=== PATIENT | male | born 1955 | race Caucasian/White ===

== ENCOUNTER 2020-11-15 20:05 | Inpatient (IN) | payer MEDICARE, BC ==
--- NOTE | 2020-11-15 21:06 | ED ---
General Adult HPI - General Chief complaint: Extremity Problem,Nontraumatic Stated complaint: Leg swelling, poss uti Time Seen by Provider: 11/15/20 20:14 Source: patient Mode of arrival: wheelchair Limitations: no limitations - History of Present Illness Initial comments: 65 year-old male patient presents to the emergency department today for evaluation of frequency of urination, weakness, and leg swelling. He states he has been having increasing difficulty with these symptoms for the last three weeks. States over the last 3 days the urination has gotten worse. States he feels the urge to urinate almost constantly. States he does have a bitter taste in his mouth and no appetite. Denies any fever or chills. Denies any cough or congestion. Patient denies any recent rash, cough, shortness of breath, chest pain, abdominal pain, diarrhea, constipation, back pain, numbness, tingling, dizziness, weakness, headache, visual changes, or any other complaints. - Related Data Home Medications Medication Instructions Recorded Confirmed Tamsulosin HCl [Flomax] 0.4 mg PO HS 02/04/16 11/15/20 gemfibroziL [Lopid] 600 mg PO DAILY 02/04/16 11/15/20 ALPRAZolam [Xanax] 0.25 mg PO Q8H PRN 11/15/20 11/15/20 Losartan Potassium 100 mg PO DAILY 11/15/20 11/15/20 atenoloL [Tenormin] 25 mg PO BID 11/15/20 11/15/20 traMADol HCL 50 mg PO Q8H PRN 11/15/20 11/15/20 Allergies Allergy/AdvReac Type Severity Reaction Status Date / Time No Known Allergies Allergy Verified 11/15/20 21:12 Review of Systems ROS Statement: Those systems with pertinent positive or pertinent negative responses have been documented in the HPI. ROS Other: All systems not noted in ROS Statement are negative. Past Medical History Past Medical History: Hypertension, Prostate Disorder Additional Past Medical History / Comment(s): dehydration, low B/P, kidney problem that was fixed with fluids and sodium was low. Additional hx: BPH, DDD-cervical pain, R/L hand fingers tingling if over used, AGE 18 FX RT FEMUR IN 4 PLACES HAD PLATE/SCEWS-SINCE REMOVED, HAS OPIOD INDUCED CONSTIPATION, TINNITUS bilaterally but pt has noticed it has decreased since he quit smoking, hay fever. History of Any Multi-Drug Resistant Organisms: None Reported Past Surgical History: No Surgical Hx Reported, Joint Replacement, Orthopedic Surgery Additional Past Surgical History / Comment(s): bilateral CATARACTS, ANT CERVICAL DISCECTOMY/FUSION C4,5,6,7 USING CADAVOR BONE. LT HYDROCELE, LT CARPAL TUNNEL, RT FEMUR SX METAL SINCE REMOVED, COLONOSCOPY, CYSTS REMOVED FROM FOREHEAD,BUTTOCKS,;T ORIENTAL ORTHODOX. PROSTATE BX X2-BENIGN, partial R knee replacement. Past Anesthesia/Blood Transfusion Reactions: No Reported Reaction Past Psychological History: No Psychological Hx Reported Smoking Status: Current every day smoker Past Alcohol Use History: Daily Past Drug Use History: None Reported - Past Family History Father Family Medical History: COPD, Dementia Additional Family Medical History / Comment(s): Father at age 84yrs. Mother Family Medical History: Cancer, COPD Additional Family Medical History / Comment(s): NASAL/THROAT CANCER. Mother di ed at age 82 General Exam Limitations: no limitations General appearance: alert, in no apparent distress, other (Physical well-developed, well-nourished adult male patient in no acute distress. Vital signs upon presentation are temperature 98.0F, pulse 92, respirations 18 blood pressure 116/72, pulse ox 100% on room air.) Eye exam: Present: normal appearance, PERRL, EOMI. Absent: scleral icterus, conjunctival injection, periorbital swelling Respiratory exam: Present: normal lung sounds bilaterally. Absent: respiratory distress, wheezes, rales, rhonchi, stridor Cardiovascular Exam: Present: regular rate, normal rhythm, normal heart sounds. Absent: systolic murmur, diastolic murmur, rubs, gallop, clicks GI/Abdominal exam: Present: soft, normal bowel sounds. Absent: distended, tenderness, guarding, rebound, rigid Extremities exam: Present: full ROM, normal capillary refill, other (Edema of the ankles and feet, 2+ pitting). Absent: tenderness, pedal edema, joint swelling, calf tenderness Neurological exam: Present: alert, oriented X3, CN II-XII intact Psychiatric exam: Present: normal affect, normal mood Skin exam: Present: warm, dry, intact, normal color. Absent: rash Course Vital Signs 11/15/20 11/15/20 11/15/20 20:07 21:11 22:00 Temperature 98.0 F Pulse Rate 92 87 80 Respiratory 18 19 19 Rate Blood Pressure 116/72 109/58 115/56 O2 Sat by Pulse 100 97 99 Oximetry 11/15/20 22:58 Temperature Pulse Rate 85 Respiratory 20 Rate Blood Pressure 115/62 O2 Sat by Pulse 99 Oximetry Medical Decision Making - Medical Decision Making 65-year-old male patient presents to the emergency department today for evaluation of urinary frequency and suprapubic discomfort. He is also reporting lower extremity swelling, general malaise, no appetite. Denied fever or chills. Bladder scan was obtained postvoid residual showed greater than 999 mL in the bladder. We did insert a Epps catheter he had 2500 mL of output in the emergency department. Labs reviewed and did reveal elevated white blood cell count at 25,000. He also had increased BUN and creatinine consistent with acute kidney injury most likely post renal due to obstruction. He did have evidence for urinary tract infection. We did start Rocephin IV. Covid swab was sent. He'll be admitted to the hospital for further evaluation and monitoring. He is agreeable this plan. - Lab Data Result diagrams: 11/15/20 21:13 11/15/20 21:13 Lab Results 11/15/20 11/15/20 11/15/20 Range/Units 21:13 21:13 21:13 WBC 25.6 H (3.8-10.6) k/uL RBC 3.85 L (4.30-5.90) m/uL Hgb 12.2 L (13.0-17.5) gm/dL Hct 37.9 L (39.0-53.0) % MCV 98.4 (80.0-100.0) fL MCH 31.8 (25.0-35.0) pg MCHC 32.3 (31.0-37.0) g/dL RDW 14.1 (11.5-15.5) % Plt Count 97 L (150-450) k/uL MPV 10.6 Neutrophils % 96 % Lymphocytes % 2 % Monocytes % 2 % Eosinophils % 0 % Basophils % 0 % Neutrophils # 24.4 H (1.3-7.7) k/uL Lymphocytes # 0.5 L (1.0-4.8) k/uL Monocytes # 0.5 (0-1.0) k/uL Eosinophils # 0.1 (0-0.7) k/uL Basophils # 0.1 (0-0.2) k/uL Sodium 132 L (137-145) mmol/L Potassium 3.6 (3.5-5.1) mmol/L Chloride 107 (98-107) mmol/L Carbon Dioxide 16 L (22-30) mmol/L Anion Gap 9 mmol/L BUN 83 H (9-20) mg/dL Creatinine 3.47 H (0.66-1.25) mg/dL Est GFR (CKD-EPI)AfAm 20 (>60 ml/min/1.73 sqM) Est GFR (CKD-EPI)NonAf 17 (>60 ml/min/1.73 sqM) Glucose 103 H (74-99) mg/dL Plasma Lactic Acid Drake (0.7-2.0) mmol/L Calcium 8.4 (8.4-10.2) mg/dL Magnesium 1.5 L (1.6-2.3) mg/dL Total Bilirubin 1.9 H (0.2-1.3) mg/dL AST 36 (17-59) U/L ALT 26 (4-49) U/L Alkaline Phosphatase 87 (38-126) U/L Total Protein 5.7 L (6.3-8.2) g/dL Albumin 2.4 L (3.5-5.0) g/dL Urine Color Yellow Urine Appearance Turbid (Clear) Urine pH 6.0 (5.0-8.0) Ur Specific [place] 1.012 (1.001-1.035) Urine Protein 1+ H (Negative) Urine Glucose (UA) Negative (Negative) Urine Ketones Negative (Negative) Urine Blood Moderate H (Negative) Urine Nitrite Negative (Negative) Urine Bilirubin Negative (Negative) Urine Urobilinogen <2.0 (<2.0) mg/dL Ur Leukocyte Esterase Large H (Negative) Urine RBC 23 H (0-5) /hpf Urine WBC >182 H (0-5) /hpf Urine WBC Clumps Many H (None) /hpf Ur Squamous Epith Cells 5 H (0-4) /hpf Urine Bacteria Many H (None) /hpf 12/24/20 Range/Units 22:02 WBC (3.8-10.6) k/uL RBC (4.30-5.90) m/uL Hgb (13.0-17.5) gm/dL Hct (39.0-53.0) % MCV (80.0-100.0) fL MCH (25.0-35.0) pg MCHC (31.0-37.0) g/dL RDW (11.5-15.5) % Plt Count (150-450) k/uL MPV Neutrophils % % Lymphocytes % % Monocytes % % Eosinophils % % Basophils % % Neutrophils # (1.3-7.7) k/uL Lymphocytes # (1.0-4.8) k/uL Monocytes # (0-1.0) k/uL Eosinophils # (0-0.7) k/uL Basophils # (0-0.2) k/uL Sodium (137-145) mmol/L Potassium (3.5-5.1) mmol/L Chloride (98-107) mmol/L Carbon Dioxide (22-30) mmol/L Anion Gap mmol/L BUN (9-20) mg/dL Creatinine (0.66-1.25) mg/dL Est GFR (CKD-EPI)AfAm (>60 ml/min/1.73 sqM) Est GFR (CKD-EPI)NonAf (>60 ml/min/1.73 sqM) Glucose (74-99) mg/dL Plasma Lactic Acid Drake 1.4 (0.7-2.0) mmol/L Calcium (8.4-10.2) mg/dL Magnesium (1.6-2.3) mg/dL Total Bilirubin (0.2-1.3) mg/dL AST (17-59) U/L ALT (4-49) U/L Alkaline Phosphatase (38-126) U/L Total Protein (6.3-8.2) g/dL Albumin (3.5-5.0) g/dL Urine Color Urine Appearance (Clear) Urine pH (5.0-8.0) Ur Specific [place] (1.001-1.035) Urine Protein (Negative) Urine Glucose (UA) (Negative) Urine Ketones (Negative) Urine Blood (Negative) Urine Nitrite (Negative) Urine Bilirubin (Negative) Urine Urobilinogen (<2.0) mg/dL Ur Leukocyte Esterase (Negative) Urine RBC (0-5) /hpf Urine WBC (0-5) /hpf Urine WBC Clumps (None) /hpf Ur Squamous Epith Cells (0-4) /hpf Urine Bacteria (None) /hpf - Radiology Data Radiology results: report reviewed, image reviewed Two-view x-ray of the chest is obtained. Report was reviewed in its entirety. Impression by Dr. Johnston shows no acute cardio pulmonary process. Disposition Clinical Impression: Urinary retention, UTI (urinary tract infection), Acute kidney injury, Leukocytosis Disposition: ADMITTED IP TO THIS [facility] Condition: Serious Decision to Admit Reason: Admit from EC Decision Date: 11/15/20 Decision Time: 22:58
[2020-11-15 21:36] LABS: Appearance,Urine Turbid (Clear); Bacteria,Urine Many /hpf; Bilirubin,Urine Negative (Negative); Blood,Urine Moderate (Negative); Color,Urine Yellow; Glucose,Urine (UA) Negative (Negative); Ketones,Urine Negative (Negative); Leukocyte Esterase,Urine Large (Negative); Nitrite,Urine Negative (Negative); Protein,Urine 1+ (Negative); RBC,Urine 23 /hpf (0-5); Squamous Epithelial Cell,Urine 5 /hpf (0-4); Urobilinogen,Urine <2.0 mg/dL (<2.0); WBC,Urine >182 /hpf (0-5)
[2020-11-15 21:38] LABS: Specific Gravity,Urine 1.012 (1.001-1.035)
[2020-11-15 21:40] LABS: Basophils # (A) 0.1 k/uL (0-0.2); Basophils % (A) 0 %; Eosinophils # (A) 0.1 k/uL (0-0.7); Eosinophils % (A) 0 %; HCT 37.9 % (39.0-53.0); HGB 12.2 gm/dL (13.0-17.5); Lymphocytes # (A) 0.5 k/uL (1.0-4.8); Lymphocytes % (A) 2 %; MCH 31.8 pg (25.0-35.0); MCHC 32.3 g/dL (31.0-37.0); MCV 98.4 fL (80.0-100.0); Mean Platelet Volume 10.6; Monocytes # (A) 0.5 k/uL (0-1.0); Monocytes % (A) 2 %; Neutrophils # (A) 24.4 k/uL (1.3-7.7); Neutrophils % (A) 96 %; Platelet Count 97 k/uL (150-450); RBC 3.85 m/uL (4.30-5.90); RDW 14.1 % (11.5-15.5); WBC 25.6 k/uL (3.8-10.6)
[2020-11-15 21:55] LABS: Albumin 2.4 g/dL (3.5-5.0); Calcium 8.4 mg/dL (8.4-10.2); Magnesium 1.5 mg/dL (1.6-2.3); Potassium 3.6 mmol/L (3.5-5.1); Total Bilirubin 1.9 mg/dL (0.2-1.3); Total Protein 5.7 g/dL (6.3-8.2)
[2020-11-15] MEDS ORDERED: cefTRIAXone IN SWFI 1,000 MG/10 ML SYRINGE IVP STA (22:51)
[2020-11-15] MEDS ORDERED: ACETAMINOPHEN TAB 325 MG TAB PO PRN (22:53)
[2020-11-15] MEDS ORDERED: NALOXONE 0.4 MG/ML 1 ML VIAL IV PRN (22:53)
--- NOTE | 2020-11-15 23:16 | XR ---
EXAM: XR Chest, 2 Views CLINICAL HISTORY: ITS.REASON XR Reason: weak TECHNIQUE: Frontal and lateral views of the chest. COMPARISON: 02/18/2016 FINDINGS: Lungs: No consolidation or mass. Pleural space: No effusion. Heart: Upper limits of normal for size. Bones/joints: No acute findings. IMPRESSION: No acute cardiopulmonary process.
[2020-11-15] MEDS ORDERED: traMADol 50 MG TAB PO PRN (23:17)
[2020-11-15] MEDS: SODIUM CHLORIDE 0.9% 1,000 ML IV SCH (23:25)
[2020-11-15] MEDS ORDERED: ALPRAZolam 0.25 MG TAB PO PRN (23:45)
[2020-11-16 07:10] LABS: Potassium 2.8 mmol/L (3.5-5.1)
[2020-11-16 07:14] LABS: Basophils % (A) 0 %; Eosinophils % (A) 0 %; HCT 31.3 % (39.0-53.0); HGB 10.2 gm/dL (13.0-17.5); Lymphocytes % (A) 4 %; MCH 32.3 pg (25.0-35.0); MCHC 32.8 g/dL (31.0-37.0); MCV 98.6 fL (80.0-100.0); Mean Platelet Volume 11.4; Monocytes # (A) 0.8 k/uL (0-1.0); Monocytes % (A) 3 %; Neutrophils # (A) 24.7 k/uL (1.3-7.7); Neutrophils % (A) 92 %; RBC 3.17 m/uL (4.30-5.90); RDW 14.2 % (11.5-15.5); WBC 26.9 k/uL (3.8-10.6)
[2020-11-16] MEDS ORDERED: Potassium Replacement Protocol 1 EACH MISC MISCELLANE PRN (07:23)
[2020-11-16] MEDS: POTASSIUM CHLORIDE ER 20 MEQ TAB.ER PO SCH ×5 (07:33→15:43)
[2020-11-16] MEDS: FENOFIBRATE 160 MG TAB PO SCH (07:33)
[2020-11-16] MEDS: atenoloL 25 MG TAB PO SCH ×2 (07:33→20:12)
[2020-11-16 08:00] LABS: Anisocytosis (M) Present; Hypochromasia (M) Present; Platelet Count 88 k/uL (150-450); Poikilocytosis (M) Present
[2020-11-16] MEDS ORDERED: LOSARTAN 50 MG TAB PO SCH (09:00)
--- NOTE | 2020-11-16 10:25 | P.HPIM ---
History of Present Illness 65-year-old male came in with complaints of frequent urination. Patient has issues with the urination he only dribbles. Patient denied any dysuria denied any fever chills although patient is found to have significantly abnormal urine with large leukocyte esterase elevated white blood cell count and RBCs. Epps catheter was placed and patient was given Rocephin and subsequently admitted for UTI. Patient also has acute renal failure with creatinine going up to 3.4 came down to 2.9 after Epps catheter placement. Ultrasound of the kidney and the urinary bladder were ordered. Patient is already on Flomax at home and neurolo gy will be consulted. Nephrology will be consulted patient baseline creatinine is around 1. Patient does have leukocytosis. Review of Systems REVIEW OF SYSTEMS: CONSTITUTIONAL: No fever, no malaise, no fatigue. HEENT: No recent visual problems or hearing problems. Denied any sore throat. CARDIOVASCULAR: No chest pain, orthopnea, PND, no palpitations, no syncope. PULMONARY: No shortness of breath, no cough, no hemoptysis. GASTROINTESTINAL: No diarrhea, no nausea, no vomiting, no abdominal pain. NEUROLOGICAL: No headaches, no weakness, no numbness. HEMATOLOGICAL: Denies any bleeding or petechiae. GENITOURINARY: As mentioned in HPI MUSCULOSKELETAL/RHEUMATOLOGICAL: Denies any joint pain, swelling, or any muscle pain. ENDOCRINE: Denies any polyuria or polydipsia. The rest of the 14-point review of systems is negative. Past Medical History Past Medical History: Hypertension, Prostate Disorder Additional Past Medical History / Comment(s): dehydration, low B/P, kidney problem that was fixed with fluids and sodium was low. Additional hx: BPH, DDD-cervical pain, R/L hand fingers tingling if over used, AGE 18 FX RT FEMUR IN 4 PLACES HAD PLATE/SCEWS-SINCE REMOVED, HAS OPIOD INDUCED CONSTIPATION, TINNITUS bilaterally but pt has noticed it has decreased since he quit smoking, hay fever. History of Any Multi-Drug Resistant Organisms: None Reported Past Surgical History: No Surgical Hx Reported, Joint Replacement, Orthopedic Surgery Additional Past Surgical History / Comment(s): bilateral CATARACTS, ANT CERVICAL DISCECTOMY/FUSION C4,5,6,7 USING CADAVOR BONE. LT HYDROCELE, LT CARPAL TUNNEL, RT FEMUR SX METAL SINCE REMOVED, COLONOSCOPY, CYSTS REMOVED FROM FOREHEAD,BUTTOCKS,;T CONGREGATION. PROSTATE BX X2-BENIGN, partial R knee replacement. Past Anesthesia/Blood Transfusion Reactions: No Reported Reaction Past Psychological History: No Psychological Hx Reported Smoking Status: Current every day smoker Past Alcohol Use History: Daily Past Drug Use History: None Reported - Past Family History Father Family Medical History: COPD, Dementia Additional Family Medical History / Comment(s): Father at age 84yrs. Mother Family Medical History: Cancer, COPD Additional Family Medical History / Comment(s): NASAL/THROAT CANCER. Mother at age 82 Medications and Allergies Home Medications Medication Instructions Recorded Confirmed Type Tamsulosin HCl [Flomax] 0.4 mg PO HS 02/04/16 11/15/20 History gemfibroziL [Lopid] 600 mg PO DAILY 02/04/16 11/15/20 History ALPRAZolam [Xanax] 0.25 mg PO Q8H PRN 11/15/20 11/15/20 History Losartan Potassium 100 mg PO DAILY 11/15/20 11/15/20 History atenoloL [Tenormin] 25 mg PO BID 11/15/20 11/15/20 History traMADol HCL 50 mg PO Q8H PRN 11/15/20 11/15/20 History Allergies Allergy/AdvReac Type Severity Reaction Status Date / Time No Known Allergies Allergy Verified 11/15/20 21:12 Physical Exam Vitals: Vital Signs Temp Pulse Pulse Resp BP BP Pulse Ox 11/16/20 07:53 97.7 F 77 16 119/63 99 11/16/20 02:00 97.8 F 80 117/53 97 11/16/20 00:45 97.6 F 85 18 120/66 98 11/16/20 00:25 98.4 F 84 19 110/78 98 11/15/20 22:58 85 20 115/62 99 11/15/20 22:00 80 19 115/56 99 11/15/20 21:11 87 19 109/58 97 11/15/20 20:07 98.0 F 92 18 116/72 100 Intake and Output 11/15/20 11/16/20 11/16/20 22:59 06:59 14:59 Intake Total 200 Output Total 999 2800 Balance -999 -2800 200 Intake: Oral 200 Output: Urine 2800 Post Void Residual 999 Other: Voiding Method Indwelling Catheter Weight 83.915 kg 82 kg PHYSICAL EXAMINATION: GENERAL: The patient is alert and oriented x3, not in any acute distress. Well developed, well nourished. HEENT: Pupils are round and equally reacting to light. EOMI. No scleral icterus. No conjunctival pallor. Normocephalic, atraumatic. No pharyngeal erythema. No thyromegaly. CARDIOVASCULAR: S1 and S2 present. No murmurs, rubs, or gallops. PULMONARY: Chest is clear to auscultation, no wheezing or crackles. ABDOMEN: Soft, nontender, nondistended, normoactive bowel sounds. No palpable organomegaly. MUSCULOSKELETAL: No joint swelling or deformity. EXTREMITIES: No cyanosis, clubbing, or pedal edema. NEUROLOGICAL: Gross neurological examination did not reveal any focal deficits. SKIN: No rashes. Results CBC & Chem 7: 11/16/20 06:41 11/16/20 06:41 Labs: Abnormal Lab Results - Last 24 Hours (Table) 11/15/20 11/15/20 11/15/20 Range/Units 21:13 21:13 21:13 WBC 25.6 H (3.8-10.6) k/uL RBC 3.85 L (4.30-5.90) m/uL Hgb 12.2 L (13.0-17.5) gm/dL Hct 37.9 L (39.0-53.0) % Plt Count 97 L (150-450) k/uL Neutrophils # 24.4 H (1.3-7.7) k/uL Lymphocytes # 0.5 L (1.0-4.8) k/uL Sodium 132 L (137-145) mmol/L Potassium (3.5-5.1) mmol/L Chloride (98-107) mmol/L Carbon Dioxide 16 L (22-30) mmol/L BUN 83 H (9-20) mg/dL Creatinine 3.47 H (0.66-1.25) mg/dL Glucose 103 H (74-99) mg/dL Calcium (8.4-10.2) mg/dL Magnesium 1.5 L (1.6-2.3) mg/dL Total Bilirubin 1.9 H (0.2-1.3) mg/dL Total Protein 5.7 L (6.3-8.2) g/dL Albumin 2.4 L (3.5-5.0) g/dL Urine Protein 1+ H (Negative) Urine Blood Moderate H (Negative) Ur Leukocyte Esterase Large H (Negative) Urine RBC 23 H (0-5) /hpf Urine WBC >182 H (0-5) /hpf Urine WBC Clumps Many H (None) /hpf Ur Squamous Epith Cells 5 H (0-4) /hpf Urine Bacteria Many H (None) /hpf 11/16/20 11/16/20 Range/Units 06:41 06:41 WBC 26.9 H (3.8-10.6) k/uL RBC 3.17 L (4.30-5.90) m/uL Hgb 10.2 L (13.0-17.5) gm/dL Hct 31.3 L (39.0-53.0) % Plt Count 88 L (150-450) k/uL Neutrophils # 24.7 H (1.3-7.7) k/uL Lymphocytes # (1.0-4.8) k/uL Sodium 134 L (137-145) mmol/L Potassium 2.8 L (3.5-5.1) mmol/L Chloride 110 H (98-107) mmol/L Carbon Dioxide 15 L (22-30) mmol/L BUN 73 H (9-20) mg/dL Creatinine 2.92 H (0.66-1.25) mg/dL Glucose 123 H (74-99) mg/dL Calcium 8.0 L (8.4-10.2) mg/dL Magnesium (1.6-2.3) mg/dL Total Bilirubin (0.2-1.3) mg/dL Total Protein (6.3-8.2) g/dL Albumin (3.5-5.0) g/dL Urine Protein (Negative) Urine Blood (Negative) Ur Leukocyte Esterase (Negative) Urine RBC (0-5) /hpf Urine WBC (0-5) /hpf Urine WBC Clumps (None) /hpf Ur Squamous Epith Cells (0-4) /hpf Urine Bacteria (None) /hpf Thrombosis Risk Factor Assmnt - Choose All That Apply Each Factor Represents 1 point: Obesity (BMI >25), Swollen legs (current) Each Risk Factor Represents 2 Points: Age 61-74 years Thrombosis Risk Factor Assessment Total Risk Factor Score: 4 Thrombosis Risk Factor Assessment Level: Moderate Risk Assessment and Plan Plan: -Urinary tract infection: Probably secondary to prostatic hypertrophy or prostatic issues and urinary retention. Patient will be continued on Rocephin awaiting urine cultures -Acute renal failure secondary to obstructive uropathy awaiting ultrasound kidney and urinary bladder continue with Epps catheter urology was consulted, nephrology was consulted. -Non-anion gap metabolic acidosis secondary to acute renal failure and hyperkalemia -Hypomagnesemia magnesium will be replaced -Hypertension patient blood pressure is low normal at this time and the atenolol will be continued losartan will be held because of acute renal failure -DVT prophylaxis with subcutaneous heparin
--- NOTE | 2020-11-16 10:35 | US ---
EXAM: US Retroperitoneal Limited, Renal CLINICAL HISTORY: ITS.REASON US Reason: arf TECHNIQUE: Real-time limited ultrasound of the retroperitoneum with image documentation. COMPARISON: No relevant prior studies available. FINDINGS: Right kidney: Right kidney measures 12.5 x 6.8 cm. No stones. No hydronephrosis. Left kidney: Left kidney measures 12.6 x 6.3 cm. No stones. No hydronephrosis. Bladder: Thickened bladder wall likely due to under distention. Epps catheter in decompressed bladder. Other findings: No shadowing calculus. IMPRESSION: No hydronephrosis or shadowing stone. Epps catheter in decompressed bladder
--- NOTE | 2020-11-16 11:40 | P.NPCON ---
History of Present Illness - Reason for Consult Consult date: 11/16/20 acute renal failure - Chief Complaint Acute kidney injury - History of Present Illness This is a 65-year-old male seen in consultation regarding acute kidney injury from outlet obstruction. He is improving with the Epps catheter He came in because of worsening edema and dribbling of urine. He is known with prostatism in the past has not had any surgery. He denies any fever chills but did notice some swelling of his legs He has lost his appetite as well as few days Other than this he is known with hypertension, hyperlipidemia, pain on his Cervical spine, surgery on his cervical spine carpal tunnel syndrome. His home medications included Flomax Lopid Xanax losartan atenolol and tramadol Past Medical History Past Medical History: Hypertension, Prostate Disorder Additional Past Medical History / Comment(s): dehydration, low B/P, kidney problem that was fixed with fluids and sodium was low. Additional hx: BPH, DD D-cervical pain, R/L hand fingers tingling if over used, AGE 18 FX RT FEMUR IN 4 PLACES HAD PLATE/SCEWS-SINCE REMOVED, HAS OPIOD INDUCED CONSTIPATION, TINNITUS bilaterally but pt has noticed it has decreased since he quit smoking, hay fever. History of Any Multi-Drug Resistant Organisms: None Reported Past Surgical History: No Surgical Hx Reported, Joint Replacement, Orthopedic Surgery Additional Past Surgical History / Comment(s): bilateral CATARACTS, ANT CERVICAL DISCECTOMY/FUSION C4,5,6,7 USING CADAVOR BONE. LT HYDROCELE, LT CARPAL TUNNEL, RT FEMUR SX METAL SINCE REMOVED, COLONOSCOPY, CYSTS REMOVED FROM FOREHEAD,BU TTOCKS,;T RASTAFARIAN. PROSTATE BX X2-BENIGN, partial R knee replacement. Past Anesthesia/Blood Transfusion Reactions: No Reported Reaction Past Psychological History: No Psychological Hx Reported Smoking Status: Current every day smoker Past Alcohol Use History: Daily Past Drug Use History: None Reported - Past Family History Father Family Medical History: COPD, Dementia Additional Family Medical History / Comment(s): Father at age 84yrs. Mother Family Medical History: Cancer, COPD Additional Family Medical History / Comment(s): NASAL/THROAT CANCER. Mother at age 82 Medications and Allergies Home Medications Medication Instructions Recorded Confirmed Type Tamsulosin HCl [Flomax] 0.4 mg PO HS 02/04/16 11/15/20 History gemfibroziL [Lopid] 600 mg PO DAILY 02/04/16 11/15/20 History ALPRAZolam [Xanax] 0.25 mg PO Q8H PRN 11/15/20 11/15/20 History Losartan Potassium 100 mg PO DAILY 11/15/20 11/15/20 History atenoloL [Tenormin] 25 mg PO BID 11/15/20 11/15/20 History traMADol HCL 50 mg PO Q8H PRN 11/15/20 11/15/20 History Allergies Allergy/AdvReac Type Severity Reaction Status Date / Time No Known Allergies Allergy Verified 11/15/20 21:12 Physical Exam Vitals: Vital Signs Temp Pulse Pulse Resp BP BP Pulse Ox 11/16/20 07:53 97.7 F 77 16 119/63 99 11/16/20 02:00 97.8 F 80 117/53 97 11/16/20 00:45 97.6 F 85 18 120/66 98 11/16/20 00:25 98.4 F 84 19 110/78 98 11/15/20 22:58 85 20 115/62 99 11/15/20 22:00 80 19 115/56 99 11/15/20 21:11 87 19 109/58 97 11/15/20 20:07 98.0 F 92 18 116/72 100 Intake and Output 11/15/20 11/16/20 11/16/20 22:59 06:59 14:59 Intake Total 200 Output Total 999 2800 Balance -999 -2800 200 Intake: Oral 200 Output: Urine 2800 Post Void Residual 999 Other: Voiding Method Indwelling Catheter Weight 83.915 kg 82 kg On exam he is awake alert oriented comfortable HEENT exam no JVP neck is supple no facial asymmetry Lungs clear to auscultation good air entry bilaterally Heart sounds unremarkable for any murmur rub gallop Abdomen soft nontender Extremity exam reveals recent edema Neurologically awake alert oriented comfortable Results - Lab Results Most recent lab results Calcium 8.0 mg/dL (8.4-10.2) L 11/16/20 06:41 Magnesium 1.5 mg/dL (1.6-2.3) L 11/15/20 21:13 11/16/20 06:41 11/16/20 06:41 Assessment and Plan Assessment: Impression 1. Acute kidney injury secondary to outlet obstruction, improved with Epps catheter with large amount of urine output, his urine output has been 4 L almost. Creatinine was 3.47 on admission yesterday and is already down to 2.90. Previous creatinine was 1 on 08/06/2020 2. Mild degree of hyponatremia secondary acute kidney injury sodium was 132 improved to 134 3. Hypokalemia scan to saline diuresis. Potassium was 3.6 on admission is down to 2.8 mEq 4. Non-gap acidosis from RTA 5. History of hypertension Recommendation 1. Replace potassium evening about 100 mEq, 20 mg every 12 hours for 5 doses 2. Start sodium bicarb by mouth 650 4 times a day 3. Maintain IV fluids normal saline at 75 an hour. 4. Repeat labs tomorrow Thank you for this consultation and will continue to follow
--- NOTE | 2020-11-16 11:42 | P.GSCN ---
History of Present Illness Consult date: 11/16/20 Reason for Consult: UTIurinary retention History of present illness: Mr. Frank is a 65-year-old male admitted to the hospital with a UTI. He has a long standing history of BPH and currently is on Flomax. He indicated for the past 4 months he's been having dysuria, frequency and trouble emptying his bladder. He indicated at baseline he does have difficulty voiding, but his symptoms have progressively worsen over the past 4 months. Denies any gross hematuria or flank pain. In the emergency room a Epps catheter was placed and 1.3 L of urine was obtained. Renal ultrasound showed no hydronephrosis. Review of Systems - Constitutional Denies fever, Denies weight loss - Respiratory Denies cough, Denies 7 - Genitourinary Reports dysuria, Reports nocturia, Reports urinary frequency, Reports urinary hesitancy, Reports urinary retention, Denies flank pain, Denies hematuria - Neurological Denies headaches, Denies syncope Past Medical History Past Medical History: Hypertension, Prostate Disorder Additional Past Medical History / Comment(s): dehydration, low B/P, kidney problem that was fixed with fluids and sodium was low. Additional hx: BPH, DDD-cervical pain, R/L hand fingers tingling if over used, AGE 18 FX RT FEMUR IN 4 PLACES HAD PLATE/SCEWS-SINCE REMOVED, HAS OPIOD INDUCED CONSTIPATION, TINNITUS bilaterally but pt has noticed it has decreased since he quit smoking, hay fever. History of Any Multi-Drug Resistant Organisms: None Reported Past Surgical History: No Surgical Hx Reported, Joint Replacement, Orthopedic Surgery Additional Past Surgical History / Comment(s): bilateral CATARACTS, ANT CERVICAL DISCECTOMY/FUSION C4,5,6,7 USING CADAVOR BONE. LT HYDROCELE, LT CARPAL TUNNEL, RT FEMUR SX METAL SINCE REMOVED, COLONOSCOPY, CYSTS REMOVED FROM FOREHEAD,BUTTOCKS,;T EPISCOPAL. PROSTATE BX X2-BENIGN, partial R knee replacement. Past Anesthesia/Blood Transfusion Reactions: No Reported Reaction Past Psychological History: No Psychological Hx Reported Smoking Status: Current every day smoker Past Alcohol Use History: Daily Past Drug Use History: None Reported - Past Family History Father Family Medical History: COPD, Dementia Additional Family Medical History / Comment(s): Father at age 84yrs. Mother Family Medical History: Cancer, COPD Additional Family Medical History / Comment(s): NASAL/THROAT CANCER. Mother at age 82 Medications and Allergies Home Medications Medication Instructions Recorded Confirmed Type Tamsulosin HCl [Flomax] 0.4 mg PO HS 02/04/16 11/15/20 History gemfibroziL [Lopid] 600 mg PO DAILY 02/04/16 11/15/20 History ALPRAZolam [Xanax] 0.25 mg PO Q8H PRN 11/15/20 11/15/20 History Losartan Potassium 100 mg PO DAILY 11/15/20 11/15/20 History atenoloL [Tenormin] 25 mg PO BID 11/15/20 11/15/20 History traMADol HCL 50 mg PO Q8H PRN 11/15/20 11/15/20 History Allergies Allergy/AdvReac Type Severity Reaction Status Date / Time No Known Allergies Allergy Verified 11/15/20 21:12 Surgical - Exam Vital Signs Temp Pulse Resp BP Pulse Ox 98.0 F 92 18 116/72 100 11/15/20 20:07 11/15/20 20:07 11/15/20 20:07 11/15/20 20:07 11/15/20 20:07 - General well developed, well nourished, no distress, no pain - Eyes PERRL, normal ocular movement - ENT normal nares, normal mucosa - Respiratory normal expansion, normal respiratory effort - Abdomen Abdomen: soft, non tender - Psychiatric oriented to time, oriented to person, oriented to place, speech is normal Results - Labs 11/16/20 06:41 11/16/20 06:41 Abnormal Lab Results - Last 24 Hours (Table) 11/15/20 11/15/20 11/15/20 Range/Units 21:13 21:13 21:13 WBC 25.6 H (3.8-10.6) k/uL RBC 3.85 L (4.30-5.90) m/uL Hgb 12.2 L (13.0-17.5) gm/dL Hct 37.9 L (39.0-53.0) % Plt Count 97 L (150-450) k/uL Neutrophils # 24.4 H (1.3-7.7) k/uL Lymphocytes # 0.5 L (1.0-4.8) k/uL Sodium 132 L (137-145) mmol/L Potassium (3.5-5.1) mmol/L Chloride (98-107) mmol/L Carbon Dioxide 16 L (22-30) mmol/L BUN 83 H (9-20) mg/dL Creatinine 3.47 H (0.66-1.25) mg/dL Glucose 103 H (74-99) mg/dL Calcium (8.4-10.2) mg/dL Magnesium 1.5 L (1.6-2.3) mg/dL Total Bilirubin 1.9 H (0.2-1.3) mg/dL Total Protein 5.7 L (6.3-8.2) g/dL Albumin 2.4 L (3.5-5.0) g/dL Urine Protein 1+ H (Negative) Urine Blood Moderate H (Negative) Ur Leukocyte Esterase Large H (Negative) Urine RBC 23 H (0-5) /hpf Urine WBC >182 H (0-5) /hpf Urine WBC Clumps Many H (None) /hpf Ur Squamous Epith Cells 5 H (0-4) /hpf Urine Bacteria Many H (None) /hpf 11/16/20 11/16/20 Range/Units 06:41 06:41 WBC 26.9 H (3.8-10.6) k/uL RBC 3.17 L (4.30-5.90) m/uL Hgb 10.2 L (13.0-17.5) gm/dL Hct 31.3 L (39.0-53.0) % Plt Count 88 L (150-450) k/uL Neutrophils # 24.7 H (1.3-7.7) k/uL Lymphocytes # (1.0-4.8) k/uL Sodium 134 L (137-145) mmol/L Potassium 2.8 L (3.5-5.1) mmol/L Chloride 110 H (98-107) mmol/L Carbon Dioxide 15 L (22-30) mmol/L BUN 73 H (9-20) mg/dL Creatinine 2.92 H (0.66-1.25) mg/dL Glucose 123 H (74-99) mg/dL Calcium 8.0 L (8.4-10.2) mg/dL Magnesium (1.6-2.3) mg/dL Total Bilirubin (0.2-1.3) mg/dL Total Protein (6.3-8.2) g/dL Albumin (3.5-5.0) g/dL Urine Protein (Negative) Urine Blood (Negative) Ur Leukocyte Esterase (Negative) Urine RBC (0-5) /hpf Urine WBC (0-5) /hpf Urine WBC Clumps (None) /hpf Ur Squamous Epith Cells (0-4) /hpf Urine Bacteria (None) /hpf Microbiology - Last 24 Hours (Table) 11/15/20 21:13 Urine Culture - Preliminary Urine,Voided Diabetes panel 11/15/20 11/16/20 Range/Units 21:13 06:41 Sodium 132 L 134 L (137-145) mmol/L Potassium 3.6 2.8 L (3.5-5.1) mmol/L Chloride 107 110 H (98-107) mmol/L Carbon Dioxide 16 L 15 L (22-30) mmol/L BUN 83 H 73 H (9-20) mg/dL Creatinine 3.47 H 2.92 H (0.66-1.25) mg/dL Glucose 103 H 123 H (74-99) mg/dL Calcium 8.4 8.0 L (8.4-10.2) mg/dL AST 36 (17-59) U/L ALT 26 (4-49) U/L Alkaline Phosphatase 87 (38-126) U/L Total Protein 5.7 L (6.3-8.2) g/dL Albumin 2.4 L (3.5-5.0) g/dL Calcium panel 11/15/20 11/16/20 Range/Units 21:13 06:41 Calcium 8.4 8.0 L (8.4-10.2) mg/dL Albumin 2.4 L (3.5-5.0) g/dL Pituitary panel 11/15/20 11/16/20 Range/Units 21:13 06:41 Sodium 132 L 134 L (137-145) mmol/L Potassium 3.6 2.8 L (3.5-5.1) mmol/L Chloride 107 110 H (98-107) mmol/L Carbon Dioxide 16 L 15 L (22-30) mmol/L BUN 83 H 73 H (9-20) mg/dL Creatinine 3.47 H 2.92 H (0.66-1.25) mg/dL Glucose 103 H 123 H (74-99) mg/dL Calcium 8.4 8.0 L (8.4-10.2) mg/dL Adrenal panel 11/15/20 11/16/20 Range/Units 21:13 06:41 Sodium 132 L 134 L (137-145) mmol/L Potassium 3.6 2.8 L (3.5-5.1) mmol/L Chloride 107 110 H (98-107) mmol/L Carbon Dioxide 16 L 15 L (22-30) mmol/L BUN 83 H 73 H (9-20) mg/dL Creatinine 3.47 H 2.92 H (0.66-1.25) mg/dL Glucose 103 H 123 H (74-99) mg/dL Calcium 8.4 8.0 L (8.4-10.2) mg/dL Total Bilirubin 1.9 H (0.2-1.3) mg/dL AST 36 (17-59) U/L ALT 26 (4-49) U/L Alkaline Phosphatase 87 (38-126) U/L Total Protein 5.7 L (6.3-8.2) g/dL Albumin 2.4 L (3.5-5.0) g/dL Assessment and Plan Assessment: 65-year-old male admitted to the hospital with a UTI and urinary retention, had 1.3 L in his bladder. Has long-standing history of BPH, but symptoms have signi ficantly worsened over the last 4 months Plan: -Follow up on urine cultures, antibiotics based on culture sensitivities -If patient WBC count continues to trend upward then we'll consider getting a CT abdomen and pelvis. -Continue Flomax, recommend he keep the catheter in for 10 days, he can follow- up as an outpatient for a trial of void. Discussed with him given his long- standing symptoms and the volume of his retention, he will most likely require surgical intervention to address his urinary issues. This will be set up for him as an outpatient.
[2020-11-16] MEDS: SODIUM CHLORIDE 0.9% 1,000 ML IV SCH ×2 (13:48→23:01)
[2020-11-16] MEDS: SODIUM BICARBONATE TAB 650 MG TAB PO SCH ×3 (15:43→20:12)
[2020-11-16] MEDS: HEPARIN SODIUM,PORCINE 5,000 UNIT/ML 1 ML VIAL SQ SCH ×2 (15:44→23:01)
[2020-11-16] MEDS: TAMSULOSIN 0.4 MG CAP.ER.24H PO SCH (20:12)
[2020-11-17 06:32] LABS: HGB 10.1 gm/dL (13.0-17.5); MCH 33.3 pg (25.0-35.0); MCHC 33.6 g/dL (31.0-37.0); Mean Platelet Volume 11.9; RBC 3.03 m/uL (4.30-5.90); RDW 13.9 % (11.5-15.5); WBC 16.1 k/uL (3.8-10.6)
[2020-11-17 06:37] LABS: Platelet Count 81 k/uL (150-450)
[2020-11-17] MEDS: HEPARIN SODIUM,PORCINE 5,000 UNIT/ML 1 ML VIAL SQ SCH ×3 (08:35→23:17)
[2020-11-17] MEDS: FENOFIBRATE 160 MG TAB PO SCH (08:35)
[2020-11-17] MEDS: atenoloL 25 MG TAB PO SCH ×2 (08:35→20:01)
[2020-11-17] MEDS: SODIUM BICARBONATE TAB 650 MG TAB PO SCH ×4 (08:35→20:01)
[2020-11-17 09:42] LABS: African American GFR (CKD) 47.6 (60.0-200.0); Anion Gap 4.9 mmol/L (4.00-12.00); BUN/Creat Ratio 28.82 Ratio (12.00-20.00); Calcium 7.8 mg/dL (8.7-10.3); Carbon Dioxide 18.1 mmol/L (21.6-31.8); Non-African American GFR(CKD) 41.1 (60.0-200.0)
[2020-11-17] MEDS ORDERED: Potassium Replacement Protocol 1 EACH MISC MISCELLANE PRN (10:10)
[2020-11-17] MEDS: MAGNESIUM SULFATE-D5W PMX 1 GM in DEXTROSE/WATER 1 100ML.BAG IVPB SCH ×3 (10:31→12:40)
[2020-11-17] MEDS: POTASSIUM CHLORIDE ER 20 MEQ TAB.ER PO SCH ×2 (10:31→11:38)
--- NOTE | 2020-11-17 10:34 | P.PN ---
Subjective Patient is a 65-year-old male admitted for urinary tract infection secondary to benign prostatic hypertrophy, urinary retention. Patient later found to be bacteremic with gram-negative bacilli patient is being continued on Rocephin. Patient creatinine improved 1.7 a Epsp catheter placement ultrasound of the kidney did not show any hydronephrosis bladder distention resolved after Epps catheter placement. Neurology evaluated the patient is recommending creation of 40 10 days and patient may end up needing surgical intervention down the line. Patient potassium is 3.0 which will be replaced patient is receiving IV fluids at this time. We'll repeat the blood cultures today and tomorrow. Patient is feeling quite a bit better and wanted to go home leukocytosis improved. Constitutional: Denied any fatigue denied any fever. Cardio vascular: denied any chest pain, palpitations Gastrointestinal denied any nausea vomiting Pulmonary: Denied any shortness of breath cough Neurologic denied any new focal deficits All inpatient medications were reviewed and appropriate changes in these medications as dictated in the interval history and assessment and plan. Objective - Vital Signs Vital signs: Vital Signs Temp 97.4 F L 11/17/20 08:00 Pulse 67 11/17/20 08:00 Resp 16 11/17/20 08:00 BP 130/66 11/17/20 08:00 Pulse Ox 98 11/17/20 08:00 Intake & Output 11/16/20 11/17/20 11/17/20 18:59 06:59 18:59 Intake Total 440 800 Output Total 2000 2300 Balance -1560 -1500 Weight 80 kg Intake: Oral 440 800 Output: Urine 1999 2300 Other: Voiding Method Indwelling Catheter Indwelling Catheter Indwelling Catheter - Exam PHYSICAL EXAMINATION: GENERAL: The patient is alert and oriented x3, not in any acute distress. Well developed, well nourished. HEENT: Pupils are round and equally reacting to light. EOMI. No scleral icterus. No conjunctival pallor. Normocephalic, atraumatic. No pharyngeal erythema. No thyromegaly. CARDIOVASCULAR: S1 and S2 present. No murmurs, rubs, or gallops. PULMONARY: Chest is clear to auscultation, no wheezing or crackles. ABDOMEN: Soft, nontender, nondistended, normoactive bowel sounds. No palpable organomegaly. MUSCULOSKELETAL: No joint swelling or deformity. EXTREMITIES: No cyanosis, clubbing, or pedal edema. NEUROLOGICAL: Gross neurological examination did not reveal any focal deficits. SKIN: No rashes. - Labs CBC & Chem 7: 11/17/20 05:58 11/17/20 05:58 Labs: Abnormal Lab Results - Last 24 Hours (Table) 11/16/20 11/17/20 11/17/20 Range/Units 11:28 05:58 05:58 WBC 16.1 H (3.8-10.6) k/uL RBC 3.03 L (4.30-5.90) m/uL Hgb 10.1 L (13.0-17.5) gm/dL Hct 30.0 L (39.0-53.0) % Plt Count 81 L (150-450) k/uL Potassium 3.0 L 3.0 L (3.5-5.1) mmol/L Chloride 117 H (96-109) mmol/L Carbon Dioxide 18.1 L (21.6-31.8) mmol/L BUN 49.0 H (9.0-27.0) mg/dL Creatinine 1.7 H (0.6-1.5) mg/dL Est GFR (CKD-EPI)AfAm 47.6 L (60.0-200.0) Est GFR (CKD-EPI)NonAf 41.1 L (60.0-200.0) BUN/Creatinine Ratio 28.82 H (12.00-20.00) Ratio Glucose 135 H (70-110) mg/dL Calcium 7.8 L (8.7-10.3) mg/dL Microbiology - Last 24 Hours (Table) 11/15/20 22:37 Blood Culture Gram Stain - Preliminary Blood Blood Culture - Preliminary Gram Neg Bacilli 11/15/20 22:25 Blood Culture Gram Stain - Preliminary Blood Blood Culture - Preliminary Gram Neg Bacilli 11/15/20 22:37 Blood Culture - Final Blood 11/15/20 22:25 Blood Culture - Final Blood 11/15/20 21:13 Urine Culture - Preliminary Urine,Voided Assessment and Plan Plan: -Sepsis secondary to Urinary tract infection and bacteremia with the gram- negative bacilli: Probably secondary to prostatic hypertrophy or prostatic issues and urinary retention patient has a Epps catheter urology evaluated the patient continue with Rocephin repeat blood cultures as mentioned above. No need for CT of the abdomen. -Acute renal failure secondary to obstructive uropathy from BPH improved serum creatinine nephrology evaluated the patient -Non-anion gap metabolic acidosis secondary to acute renal failure a -Hypokalemia potassium will be replaced -Hypomagnesemia magnesium will be replaced -Hypertension blood pressure is within normal limits at this time losartan will be held -DVT prophylaxis with subcutaneous heparin
--- NOTE | 2020-11-17 11:05 | P.PN ---
Subjective patient is seen in follow for acute kidney injury. Renal function continues to improve. Creatinine 1.7 today. has a Epps catheter. Urine output 4.3 L in the last 24 hours. No edema. Oral intake here. No chest pain or shortness of breath. blood pressure stable. Vital signs are stable. General: The patient appeared well nourished and normally developed. HEENT: Head exam is unremarkable. Neck is without jugular venous distension. LUNGS: Breath sounds decreased. HEART: Rate and Rhythm are regular. ABDOMEN: soft, nontender. EXTREMITITES: No edema. Objective - Vital Signs Vital signs: Vital Signs Temp 97.4 F L 11/17/20 08:00 Pulse 67 11/17/20 08:00 Resp 16 11/17/20 08:00 BP 130/66 11/17/20 08:00 Pulse Ox 98 11/17/20 08:00 Intake & Output 11/16/20 11/17/20 11/17/20 18:59 06:59 18:59 Intake Total 440 800 Output Total 2000 2300 Balance -1560 -1500 Weight 80 kg Intake: Oral 440 800 Output: Urine 1999 2300 Other: Voiding Method Indwelling Catheter Indwelling Catheter Indwelling Catheter - Labs CBC & Chem 7: 11/17/20 05:58 11/17/20 05:58 Labs: Abnormal Lab Results - Last 24 Hours (Table) 11/16/20 11/17/20 11/17/20 Range/Units 11:28 05:58 05:58 WBC 16.1 H (3.8-10.6) k/uL RBC 3.03 L (4.30-5.90) m/uL Hgb 10.1 L (13.0-17.5) gm/dL Hct 30.0 L (39.0-53.0) % Plt Count 81 L (150-450) k/uL Potassium 3.0 L 3.0 L (3.5-5.1) mmol/L Chloride 117 H (96-109) mmol/L Carbon Dioxide 18.1 L (21.6-31.8) mmol/L BUN 49.0 H (9.0-27.0) mg/dL Creatinine 1.7 H (0.6-1.5) mg/dL Est GFR (CKD-EPI)AfAm 47.6 L (60.0-200.0) Est GFR (CKD-EPI)NonAf 41.1 L (60.0-200.0) BUN/Creatinine Ratio 28.82 H (12.00-20.00) Ratio Glucose 135 H (70-110) mg/dL Calcium 7.8 L (8.7-10.3) mg/dL Microbiology - Last 24 Hours (Table) 11/15/20 22:37 Blood Culture Gram Stain - Preliminary Blood Blood Culture - Preliminary Gram Neg Bacilli 11/15/20 22:25 Blood Culture Gram Stain - Preliminary Blood Blood Culture - Preliminary Gram Neg Bacilli 11/15/20 22:37 Blood Culture - Final Blood 11/15/20 22:25 Blood Culture - Final Blood 11/15/20 21:13 Urine Culture - Preliminary Urine,Voided Assessment and Plan Plan: assessment: 1. Acute kidney injury secondary to obstructive uropathy. Renal function improving. Creatinine 1.7 today. baseline creatinine near 1. 2. Urinary retention status post Epps catheter placement. Urology following. Maintained on Flomax as well. 3. Hypokalemia from diuresis and poor intake. Being replaced. 4. Hypomagnesemia from poor intake. Being replaced. 5. Metabolic acidosis secondary to acute kidney injury and IV fluids. maintained on oral bicarbonate. 6. Gram-negative bacteremia maintained on antibiotics. Plan: maintain IV fluids. Maintain Epps catheter. Repeat electrolytes in the morning.
[2020-11-17] MEDS ORDERED: POTASSIUM CHLORIDE ER 20 MEQ TAB.ER PO STA (11:41)
[2020-11-17] MEDS: SODIUM CHLORIDE 0.9% 1,000 ML IV SCH (15:28)
[2020-11-17] MEDS: TAMSULOSIN 0.4 MG CAP.ER.24H PO SCH (20:01)
[2020-11-18] MEDS: SODIUM CHLORIDE 0.9% 1,000 ML IV SCH (02:46)
--- NOTE | 2020-11-18 06:18 | CONS ---
CONSULTATION DATE OF SERVICE: 11/17/2020 REASON FOR CONSULTATION: Urinary tract infection, bacteremia. HISTORY OF PRESENT ILLNESS: The patient is a 65-year-old male presenting to the ER at [facility] on 11/15/2020 for evaluation of frequency of urination, burning and weakness. The patient mentions that has been going on for a few weeks now, symptom have been mostly going to the bathroom almost 20 times and each time the patient will hardly makes an ounce of urine with associated burning, but denies any suprapubic or flank pain. Has been complaining of weakness and nausea and some fever. With these symptoms, the patient was evaluated by the ER physician. On arrival to the ER, the patient has been afebrile. The patient did have white count 25.6. Did have elevated BUN and creatinine. Urine was positive. Rivera PCR has been negative. The patient did have a urine as well as blood cultures coming back positive with E coli. Patient did have ultrasound of the kidney and that has been negative for any hydronephrosis or stone. The patient is currently on Rocephin 1 g. Infectious Disease was consulted for further management of antibiotic therapy. REVIEW OF SYSTEMS: Positive points have been mentioned in HPI. Rest of systems are negative. PAST MEDICAL HISTORY: Hypertension, benign prostate hypertrophy, degenerative joint disease. PAST SURGICAL HISTORY: Joint replacement, bilateral cataract surgery and . SOCIAL HISTORY: Current smoker. Rarely drinks. No drug use. FAMILY HISTORY: Father history of CAD, dementia. Mother history of throat cancer and COPD. ALLERGIES: No known drug allergies. MEDICATIONS: The patient is currently on Tylenol, Xanax, Tenormin, Rocephin 1 g daily, fenofibrate, heparin, Narcan, Flomax, Ultram. PHYSICAL EXAMINATION: VITAL SIGNS: Blood pressure 131/64 with a pulse of 67, temperature 97.3, 97% on room air. GENERAL DESCRIPTION: An elderly male up in the bed in no distress. No tachypnea or accessory muscles of respiration use. HEENT: Examination shows slight pallor. No scleral icterus. Oral mucous membrane is dry. No pharyngeal erythema or thrush. NECK: Trachea central. No thyromegaly. LUNGS: Unlabored breathing. Clear to auscultation anteriorly. No wheeze or crackle. HEART: S1, S2. Regular rate and rhythm. ABDOMEN: Soft, no tenderness. EXTREMITIES: No edema of the feet. SKIN: No rash or mass palpable. NEUROLOGICAL: Patient is awake, alert, oriented x3. Mood and affect normal. LABS: Hemoglobin is 10.1, white count 16.1 admission was 25,000. Creatinine is down to 1.7. Urine is positive blood and urine culture positive for E coli. DIAGNOSTIC IMPRESSION: Patient with an E coli bacteremia source likely urinary in this patient with significant obstructive uropathy symptoms, but no evidence of any hydronephrosis on the ultrasound. PLAN: 1. Blood cultures repeat to document clearance of bacteremia. 2. We will adjust dose of Rocephin to 2 g IV daily. 3. If the patient clears his bacteremia and overall improvement, plan to finish therapy with oral antibiotics. Thank you for this consultation. Will follow this patient along with you. ZAHRAA / KARLAN: [id number] /
[2020-11-18 08:56] LABS: Basophils % (A) 0 %; Eosinophils % (A) 0 %; HGB 11.3 gm/dL (13.0-17.5); Lymphocytes # (A) 1.3 k/uL (1.0-4.8); Lymphocytes % (A) 12 %; MCH 32.9 pg (25.0-35.0); MCHC 33.2 g/dL (31.0-37.0); Mean Platelet Volume 11.9; Monocytes # (A) 0.5 k/uL (0-1.0); Monocytes % (A) 5 %; Neutrophils # (A) 8.7 k/uL (1.3-7.7); Neutrophils % (A) 81 %; RBC 3.43 m/uL (4.30-5.90); RDW 13.9 % (11.5-15.5); WBC 10.7 k/uL (3.8-10.6)
[2020-11-18] MEDS: atenoloL 25 MG TAB PO SCH (09:01)
[2020-11-18] MEDS: SODIUM BICARBONATE TAB 650 MG TAB PO SCH ×2 (09:01→13:38)
[2020-11-18] MEDS: HEPARIN SODIUM,PORCINE 5,000 UNIT/ML 1 ML VIAL SQ SCH (09:01)
[2020-11-18] MEDS: FENOFIBRATE 160 MG TAB PO SCH (09:01)
[2020-11-18 09:03] LABS: Platelet Count 95 k/uL (150-450)
--- NOTE | 2020-11-18 11:28 | P.PN ---
Subjective patient is seen in follow for acute kidney injury. Renal function continues to improve. Creatinine 1.7 as of yesterday. Labs from today pending. has a Epps catheter. Urine output 4.2 L in the last 24 hours. No edema. Oral intake is fair. No chest pain or shortness of breath. blood pressure stable. No changes overnight. Vital signs are stable. General: The patient appeared well nourished and normally developed. HEENT: Head exam is unremarkable. Neck is without jugular venous distension. LUNGS: Breath sounds decreased. HEART: Rate and Rhythm are regular. ABDOMEN: soft, nontender. EXTREMITITES: No edema. Objective - Vital Signs Vital signs: Vital Signs Temp 97.9 F 11/18/20 07:51 Pulse 87 11/18/20 07:51 Resp 17 11/18/20 07:51 BP 153/81 11/18/20 07:51 Pulse Ox 95 11/18/20 07:51 Intake & Output 11/17/20 11/18/20 11/18/20 18:59 06:59 18:59 Intake Total 240 200 Output Total 2150 2100 Balance -1910 -1900 Weight 83.5 kg Intake: Oral 240 200 Output: Urine 2150 2100 Uretheral (Epps) 1500 1500 Other: Voiding Method Indwelling Catheter Indwelling Catheter Indwelling Catheter - Labs CBC & Chem 7: 11/18/20 08:07 11/17/20 13:53 Labs: Abnormal Lab Results - Last 24 Hours (Table) 11/18/20 Range/Units 08:07 WBC 10.7 H (3.8-10.6) k/uL RBC 3.43 L (4.30-5.90) m/uL Hgb 11.3 L (13.0-17.5) gm/dL Hct 34.0 L (39.0-53.0) % Plt Count 95 L (150-450) k/uL Neutrophils # 8.7 H (1.3-7.7) k/uL Microbiology - Last 24 Hours (Table) 11/15/20 22:37 Blood Culture Gram Stain - Final Blood Blood Culture - Final Escherichia coli 11/15/20 22:25 Blood Culture Gram Stain - Final Blood Blood Culture - Final Escherichia coli 11/15/20 21:13 Urine Culture - Preliminary Urine,Voided Gram Neg Bacilli Assessment and Plan Plan: assessment: 1. Acute kidney injury secondary to obstructive uropathy. Renal function improving. Creatinine 1.7 as of yesterday. baseline creatinine near 1. 2. Urinary retention status post Epps catheter placement. Urology following. Maintained on Flomax as well. 3. Hypokalemia from diuresis and poor intake. Status post placement. 4. Hypomagnesemia from poor intake. Also replaced. 5. Metabolic acidosis secondary to acute kidney injury and IV fluids. maintained on oral bicarbonate. 6. E. coli bacteremia and UTI maintained on antibiotics. Plan: maintain IV fluids. Maintain Epps catheter. Follow-up morning labs. Replace magnesium and potassium as needed.
[2020-11-18 12:41] LABS: African American GFR (CKD) 65.9 (60.0-200.0); Anion Gap 5.7 mmol/L (4.00-12.00); BUN/Creat Ratio 20.77 Ratio (12.00-20.00); Calcium 7.8 mg/dL (8.7-10.3); Carbon Dioxide 21.3 mmol/L (21.6-31.8); Magnesium 1.6 mg/dL (1.5-2.4); Non-African American GFR(CKD) 56.9 (60.0-200.0); Potassium 3.3 mmol/L (3.5-5.5)
[2020-11-18] MEDS ORDERED: POTASSIUM CHLORIDE ER 20 MEQ TAB.ER PO STA (12:41)
[2020-11-18] MEDS ORDERED: MAGNESIUM SULFATE-D5W PMX 1 GM in DEXTROSE/WATER 1 100ML.BAG IVPB ONE (12:41)
--- NOTE | 2020-11-18 12:44 | P.DS ---
Providers Date of admission: 11/15/20 22:50 Attending physician: Jose Correa Consults: 11/16/20 10:09 Consult Physician Routine Consulting Provider: Luis Alberto Britt Consult Reason/Comments: uti, retention Do you want consulting provider notified?: Yes 11/16/20 10:19 Consult Physician Routine Consulting Provider: Stalin Hess Consult Reason/Comments: DAYAMI Do you want consulting provider notified?: Yes 11/17/20 12:31 Consult Physician Routine Consulting Provider: Bernardo Montague Consult Reason/Comments: UTI, bacteremia Do you want consulting provider notified?: Yes Primary care physician: Jose Madeline [facility] Course: 65-year-old male admitted for urinary tract infection secondary to benign prostatic hypertrophy, urinary retention. Patient later found to be bacteremic with gram-negative bacilli patient is being continued on Rocephin. Patient creatinine improved 1.7 a Epps catheter placement ultrasound of the kidney did not show any hydronephrosis bladder distention resolved after Epps catheter placement. Neurology evaluated the patient is recommending creation of 40 10 days and patient may end up needing surgical intervention down the line. Patient potassium is 3.0 which will be replaced patient is receiving IV fluids at this time. We'll repeat the blood cultures today and tomorrow. Patient is feeling quite a bit better and wanted to go home leukocytosis improved. 11/18/2020 Patient repeat blood cultures from yesterday are so far negative patient is insisting on discharge. Patient will be discharged today patient had E. coli in the urine and blood which is pansensitive patient will be discharged on Cipro Floxin for 14 days to follow up with the infectious disease and neurology as an outpatient. Patient will follow with acute care nurse outpatient as well. Patient will be resumed on a low-dose of losartan and I still do not have any labs available from today I'm expecting his creatinine to improve but if his creatinine remains high then we will continue to hold off on losartan progress will be replaced magnesium will be replaced PHYSICAL EXAMINATION: GENERAL: The patient is alert and oriented x3, not in any acute distress. Well developed, well nourished. HEENT: Pupils are round and equally reacting to light. EOMI. No scleral icterus. No conjunctival pallor. Normocephalic, atraumatic. No pharyngeal erythema. No thyromegaly. CARDIOVASCULAR: S1 and S2 present. No murmurs, rubs, or gallops. PULMONARY: Chest is clear to auscultation, no wheezing or crackles. ABDOMEN: Soft, nontender, nondistended, normoactive bowel sounds. No palpable organomegaly. MUSCULOSKELETAL: No joint swelling or deformity. EXTREMITIES: No cyanosis, clubbing, or pedal edema. NEUROLOGICAL: Gross neurological examination did not reveal any focal deficits. SKIN: No rashes. Assessment and Plan Plan: -Sepsis secondary to Urinary tract infection and bacteremia with E. coli causing patient will be discharged on 14 days of antibiotic -Acute renal failure secondary to obstructive uropathy from BPH improved serum creatinine nephrology evaluated the patient will be discharged with Epps catheter. -Non-anion gap metabolic acidosis secondary to acute renal failure. -Hypokalemia potassium will be replaced -Hypomagnesemia magnesium will be replaced -Hypertension blood pressure is within normal limits at this time losartan will be held Patient Condition at Discharge: Serious Plan - Discharge Summary New Discharge Prescriptions: New Ciprofloxacin HCl [Cipro] 500 mg PO Q12H 14 Days #28 tab Continue Tamsulosin HCl [Flomax] 0.4 mg PO HS gemfibroziL [Lopid] 600 mg PO DAILY traMADol HCL 50 mg PO Q8H PRN PRN Reason: Pain atenoloL [Tenormin] 25 mg PO BID ALPRAZolam [Xanax] 0.25 mg PO Q8H PRN PRN Reason: Anxiety Changed Losartan Potassium 50 mg PO DAILY #0 Discharge Medication List Tamsulosin HCl [Flomax] 0.4 mg PO HS 02/04/16 [History] gemfibroziL [Lopid] 600 mg PO DAILY 02/04/16 [History] ALPRAZolam [Xanax] 0.25 mg PO Q8H PRN 11/15/20 [History] atenoloL [Tenormin] 25 mg PO BID 11/15/20 [History] traMADol HCL 50 mg PO Q8H PRN 11/15/20 [History] Ciprofloxacin HCl [Cipro] 500 mg PO Q12H 14 Days #28 tab 11/18/20 [Rx] Losartan Potassium 50 mg PO DAILY #0 11/18/20 [Rx] Follow up Appointment(s)/Referral(s): Luis Alberto Britt MD [STAFF PHYSICIAN] - 1 Week Jose Correa MD [Primary Care Provider] - 3 Days Bernardo Montague MD [STAFF PHYSICIAN] - 1 Week Discharge Disposition: HOME SELF-CARE
[2020-11-18 15:24] VITALS: BP 148/54; PULSE 71; RESP 16; TEMP 98
[2020-11-18 16:05] LABS: Potassium 3.5 mmol/L (3.5-5.1)
--- NOTE | 2020-11-18 18:38 | PN ---
PROGRESS NOTE DATE OF SERVICE: 11/18/2020 REASON FOR FOLLOWUP: E coli bacteremia secondary to urinary source. INTERVAL HISTORY: Patient was seen on rounds early this afternoon. The patient has been afebrile. The patient has been breathing comfortably, feeling better. No chest pain. No cough. No nausea, no vomiting. No abdominal pain. No diarrhea. PHYSICAL EXAMINATION: Blood pressure 140/54 with a pulse of 71, temperature 98. He is 94% on room air. General description: The patient is an elderly male lying in bed in no distress. Respiratory system: Unlabored breathing, clear to auscultation anteriorly. Heart S1, S2. Regular rate and rhythm. Abdomen soft, no tenderness. LABS: Hemoglobin 11.1, white count 10.7, creatinine 1.3. Follow-up blood culture so far negative. DIAGNOSTIC IMPRESSION AND PLAN: Patient with E coli bacteremia secondary to urinary source in this patient who seemed to have shown overall clinical improvement. Follow-up blood culture has been negative. He will finish therapy with oral Cipro 200 twice a day for 2 weeks and close outpatient followup. MMODL / IJN: [id number] /
== END 2020-11-18 16:44 | disposition home or self-care (01) | DRG 872 ==
LOC: EC 20:05 → 3SCARD 22:50 → 4SSUR 11-16 00:12
PROVIDERS: ADMIT Internal Medicine; ATTEND Internal Medicine
DX: A41.51 Sepsis due to Escherichia coli [E. coli] (principal); E87.1 Hypo-osmolality and hyponatremia; E87.2 Acidosis; N17.9 Acute kidney failure, unspecified; N39.0 Urinary tract infection, site not specified; N13.8 Other obstructive and reflux uropathy; E78.5 Hyperlipidemia, unspecified; E83.42 Hypomagnesemia; E87.5 Hyperkalemia; E87.6 Hypokalemia; Z20.828 Contact with and (suspected) exposure to other viral communicable diseases; Z96.651 Presence of right artificial knee joint; N40.1 Benign prostatic hyperplasia with lower urinary tract symptoms; F17.200 Nicotine dependence, unspecified, uncomplicated; I10 Essential (primary) hypertension; G56.00 Carpal tunnel syndrome, unspecified upper limb; R33.8 Other retention of urine; Z79.899 Other long term (current) drug therapy; Z98.42 Cataract extraction status, left eye; Z98.41 Cataract extraction status, right eye; Z98.890 Other specified postprocedural states; Z82.5 Family history of asthma and other chronic lower respiratory diseases; Z82.49 Family history of ischemic heart disease and other diseases of the circulatory system; Z80.8 Family history of malignant neoplasm of other organs or systems
CPT/HCPCS: 36415; 51798; 71046; 76770; 80048; 80053; 81001; 83605; 83735; 84132; 85025; 85027; 86140; 87040; 87077; 87086; 87186; 87635; 96374; 96376; 99285

== ENCOUNTER 2021-06-21 16:26 | Inpatient (IN) | payer BC, MEDICARE ==
[2021-06-21] MEDS ORDERED: SODIUM CHLORIDE 0.9% 1,000 ML IV STA (16:40)
[2021-06-21 17:01] LABS: Basophils # (A) 0.1 k/uL (0-0.2); Basophils % (A) 1 %; Eosinophils # (A) 0.2 k/uL (0-0.7); Eosinophils % (A) 2 %; HCT 32.6 % (39.0-53.0); HGB 10.6 gm/dL (13.0-17.5); Lymphocytes # (A) 2.1 k/uL (1.0-4.8); Lymphocytes % (A) 21 %; MCH 33.1 pg (25.0-35.0); MCHC 32.5 g/dL (31.0-37.0); MCV 101.7 fL (80.0-100.0); Macrocytosis Slight; Mean Platelet Volume 8.9; Monocytes # (A) 0.6 k/uL (0-1.0); Monocytes % (A) 7 %; Neutrophils # (A) 6.8 k/uL (1.3-7.7); Neutrophils % (A) 69 %; Platelet Count 311 k/uL (150-450); RBC 3.21 m/uL (4.30-5.90); RDW 15.3 % (11.5-15.5); WBC 9.9 k/uL (3.8-10.6)
[2021-06-21 17:09] LABS: Partial Thromboplastin Time 26.6 sec (22.0-30.0); Prothrombin Time 10.8 sec (9.0-12.0)
[2021-06-21 17:12] LABS: Calcium 10.1 mg/dL (8.4-10.2); Magnesium 2.6 mg/dL (1.6-2.3); Potassium 4.5 mmol/L (3.5-5.1); Total Bilirubin 0.5 mg/dL (0.2-1.3)
[2021-06-21] MEDS ORDERED: SODIUM CHLORIDE 0.9% 1,000 ML IV ONE (17:14)
--- NOTE | 2021-06-21 17:16 | ED ---
General Adult HPI - General Chief complaint: Weakness Stated complaint: Blood in Urine Time Seen by Provider: 06/21/21 16:40 Source: patient, RN notes reviewed, old records reviewed Mode of arrival: wheelchair Limitations: no limitations - History of Present Illness Initial comments: 66-year-old male presenting for evaluation of weakness. Brought in by family. Majority the history is obtained from the patient's son is at bedside. The patient has not been eating or drinking well for at least the past several days. He was found in his bed, very lethargic with generalized weakness. Patient self has no pain complaints. He has previous history of similar episode which was related to urinary tract infection at that time. No reported trauma. No vomiting. Patient does admit to both tobacco and alcohol use. - Related Data Home Medications Medication Instructions Recorded Confirmed Tamsulosin HCl [Flomax] 0.4 mg PO BID 02/04/16 06/21/21 gemfibroziL [Lopid] 600 mg PO DAILY 02/04/16 06/21/21 atenoloL [Tenormin] 25 mg PO BID 11/15/20 06/21/21 Dutasteride 0.5 mg PO DAILY 06/21/21 06/21/21 Previous Rx's Medication Instructions Recorded Losartan Potassium 50 mg PO DAILY #0 11/18/20 Allergies Allergy/AdvReac Type Severity Reaction Status Date / Time No Known Allergies Allergy Verified 06/21/21 18:40 Review of Systems ROS Statement: Those systems with pertinent positive or pertinent negative responses have been documented in the HPI. ROS Other: All systems not noted in ROS Statement are negative. Past Medical History Past Medical History: Hypertension, Prostate Disorder Additional Past Medical History / Comment(s): dehydration, low B/P, kidney problem that was fixed with fluids and sodium was low. Additional hx: BPH, DDD-cervical pain, R/L hand fingers tingling if over used, AGE 18 FX RT FEMUR IN 4 PLACES HAD PLATE/SCEWS-SINCE REMOVED, HAS OPIOD INDUCED CONSTIPATION, TINNITUS bilaterally but pt has noticed it has decreased since he quit smoking, hay fever. History of Any Multi-Drug Resistant Organisms: None Reported Past Surgical History: Joint Replacement, Orthopedic Surgery Additional Past Surgical History / Comment(s): bilateral CATARACTS, ANT CERVICAL DISCECTOMY/FUSION C4,5,6,7 USING CADAVOR BONE. LT HYDROCELE, LT CARPAL TUNNEL, RT FEMUR SX METAL SINCE REMOVED, COLONOSCOPY, CYSTS REMOVED FROM FOREHEAD,BUTTOCKS,;T ZOROASTRIAN. PROSTATE BX X2-BENIGN, partial R knee replacement. Past Anesthesia/Blood Transfusion Reactions: No Reported Reaction Past Psychological History: No Psychological Hx Reported Smoking Status: Current every day smoker Past Alcohol Use History: Daily Past Drug Use History: None Reported - Past Family History Father Family Medical History: COPD, Dementia Additional Family Medical History / Comment(s): Father at age 84yrs. Mother Family Medical History: Cancer, COPD Additional Family Medical History / Comment(s): NASAL/THROAT CANCER. Mother at age 82 General Exam Limitations: no limitations General appearance: lethargic Head exam: Present: atraumatic, normocephalic Eye exam: Present: normal appearance, PERRL ENT exam: Present: mucous membranes dry Neck exam: Present: normal inspection. Absent: tenderness, meningismus Respiratory exam: Present: normal lung sounds bilaterally. Absent: respiratory distress, wheezes Cardiovascular Exam: Present: regular rate, normal rhythm GI/Abdominal exam: Present: soft. Absent: distended, tenderness, guarding Extremities exam: Present: normal inspection, normal capillary refill Neurological exam: Present: alert. Absent: motor sensory deficit Skin exam: Present: warm, dry, pallor. Absent: diaphoretic Course Vital Signs 06/21/21 06/21/21 06/21/21 16:30 16:58 17:39 Temperature 97.4 F L Pulse Rate 66 58 L 57 L Respiratory 20 18 18 Rate Blood Pressure 62/38 85/43 83/54 O2 Sat by Pulse 99 99 98 Oximetry 06/21/21 18:44 Temperature Pulse Rate 60 Respiratory 18 Rate Blood Pressure 105/60 O2 Sat by Pulse 98 Oximetry EKG Findings - EKG Comments: EKG Findings:: EKG: Normal sinus rhythm, rate is 60, WA interval 186, QRS duration 86, QTC 426, no ST segment elevation, baseline artifact. Medical Decision Making - Medical Decision Making 66-year-old male presenting with generalized weakness, fatigue, poor intake over the past several days or weeks. Patient found to be in acute renal failure with a creatinine of 5.72. He is acidotic with a CO2 of 6. Negative troponin, urinalysis pending, unable to give urinalysis in the emergency department. His chest x-ray is clear. He has a normal white blood cell count and a stable hemoglobin. He will be admitted for IV fluids, he is given. Dose of antibiotics as he has a previous history of UTI. And did have symptoms over the past several days. He is admitted to monitored bed with nephrology on consult. - Lab Data Result diagrams: 06/21/21 16:50 06/21/21 16:50 Lab Results 06/21/21 06/21/21 06/21/21 Range/Units 16:50 16:50 16:50 WBC 9.9 (3.8-10.6) k/uL RBC 3.21 L (4.30-5.90) m/uL Hgb 10.6 L (13.0-17.5) gm/dL Hct 32.6 L (39.0-53.0) % MCV 101.7 H (80.0-100.0) fL MCH 33.1 (25.0-35.0) pg MCHC 32.5 (31.0-37.0) g/dL RDW 15.3 (11.5-15.5) % Plt Count 311 (150-450) k/uL MPV 8.9 Neutrophils % 69 % Lymphocytes % 21 % Monocytes % 7 % Eosinophils % 2 % Basophils % 1 % Neutrophils # 6.8 (1.3-7.7) k/uL Lymphocytes # 2.1 (1.0-4.8) k/uL Monocytes # 0.6 (0-1.0) k/uL Eosinophils # 0.2 (0-0.7) k/uL Basophils # 0.1 (0-0.2) k/uL Macrocytosis Slight PT 10.8 (9.0-12.0) sec INR 1.0 (<1.2) APTT 26.6 (22.0-30.0) sec Sodium 135 L (137-145) mmol/L Potassium 4.5 (3.5-5.1) mmol/L Chloride 112 H (98-107) mmol/L Carbon Dioxide 6 L* (22-30) mmol/L Anion Gap 17 mmol/L BUN 60 H (9-20) mg/dL Creatinine 5.72 H (0.66-1.25) mg/dL Est GFR (CKD-EPI)AfAm 11 (>60 ml/min/1.73 sqM) Est GFR (CKD-EPI)NonAf 9 (>60 ml/min/1.73 sqM) Glucose 106 H (74-99) mg/dL Plasma Lactic Acid Drake (0.7-2.0) mmol/L Calcium 10.1 (8.4-10.2) mg/dL Magnesium 2.6 H (1.6-2.3) mg/dL Total Bilirubin 0.5 (0.2-1.3) mg/dL AST 15 L (17-59) U/L ALT 8 (4-49) U/L Alkaline Phosphatase 112 (38-126) U/L Troponin I (0.000-0.034) ng/mL Total Protein 7.0 (6.3-8.2) g/dL Albumin 4.0 (3.5-5.0) g/dL 06/21/21 06/21/21 Range/Units 16:50 16:50 WBC (3.8-10.6) k/uL RBC (4.30-5.90) m/uL Hgb (13.0-17.5) gm/dL Hct (39.0-53.0) % MCV (80.0-100.0) fL MCH (25.0-35.0) pg MCHC (31.0-37.0) g/dL RDW (11.5-15.5) % Plt Count (150-450) k/uL MPV Neutrophils % % Lymphocytes % % Monocytes % % Eosinophils % % Basophils % % Neutrophils # (1.3-7.7) k/uL Lymphocytes # (1.0-4.8) k/uL Monocytes # (0-1.0) k/uL Eosinophils # (0-0.7) k/uL Basophils # (0-0.2) k/uL Macrocytosis PT (9.0-12.0) sec INR (<1.2) APTT (22.0-30.0) sec Sodium (137-145) mmol/L Potassium (3.5-5.1) mmol/L Chloride (98-107) mmol/L Carbon Dioxide (22-30) mmol/L Anion Gap mmol/L BUN (9-20) mg/dL Creatinine (0.66-1.25) mg/dL Est GFR (CKD-EPI)AfAm (>60 ml/min/1.73 sqM) Est GFR (CKD-EPI)NonAf (>60 ml/min/1.73 sqM) Glucose (74-99) mg/dL Plasma Lactic Acid Drake 1.5 (0.7-2.0) mmol/L Calcium (8.4-10.2) mg/dL Magnesium (1.6-2.3) mg/dL Total Bilirubin (0.2-1.3) mg/dL AST (17-59) U/L ALT (4-49) U/L Alkaline Phosphatase (38-126) U/L Troponin I <0.012 (0.000-0.034) ng/mL Total Protein (6.3-8.2) g/dL Albumin (3.5-5.0) g/dL Critical Care Time Critical Care Time: Yes Total Critical Care Time: 35 Disposition Clinical Impression: Acute renal failure, Dehydration, Hypotension Disposition: ADMITTED IP TO THIS [facility] Condition: Stable Is patient prescribed a controlled substance at d/c from ED?: No Referrals: Jose Correa MD [Primary Care Provider] - 1-2 days Decision to Admit Reason: Admit from EC Decision Date: 06/21/21 Decision Time: 18:55
--- NOTE | 2021-06-21 17:25 | XR ---
EXAMINATION TYPE: XR chest 2V DATE OF EXAM: 06/21/2021 COMPARISON: 11/15/2020. HISTORY: Weakness TECHNIQUE: Frontal and lateral views of the chest are obtained. FINDINGS: There is no focal air space opacity, pleural effusion, or pneumothorax seen. The cardiac silhouette size is within normal limits. The osseous structures are stable. IMPRESSION: No acute cardiopulmonary process.
[2021-06-21] MEDS ORDERED: ACETAMINOPHEN TAB 325 MG TAB PO PRN (18:46)
[2021-06-21] MEDS ORDERED: NALOXONE 0.4 MG/ML 1 ML VIAL IV PRN (18:46)
[2021-06-21] MEDS ORDERED: cefTRIAXone IN SWFI 1,000 MG/10 ML SYRINGE IVP STA (18:51)
[2021-06-21] MEDS ORDERED: LIDOCAINE URO-JET JELLY 2% 5 ML KIT URETHRAL ONE (19:54)
[2021-06-21] MEDS: SODIUM CHLORIDE 0.9% 1,000 ML IV SCH (19:59)
[2021-06-21 20:37] LABS: Bacteria,Urine Rare /hpf; RBC,Urine 94 /hpf (0-5); Squamous Epithelial Cell,Urine 1 /hpf (0-4); WBC,Urine >182 /hpf (0-5)
[2021-06-21 21:07] LABS: Appearance,Urine Cloudy (Clear); Color,Urine Light Brown; Glucose,Urine (UA) Negative (Negative); Ketones,Urine Negative (Negative); PH, Urine 5.5 (5.0-8.0); Protein,Urine 2+ (Negative); Specific Gravity,Urine 1.013 (1.001-1.035)
[2021-06-21 21:08] LABS: Bilirubin,Urine Negative (Negative); Blood,Urine Large (Negative); Leukocyte Esterase,Urine Large (Negative); Nitrite,Urine Negative (Negative); Urobilinogen,Urine <2.0 mg/dL (<2.0)
[2021-06-22 08:26] LABS: HCT 29.3 % (39.0-53.0); HGB 9.5 gm/dL (13.0-17.5); Hypochromasia Slight; MCH 33.5 pg (25.0-35.0); MCHC 32.3 g/dL (31.0-37.0); MCV 103.6 fL (80.0-100.0); Macrocytosis Moderate; Mean Platelet Volume 9.3; Platelet Count 240 k/uL (150-450); RBC 2.83 m/uL (4.30-5.90); WBC 10.2 k/uL (3.8-10.6)
[2021-06-22 08:43] LABS: Calcium 9.1 mg/dL (8.4-10.2); Magnesium 2.4 mg/dL (1.6-2.3); Potassium 3.8 mmol/L (3.5-5.1)
[2021-06-22] MEDS ORDERED: LORazepam 2 MG/ML INJ IV PRN ×2 (10:05)
--- NOTE | 2021-06-22 10:34 | P.HPIM ---
History of Present Illness H&P Date: 06/22/21 Hector Frank is a 66 year old male who presented to [facility] emergency room with a chief complaint of generalized weakness, patient was brought into emergency room by his son who stated that his father has not been eating and drinking for several days he was found in bed lethargic and having severe weakness, patient denies any pain or discomfort he denies any difficulty breathing no nausea or vomiting, he admits to smoking cigarettes and drinking alcohol, and stated that he has not been feeling well for several days. He was evaluated in the emergency room vital examination on presentation revealed a temperature of 97.4 pulse 66 respiration 20 blood pressure 62/38 pulse ox 99% on room air, patient was found to have urinary retention with more than 1 L in the bladder on bladder scan, a Epps catheter was inserted in the emergency room. Laboratory data reveals a white blood count of 9.9 hemoglobin 10.6 platelet count 311 sodium 135 potassium 4.5 chloride 112 CO2 6 BUN 60 creatinine 5.74 magnesium 2.6 Testing in the emergency room revealed chest x-ray did not reveal any acute cardiopulmonary abnormality, EKG revealed normal sinus rhythm with possible old inferior infarct troponin level was negative Patient was admitted to medical floor for further evaluation and treatment Past medical history is significant for hypertension, hyperlipidemia, benign prostatic hypertrophy, tobacco use and excessive alcohol use Past Medical History Past Medical History: Hypertension, Prostate Disorder Additional Past Medical History / Comment(s): dehydration, low B/P, kidney problem that was fixed with fluids and sodium was low. Additional hx: BPH, DDD-cervical pain, R/L hand fingers tingling if over used, AGE 18 FX RT FEMUR IN 4 PLACES HAD PLATE/SCEWS-SINCE REMOVED, HAS OPIOD INDUCED CONSTIPATION, TINNITUS bilaterally but pt has noticed it has decreased since he quit smoking, hay fever. History of Any Multi-Drug Resistant Organisms: None Reported Past Surgical History: Joint Replacement, Orthopedic Surgery Additional Past Surgical History / Comment(s): bilateral CATARACTS, ANT CERVICAL DISCECTOMY/FUSION C4,5,6,7 USING CADAVOR BONE. LT HYDROCELE, LT CARPAL TUNNEL, RT FEMUR SX METAL SINCE REMOVED, COLONOSCOPY, CYSTS REMOVED FROM FOREHEAD,BUTTOCKS,;T BAPTISM. PROSTATE BX X2-BENIGN, partial R knee replacement. Past Anesthesia/Blood Transfusion Reactions: No Reported Reaction Past Psychological History: No Psychological Hx Reported Smoking Status: Current every day smoker Past Alcohol Use History: Daily Past Drug Use History: None Reported - Past Family History Father Family Medical History: COPD, Dementia Additional Family Medical History / Comment(s): Father at age 84yrs. Mother Family Medical History: Cancer, COPD Additional Family Medical History / Comment(s): NASAL/THROAT CANCER. Mother at age 82 Medications and Allergies Home Medications Medication Instructions Recorded Confirmed Type Tamsulosin HCl [Flomax] 0.4 mg PO BID 02/04/16 06/21/21 History gemfibroziL [Lopid] 600 mg PO DAILY 02/04/16 06/21/21 History atenoloL [Tenormin] 25 mg PO BID 11/15/20 06/21/21 History Losartan Potassium 50 mg PO DAILY #0 11/18/20 06/21/21 Rx Dutasteride 0.5 mg PO DAILY 06/21/21 06/21/21 History Allergies Allergy/AdvReac Type Severity Reaction Status Date / Time No Known Allergies Allergy Verified 06/21/21 18:40 Physical Exam Vitals: Vital Signs Temp Pulse Resp BP Pulse Ox 06/21/21 19:59 98.6 F 70 18 104/72 96 06/21/21 18:44 60 18 105/60 98 06/21/21 17:39 57 L 18 83/54 98 06/21/21 16:58 58 L 18 85/43 99 06/21/21 16:30 97.4 F L 66 20 62/38 99 Intake and Output 06/21/21 06/22/21 06/22/21 22:59 06:59 14:59 Output Total 400 1000 800 Balance -400 -1000 -800 Output: Urine 400 1000 800 Uretheral (Peps) 400 Other: Voiding Method Indwelling Catheter Weight 72.575 kg 58 kg In general patient is alert and oriented x 3 in no distress HEENT head normocephalic and atraumatic Neck is supple no JVD no goiter no lymphadenopathy no carotid bruit Chest examination reveals a scattered crackles bilaterally no wheezing Cardiac exam reveals regular heart sounds S1 and S2 no gallops no murmurs Abdomen is soft nontender no organomegaly with normal bowel sounds Extremity exam reveals no edema no cyanosis or clubbing Neurological examination reveals no gross focal deficits Results CBC & Chem 7: 06/22/21 07:12 06/22/21 07:12 Labs: Abnormal Lab Results - Last 24 Hours (Table) 06/21/21 06/21/21 06/21/21 Range/Units 16:50 16:50 16:50 RBC 3.21 L (4.30-5.90) m/uL Hgb 10.6 L (13.0-17.5) gm/dL Hct 32.6 L (39.0-53.0) % MCV 101.7 H (80.0-100.0) fL Sodium 135 L (137-145) mmol/L Chloride 112 H (98-107) mmol/L Carbon Dioxide 6 L* (22-30) mmol/L BUN 60 H (9-20) mg/dL Creatinine 5.72 H (0.66-1.25) mg/dL Glucose 106 H (74-99) mg/dL Magnesium 2.6 H (1.6-2.3) mg/dL AST 15 L (17-59) U/L Urine Protein 2+ H (Negative) Urine RBC 94 H (0-5) /hpf Urine WBC >182 H (0-5) /hpf Urine WBC Clumps Few H (None) /hpf Urine Bacteria Rare H (None) /hpf 06/22/21 06/22/21 Range/Units 07:12 07:12 RBC 2.83 L (4.30-5.90) m/uL Hgb 9.5 L (13.0-17.5) gm/dL Hct 29.3 L (39.0-53.0) % MCV 103.6 H (80.0-100.0) fL Sodium (137-145) mmol/L Chloride 116 H (98-107) mmol/L Carbon Dioxide 7 L* (22-30) mmol/L BUN 55 H (9-20) mg/dL Creatinine 4.51 H (0.66-1.25) mg/dL Glucose (74-99) mg/dL Magnesium 2.4 H (1.6-2.3) mg/dL AST (17-59) U/L Urine Protein (Negative) Urine RBC (0-5) /hpf Urine WBC (0-5) /hpf Urine WBC Clumps (None) /hpf Urine Bacteria (None) /hpf Microbiology - Last 24 Hours (Table) 06/21/21 16:50 Urine Culture - Preliminary Urine,Voided Assessment and Plan Plan: Acute kidney injury, patient was started on IV fluid nephrology consultation was requested Hypotension, patient received IV fluid boluses blood pressure is in normal range at this time Urinary retention, Epps catheter was inserted and urology consultation requested Flomax 0.4 mg twice daily was resumed Underlying history of hypertension, at this time blood pressure is low will hold off blood pressure medications and monitor Underlying history of hyperlipidemia Underlying history of benign prostatic hypertrophy Underlying history of excessive alcohol use and tobacco use Patient was started on IV fluid, IV antibiotics Nephrology consultation and urology consultation requested Patient was started on CIWA protocol Will follow blood tests daily and adjust medications as
[2021-06-22 11:05] LABS: Lymphocytes # (M) 1.73 k/uL (1.0-4.8); Monocytes # (M) 0.92 k/uL (0-1.0); Neutrophils # (M) 7.55 k/uL (1.3-7.7); Neutrophils % (M) 74 %; Nucleated Red Blood Cells 0 /100 WBC (0-0); Total Cells Counted 100
--- NOTE | 2021-06-22 14:33 | P.NPCON ---
History of Present Illness - Reason for Consult Consult date: 06/22/21 acute renal failure - Chief Complaint Generalized weakness - History of Present Illness Admitted to the hospital with generalized weakness and poor oral intake. History of urinary tract infections and interventions in the past. Was admitted in October 2020 with similar complaints peak creatinine of 3.47 MG per DL, improved to 1.3 MG per DL at discharge. Ultrasound at that time did not show a ny obstruction. He was admitted yesterday with similar complaints, urine analysis consistent with urinary tract infection, has Epps with blood and good urine output. Creatinine was was 5.7 improved to 4.7 today. CO2 is around 7. Denies any nausea vomiting diarrhea. Got good amount of fluid in the ER. Denies NSAID use or recent contrast studies. Medications include losartan, currently low normal blood pressures. Review of Systems Constitutional: Reports as per HPI Past Medical History Past Medical History: Hypertension, Prostate Disorder Additional Past Medical History / Comment(s): dehydration, low B/P, kidney problem that was fixed with fluids and sodium was low. Additional hx: BPH, DDD-cervical pain, R/L hand fingers tingling if over used, AGE 18 FX RT FEMUR IN 4 PLACES HAD PLATE/SCEWS-SINCE REMOVED, HAS OPIOD INDUCED CONSTIPATION, TINNITUS bilaterally but pt has noticed it has decreased since he quit smoking, hay fever. History of Any Multi-Drug Resistant Organisms: None Reported Past Surgical History: Joint Replacement, Orthopedic Surgery Additional Past Surgical History / Comment(s): bilateral CATARACTS, ANT CERVICAL DISCECTOMY/FUSION C4,5,6,7 USING CADAVOR BONE. LT HYDROCELE, LT CARPAL TUNNEL, RT FEMUR SX METAL SINCE REMOVED, COLONOSCOPY, CYSTS REMOVED FROM FOREHEAD,BUTTOCKS,;T GNOSTICIST. PROSTATE BX X2-BENIGN, partial R knee replacement. Past Anesthesia/Blood Transfusion Reactions: No Reported Reaction Past Psychological History: No Psychological Hx Reported Smoking Status: Current every day smoker Past Alcohol Use History: Daily Past Drug Use History: None Reported - Past Family History Father Family Medical History: COPD, Dementia Additional Family Medical History / Comment(s): Father at age 84yrs. Mother Family Medical History: Cancer, COPD Additional Family Medical History / Comment(s): NASAL/THROAT CANCER. Mother at age 82 Medications and Allergies Home Medications Medication Instructions Recorded Confirmed Type Tamsulosin HCl [Flomax] 0.4 mg PO BID 02/04/16 06/21/21 History gemfibroziL [Lopid] 600 mg PO DAILY 02/04/16 06/21/21 History atenoloL [Tenormin] 25 mg PO BID 11/15/20 06/21/21 History Losartan Potassium 50 mg PO DAILY #0 11/18/20 06/21/21 Rx Dutasteride 0.5 mg PO DAILY 06/21/21 06/21/21 History Allergies Allergy/AdvReac Type Severity Reaction Status Date / Time No Known Allergies Allergy Verified 06/21/21 18:40 Physical Exam Vitals: Vital Signs Temp Pulse Resp BP Pulse Ox 06/21/21 19:59 98.6 F 70 18 104/72 96 06/21/21 18:44 60 18 105/60 98 06/21/21 17:39 57 L 18 83/54 98 06/21/21 16:58 58 L 18 85/43 99 06/21/21 16:30 97.4 F L 66 20 62/38 99 Intake and Output 06/21/21 06/22/21 06/22/21 22:59 06:59 14:59 Output Total 400 1000 800 Balance -400 -1000 -800 Output: Urine 400 1000 800 Uretheral (Epps) 400 Other: Voiding Method Indwelling Catheter Weight 72.575 kg 58 kg No acute distress S1-S2 heard Lungs clear Epps No edema Results - Lab Results Most recent lab results Calcium 9.1 mg/dL (8.4-10.2) 06/22/21 07:12 Magnesium 2.4 mg/dL (1.6-2.3) H 06/22/21 07:12 06/22/21 07:12 06/22/21 07:12 Assessment and Plan Assessment: #1 nonoliguric acute kidney injury secondary to obstructive uropathy/prerenal physiology with decreased by mouth intake. #2 suspected CK D secondary to recurrent ATI/obstruction with a baseline creatinine of 1.3 MG per DL. #3 BPH with urinary retention #4 hypotensive episodes secondary to urinary tract infection #5 avoid it acidosis secondary to acute kidney injury Plan: #1 good urine output anticipate improvement of renal function. #2 continue with antibiotics for urinary tract infection #3 add sodium bicarbonate infusion for metabolic acidosis #4 labs in the morning
--- NOTE | 2021-06-22 15:12 | P.GSCN ---
History of Present Illness Consult date: 06/22/21 Reason for Consult: urinary retention History of present illness: 66 yo male admitted to the hospital with weakness, and acute kidney injury. He has a history of obstructive LUTS despite maximal medical therapy . On presentation a bladder scan was obtained which showed 898 mLs, a Epps catheter was subsequently placed. His creatinine on presentation was 5.7, his baseline was 1.3. Of note he was seen in October 2020 retention, that time a catheter was placed with return of 1.3 L of urine. He indicated he has weak stream, straining with urination, sensation of incomplete bladder emptying. He also been complaining of 3 week history of gross hematuria. No known family history of malignancies Review of Systems - Constitutional Reports weakness, Denies chills, Denies fever - Cardiovascular Denies chest pain, Denies shortness of breath - Gastrointestinal Reports as per HPI - Genitourinary Reports hematuria, Reports urinary retention, Denies dysuria - Integumentary Denies rash, Denies unusual bruising - Neurological Denies headaches, Denies syncope - Hematologic/Lymphatic Denies easy bleeding, Denies easy bruising Past Medical History Past Medical History: Hypertension, Prostate Disorder Additional Past Medical History / Comment(s): dehydration, low B/P, kidney problem that was fixed with fluids and sodium was low. Additional hx: BPH, D DD-cervical pain, R/L hand fingers tingling if over used, AGE 18 FX RT FEMUR IN 4 PLACES HAD PLATE/SCEWS-SINCE REMOVED, HAS OPIOD INDUCED CONSTIPATION, TINNITUS bilaterally but pt has noticed it has decreased since he quit smoking, hay fever. History of Any Multi-Drug Resistant Organisms: None Reported Past Surgical History: Joint Replacement, Orthopedic Surgery Additional Past Surgical History / Comment(s): bilateral CATARACTS, ANT CERVICAL DISCECTOMY/FUSION C4,5,6,7 USING CADAVOR BONE. LT HYDROCELE, LT CARPAL TUNNEL, RT FEMUR SX METAL SINCE REMOVED, COLONOSCOPY, CYSTS REMOVED FROM FOREHEAD,BUTTOCKS,;T YAZIDI. PROSTATE BX X2-BENIGN, partial R knee replacement. Past Anesthesia/Blood Transfusion Reactions: No Reported Reaction Past Psychological History: No Psychological Hx Reported Smoking Status: Current every day smoker Past Alcohol Use History: Daily Past Drug Use History: None Reported - Past Family History Father Family Medical History: COPD, Dementia Additional Family Medical History / Comment(s): Father at age 84yrs. Mother Family Medical History: Cancer, COPD Additional Family Medical History / Comment(s): NASAL/THROAT CANCER. Mother at age 82 Medications and Allergies Home Medications Medication Instructions Recorded Confirmed Type Tamsulosin HCl [Flomax] 0.4 mg PO BID 02/04/16 06/21/21 History gemfibroziL [Lopid] 600 mg PO DAILY 02/04/16 06/21/21 History atenoloL [Tenormin] 25 mg PO BID 11/15/20 06/21/21 History Losartan Potassium 50 mg PO DAILY #0 11/18/20 06/21/21 Rx Dutasteride 0.5 mg PO DAILY 06/21/21 06/21/21 History Allergies Allergy/AdvReac Type Severity Reaction Status Date / Time No Known Allergies Allergy Verified 06/21/21 18:40 Surgical - Exam Vital Signs Temp Pulse Resp BP Pulse Ox 97.4 F L 66 20 62/38 99 06/21/21 16:30 06/21/21 16:30 06/21/21 16:30 06/21/21 16:30 06/21/21 16:30 - General well developed, well nourished, no distress, no pain - Eyes PERRL, normal ocular movement - ENT normal nares, normal mucosa - Respiratory normal expansion, normal respiratory effort - Abdomen Abdomen: soft, non tender - Genitourinary Epps draining light red urine - Psychiatric oriented to time, oriented to place Results - Labs 06/22/21 07:12 06/22/21 07:12 Abnormal Lab Results - Last 24 Hours (Table) 06/21/21 06/21/21 06/21/21 Range/Units 16:50 16:50 16:50 RBC 3.21 L (4.30-5.90) m/uL Hgb 10.6 L (13.0-17.5) gm/dL Hct 32.6 L (39.0-53.0) % MCV 101.7 H (80.0-100.0) fL Sodium 135 L (137-145) mmol/L Chloride 112 H (98-107) mmol/L Carbon Dioxide 6 L* (22-30) mmol/L BUN 60 H (9-20) mg/dL Creatinine 5.72 H (0.66-1.25) mg/dL Glucose 106 H (74-99) mg/dL Magnesium 2.6 H (1.6-2.3) mg/dL AST 15 L (17-59) U/L Urine Protein 2+ H (Negative) Urine RBC 94 H (0-5) /hpf Urine WBC >182 H (0-5) /hpf Urine WBC Clumps Few H (None) /hpf Urine Bacteria Rare H (None) /hpf 06/22/21 06/22/21 Range/Units 07:12 07:12 RBC 2.83 L (4.30-5.90) m/uL Hgb 9.5 L (13.0-17.5) gm/dL Hct 29.3 L (39.0-53.0) % MCV 103.6 H (80.0-100.0) fL Sodium (137-145) mmol/L Chloride 116 H (98-107) mmol/L Carbon Dioxide 7 L* (22-30) mmol/L BUN 55 H (9-20) mg/dL Creatinine 4.51 H (0.66-1.25) mg/dL Glucose (74-99) mg/dL Magnesium 2.4 H (1.6-2.3) mg/dL AST (17-59) U/L Urine Protein (Negative) Urine RBC (0-5) /hpf Urine WBC (0-5) /hpf Urine WBC Clumps (None) /hpf Urine Bacteria (None) /hpf Microbiology - Last 24 Hours (Table) 06/21/21 16:50 Urine Culture - Preliminary Urine,Voided Diabetes panel 06/21/21 06/22/21 Range/Units 16:50 07:12 Sodium 135 L 137 (137-145) mmol/L Potassium 4.5 3.8 (3.5-5.1) mmol/L Chloride 112 H 116 H (98-107) mmol/L Carbon Dioxide 6 L* 7 L* (22-30) mmol/L BUN 60 H 55 H (9-20) mg/dL Creatinine 5.72 H 4.51 H (0.66-1.25) mg/dL Glucose 106 H 89 (74-99) mg/dL Calcium 10.1 9.1 (8.4-10.2) mg/dL AST 15 L (17-59) U/L ALT 8 (4-49) U/L Alkaline Phosphatase 112 (38-126) U/L Total Protein 7.0 (6.3-8.2) g/dL Albumin 4.0 (3.5-5.0) g/dL Calcium panel 06/21/21 06/22/21 Range/Units 16:50 07:12 Calcium 10.1 9.1 (8.4-10.2) mg/dL Albumin 4.0 (3.5-5.0) g/dL Pituitary panel 06/21/21 06/22/21 Range/Units 16:50 07:12 Sodium 135 L 137 (137-145) mmol/L Potassium 4.5 3.8 (3.5-5.1) mmol/L Chloride 112 H 116 H (98-107) mmol/L Carbon Dioxide 6 L* 7 L* (22-30) mmol/L BUN 60 H 55 H (9-20) mg/dL Creatinine 5.72 H 4.51 H (0.66-1.25) mg/dL Glucose 106 H 89 (74-99) mg/dL Calcium 10.1 9.1 (8.4-10.2) mg/dL Adrenal panel 06/21/21 06/22/21 Range/Units 16:50 07:12 Sodium 135 L 137 (137-145) mmol/L Potassium 4.5 3.8 (3.5-5.1) mmol/L Chloride 112 H 116 H (98-107) mmol/L Carbon Dioxide 6 L* 7 L* (22-30) mmol/L BUN 60 H 55 H (9-20) mg/dL Creatinine 5.72 H 4.51 H (0.66-1.25) mg/dL Glucose 106 H 89 (74-99) mg/dL Calcium 10.1 9.1 (8.4-10.2) mg/dL Total Bilirubin 0.5 (0.2-1.3) mg/dL AST 15 L (17-59) U/L ALT 8 (4-49) U/L Alkaline Phosphatase 112 (38-126) U/L Total Protein 7.0 (6.3-8.2) g/dL Albumin 4.0 (3.5-5.0) g/dL Assessment and Plan Assessment: 66-year-old male admitted to the hospital with weakness, and acute kidney injury. Catheter was placed for 890 mLof urinary retention. Has long-standing history of obstructive LUTS despite maximal medical therapy. He was seen in 10/2020 with a 1.3 L urinary retention. He's been having three-week history of gross hematuria, this could be secondary to his retention and UTI. Bur given his long-standing smoking history, we'll arrange for a cystoscopy and a renal bladder ultrasound. -recommend discharging home with a Epps catheter, given his recurrent high- volume urinary retention we will set him up for a cystoscopy, and urodynamics as an outpatient . Cystoscopy also be performed to evaluate his gross hematuria also. - U/S given his gross hematuria - F/U on urine culture, we'll need 7 days of antibiotics if cultures positive
[2021-06-22] MEDS: LORazepam 2 MG/ML INJ IV PRN (15:31)
--- NOTE | 2021-06-22 16:04 | US ---
EXAMINATION TYPE: US kidneys/renal and bladder DATE OF EXAM: 06/22/2021 COMPARISON: US 11/16/2020 CLINICAL HISTORY: Hematuria. EXAM MEASUREMENTS: Right Kidney: 10.1 x 5.2 x 5.6 cm Left Kidney: 10.8 x 6.1 x 4.7 cm Right Kidney: No hydronephrosis or masses seen Left Kidney: No hydronephrosis or masses seen Bladder: Thickened sampson, patient has ruiz catheter. Bilateral Jets seen: No IMPRESSION: There is circumferential thickening of the urinary bladder wall suggestive of some nonspecific cystit is. There is probably blood clot also in the urinary bladder. No evidence of a renal mass or obstruct ion. No hydronephrosis.
[2021-06-22] MEDS: DEXTROSE 5% IN WATER 1,000 ML with SODIUM BICARB (1 MEQ/ML) 150 ML IV SCH (16:20)
[2021-06-22] MEDS: TAMSULOSIN 0.4 MG CAP.ER.24H PO SCH ×2 (18:02→19:51)
[2021-06-22] MEDS: THIAMINE 100 MG TAB PO SCH (18:36)
[2021-06-22] MEDS: SODIUM CHLORIDE 0.9% 1,000 ML IV SCH ×2 (18:37→18:38)
[2021-06-23] MEDS: SODIUM CHLORIDE 0.9% 1,000 ML IV SCH ×2 (05:46→11:52)
[2021-06-23] MEDS: THIAMINE 100 MG TAB PO SCH ×2 (06:13→15:57)
[2021-06-23] MEDS: LORazepam 2 MG/ML INJ IV PRN ×2 (06:47→19:44)
[2021-06-23 09:04] LABS: Basophils % (A) 1 %; Eosinophils # (A) 0.2 k/uL (0-0.7); Eosinophils % (A) 2 %; HGB 8.7 gm/dL (13.0-17.5); Hypochromasia Slight; Lymphocytes # (A) 1.3 k/uL (1.0-4.8); Lymphocytes % (A) 17 %; MCHC 32.2 g/dL (31.0-37.0); MCV 102.6 fL (80.0-100.0); Macrocytosis Slight; Mean Platelet Volume 9.4; Monocytes # (A) 0.7 k/uL (0-1.0); Monocytes % (A) 8 %; Neutrophils # (A) 5.6 k/uL (1.3-7.7); Neutrophils % (A) 71 %; Platelet Count 228 k/uL (150-450); RBC 2.63 m/uL (4.30-5.90); WBC 7.9 k/uL (3.8-10.6)
[2021-06-23] MEDS: TAMSULOSIN 0.4 MG CAP.ER.24H PO SCH ×2 (09:14→19:44)
[2021-06-23 09:23] LABS: Albumin 2.8 g/dL (3.5-5.0); Potassium 3.4 mmol/L (3.5-5.1); Total Bilirubin 0.1 mg/dL (0.2-1.3); Total Protein 5.4 g/dL (6.3-8.2)
--- NOTE | 2021-06-23 09:39 | P.PN ---
Subjective Progress Note Date: 06/23/21 Hector Frank is a 66 year old male who presented to [facility] emergency room with a chief complaint of generalized weakness, patient was brought into emergency room by his son who stated that his father has not been eating and drinking for several days he was found in bed lethargic and having severe weakness, patient denies any pain or discomfort he denies any difficulty breathing no nausea or vomiting, he admits to smoking cigarettes and drinking alcohol, and stated that he has not been feeling well for several days. He was evaluated in the emergency room vital examination on presentation revealed a temperature of 97.4 pulse 66 respiration 20 blood pressure 62/38 pulse ox 99% on room air, patient was found to have urinary retention with more than 1 L in the bladder on bladder scan, a Epps catheter was inserted in the emergency room. Laboratory data reveals a white blood count of 9.9 hemoglobin 10.6 platelet count 311 sodium 135 potassium 4.5 chloride 112 CO2 6 BUN 60 creatinine 5.74 magnesium 2.6 Testing in the emergency room revealed chest x-ray did not reveal any acute cardiopulmonary abnormality, EKG revealed normal sinus rhythm with possible old inferior infarct troponin level was negative Patient was admitted to medical floor for further evaluation and treatment Past medical history is significant for hypertension, hyperlipidemia, benign prostatic hypertrophy, tobacco use and excessive alcohol use On 06/23/2021 Patient was seen and examined on the medical floor, he is alert, slightly confused in no distress, he denies any complaints there is no fever or chills no headache or dizziness no chest pain no shortness of breath no palpitation no cough no nausea or vomiting no abdominal pain no diarrhea no blood in the stools no burning with urination no frequency or urgency and no hematuria, Epps catheter is in. there is no weakness or numbness in any of the extremities no change in vision speech or gait. Objective - Vital Signs Vital signs: Vital Signs Temp 97.6 F 06/23/21 09:04 Pulse 63 06/23/21 09:04 Resp 16 06/23/21 09:04 BP 92/56 06/23/21 09:04 Pulse Ox 96 06/23/21 09:04 Intake & Output 06/22/21 06/23/21 06/23/21 18:59 06:59 18:59 Output Total 1700 1020 Balance -1700 -1020 Weight 58 kg 56.5 kg Output: Urine 1700 1020 Other: Voiding Method Indwelling Catheter Indwelling Catheter # Voids 1 - Exam In general patient is alert and oriented x 3 in no distress HEENT head normocephalic and atraumatic Neck is supple no JVD no goiter no lymphadenopathy no carotid bruit Chest examination reveals a scattered crackles bilaterally no wheezing Cardiac exam reveals regular heart sounds S1 and S2 no gallops no murmurs Abdomen is soft nontender no organomegaly with normal bowel sounds Extremity exam reveals no edema no cyanosis or clubbing Neurological examination reveals no gross focal deficits - Labs CBC & Chem 7: 06/23/21 08:48 06/23/21 08:48 Labs: Abnormal Lab Results - Last 24 Hours (Table) 06/23/21 Range/Units 08:48 RBC 2.63 L (4.30-5.90) m/uL Hgb 8.7 L (13.0-17.5) gm/dL Hct 27.0 L (39.0-53.0) % MCV 102.6 H (80.0-100.0) fL Microbiology - Last 24 Hours (Table) 06/21/21 16:50 Blood Culture - Preliminary Blood No Growth after 24 hours 06/21/21 16:50 Blood Culture - Preliminary Blood No Growth after 24 hours 06/21/21 16:50 Urine Culture - Preliminary Urine,Voided Assessment and Plan Plan: Acute kidney injury, patient was started on IV fluid nephrology consultation was requested Hypotension, patient received IV fluid boluses blood pressure is in normal range at this time Urinary retention, Epps catheter was inserted and urology consultation requested Flomax 0.4 mg twice daily was resumed Metabolic acidosis related to acute kidney injury Underlying history of hypertension, at this time blood pressure is low will hold off blood pressure medications and monitor Underlying history of hyperlipidemia Underlying history of benign prostatic hypertrophy Underlying history of excessive alcohol use and tobacco use Patient was started on IV fluid, IV antibiotics Nephrology consultation and urology consultation requested Patient was started on CIWA protocol Will follow blood tests daily and adjust medications as
[2021-06-23] MEDS: DEXTROSE 5% IN WATER 1,000 ML with SODIUM BICARB (1 MEQ/ML) 150 ML IV SCH (11:52)
--- NOTE | 2021-06-23 14:53 | P.PN ---
Subjective Progress Note Date: 06/23/21 Follow-up for acute kidney injury. Renal output of 2700 in the last 24 hours. Objective - Vital Signs Vital signs: Vital Signs Temp 97.4 F L 06/23/21 11:31 Pulse 63 06/23/21 11:31 Resp 16 06/23/21 09:04 BP 91/54 06/23/21 11:31 Pulse Ox 99 06/23/21 11:31 Intake & Output 06/22/21 06/23/21 06/23/21 18:59 06:59 18:59 Output Total 1700 1020 Balance -1700 -1020 Weight 58 kg 56.5 kg Output: Urine 1700 1020 Other: Voiding Method Indwelling Catheter Indwelling Catheter Indwelling Catheter # Voids 1 - Exam No acute distress S1-S2 heard Lungs clear Epps catheter No edema - Labs CBC & Chem 7: 06/23/21 08:48 06/23/21 08:48 Labs: Abnormal Lab Results - Last 24 Hours (Table) 06/23/21 06/23/21 Range/Units 08:48 08:48 RBC 2.63 L (4.30-5.90) m/uL Hgb 8.7 L (13.0-17.5) gm/dL Hct 27.0 L (39.0-53.0) % MCV 102.6 H (80.0-100.0) fL Potassium 3.4 L (3.5-5.1) mmol/L Chloride 119 H (98-107) mmol/L Carbon Dioxide 11 L (22-30) mmol/L BUN 45 H (9-20) mg/dL Creatinine 3.09 H (0.66-1.25) mg/dL Glucose 128 H (74-99) mg/dL Total Bilirubin 0.1 L (0.2-1.3) mg/dL Total Protein 5.4 L (6.3-8.2) g/dL Albumin 2.8 L (3.5-5.0) g/dL Microbiology - Last 24 Hours (Table) 06/21/21 16:50 Urine Culture - Final Urine,Voided 06/21/21 16:50 Blood Culture - Preliminary Blood No Growth after 24 hours 06/21/21 16:50 Blood Culture - Preliminary Blood No Growth after 24 hours Assessment and Plan Assessment: #1 nonoliguric acute kidney injury secondary to obstructive uropathy/prerenal physiology with decreased by mouth intake. #2 suspected CK D secondary to recurrent ATI/obstruction with a baseline creatinine of 1.3 MG per DL. #3 BPH with urinary retention #4 hypotensive episodes secondary to urinary tract infection #5 avoid it acidosis secondary to acute kidney injury #6 metabolic acidosis Plan: #1 renal function improving. Add midodrine for hemodynamic support with low blood pressures. #2 continue with antibiotics for urinary tract infection #3 continue with bicarb drip. #4 labs in the morning
[2021-06-23] MEDS ORDERED: Potassium Replacement Protocol 1 EACH MISC MISCELLANE PRN (15:10)
[2021-06-23] MEDS ORDERED: POTASSIUM CHLORIDE ER 20 MEQ TAB.ER PO STA (15:24)
[2021-06-23] MEDS: MIDODRINE 5 MG TAB PO SCH (15:56)
[2021-06-23] MEDS ORDERED: POTASSIUM CHLORIDE ER 20 MEQ TAB.ER PO SCH (16:00)
[2021-06-24] MEDS: LORazepam 2 MG/ML INJ IV PRN (01:05)
[2021-06-24] MEDS: DEXTROSE 5% IN WATER 1,000 ML with SODIUM BICARB (1 MEQ/ML) 150 ML IV SCH ×2 (05:48→16:47)
[2021-06-24] MEDS: MIDODRINE 5 MG TAB PO SCH ×3 (07:30→17:20)
[2021-06-24] MEDS: THIAMINE 100 MG TAB PO SCH ×2 (07:30→17:20)
[2021-06-24] MEDS: TAMSULOSIN 0.4 MG CAP.ER.24H PO SCH ×2 (08:26→21:59)
[2021-06-24 09:17] LABS: Magnesium 1.9 mg/dL (1.6-2.3)
[2021-06-24] MEDS ORDERED: POTASSIUM CHLORIDE ER 20 MEQ TAB.ER PO STA (09:37)
--- NOTE | 2021-06-24 09:42 | P.PN ---
Subjective Patient seen in follow-up for acute kidney injury. Renal function continues to improve. Nonoliguric. Has a Epps catheter. Not a reliable historian. Vital signs are stable. HEENT: Head exam is unremarkable. LUNGS: Breath sounds decreased. HEART: Rate and Rhythm are regular. ABDOMEN: Soft, no distention. EXTREMITITES: No edema. Objective - Vital Signs Vital signs: Vital Signs Temp 98.3 F 06/24/21 08:20 Pulse 68 06/24/21 08:20 Resp 16 06/24/21 08:20 BP 90/54 06/24/21 08:20 Pulse Ox 94 L 06/24/21 08:20 Intake & Output 06/23/21 06/24/21 06/24/21 18:59 06:59 18:59 Intake Total 1500 Output Total 900 900 Balance 1500 -900 -900 Weight 61 kg Intake: Intake, IV Titration 1450 Amount Dextrose 5% in Water 1, 600 000 ml @ 75 mls/hr IV . [id number] CIRA with Sodium Bicarb (1 Meq/ml) 150 ml Rx#:[id number] Sodium Chloride 0.9% 1, 800 000 ml @ 130 mls/hr IV . [id number] CIRA Rx#:[id number] 1 gm In 50 Sodium Chloride 0.9% 50 ml @ 100 mls/hr IVPB Q24HR CIRA Rx#:[id number] Oral 50 Output: Urine 900 900 Other: Voiding Method Indwelling Catheter Indwelling Catheter Indwelling Catheter # Bowel Movements 0 - Labs CBC & Chem 7: 06/23/21 08:48 06/24/21 08:33 Labs: Abnormal Lab Results - Last 24 Hours (Table) 06/24/21 Range/Units 08:33 Potassium 3.0 L (3.5-5.1) mmol/L Chloride 113 H (98-107) mmol/L Carbon Dioxide 17 L (22-30) mmol/L BUN 33 H (9-20) mg/dL Creatinine 2.18 H (0.66-1.25) mg/dL Glucose 116 H (74-99) mg/dL Microbiology - Last 24 Hours (Table) 06/21/21 16:50 Blood Culture - Preliminary Blood No Growth after 48 hours 06/21/21 16:50 Blood Culture - Preliminary Blood No Growth after 48 hours 07/30/21 16:50 Urine Culture - Final Urine,Voided Assessment and Plan Plan: Assessment: 1. Acute kidney injury secondary to urinary retention. Renal function improving. Creatinine 2.18 today. 2. Urinary retention status post Epps catheter placement. Urology following. 3. Metabolic acidosis secondary to acute kidney injury maintained on bicarb drip. Improving. 4. Hypokalemia from poor intake and intracellular shifting from IV bicarb. 5. Alcohol abuse. On CIWA protocol. Plan: Maintain bicarb drip. Replace potassium. Maintain midodrine. Check a.m. cortisol level.
[2021-06-24] MEDS ORDERED: Potassium Replacement Protocol 1 EACH MISC MISCELLANE PRN (14:46)
[2021-06-24] MEDS: ENOXAPARIN 40 MG/0.4 ML SYRINGE SQ SCH (15:10)
--- NOTE | 2021-06-24 19:27 | P.PN ---
Subjective Progress Note Date: 06/24/21 Hector Frank is a 66 year old male who presented to [facility] emergency room with a chief complaint of generalized weakness, patient was brought into emergency room by his son who stated that his father has not been eating and drinking for several days he was found in bed lethargic and having severe weakness, patient denies any pain or discomfort he denies any difficulty breathing no nausea or vomiting, he admits to smoking cigarettes and drinking alcohol, and stated that he has not been feeling well for several days. He was evaluated in the emergency room vital examination on presentation revealed a temperature of 97.4 pulse 66 respiration 20 blood pressure 62/38 pulse ox 99% on room air, patient was found to have urinary retention with more than 1 L in the bladder on bladder scan, a Epps catheter was inserted in the emergency room. Laboratory data reveals a white blood count of 9.9 hemoglobin 10.6 platelet count 311 sodium 135 potassium 4.5 chloride 112 CO2 6 BUN 60 creatinine 5.74 magnesium 2.6 Testing in the emergency room revealed chest x-ray did not reveal any acute cardiopulmonary abnormality, EKG revealed normal sinus rhythm with possible old inferior infarct troponin level was negative Patient was admitted to medical floor for further evaluation and treatment Past medical history is significant for hypertension, hyperlipidemia, benign prostatic hypertrophy, tobacco use and excessive alcohol use On 06/23/2021 Patient was seen and examined on the medical floor, he is alert, slightly confused in no distress, he denies any complaints there is no fever or chills no headache or dizziness no chest pain no shortness of breath no palpitation no cough no nausea or vomiting no abdominal pain no diarrhea no blood in the stools no burning with urination no frequency or urgency and no hematuria, Epps catheter is in. there is no weakness or numbness in any of the extremities no change in vision speech or gait. On 06/24/2021 Patient was seen and examined on the medical floor, he is somnolent but when aroused he is alert and oriented in no distress, he denies any complaints there is no fever or chills no headache or dizziness no chest pain no shortness of breath no palpitation no cough no nausea or vomiting no abdominal pain no diarrhea no blood in the stools no burning with urination no frequency or urgency and no hematuria, there is no weakness or numbness in any of the extremities no change in vision speech or gait. There is significant imp rovement in kidney function reaction in his down to 2.18 today from 3.09 yesterday and 5.72 on admission Objective - Vital Signs Vital signs: Vital Signs Temp 97.7 F 06/24/21 11:22 Pulse 69 06/24/21 11:22 Resp 16 06/24/21 11:22 BP 91/54 06/24/21 11:22 Pulse Ox 93 L 06/24/21 11:22 Intake & Output 06/23/21 06/24/21 06/24/21 18:59 06:59 18:59 Intake Total 1500 240 Output Total 900 900 Balance 1500 -900 -660 Weight 61 kg Intake: Intake, IV Titration 1450 Amount Dextrose 5% in Water 1, 600 000 ml @ 75 mls/hr IV . [id number] CIRA with Sodium Bicarb (1 Meq/ml) 150 ml Rx#:[id number] Sodium Chloride 0.9% 1, 800 000 ml @ 130 mls/hr IV . [id number] CIRA Rx#:[id number] cefTRIAXone 1 gm In 50 Sodium Chloride 0.9% 50 ml @ 100 mls/hr IVPB Q24HR CIRA Rx#:[id number] Oral 50 240 Output: Urine 900 900 Other: Voiding Method Indwelling Catheter Indwelling Catheter Indwelling Catheter # Bowel Movements 0 - Exam In general patient is alert and oriented x 3 in no distress HEENT head normocephalic and atraumatic Neck is supple no JVD no goiter no lymphadenopathy no carotid bruit Chest examination reveals a scattered crackles bilaterally no wheezing Cardiac exam reveals regular heart sounds S1 and S2 no gallops no murmurs Abdomen is soft nontender no organomegaly with normal bowel sounds Extremity exam reveals no edema no cyanosis or clubbing Neurological examination reveals no gross focal deficits - Labs CBC & Chem 7: 06/23/21 08:48 06/24/21 18:54 Labs: Abnormal Lab Results - Last 24 Hours (Table) 06/24/21 Range/Units 08:33 Potassium 3.0 L (3.5-5.1) mmol/L Chloride 113 H (98-107) mmol/L Carbon Dioxide 17 L (22-30) mmol/L BUN 33 H (9-20) mg/dL Creatinine 2.18 H (0.66-1.25) mg/dL Glucose 116 H (74-99) mg/dL Microbiology - Last 24 Hours (Table) 06/21/21 16:50 Blood Culture - Preliminary Blood No Growth after 48 hours 06/21/21 16:50 Blood Culture - Preliminary Blood No Growth after 48 hours 06/21/21 16:50 Urine Culture - Final Urine,Voided Assessment and Plan Plan: Acute kidney injury, patient was started on IV fluid nephrology consultation was requested Hypotension, patient received IV fluid boluses blood pressure is in normal range at this time Urinary retention, Epps catheter was inserted and urology consultation requested Flomax 0.4 mg twice daily was resumed Metabolic acidosis related to acute kidney injury Underlying history of hypertension, at this time blood pressure is low will hold off blood pressure medications and monitor Underlying history of hyperlipidemia Underlying history of benign prostatic hypertrophy Underlying history of excessive alcohol use and tobacco use Patient was started on IV fluid, IV antibiotics Nephrology consultation and urology consultation requested Patient was started on CIWA protocol Will follow blood tests daily and adjust medications as
[2021-06-25] MEDS: THIAMINE 100 MG TAB PO SCH ×2 (06:37→18:16)
[2021-06-25] MEDS: MIDODRINE 5 MG TAB PO SCH ×3 (06:37→18:16)
[2021-06-25] MEDS: DEXTROSE 5% IN WATER 1,000 ML with SODIUM BICARB (1 MEQ/ML) 150 ML IV SCH (06:37)
[2021-06-25 08:12] LABS: Albumin 2.7 g/dL (3.5-5.0); Calcium 8.8 mg/dL (8.4-10.2); Magnesium 1.7 mg/dL (1.6-2.3); Potassium 3.4 mmol/L (3.5-5.1); Total Bilirubin 0.2 mg/dL (0.2-1.3); Total Protein 5.1 g/dL (6.3-8.2)
[2021-06-25] MEDS ORDERED: POTASSIUM CHLORIDE ER 20 MEQ TAB.ER PO STA (09:12)
[2021-06-25 09:13] LABS: Basophils # (A) 0.1 k/uL (0-0.2); Basophils % (A) 1 %; Eosinophils # (A) 0.4 k/uL (0-0.7); Eosinophils % (A) 6 %; HCT 25.8 % (39.0-53.0); HGB 8.5 gm/dL (13.0-17.5); Lymphocytes % (A) 26 %; MCH 33.2 pg (25.0-35.0); MCV 100.5 fL (80.0-100.0); Macrocytosis Slight; Mean Platelet Volume 8.8; Monocytes # (A) 0.6 k/uL (0-1.0); Monocytes % (A) 7 %; Neutrophils # (A) 4.8 k/uL (1.3-7.7); Neutrophils % (A) 60 %; Platelet Count 243 k/uL (150-450); RBC 2.57 m/uL (4.30-5.90); WBC 7.9 k/uL (3.8-10.6)
--- NOTE | 2021-06-25 09:13 | P.PN ---
Subjective Patient seen in follow-up for acute kidney injury. Renal function continues to improve. Nonoliguric. Has a Epps catheter. Oral intake is fair. No active complaints. Vital signs are stable. HEENT: Head exam is unremarkable. LUNGS: Breath sounds decreased. HEART: Rate and Rhythm are regular. ABDOMEN: Soft, no distention. EXTREMITITES: No edema. Objective - Vital Signs Vital signs: Vital Signs Temp 98.4 F 06/25/21 04:00 Pulse 69 06/25/21 04:00 Resp 15 06/25/21 04:00 BP 94/60 06/25/21 04:00 Pulse Ox 100 06/25/21 04:00 Intake & Output 06/24/21 06/25/21 06/25/21 18:59 06:59 18:59 Intake Total 660 120 Output Total 1500 900 Balance -840 -900 120 Intake: Oral 660 120 Output: Urine 1500 900 Other: Voiding Method Indwelling Catheter Indwelling Catheter Indwelling Catheter # Voids 1 # Bowel Movements 1 - Labs CBC & Chem 7: 06/23/21 08:48 06/25/21 07:10 Labs: Abnormal Lab Results - Last 24 Hours (Table) 06/24/21 06/24/21 06/25/21 Range/Units 08:33 18:54 07:10 Potassium 3.0 L 3.1 L 3.4 L (3.5-5.1) mmol/L Chloride 113 H 110 H (98-107) mmol/L Carbon Dioxide 17 L (22-30) mmol/L BUN 33 H 23 H (9-20) mg/dL Creatinine 2.18 H 1.82 H (0.66-1.25) mg/dL Glucose 116 H (74-99) mg/dL Total Protein 5.1 L (6.3-8.2) g/dL Albumin 2.7 L (3.5-5.0) g/dL Microbiology - Last 24 Hours (Table) 06/21/21 16:50 Blood Culture - Preliminary Blood No Growth after 72 hours 06/21/21 16:50 Blood Culture - Preliminary Blood No Growth after 72 hours Assessment and Plan Plan: Assessment: 1. Acute kidney injury secondary to urinary retention. Renal function improving. Creatinine 1.82 today. 2. Urinary retention status post Epps catheter placement. Urology following. 3. Metabolic acidosis secondary to acute kidney injury maintained on bicarb drip. Improving. 4. Hypokalemia from poor intake and intracellular shifting from IV bicarb. 5. Alcohol abuse. On CIWA protocol. Plan: Stop bicarb drip. Start normal saline at 50 mL an hour. Follow-up AM cortisol level. Maintain midodrine. Replace potassium. Encouraged oral intake
[2021-06-25] MEDS: ENOXAPARIN 40 MG/0.4 ML SYRINGE SQ SCH (09:46)
[2021-06-25] MEDS: TAMSULOSIN 0.4 MG CAP.ER.24H PO SCH ×2 (09:46→18:16)
[2021-06-25] MEDS: SODIUM CHLORIDE 0.9% 1,000 ML IV SCH (09:47)
--- NOTE | 2021-06-25 12:04 | P.CONS ---
History of Present Illness - Chief Complaint Walking difficulty with confusion - History of Present Illness I had the opportunity to see patient for inpatient rehab consultation with regard to walking difficulty. Patient admitted to [facility] June 21 with history of weakness as well as poor appetite and hydration for the last 1 week. Found to have urinary retention fracture seen by neurology. Seen by surgery who recommends discharge with indwelling catheter. Chest x-ray negative. Abdominal ultrasound consistent with cystitis. PT and OT prescribed and I have added speech therapy. Previous functional history as elicited patient: 66-year-old right-handed white male is lives and 1 floor home with basement alone. Retired. Describes independent with own cooking, laundry, driving, standing shower and gait without device. His shower has not been working for at least the last [address] Correa. Smokes less than a pack per day and does drink beer. Review of Systems Review of systems: ENT: Denies sneezes or discharge. Eyes: Denies discharge or photophobia. Cardiac: Denies chest pain or palpitation. Pulmonary: Denies cough or shortness of breath. Gastrointestinal: Denies nausea, emesis, constipation, diarrhea. Genitourinary: Urinary retention now with indwelling catheter. Musculoskeletal: Denies muscle or bone aches. Neurologic: Weakness especially legs as well as confusion. Endocrine: Denies shakes or sweats. Oncology: Denies cancers. Dermatologic: Denies rash, itching, pruritus. ALLERGY/immunology: Denies sneezes, rashes. Past Medical History Past Medical History: Hypertension, Prostate Disorder Additional Past Medical History / Comment(s): dehydration, low B/P, kidney problem that was fixed with fluids and sodium was low. Additional hx: BPH, DDD-cervical pain, R/L hand fingers tingling if over used, AGE 18 FX RT FEMUR IN 4 PLACES HAD PLATE/SCEWS-SINCE REMOVED, HAS OPIOD INDUCED CONSTIPATION, TINNITUS bilaterally but pt has noticed it has decreased since he quit smoking, hay fever. History of Any Multi-Drug Resistant Organisms: None Reported Past Surgical History: Joint Replacement, Orthopedic Surgery Additional Past Surgical History / Comment(s): bilateral CATARACTS, ANT CERVICAL DISCECTOMY/FUSION C4,5,6,7 USING CADAVOR BONE. LT HYDROCELE, LT CARPAL TUNNEL, RT FEMUR SX METAL SINCE REMOVED, COLONOSCOPY, CYSTS REMOVED FROM FOREHEAD,BUTTOCKS,;T MORMONISM. PROSTATE BX X2-BENIGN, partial R knee replacement. Past Anesthesia/Blood Transfusion Reactions: No Reported Reaction Past Psychological History: No Psychological Hx Reported Smoking Status: Current every day smoker Past Alcohol Use History: Daily Past Drug Use History: None Reported - Past Family History Father Family Medical History: COPD, Dementia Additional Family Medical History / Comment(s): Father at age 84yrs. Mother Family Medical History: Cancer, COPD Additional Family Medical History / Comment(s): NASAL/THROAT CANCER. Mother at age 82 Medications and Allergies Home Medications Medication Instructions Recorded Confirmed Type Tamsulosin HCl [Flomax] 0.4 mg PO BID 02/04/16 06/21/21 History gemfibroziL [Lopid] 600 mg PO DAILY 02/04/16 06/21/21 History atenoloL [Tenormin] 25 mg PO BID 11/15/20 06/21/21 History Losartan Potassium 50 mg PO DAILY #0 11/18/20 06/21/21 Rx Dutasteride 0.5 mg PO DAILY 06/21/21 06/21/21 History Allergies Allergy/AdvReac Type Severity Reaction Status Date / Time No Known Allergies Allergy Verified 06/21/21 18:40 Physical Exam Vitals: Vital Signs Temp Pulse Resp BP Pulse Ox 06/25/21 08:00 98.2 F 63 14 93/55 100 06/25/21 04:00 98.4 F 69 15 94/60 100 06/25/21 00:00 98.6 F 64 16 93/47 99 06/24/21 20:00 99.2 F 65 16 93/49 100 06/24/21 15:39 97.3 F L 76 16 90/42 99 Intake and Output 06/24/21 06/25/21 06/25/21 22:59 06:59 14:59 Intake Total 420 120 Output Total 800 700 Balance -380 -700 120 Intake: Oral 420 120 Output: Urine 800 700 Other: Voiding Method Indwelling Catheter Indwelling Catheter Indwelling Catheter # Voids 1 # Bowel Movements 1 Weight 63.5 kg 63.5 kg Skin: Atrophic, intact. General: Thin build and comfortable appearance. Head: Normocephalic, atraumatic. Eyes: Symmetric. Pupils equal round. Ears: Symmetric. Hearing within normal limits. Mouth: Clear. Neck: Supple. Carotid without bruit. Cardiac: Regular rate and rhythm. Lungs: Clear anteriorly and posteriorly. Abdomen: Soft active nontender. Extremities: Normal tone. Neurological: Mental status: Alert, cooperative, pleasant. Cranial nerves: Symmetric facial tone and trapezius. Motor: Active movement all 4 limbs. Sensation: Intact throughout. DTRs: Symmetric and equal throughout. Mobility: Nurse aide reports two-person assist for safety bed to toilet. Results CBC & Chem 7: 06/25/21 07:10 06/25/21 07:10 Labs: Abnormal Lab Results - Last 24 Hours (Table) 06/24/21 06/25/21 06/25/21 Range/Units 18:54 07:10 07:10 RBC 2.57 L (4.30-5.90) m/uL Hgb 8.5 L (13.0-17.5) gm/dL Hct 25.8 L (39.0-53.0) % MCV 100.5 H (80.0-100.0) fL Potassium 3.1 L 3.4 L (3.5-5.1) mmol/L Chloride 110 H (98-107) mmol/L BUN 23 H (9-20) mg/dL Creatinine 1.82 H (0.66-1.25) mg/dL Total Protein 5.1 L (6.3-8.2) g/dL Albumin 2.7 L (3.5-5.0) g/dL Microbiology - Last 24 Hours (Table) 06/21/21 16:50 Blood Culture - Preliminary Blood No Growth after 72 hours 06/21/21 16:50 Blood Culture - Preliminary Blood No Growth after 72 hours Assessment and Plan (1) Acute renal failure Current Visit: Yes Status: Acute Code(s): N17.9 - ACUTE KIDNEY FAILURE, UNSPECIFIED SNOMED Code(s): 01109716 Plan: Impression: 1. Medical debility. 2. Acute renal failure. 3. Dehydration and malnutrition. 4. Hypertension. 5. BPH. 6. Confusion and generalized weakness. Comments and plan: At this time PT and OT are prescribed to value speech therapy. Safety concerns noted. Currently would require 24/ care for discharge planning. Must determine what discharge supports her or if any.
--- NOTE | 2021-06-25 17:07 | P.PN ---
Subjective Progress Note Date: 06/25/21 Hector Frank is a 66 year old male who presented to [facility] emergency room with a chief complaint of generalized weakness, patient was brought into emergency room by his son who stated that his father has not been eating and drinking for several days he was found in bed lethargic and having severe weakness, patient denies any pain or discomfort he denies any difficulty breathing no nausea or vomiting, he admits to smoking cigarettes and drinking alcohol, and stated that he has not been feeling well for several days. He was evaluated in the emergency room vital examination on presentation revealed a temperature of 97.4 pulse 66 respiration 20 blood pressure 62/38 pulse ox 99% on room air, patient was found to have urinary retention with more than 1 L in the bladder on bladder scan, a Epps catheter was inserted in the emergency room. Laboratory data reveals a white blood count of 9.9 hemoglobin 10.6 platelet count 311 sodium 135 potassium 4.5 chloride 112 CO2 6 BUN 60 creatinine 5.74 magnesium 2.6 Testing in the emergency room revealed chest x-ray did not reveal any acute cardiopulmonary abnormality, EKG revealed normal sinus rhythm with possible old inferior infarct troponin level was negative Patient was admitted to medical floor for further evaluation and treatment Past medical history is significant for hypertension, hyperlipidemia, benign prostatic hypertrophy, tobacco use and excessive alcohol use On 06/23/2021 Patient was seen and examined on the medical floor, he is alert, slightly confused in no distress, he denies any complaints there is no fever or chills no headache or dizziness no chest pain no shortness of breath no palpitation no cough no nausea or vomiting no abdominal pain no diarrhea no blood in the stools no burning with urination no frequency or urgency and no hematuria, Epps catheter is in. there is no weakness or numbness in any of the extremities no change in vision speech or gait. On 06/24/2021 Patient was seen and examined on the medical floor, he is somnolent but when aroused he is alert and oriented in no distress, he denies any complaints there is no fever or chills no headache or dizziness no chest pain no shortness of breath no palpitation no cough no nausea or vomiting no abdominal pain no diarrhea no blood in the stools no burning with urination no frequency or urgency and no hematuria, there is no weakness or numbness in any of the extremities no change in vision speech or gait. There is significant imp rovement in kidney function reaction in his down to 2.18 today from 3.09 yesterday and 5.72 on admission. On 06/25/2021 Patient was seen and examined on the medical floor, he is alert and oriented x 3 in no distress, he denies any complaints there is no fever or chills no headache or dizziness no chest pain no shortness of breath no palpitation no cough no nausea or vomiting no abdominal pain no diarrhea no blood in the stools no burning with urination no frequency or urgency and no hematuria, there is no weakness or numbness in any of the extremities no change in vision speech or gait. Patient continues to improve he is still having severe generalized weakness continue with physical therapy and occupational therapy patient will need to go to a rehab unit after this admission Objective - Vital Signs Vital signs: Vital Signs Temp 98.2 F 06/25/21 08:00 Pulse 63 06/25/21 08:00 Resp 14 06/25/21 08:00 BP 93/55 06/25/21 08:00 Pulse Ox 100 06/25/21 08:00 Intake & Output 06/24/21 06/25/21 06/25/21 18:59 06:59 18:59 Intake Total 660 120 Output Total 1500 900 Balance -840 -900 120 Weight 63.5 kg 63.5 kg Intake: Oral 660 120 Output: Urine 1500 900 Other: Voiding Method Indwelling Catheter Indwelling Catheter Indwelling Catheter # Voids 1 # Bowel Movements 1 - Exam In general patient is alert and oriented x 3 in no distress HEENT head normocephalic and atraumatic Neck is supple no JVD no goiter no lymphadenopathy no carotid bruit Chest examination reveals a scattered crackles bilaterally no wheezing Cardiac exam reveals regular heart sounds S1 and S2 no gallops no murmurs Abdomen is soft nontender no organomegaly with normal bowel sounds Extremity exam reveals no edema no cyanosis or clubbing Neurological examination reveals no gross focal deficits - Labs CBC & Chem 7: 06/25/21 07:10 06/25/21 07:10 Labs: Abnormal Lab Results - Last 24 Hours (Table) 06/24/21 06/25/21 06/25/21 Range/Units 18:54 07:10 07:10 RBC 2.57 L (4.30-5.90) m/uL Hgb 8.5 L (13.0-17.5) gm/dL Hct 25.8 L (39.0-53.0) % MCV 100.5 H (80.0-100.0) fL Potassium 3.1 L 3.4 L (3.5-5.1) mmol/L Chloride 110 H (98-107) mmol/L BUN 23 H (9-20) mg/dL Creatinine 1.82 H (0.66-1.25) mg/dL Total Protein 5.1 L (6.3-8.2) g/dL Albumin 2.7 L (3.5-5.0) g/dL Microbiology - Last 24 Hours (Table) 06/21/21 16:50 Blood Culture - Preliminary Blood No Growth after 72 hours 06/21/21 16:50 Blood Culture - Preliminary Blood No Growth after 72 hours Assessment and Plan Plan: Acute kidney injury, patient was started on IV fluid nephrology consultation was requested Hypotension, patient received IV fluid boluses blood pressure is in normal range at this time Urinary retention, Epps catheter was inserted and urology consultation requested Flomax 0.4 mg twice daily was resumed Metabolic acidosis related to acute kidney injury Underlying history of hypertension, at this time blood pressure is low will hold off blood pressure medications and monitor Underlying history of hyperlipidemia Underlying history of benign prostatic hypertrophy Underlying history of excessive alcohol use and tobacco use Patient was started on IV fluid, IV antibiotics Nephrology consultation and urology consultation requested Patient was started on CIWA protocol Will follow blood tests daily and adjust medications as
[2021-06-26] MEDS: SODIUM CHLORIDE 0.9% 1,000 ML IV SCH ×2 (03:46→22:46)
[2021-06-26] MEDS: MIDODRINE 5 MG TAB PO SCH ×3 (06:28→17:09)
[2021-06-26] MEDS: THIAMINE 100 MG TAB PO SCH ×2 (06:29→17:09)
[2021-06-26 08:10] LABS: Albumin 2.4 g/dL (3.5-5.0); Calcium 8.5 mg/dL (8.4-10.2); Magnesium 1.6 mg/dL (1.6-2.3); Potassium 3.1 mmol/L (3.5-5.1); Total Bilirubin 0.2 mg/dL (0.2-1.3); Total Protein 4.8 g/dL (6.3-8.2)
[2021-06-26 08:17] LABS: Basophils % (A) 1 %; Eosinophils # (A) 0.3 k/uL (0-0.7); Eosinophils % (A) 4 %; HCT 23.8 % (39.0-53.0); HGB 7.9 gm/dL (13.0-17.5); Hypochromasia Slight; Lymphocytes # (A) 2.2 k/uL (1.0-4.8); Lymphocytes % (A) 30 %; MCH 33.8 pg (25.0-35.0); MCHC 33.3 g/dL (31.0-37.0); MCV 101.6 fL (80.0-100.0); Macrocytosis Slight; Mean Platelet Volume 9.1; Monocytes # (A) 0.5 k/uL (0-1.0); Monocytes % (A) 7 %; Neutrophils # (A) 4.1 k/uL (1.3-7.7); Neutrophils % (A) 57 %; Platelet Count 240 k/uL (150-450); RBC 2.34 m/uL (4.30-5.90); RDW 15.4 % (11.5-15.5); WBC 7.3 k/uL (3.8-10.6)
[2021-06-26] MEDS ORDERED: Potassium Replacement Protocol 1 EACH MISC MISCELLANE PRN (08:50)
[2021-06-26] MEDS: POTASSIUM CHLORIDE ER 20 MEQ TAB.ER PO SCH ×2 (09:00→10:24)
[2021-06-26] MEDS: ENOXAPARIN 40 MG/0.4 ML SYRINGE SQ SCH (09:25)
[2021-06-26] MEDS: TAMSULOSIN 0.4 MG CAP.ER.24H PO SCH ×2 (09:25→19:54)
--- NOTE | 2021-06-26 09:53 | P.PN ---
Subjective Patient seen in follow-up for acute kidney injury. Renal function continues to improve. Nonoliguric. Has a Epps catheter. Oral intake is fair. No active complaints. Potassium low today. Creatinine 1.56. Vital signs are stable. HEENT: Head exam is unremarkable. LUNGS: Breath sounds decreased. HEART: Rate and Rhythm are regular. ABDOMEN: Soft, no distention. EXTREMITITES: No edema. Objective - Vital Signs Vital signs: Vital Signs Temp 97.7 F 06/26/21 08:30 Pulse 68 06/26/21 08:30 Resp 16 06/26/21 08:30 BP 103/55 06/26/21 08:30 Pulse Ox 99 06/26/21 08:30 Intake & Output 06/25/21 06/26/21 06/26/21 18:59 06:59 18:59 Intake Total 1200 260 Output Total 1600 900 300 Balance -400 -900 -40 Weight 63.5 kg 67.7 kg Intake: IV 520 Invasive Line 3 20 Sodium Chloride 0.9% 1, 450 000 ml @ 50 mls/hr IV . Q20H CIRA Rx#:[id number] cefTRIAXone 1 gm In 50 Sodium Chloride 0.9% 50 ml @ 100 mls/hr IVPB Q24HR CIRA Rx#:[id number] Oral 680 260 Output: Urine 1600 900 300 Uretheral (Epps) 1600 300 Other: Voiding Method Indwelling Catheter Indwelling Catheter Indwelling Catheter # Bowel Movements 1 - Labs CBC & Chem 7: 06/26/21 07:04 06/26/21 07:04 Labs: Abnormal Lab Results - Last 24 Hours (Table) 06/26/21 06/26/21 Range/Units 07:04 07:04 RBC 2.34 L (4.30-5.90) m/uL Hgb 7.9 L (13.0-17.5) gm/dL Hct 23.8 L (39.0-53.0) % MCV 101.6 H (80.0-100.0) fL Sodium 136 L (137-145) mmol/L Potassium 3.1 L (3.5-5.1) mmol/L Chloride 108 H (98-107) mmol/L Creatinine 1.56 H (0.66-1.25) mg/dL Glucose 103 H (74-99) mg/dL Total Protein 4.8 L (6.3-8.2) g/dL Albumin 2.4 L (3.5-5.0) g/dL Microbiology - Last 24 Hours (Table) 06/21/21 16:50 Blood Culture - Preliminary Blood No Growth after 96 hours 06/21/21 16:50 Blood Culture - Preliminary Blood No Growth after 96 hours Assessment and Plan Plan: Assessment: 1. Acute kidney injury secondary to urinary retention. Renal function improving. Creatinine 1.56 today. 2. Urinary retention status post Epps catheter placement. Urology following. 3. Metabolic acidosis secondary to acute kidney injury maintained on bicarb drip. Improved. 4. Hypokalemia from poor intake and intracellular shifting from IV bicarb. 5. Alcohol abuse. Plan: Maintain normal saline. Cortisol level normal. Maintain midodrine. Potassium being replaced. Add oral magnesium oxide Encouraged oral intake
[2021-06-26] MEDS: PANTOPRAZOLE 40 MG TABLET PO SCH (10:24)
[2021-06-26] MEDS: MAGNESIUM OXIDE 400 MG TAB PO SCH ×2 (10:29→19:53)
[2021-06-26] MEDS ORDERED: SODIUM FERRIC GLUCONAT-SUCROSE 125 MG in SODIUM CHLORIDE 0.9% 100 ML IVPB ONE (11:00)
--- NOTE | 2021-06-26 12:09 | P.PN ---
Subjective Progress Note Date: 06/26/21 Hector Frank is a 66 year old male who presented to [facility] emergency room with a chief complaint of generalized weakness, patient was brought into emergency room by his son who stated that his father has not been eating and drinking for several days he was found in bed lethargic and having severe weakness, patient denies any pain or discomfort he denies any difficulty breathing no nausea or vomiting, he admits to smoking cigarettes and drinking alcohol, and stated that he has not been feeling well for several days. He was evaluated in the emergency room vital examination on presentation revealed a temperature of 97.4 pulse 66 respiration 20 blood pressure 62/38 pulse ox 99% on room air, patient was found to have urinary retention with more than 1 L in the bladder on bladder scan, a Epps catheter was inserted in the emergency room. Laboratory data reveals a white blood count of 9.9 hemoglobin 10.6 platelet count 311 sodium 135 potassium 4.5 chloride 112 CO2 6 BUN 60 creatinine 5.74 magnesium 2.6 Testing in the emergency room revealed chest x-ray did not reveal any acute cardiopulmonary abnormality, EKG revealed normal sinus rhythm with possible old inferior infarct troponin level was negative Patient was admitted to medical floor for further evaluation and treatment Past medical history is significant for hypertension, hyperlipidemia, benign prostatic hypertrophy, tobacco use and excessive alcohol use On 06/23/2021 Patient was seen and examined on the medical floor, he is alert, slightly confused in no distress, he denies any complaints there is no fever or chills no headache or dizziness no chest pain no shortness of breath no palpitation no cough no nausea or vomiting no abdominal pain no diarrhea no blood in the stools no burning with urination no frequency or urgency and no hematuria, Epps catheter is in. there is no weakness or numbness in any of the extremities no change in vision speech or gait. On 06/24/2021 Patient was seen and examined on the medical floor, he is somnolent but when aroused he is alert and oriented in no distress, he denies any complaints there is no fever or chills no headache or dizziness no chest pain no shortness of breath no palpitation no cough no nausea or vomiting no abdominal pain no diarrhea no blood in the stools no burning with urination no frequency or urgency and no hematuria, there is no weakness or numbness in any of the extremities no change in vision speech or gait. There is significant imp rovement in kidney function reaction in his down to 2.18 today from 3.09 yesterday and 5.72 on admission. On 06/25/2021 Patient was seen and examined on the medical floor, he is alert and oriented x 3 in no distress, he denies any complaints there is no fever or chills no headache or dizziness no chest pain no shortness of breath no palpitation no cough no nausea or vomiting no abdominal pain no diarrhea no blood in the stools no burning with urination no frequency or urgency and no hematuria, there is no weakness or numbness in any of the extremities no change in vision speech or gait. Patient continues to improve he is still having severe generalized weakness continue with physical therapy and occupational therapy patient will need to go to a rehab unit after this admission On 06/26/2021 patient alert and oriented 3 with intermittent episodes of confusion. Hemoglobin low at 7.9 iron studies ordered per nephrology 1 dose of IV iron or ordered for today. patient started on Protonix. Discussed case with social work team attempting to find ECF placement. No discharge plan in place yet awaiting son's decision. At this time patient denies chest pain or shortness of breath. Patient denies nausea vomiting or diarrhea. Patient denies any urinary burning or frequency. Objective - Vital Signs Vital signs: Vital Signs Temp 97.7 F 06/26/21 08:30 Pulse 68 06/26/21 08:30 Resp 16 06/26/21 08:30 BP 103/55 06/26/21 08:30 Pulse Ox 99 06/26/21 08:30 Intake & Output 06/25/21 06/26/21 06/26/21 18:59 06:59 18:59 Intake Total 1200 380 Output Total 1600 900 300 Balance -400 -900 80 Weight 63.5 kg 67.7 kg Intake: IV 520 Invasive Line 3 20 Sodium Chloride 0.9% 1, 450 000 ml @ 50 mls/hr IV . Q20H [facility] Rx#:[id number] cefTRIAXone 1 gm In 50 Sodium Chloride 0.9% 50 ml @ 100 mls/hr IVPB Q24HR [facility] Rx#:[id number] Oral 680 380 Output: Urine 1600 900 300 Uretheral (Epps) 1600 300 Other: Voiding Method Indwelling Catheter Indwelling Catheter Indwelling Catheter # Bowel Movements 1 - Exam In general patient is alert and oriented x 3 in no distress HEENT head normocephalic and atraumatic Neck is supple no JVD no goiter no lymphadenopathy no carotid bruit Chest examination reveals a scattered crackles bilaterally no wheezing Cardiac exam reveals regular heart sounds S1 and S2 no gallops no murmurs Abdomen is soft nontender no organomegaly with normal bowel sounds Extremity exam reveals no edema no cyanosis or clubbing Neurological examination reveals no gross focal deficits - Labs CBC & Chem 7: 06/26/21 07:04 06/26/21 07:04 Labs: Abnormal Lab Results - Last 24 Hours (Table) 06/26/21 06/26/21 Range/Units 07:04 07:04 RBC 2.34 L (4.30-5.90) m/uL Hgb 7.9 L (13.0-17.5) gm/dL Hct 23.8 L (39.0-53.0) % MCV 101.6 H (80.0-100.0) fL Sodium 136 L (137-145) mmol/L Potassium 3.1 L (3.5-5.1) mmol/L Chloride 108 H (98-107) mmol/L Creatinine 1.56 H (0.66-1.25) mg/dL Glucose 103 H (74-99) mg/dL Total Protein 4.8 L (6.3-8.2) g/dL Albumin 2.4 L (3.5-5.0) g/dL Microbiology - Last 24 Hours (Table) 06/21/21 16:50 Blood Culture - Preliminary Blood No Growth after 96 hours 06/21/21 16:50 Blood Culture - Preliminary Blood No Growth after 96 hours Assessment and Plan Plan: Acute kidney injury, patient was started on IV fluid nephrology consultation was requested Hypotension, patient received IV fluid boluses blood pressure is in normal range at this time Urinary retention, Epps catheter was inserted and urology consultation requested Flomax 0.4 mg twice daily was resumed Metabolic acidosis related to acute kidney injury Underlying history of hypertension, at this time blood pressure is low will hold off blood pressure medications and monitor Underlying history of hyperlipidemia Underlying history of benign prostatic hypertrophy Underlying history of excessive alcohol use and tobacco use Anemia. Iron studies ordered. 1 dose of IV iron ordered Patient was started on IV fluid, IV antibiotics Nephrology consultation and urology consultation requested Patient was started on CIWA protocol Will follow blood tests daily and adjust medications Social work consulted for discharge planning patient will likely need ECF upon discharge
[2021-06-26] MEDS ORDERED: DIPHENOX-ATROP 2.5-0.025 MG 1 EACH TAB PO PRN (17:57)
[2021-06-26] MEDS: CHOLESTYRAMINE (WITH SUGAR) 4 GM PACKET PO SCH (18:19)
[2021-06-26] MEDS ORDERED: POTASSIUM CHLORIDE ER 20 MEQ TAB.ER PO SCH (20:00)
[2021-06-26 23:01] LABS: Ferritin 233.1 ng/mL (22.0-322.0)
[2021-06-26 23:03] LABS: % Iron Saturation 11.11 (15.00-50.00)
[2021-06-27 04:21] LABS: Appearance,Urine Clear (Clear); Bacteria,Urine Rare /hpf; Bilirubin,Urine Negative (Negative); Blood,Urine Moderate (Negative); Color,Urine Light Yellow; Glucose,Urine (UA) Negative (Negative); Ketones,Urine Negative (Negative); Leukocyte Esterase,Urine Moderate (Negative); Nitrite,Urine Negative (Negative); Protein,Urine Trace (Negative); RBC,Urine 17 /hpf (0-5); Specific Gravity,Urine 1.009 (1.001-1.035); Urobilinogen,Urine <2.0 mg/dL (<2.0); WBC,Urine 15 /hpf (0-5)
[2021-06-27] MEDS: MIDODRINE 5 MG TAB PO SCH ×3 (06:23→17:48)
[2021-06-27] MEDS: THIAMINE 100 MG TAB PO SCH ×2 (06:23→17:48)
[2021-06-27] MEDS: PANTOPRAZOLE 40 MG TABLET PO SCH (06:23)
[2021-06-27] MEDS: MAGNESIUM OXIDE 400 MG TAB PO SCH ×2 (08:32→20:04)
[2021-06-27] MEDS: ENOXAPARIN 40 MG/0.4 ML SYRINGE SQ SCH (08:32)
[2021-06-27 09:37] LABS: ALT 10 U/L (4-49); AST 24 U/L (17-59); African American GFR (CKD) 61 (>60 ml/min/1.73 sqM); Albumin 2.3 g/dL (3.5-5.0); Alkaline Phosphatase 77 U/L (38-126); Anion Gap 4 mmol/L; Blood Urea Nitrogen 14 mg/dL (9-20); Calcium 8.6 mg/dL (8.4-10.2); Carbon Dioxide 22 mmol/L (22-30); Chloride 109 mmol/L (98-107); Glucose 94 mg/dL (74-99); Magnesium 1.6 mg/dL (1.6-2.3); Non-African American GFR(CKD) 53 (>60 ml/min/1.73 sqM); Potassium 3.8 mmol/L (3.5-5.1); Sodium 135 mmol/L (137-145); Total Bilirubin <0.1 mg/dL (0.2-1.3); Total Protein 4.7 g/dL (6.3-8.2)
[2021-06-27 09:41] LABS: Basophils % (A) 1 %; Eosinophils # (A) 0.4 k/uL (0-0.7); Eosinophils % (A) 5 %; HCT 23.4 % (39.0-53.0); HGB 7.7 gm/dL (13.0-17.5); Hypochromasia Slight; Lymphocytes # (A) 2.3 k/uL (1.0-4.8); Lymphocytes % (A) 31 %; MCH 33.7 pg (25.0-35.0); MCHC 32.9 g/dL (31.0-37.0); MCV 102.4 fL (80.0-100.0); Macrocytosis Slight; Monocytes # (A) 0.6 k/uL (0-1.0); Monocytes % (A) 8 %; Neutrophils # (A) 3.9 k/uL (1.3-7.7); Neutrophils % (A) 54 %; Platelet Count 246 k/uL (150-450); RBC 2.29 m/uL (4.30-5.90); RDW 15.4 % (11.5-15.5); WBC 7.4 k/uL (3.8-10.6)
--- NOTE | 2021-06-27 10:00 | P.PN ---
Subjective Patient seen in follow-up for acute kidney injury. Renal function continues to improve. Nonoliguric. Has a Epps catheter. Oral intake is fair. No active complaints. Potassium better. Hemodynamically stable. Vital signs are stable. HEENT: Head exam is unremarkable. LUNGS: Breath sounds decreased. HEART: Rate and Rhythm are regular. ABDOMEN: Soft, no distention. EXTREMITITES: No edema. Objective - Vital Signs Vital signs: Vital Signs Temp 98.1 F 06/27/21 03:45 Pulse 64 06/27/21 03:45 Resp 16 06/27/21 03:45 BP 96/49 06/27/21 03:45 Pulse Ox 98 06/27/21 03:45 Intake & Output 06/26/21 06/27/21 06/27/21 18:59 06:59 18:59 Intake Total 940 350 236 Output Total 1750 600 Balance -810 -250 236 Weight 70.5 kg Intake: IV 350 Sodium Chloride 0.9% 1, 350 000 ml @ 50 mls/hr IV . Q20H [facility] Rx#:[id number] Oral 940 236 Output: Urine 1750 600 Uretheral (Epps) 750 Other: Voiding Method Indwelling Catheter Indwelling Catheter # Bowel Movements 3 - Labs CBC & Chem 7: 06/27/21 08:18 06/27/21 08:18 Labs: Abnormal Lab Results - Last 24 Hours (Table) 06/26/21 06/27/21 06/27/21 Range/Units 07:04 03:54 08:18 RBC (4.30-5.90) m/uL Hgb (13.0-17.5) gm/dL Hct (39.0-53.0) % MCV (80.0-100.0) fL Sodium 135 L (137-145) mmol/L Chloride 109 H (98-107) mmol/L Creatinine 1.38 H (0.66-1.25) mg/dL Iron 26 L (65-175) ug/dL % Saturation 11.11 L (15.00-50.00) Total Bilirubin <0.1 L (0.2-1.3) mg/dL Total Protein 4.7 L (6.3-8.2) g/dL Albumin 2.3 L (3.5-5.0) g/dL Urine Protein Trace H (Negative) Urine Blood Moderate H (Negative) Ur Leukocyte Esterase Moderate H (Negative) Urine RBC 17 H (0-5) /hpf Urine WBC 15 H (0-5) /hpf Urine Bacteria Rare H (None) /hpf 06/27/21 Range/Units 08:18 RBC 2.29 L (4.30-5.90) m/uL Hgb 7.7 L (13.0-17.5) gm/dL Hct 23.4 L (39.0-53.0) % MCV 102.4 H (80.0-100.0) fL Sodium (137-145) mmol/L Chloride (98-107) mmol/L Creatinine (0.66-1.25) mg/dL Iron (65-175) ug/dL % Saturation (15.00-50.00) Total Bilirubin (0.2-1.3) mg/dL Total Protein (6.3-8.2) g/dL Albumin (3.5-5.0) g/dL Urine Protein (Negative) Urine Blood (Negative) Ur Leukocyte Esterase (Negative) Urine RBC (0-5) /hpf Urine WBC (0-5) /hpf Urine Bacteria (None) /hpf Microbiology - Last 24 Hours (Table) 06/21/21 16:50 Blood Culture - Preliminary Blood No Growth after 120 hours 06/21/21 16:50 Blood Culture - Preliminary Blood No Growth after 120 hours Assessment and Plan Plan: Assessment: 1. Acute kidney injury secondary to urinary retention. Renal function improving. Creatinine 1.38 today. 2. Urinary retention status post Epps catheter placement. Urology following. On Flomax. 3. Metabolic acidosis secondary to acute kidney injury s/p bicarb drip. Improved. 4. Hypokalemia from poor intake and intracellular shifting from IV bicarb. Replace. Better. 5. Alcohol abuse. 6. Hypomagnesemia from poor intake and chronic alcohol abuse. 7. Anemia with iron deficiency. Plan: Maintain normal saline. Cortisol level normal. Maintain midodrine. Replace magnesium. Maintain oral magnesium oxide. Encouraged oral intake. Second dose of IV iron today.
[2021-06-27] MEDS ORDERED: SODIUM FERRIC GLUCONAT-SUCROSE 125 MG in SODIUM CHLORIDE 0.9% 100 ML IVPB ONE (10:30)
[2021-06-27] MEDS: TAMSULOSIN 0.4 MG CAP.ER.24H PO SCH ×2 (11:30→20:04)
[2021-06-27] MEDS: CHOLESTYRAMINE (WITH SUGAR) 4 GM PACKET PO SCH ×2 (11:45→17:48)
[2021-06-27] MEDS: MAGNESIUM SULFATE-D5W PMX 1 GM in DEXTROSE/WATER 1 100ML.BAG IVPB SCH ×2 (13:02→14:09)
--- NOTE | 2021-06-27 13:22 | CDI ---
Documentation Clarification Form Date: 06/27/2021 01:02:55 PM From: Louise Olson CCS, CCDS Admit Date: 06/21/2021 06:48:00 PM Patient Name: Hector Frank Visit Number: [id number] Discharge Date: ATTENTION: The Clinical Documentation Specialists (CDI) and [facility] Coding Staff appreciate your assistance in clarifying documentation. Please respond to the clarification below the line at the bottom and electronically sign. The CDI & [facility] Coding staff will review the response and follow-up if needed. Please note: Queries are made part of the Legal Health Record. If you have any questions, please contact the author of this message via ITS. Dr. Cade Carmona: Malnutrition without further specificity is documented in the 06/25 Rehab Physician Consult. Additional clarification regarding the severity of malnutrition is requested. History/Risk Factors per the 06/22 H/P: Hypertension, Hyperlipidemia, BPH, Former Smoker & Excessive Alcohol Use. Clinical Indicators: Presented to the ED on 06/21 with Weakness & Hematuria. Not eating or drinking well for several days, found in his bed, lethargic with generalized weakness. Nursing Assessment on Admission, 06/21: Weight 58 kg, Ht 5 ft 9 in, BMI: 18.0.9 Calculated IBW: 58 kg: @ 80% IBW with 18 kg weight loss Orientated to Person & Place with Inappropriate Verbal Response & Confusion. Motor Strength: Mild weakness. On admission: refused diet. Nutrition Diagnosis: Malnutrition, Chronic Severe. Underfeeding, poor appetite. Severe temporalis, buccal fat pad and pectoralis major muscle wasting. Treatment: Ensure Complete TID 220 Kcal. IV Na Cl 1,000 mls @ 999 mls/hr q1H x2, IV Na Cl 1,000 mls @ 130 mls/hr q7H Please clarify the type of malnutrition, if known: [ ] Mild Protein-Calorie Malnutrition [ ] Moderate Protein-Calorie Malnutrition [ ] Severe Protein-Calorie Malnutrition [ ] Other condition, please specify [ ] Unable to Determine (Template Last Revised: January 2021) MTDD
--- NOTE | 2021-06-27 19:13 | P.PN ---
Subjective Progress Note Date: 06/27/21 Hector Frank is a 66 year old male who presented to [facility] emergency room with a chief complaint of generalized weakness, patient was brought into emergency room by his son who stated that his father has not been eating and drinking for several days he was found in bed lethargic and having severe weakness, patient denies any pain or discomfort he denies any difficulty breathing no nausea or vomiting, he admits to smoking cigarettes and drinking alcohol, and stated that he has not been feeling well for several days. He was evaluated in the emergency room vital examination on presentation revealed a temperature of 97.4 pulse 66 respiration 20 blood pressure 62/38 pulse ox 99% on room air, patient was found to have urinary retention with more than 1 L in the bladder on bladder scan, a Epps catheter was inserted in the emergency room. Laboratory data reveals a white blood count of 9.9 hemoglobin 10.6 platelet count 311 sodium 135 potassium 4.5 chloride 112 CO2 6 BUN 60 creatinine 5.74 magnesium 2.6 Testing in the emergency room revealed chest x-ray did not reveal any acute cardiopulmonary abnormality, EKG revealed normal sinus rhythm with possible old inferior infarct troponin level was negative Patient was admitted to medical floor for further evaluation and treatment Past medical history is significant for hypertension, hyperlipidemia, benign prostatic hypertrophy, tobacco use and excessive alcohol use On 06/23/2021 Patient was seen and examined on the medical floor, he is alert, slightly confused in no distress, he denies any complaints there is no fever or chills no headache or dizziness no chest pain no shortness of breath no palpitation no cough no nausea or vomiting no abdominal pain no diarrhea no blood in the stools no burning with urination no frequency or urgency and no hematuria, Epps catheter is in. there is no weakness or numbness in any of the extremities no change in vision speech or gait. On 06/24/2021 Patient was seen and examined on the medical floor, he is somnolent but when aroused he is alert and oriented in no distress, he denies any complaints there is no fever or chills no headache or dizziness no chest pain no shortness of breath no palpitation no cough no nausea or vomiting no abdominal pain no diarrhea no blood in the stools no burning with urination no frequency or urgency and no hematuria, there is no weakness or numbness in any of the extremities no change in vision speech or gait. There is significant imp rovement in kidney function reaction in his down to 2.18 today from 3.09 yesterday and 5.72 on admission. On 06/25/2021 Patient was seen and examined on the medical floor, he is alert and oriented x 3 in no distress, he denies any complaints there is no fever or chills no headache or dizziness no chest pain no shortness of breath no palpitation no cough no nausea or vomiting no abdominal pain no diarrhea no blood in the stools no burning with urination no frequency or urgency and no hematuria, there is no weakness or numbness in any of the extremities no change in vision speech or gait. Patient continues to improve he is still having severe generalized weakness continue with physical therapy and occupational therapy patient will need to go to a rehab unit after this admission On 06/26/2021 patient alert and oriented 3 with intermittent episodes of confusion. Hemoglobin low at 7.9 iron studies ordered per nephrology 1 dose of IV iron or ordered for today. patient started on Protonix. Discussed case with social work team attempting to find ECF placement. No discharge plan in place yet awaiting son's decision. At this time patient denies chest pain or shortness of breath. Patient denies nausea vomiting or diarrhea. Patient denies any urinary burning or frequency. On 06/27/2021 Patient was seen and examined on the medical floor, he is alert and oriented x 3 in no distress, he denies any complaints there is no fever or chills no headache or dizziness no chest pain no shortness of breath no palpitation no cough no nausea or vomiting no abdominal pain no diarrhea no bl ood in the stools no burning with urination no frequency or urgency and no hematuria, there is no weakness or numbness in any of the extremities no change in vision speech or gait, patient is improving gradually his kidney function is still abnormal, and he still has significant anemia, he was able to ambulate and does not qualify to go to a [facility]. Will continue was physical therapy will give 1 more dose of IV iron possible discharge to home tomorrow if stable prognosis is guarded patient was counseled in length today in regard to alcohol cessation and smoking cessation. Objective - Vital Signs Vital signs: Vital Signs Temp 97.2 F L 06/27/21 15:48 Pulse 63 06/27/21 15:48 Resp 20 06/27/21 15:48 BP 96/54 06/27/21 15:48 Pulse Ox 98 06/27/21 15:48 Intake & Output 06/27/21 06/27/21 06/28/21 06:59 18:59 06:59 Intake Total 350 472 Output Total 600 1000 Balance -250 -528 Weight 70.5 kg Intake: IV 350 Sodium Chloride 0.9% 1, 350 000 ml @ 50 mls/hr IV . Q20H [facility] Rx#:[id number] Oral 472 Output: Urine 600 1000 Other: Voiding Method Indwelling Catheter Indwelling Catheter - Exam In general patient is alert and oriented x 3 in no distress HEENT head normocephalic and atraumatic Neck is supple no JVD no goiter no lymphadenopathy no carotid bruit Chest examination reveals a scattered crackles bilaterally no wheezing Cardiac exam reveals regular heart sounds S1 and S2 no gallops no murmurs Abdomen is soft nontender no organomegaly with normal bowel sounds Extremity exam reveals no edema no cyanosis or clubbing Neurological examination reveals no gross focal deficits - Labs CBC & Chem 7: 06/27/21 08:18 06/27/21 08:18 Labs: Abnormal Lab Results - Last 24 Hours (Table) 06/26/21 06/27/21 06/27/21 Range/Units 07:04 03:54 08:18 RBC (4.30-5.90) m/uL Hgb (13.0-17.5) gm/dL Hct (39.0-53.0) % MCV (80.0-100.0) fL Sodium 135 L (137-145) mmol/L Chloride 109 H (98-107) mmol/L Creatinine 1.38 H (0.66-1.25) mg/dL Iron 26 L (65-175) ug/dL % Saturation 11.11 L (15.00-50.00) Total Bilirubin <0.1 L (0.2-1.3) mg/dL Total Protein 4.7 L (6.3-8.2) g/dL Albumin 2.3 L (3.5-5.0) g/dL Urine Protein Trace H (Negative) Urine Blood Moderate H (Negative) Ur Leukocyte Esterase Moderate H (Negative) Urine RBC 17 H (0-5) /hpf Urine WBC 15 H (0-5) /hpf Urine Bacteria Rare H (None) /hpf 06/27/21 Range/Units 08:18 RBC 2.29 L (4.30-5.90) m/uL Hgb 7.7 L (13.0-17.5) gm/dL Hct 23.4 L (39.0-53.0) % MCV 102.4 H (80.0-100.0) fL Sodium (137-145) mmol/L Chloride (98-107) mmol/L Creatinine (0.66-1.25) mg/dL Iron (65-175) ug/dL % Saturation (15.00-50.00) Total Bilirubin (0.2-1.3) mg/dL Total Protein (6.3-8.2) g/dL Albumin (3.5-5.0) g/dL Urine Protein (Negative) Urine Blood (Negative) Ur Leukocyte Esterase (Negative) Urine RBC (0-5) /hpf Urine WBC (0-5) /hpf Urine Bacteria (None) /hpf Microbiology - Last 24 Hours (Table) 06/21/21 16:50 Blood Culture - Final Blood No Growth after 144 hours 06/21/21 16:50 Blood Culture - Final Blood No Growth after 144 hours 06/27/21 03:54 Urine Culture - Preliminary Urine,Voided Assessment and Plan Plan: Acute kidney injury, patient was started on IV fluid nephrology consultation was requested Hypotension, patient received IV fluid boluses blood pressure is in normal range at this time Urinary retention, Epps catheter was inserted and urology consultation requested Flomax 0.4 mg twice daily was resumed Metabolic acidosis related to acute kidney injury Underlying history of hypertension, at this time blood pressure is low will hold off blood pressure medications and monitor Underlying history of hyperlipidemia Underlying history of benign prostatic hypertrophy Underlying history of excessive alcohol use and tobacco use Anemia. Iron studies ordered. 1 dose of IV iron ordered Patient was started on IV fluid, IV antibiotics Nephrology consultation and urology consultation requested Patient was started on CIWA protocol Will follow blood tests daily and adjust medications Social work consulted for discharge planning patient will likely need ECF upon discharge
[2021-06-27 19:59] VITALS: RESP 16
[2021-06-28] MEDS: SODIUM CHLORIDE 0.9% 1,000 ML IV SCH (01:51)
[2021-06-28] MEDS: THIAMINE 100 MG TAB PO SCH (06:36)
[2021-06-28] MEDS: MIDODRINE 5 MG TAB PO SCH ×2 (06:36→12:36)
[2021-06-28] MEDS: PANTOPRAZOLE 40 MG TABLET PO SCH (06:36)
[2021-06-28] MEDS ORDERED: SODIUM FERRIC GLUCONAT-SUCROSE 125 MG in SODIUM CHLORIDE 0.9% 100 ML IVPB ONE (07:00)
[2021-06-28 07:42] VITALS: BP 114/59; PULSE 62; TEMP 98
--- NOTE | 2021-06-28 08:13 | CDI ---
Documentation Clarification Form Date: 06/27/2021 01:02:00 PM From: Louise Olson CCS, CCDS Admit Date: 06/21/2021 06:48:00 PM Patient Name: Hector Frank Visit Number: [id number] Discharge Date: ATTENTION: The Clinical Documentation Specialists (CDI) and [facility] Coding Staff appreciate your assistance in clarifying documentation. Please respond to the clarification below the line at the bottom and electronically sign. The CDI & [facility] Coding staff will review the response and follow-up if needed. Please note: Queries are made part of the Legal Health Record. If you have any questions, please contact the author of this message via ITS. Dr. Cade Carmona: Please respond to this query in your documentation or on the query form prior to signing. Malnutrition without further specificity is documented in the 06/25 Rehab Physician Consult. Additional clarification regarding the severity of malnutrition is requested. History/Risk Factors per the 06/22 H/P: Hypertension, Hyperlipidemia, BPH, Former Smoker & Excessive Alcohol Use. Clinical Indicators: Presented to the ED on 06/21 with Weakness & Hematuria. Not eating or drinking well for several days, found in his bed, lethargic with generalized weakness. Nursing Assessment on Admission, 06/21: Weight 58 kg, Ht 5 ft 9 in, BMI: 18.0.9 Calculated IBW: 58 kg: @ 80% IBW with 18 kg weight loss Orientated to Person & Place with Inappropriate Verbal Response & Confusion. Motor Strength: Mild weakness. On admission: refused diet. Nutrition Diagnosis: Malnutrition, Chronic Severe. Underfeeding, poor appetite. Severe temporalis, buccal fat pad and pectoralis major muscle wasting. Treatment: Ensure Complete TID 220 Kcal. IV Na Cl 1,000 mls @ 999 mls/hr q1H x2, IV Na Cl 1,000 mls @ 130 mls/hr q7H Please clarify the type of malnutrition, if known: [ ] Mild Protein-Calorie Malnutrition [ ] Moderate Protein-Calorie Malnutrition [ ] Severe Protein-Calorie Malnutrition [ ] Other condition, please specify [ ] Unable to Determine (Template Last Revised: January 2021) MTDD
[2021-06-28 08:20] LABS: Basophils % (A) 0 %; Eosinophils # (A) 0.3 k/uL (0-0.7); Eosinophils % (A) 4 %; HCT 22.3 % (39.0-53.0); HGB 7.2 gm/dL (13.0-17.5); Hypochromasia Slight; Lymphocytes % (A) 26 %; MCH 33.3 pg (25.0-35.0); MCHC 32.5 g/dL (31.0-37.0); MCV 102.4 fL (80.0-100.0); Macrocytosis Slight; Mean Platelet Volume 8.4; Monocytes # (A) 0.7 k/uL (0-1.0); Monocytes % (A) 9 %; Neutrophils # (A) 4.5 k/uL (1.3-7.7); Neutrophils % (A) 59 %; Platelet Count 240 k/uL (150-450); RBC 2.17 m/uL (4.30-5.90); RDW 14.9 % (11.5-15.5); WBC 7.6 k/uL (3.8-10.6)
[2021-06-28 08:32] LABS: Albumin 2.2 g/dL (3.5-5.0); Calcium 8.2 mg/dL (8.4-10.2); Magnesium 1.9 mg/dL (1.6-2.3); Potassium 4.3 mmol/L (3.5-5.1); Total Bilirubin 0.2 mg/dL (0.2-1.3); Total Protein 4.6 g/dL (6.3-8.2)
[2021-06-28] MEDS: MAGNESIUM OXIDE 400 MG TAB PO SCH (08:46)
[2021-06-28] MEDS: CHOLESTYRAMINE (WITH SUGAR) 4 GM PACKET PO SCH (08:46)
[2021-06-28] MEDS: ENOXAPARIN 40 MG/0.4 ML SYRINGE SQ SCH (08:46)
[2021-06-28] MEDS: TAMSULOSIN 0.4 MG CAP.ER.24H PO SCH (08:46)
--- NOTE | 2021-06-28 10:29 | P.PN ---
Subjective Patient seen in follow-up for acute kidney injury. Renal function has improved. Creatinine stable at 1.38 today. Nonoliguric. Has a Epps catheter. Oral intake is fair. No active complaints. Hemodynamically stable. Vital signs are stable. HEENT: Head exam is unremarkable. LUNGS: Breath sounds decreased. HEART: Rate and Rhythm are regular. ABDOMEN: Soft, no distention. EXTREMITITES: No edema. Objective - Vital Signs Vital signs: Vital Signs Temp 98 F 06/28/21 07:41 Pulse 62 06/28/21 07:42 Resp 16 06/28/21 07:42 BP 114/59 06/28/21 07:41 Pulse Ox 98 06/28/21 07:41 Intake & Output 06/27/21 06/28/21 06/28/21 18:59 06:59 18:59 Intake Total 472 400 Output Total 1000 1550 Balance -528 -1150 Weight 71.2 kg Intake: IV 400 Sodium Chloride 0.9% 1, 400 000 ml @ 50 mls/hr IV . Q20H [facility], [facility] Rx#:[id number] Oral 472 Output: Urine 1000 1550 Other: Voiding Method Indwelling Catheter Indwelling Catheter Indwelling Catheter - Labs CBC & Chem 7: 06/28/21 07:29 06/28/21 07:29 Labs: Abnormal Lab Results - Last 24 Hours (Table) 06/28/21 06/28/21 Range/Units 07:29 07:29 RBC 2.17 L (4.30-5.90) m/uL Hgb 7.2 L (13.0-17.5) gm/dL Hct 22.3 L (39.0-53.0) % MCV 102.4 H (80.0-100.0) fL Sodium 133 L (137-145) mmol/L Creatinine 1.38 H (0.66-1.25) mg/dL Calcium 8.2 L (8.4-10.2) mg/dL Total Protein 4.6 L (6.3-8.2) g/dL Albumin 2.2 L (3.5-5.0) g/dL Microbiology - Last 24 Hours (Table) 06/21/21 16:50 Blood Culture - Final Blood No Growth after 144 hours 06/21/21 16:50 Blood Culture - Final Blood No Growth after 144 hours 06/27/21 03:54 Urine Culture - Preliminary Urine,Voided Assessment and Plan Plan: Assessment: 1. Acute kidney injury secondary to urinary retention. Renal function improved. Creatinine stable at 1.38 today. 2. Urinary retention status post Epps catheter placement. Urology following. On Flomax. 3. Metabolic acidosis secondary to acute kidney injury s/p bicarb drip. Improved. 4. Hypokalemia from poor intake and intracellular shifting from IV bicarb. Replaced. Better. 5. Alcohol abuse. 6. Hypomagnesemia from poor intake and chronic alcohol abuse. Maintained on oral magnesium oxide. 7. Anemia with iron deficiency. Status post IV iron. Plan: Maintain normal saline. Cortisol level normal. Maintain midodrine. Encouraged oral intake. Possible discharge today. Follow up outpatient in 1-2 weeks.
--- NOTE | 2021-06-28 10:37 | P.DS ---
Providers Date of admission: 06/21/21 18:48 Expected date of discharge: 06/28/21 Attending physician: Jose Correa Consults: 06/21/21 18:47 Consult Physician Routine Consulting Provider: Krystyna Evangelista Consult Reason/Comments: DAYAMI Do you want consulting provider notified?: Yes 06/22/21 09:50 Consult Physician Routine Consulting Provider: Bobby Fernández Consult Reason/Comments: Urinary retention Do you want consulting provider notified?: Yes 06/25/21 09:53 Consult Physician Routine Consulting Provider: Cade Carmona Consult Reason/Comments: gait disturbance Do you want consulting provider notified?: Yes Primary care physician: Jose Correa [facility] Course: Discharge diagnosis Acute kidney injury, patient was started on IV fluid nephrology consultation was requested Hypotension, patient received IV fluid boluses blood pressure is in normal range at this time Urinary retention, Epps catheter was inserted and urology consultation reques kyle Flomax 0.4 mg twice daily was resumed Metabolic acidosis related to acute kidney injury Underlying history of hypertension, at this time blood pressure is low will hold off blood pressure medications and monitor Underlying history of hyperlipidemia Underlying history of benign prostatic hypertrophy Underlying history of excessive alcohol use and tobacco use Anemia. Iron studies ordered. 1 dose of IV iron ordered during hemoglobin 7.2. Repeat hemoglobin level will be ordered for 2 days Urinary tract infection. Patient was treated with IV antibiotics urine culture was negative sec and urine culture currently pending no elevated white blood count or fever will DC patient without antibiotics and follow up with PCP in regards to urine culture Hospital course Hector Frank is a 66 year old male who presented to [facility] emergency room with a chief complaint of generalized weakness, patient was brought into emergency room by his son who stated that his father has not been eating and drinking for several days he was found in bed lethargic and having severe weakness, patient denies any pain or discomfort he denies any difficulty breathing no nausea or vomiting, he admits to smoking cigarettes and drinking alcohol, and stated that he has not been feeling well for several days. He was evaluated in the emergency room vital examination on presentation revealed a temperature of 97.4 pulse 66 respiration 20 blood pressure 62/38 pulse ox 99% on room air, patient was found to have urinary retention with more than 1 L in the bladder on bladder scan, a Epps catheter was inserted in the emergency room. Laboratory data reveals a white blood count of 9.9 hemoglobin 10.6 platelet count 311 sodium 135 potassium 4.5 chloride 112 CO2 6 BUN 60 creatinine 5.74 magnesium 2.6 Testing in the emergency room revealed chest x-ray did not reveal any acute cardiopulmonary abnormality, EKG revealed normal sinus rhythm with possible old inferior infarct troponin level was negative Patient was admitted to medical floor for further evaluation and treatment Past medical history is significant for hypertension, hyperlipidemia, benign prostatic hypertrophy, tobacco use and excessive alcohol use On 06/23/2021 Patient was seen and examined on the medical floor, he is alert, slightly confused in no distress, he denies any complaints there is no fever or chills no headache or dizziness no chest pain no shortness of breath no palpitation no cough no nausea or vomiting no abdominal pain no diarrhea no blood in the stools no burning with urination no frequency or urgency and no hematuria, Epps catheter is in. there is no weakness or numbness in any of the extremities no change in vision speech or gait. On 06/24/2021 Patient was seen and examined on the medical floor, he is somnolent but when aroused he is alert and oriented in no distress, he denies any complaints there is no fever or chills no headache or dizziness no chest pa in no shortness of breath no palpitation no cough no nausea or vomiting no abdominal pain no diarrhea no blood in the stools no burning with urination no frequency or urgency and no hematuria, there is no weakness or numbness in any of the extremities no change in vision speech or gait. There is significant improvement in kidney function reaction in his down to 2.18 today from 3.09 yesterday and 5.72 on admission. On 06/25/2021 Patient was seen and examined on the medical floor, he is alert and oriented x 3 in no distress, he denies any complaints there is no fever or chills no headache or dizziness no chest pain no shortness of breath no palpitation no cough no nausea or vomiting no abdominal pain no diarrhea no blood in the stools no burning with urination no frequency or urgency and no hematuria, there is no weakness or numbness in any of the extremities no change in vision speech or gait. Patient continues to improve he is still having severe generalized weakness continue with physical therapy and occupational therapy patient will need to go to a rehab unit after this admission On 06/26/2021 patient alert and oriented 3 with intermittent episodes of confusion. Hemoglobin low at 7.9 iron studies ordered per nephrology 1 dose of IV iron or ordered for today. patient started on Protonix. Discussed case with social work team attempting to find ECF placement. No discharge plan in place yet awaiting son's decision. At this time patient denies chest pain or shortness of breath. Patient denies nausea vomiting or diarrhea. Patient denies any urinary burning or frequency. On 06/27/2021 Patient was seen and examined on the medical floor, he is alert and oriented x 3 in no distress, he denies any complaints there is no fever or chills no headache or dizziness no chest pain no shortness of breath no palpitation no cough no nausea or vomiting no abdominal pain no diarrhea no blood in the stools no burning with urination no frequency or urgency and no hematuria, there is no weakness or numbness in any of the extremities no change in vision speech or gait, patient is improving gradually his kidney function is still abnormal, and he still has significant anemia, he was able to ambulate and does not qualify to go to a long term. Will continue was physical therapy will give 1 more dose of IV iron possible discharge to home tomorrow if stable prognosis is guarded patient was counseled in length today in regard to alcohol cessation and smoking cessation. On 06/28/2021 patient alert and oriented 3. Patient will be DC'd home with home health care today. Hemoglobin low at 7.2. Patient to receive final dose of IV iron today prior to discharge. Patient will be DC'd home without antibiotics. Urine culture is currently pending patient did receive IV antibiotics during hospitalization. At this time patient denies chest pain or shortness breath. Patient denies nausea vomiting or diarrhea. Patient denies any urinary burning or frequency Patient Condition at Discharge: Stable Plan - Discharge Summary Discharge Rx Participant: No New Discharge Prescriptions: No Action Tamsulosin HCl [Flomax] 0.4 mg PO BID gemfibroziL [Lopid] 600 mg PO DAILY atenoloL [Tenormin] 25 mg PO BID Losartan Potassium 50 mg PO DAILY #0 Dutasteride 0.5 mg PO DAILY Discharge Medication List Tamsulosin HCl [Flomax] 0.4 mg PO BID 02/04/16 [History] gemfibroziL [Lopid] 600 mg PO DAILY 02/04/16 [History] atenoloL [Tenormin] 25 mg PO BID 11/15/20 [History] Losartan Potassium 50 mg PO DAILY #0 11/18/20 [Rx] Dutasteride 0.5 mg PO DAILY 06/21/21 [History] Follow up Appointment(s)/Referral(s): Jose Correa MD [Primary Care Provider] - 1-2 days
[2021-06-28 11:15] VITALS: BMI 23.1
== END 2021-06-28 13:30 | disposition home health service (06) | DRG 683 ==
LOC: EC 16:26 → 3SCARD 18:48
PROVIDERS: ADMIT Internal Medicine; ATTEND Internal Medicine
DX: N17.9 Acute kidney failure, unspecified (principal); E87.2 Acidosis; N13.8 Other obstructive and reflux uropathy; Z20.822 Contact with and (suspected) exposure to COVID-19; D50.9 Iron deficiency anemia, unspecified; E78.5 Hyperlipidemia, unspecified; E83.42 Hypomagnesemia; E86.0 Dehydration; E87.6 Hypokalemia; F10.10 Alcohol abuse, uncomplicated; F17.210 Nicotine dependence, cigarettes, uncomplicated; I10 Essential (primary) hypertension; N30.91 Cystitis, unspecified with hematuria; N40.1 Benign prostatic hyperplasia with lower urinary tract symptoms; R33.8 Other retention of urine; Z79.899 Other long term (current) drug therapy; Z87.440 Personal history of urinary (tract) infections; Z96.651 Presence of right artificial knee joint; Z98.1 Arthrodesis status; Z71.41 Alcohol abuse counseling and surveillance of alcoholic; Z71.6 Tobacco abuse counseling
CPT/HCPCS: 36415; 71046; 76770; 80048; 80053; 81001; 82533; 82728; 83540; 83550; 83605; 83735; 84132; 84484; 85025; 85610; 85730; 87040; 87086; 87324; 93005; 94760; 96360; 96374; 99291

== ENCOUNTER 2023-06-19 17:28 | Observation (INO) | payer MEDICARE ==
--- NOTE | 2023-06-19 20:24 | XR ---
EXAMINATION TYPE: XR foot complete bilateral DATE OF EXAM: 06/19/2023 8:18 PM INDICATION: Patient age:Male; 68 years old; Reason for study: Pain; COMPARISON: None TECHNIQUE: The bilateral feet were examined in the AP, oblique, and lateral projections. FINDINGS: Multifocal degeneration changes throughout the foot. No evidence of fracture or dislocation. There is scattered atherosclerosis of the arterial vasculature. No calcaneal plantar spurring is identified. No significant swelling visualized. IMPRESSION: 1. No evidence of acute fracture. 2. Mild multifocal degeneration. 3. Soft tissue swelling not well appreciated on radiography.
[2023-06-19] MEDS ORDERED: KETOROLAC 15 MG/ML 1 ML VIAL IVP STA (20:28)
[2023-06-19] MEDS ORDERED: MORPHINE SULFATE 2 MG/ML SYRINGE IVP STA (20:28)
--- NOTE | 2023-06-19 20:30 | ED ---
Extremity Problem HPI - General Chief complaint: Extremity Problem,Nontraumatic Stated complaint: Ankles Swelling, Diff Walking Time Seen by Provider: 06/19/23 19:44 Source: patient, RN notes reviewed Mode of arrival: ambulatory Limitations: no limitations - History of Present Illness Initial comments: This is a 68-year-old male who presents to the emergency department for bilateral foot pain. States that this started 7-10 days ago. Pain is only pres ent when he tries to stand or walk. States that he gets pain to the balls of both feet, which then shoot up the leg. He has since fallen several times because of this. This concerns him because he does live alone. He takes tramadol for his neck pain, however this has not been effectively managing his foot pain. Denies any injuries. Also denies any history of similar symptoms in the past. States that he has started to notice some swelling to his left ankle, which is new. Denies any fevers, chills, sore throat, cough, dyspnea, chest pain, palpitations, abdominal pain, nausea, vomiting, diarrhea, back pain, or headaches. MD Complaint: extremity pain - Related Data Home Medications Medication Instructions Recorded Confirmed Tamsulosin HCl [Flomax] 0.4 mg PO BID 02/04/16 06/19/23 gemfibroziL [Lopid] 600 mg PO DAILY 02/04/16 06/19/23 Dutasteride 0.5 mg PO DAILY 06/21/21 06/19/23 ALPRAZolam [Xanax] 0.25 mg PO TID PRN 01/08/23 06/19/23 atenoloL [Tenormin] 25 mg PO BID 01/08/23 06/19/23 traMADol HCL 50 mg PO TID PRN 01/08/23 06/19/23 amLODIPine [Norvasc] 5 mg PO DAILY 06/19/23 06/19/23 Allergies Allergy/AdvReac Type Severity Reaction Status Date / Time No Known Allergies Allergy Verified 06/19/23 22:07 Review of Systems ROS Statement: Those systems with pertinent positive or pertinent negative responses have been documented in the HPI. ROS Other: All systems not noted in ROS Statement are negative. Past Medical History Past Medical History: Atrial Fibrillation, Hypertension, Prostate Disorder Additional Past Medical History / Comment(s): dehydration, low B/P, kidney problem that was fixed with fluids and sodium was low. Additional hx: BPH, DDD-cervical pain, R/L hand fingers tingling if over used, AGE 18 FX RT FEMUR IN 4 PLACES HAD PLATE/SCEWS-SINCE REMOVED, HAS OPIOD INDUCED CONSTIPATION, TINNITUS bilaterally but pt has noticed it has decreased since he quit smoking, hay fever. History of Any Multi-Drug Resistant Organisms: None Reported Past Surgical History: Heart Catheterization, Joint Replacement, Orthopedic Surgery Additional Past Surgical History / Comment(s): bilateral CATARACTS, ANT CERVICAL DISCECTOMY/FUSION C4,5,6,7 USING CADAVOR BONE. LT HYDROCELE, LT CARPAL TUNNEL, RT FEMUR SX METAL SINCE REMOVED, COLONOSCOPY, CYSTS REMOVED FROM FOREHEAD,BUTTOCKS,;T SABIANISM. PROSTATE BX X2-BENIGN, partial R knee replacement. cardiac ablation Past Anesthesia/Blood Transfusion Reactions: No Reported Reaction Past Psychological History: No Psychological Hx Reported Smoking Status: Current every day smoker Past Alcohol Use History: Daily Past Drug Use History: None Reported - Past Family History Father Family Medical History: COPD, Dementia Additional Family Medical History / Comment(s): Father at age 84yrs. Mother Family Medical History: Cancer, COPD Additional Family Medical History / Comment(s): NASAL/THROAT CANCER. Mother at age 82 General Exam Limitations: no limitations General appearance: alert, in no apparent distress Head exam: Present: atraumatic, normocephalic, normal inspection Respiratory exam: Present: normal lung sounds bilaterally. Absent: respiratory distress, wheezes, rales, rhonchi, stridor Cardiovascular Exam: Present: regular rate, normal rhythm, normal heart sounds. Absent: systolic murmur, diastolic murmur, rubs, gallop, clicks Extremities exam: Present: other (Mild swelling over the left lateral malleolus. Gross examination of the bilateral feet is otherwise unremarkable. 2+ DP and PT pulses. Capillary refill less than 1 second.) Neurological exam: Present: alert, oriented X3, CN II-XII intact Psychiatric exam: Present: normal affect, normal mood Skin exam: Present: warm, dry, intact, normal color. Absent: rash Course Vital Signs 06/19/23 06/19/23 06/19/23 18:01 19:50 22:36 Temperature 98.2 F 97.7 F Pulse Rate 82 68 72 Respiratory 22 16 14 Rate Blood Pressure 105/67 122/93 120/74 O2 Sat by Pulse 97 95 96 Oximetry Medical Decision Making - Medical Decision Making This is a 68-year-old male who presents to the emergency department for bilateral foot pain. Was pt. sent in by a medical professional or institution? @ -No Did you speak to anyone other than the patient for history? @ -No Did you review nursing and triage notes? @ -Yes, and I agree, it is accurate with regards to the patient's symptoms. Were old charts reviewed? @ -No Differential Diagnosis? @ -Differential Foot Pain: Fracture, dislocation, contusion, plantar fasciitis, cellulitis, gout, DVT, this is not meant to be an all-inclusive list. EKG interpreted by me (3pts min.)? @ -Not obtained X-rays interpreted by me (1pt min.)? @ -X-ray of the bilateral feet obtained. My interpretation identifies no acute fractures. CT interpreted by me (1pt min.)? @ -Not obtained U/S interpreted by me (1pt. min.)? @ -Not obtained What testing was considered but not performed? (CT, X-rays, U/S, labs)? Why? @ -None What meds were considered but not given? Why? @ -None Did you discuss the management of the patient with other professionals? @ -Yes, Dr. Correa, who accepts the patient for admission. Did you reconcile home meds? @ -Yes Was smoking cessation discussed for >3mins.? @ -No Was critical care preformed (if so, how long)? @ -No Were there social determinants of health that impacted care today? How? (Homelessness, low income, unemployed, alcoholism, drug addiction, transportation, low edu. Level, literacy, decrease access to med. care, residential, rehab)? @ -No Was there de-escalation of care discussed even if they declined? (Discuss DNR or withdrawal of care, Hospice)? @ -No What co-morbidities impacted this encounter? (DM, HTN, Smoking, COPD, CAD, Cancer, CVA, Hep., AIDS, mental health diagnosis, sleep apnea, morbid obesity)? @ -A-fib, HTN Was patient admitted / discharged? @ -Admitted. Lab work obtained revealing an elevated lactic acid and elevated CRP. Kidney function slightly decreased when compared with prior. He was given a liter bolus of IV fluids. X-ray of the bilateral feet obtained revealing no acute findings. Patient continued to be unable to walk. States that the pain was too bad and his legs felt too weak. Given that the patient lives alone and is unable to ambulate, he was admitted to medicine for further management. Consult placed for PT/OT. Neurology consult placed as well per admitting provider's request. Undiagnosed new problem with uncertain prognosis? @ -None Drug Therapy requiring intensive monitoring for toxicity (Heparin, Nitro, Insulin, Cardizem)? @ -None Were any procedures done? @ -None Diagnosis/symptom? @ -Bilateral foot pain, weakness, inability to ambulate, frequent falls Acute, or Chronic, or Acute on Chronic? @ -Acute Uncomplicated (without systemic symptoms) or Complicated (systemic symptoms)? @ -Uncomplicated Side effects of treatment? @ -None Exacerbation, Progression, or Severe Exacerbation] @ -Not applicable Poses a threat to life or bodily function? @ -Yes This case was discussed in detail with the attending ED physician, Dr. Austin. Presentation, findings, and treatment plan discussed in detail as well. - Lab Data Result diagrams: 06/19/23 20:06 06/19/23 20:06 Lab Results 06/19/23 06/19/23 06/19/23 Range/Units 20:06 20:06 20:06 WBC 10.1 (3.8-10.6) k/uL RBC 3.53 L (4.30-5.90) m/uL Hgb 11.7 L (13.0-17.5) gm/dL Hct 34.2 L (39.0-53.0) % MCV 96.8 (80.0-100.0) fL MCH 33.1 (25.0-35.0) pg MCHC 34.1 (31.0-37.0) g/dL RDW 13.2 (11.5-15.5) % Plt Count 248 (150-450) k/uL MPV 9.6 Neutrophils % 77 % Lymphocytes % 13 % Monocytes % 8 % Eosinophils % 1 % Basophils % 0 % Neutrophils # 7.8 H (1.3-7.7) k/uL Lymphocytes # 1.3 (1.0-4.8) k/uL Monocytes # 0.8 (0-1.0) k/uL Eosinophils # 0.1 (0-0.7) k/uL Basophils # 0.0 (0-0.2) k/uL Sodium 134 L (137-145) mmol/L Potassium 3.8 (3.5-5.1) mmol/L Chloride 102 (98-107) mmol/L Carbon Dioxide 20 L (22-30) mmol/L Anion Gap 12 mmol/L BUN 27 H (9-20) mg/dL Creatinine 1.66 H (0.66-1.25) mg/dL Est GFR (CKD-EPI)AfAm 48 (>60 ml/min/1.73 sqM) Est GFR (CKD-EPI)NonAf 42 (>60 ml/min/1.73 sqM) Glucose 120 H (74-99) mg/dL Lactic Ac Sepsis Rflx Plasma Lactic Acid Drake 2.6 H* (0.7-2.0) mmol/L Calcium 9.9 (8.4-10.2) mg/dL Total Bilirubin 1.4 H (0.2-1.3) mg/dL AST 28 (17-59) U/L ALT 17 (4-49) U/L Alkaline Phosphatase 104 (38-126) U/L C-Reactive Protein 7.2 H (<1.0) mg/dL Total Protein 7.5 (6.3-8.2) g/dL Albumin 3.5 (3.5-5.0) g/dL 06/19/23 Range/Units 21:38 WBC (3.8-10.6) k/uL RBC (4.30-5.90) m/uL Hgb (13.0-17.5) gm/dL Hct (39.0-53.0) % MCV (80.0-100.0) fL MCH (25.0-35.0) pg MCHC (31.0-37.0) g/dL RDW (11.5-15.5) % Plt Count (150-450) k/uL MPV Neutrophils % % Lymphocytes % % Monocytes % % Eosinophils % % Basophils % % Neutrophils # (1.3-7.7) k/uL Lymphocytes # (1.0-4.8) k/uL Monocytes # (0-1.0) k/uL Eosinophils # (0-0.7) k/uL Basophils # (0-0.2) k/uL Sodium (137-145) mmol/L Potassium (3.5-5.1) mmol/L Chloride (98-107) mmol/L Carbon Dioxide (22-30) mmol/L Anion Gap mmol/L BUN (9-20) mg/dL Creatinine (0.66-1.25) mg/dL Est GFR (CKD-EPI)AfAm (>60 ml/min/1.73 sqM) Est GFR (CKD-EPI)NonAf (>60 ml/min/1.73 sqM) Glucose (74-99) mg/dL Lactic Ac Sepsis Rflx Y Plasma Lactic Acid Drake (0.7-2.0) mmol/L Calcium (8.4-10.2) mg/dL Total Bilirubin (0.2-1.3) mg/dL AST (17-59) U/L ALT (4-49) U/L Alkaline Phosphatase (38-126) U/L C-Reactive Protein (<1.0) mg/dL Total Protein (6.3-8.2) g/dL Albumin (3.5-5.0) g/dL - Radiology Data Radiology results: report reviewed, image reviewed Disposition Clinical Impression: Foot pain, bilateral, Cannot walk, Frequent falls, Weakness Disposition: ADMITTED IP TO THIS HOSP
[2023-06-19 21:24] LABS: Basophils % (A) 0 %; Eosinophils # (A) 0.1 k/uL (0-0.7); Eosinophils % (A) 1 %; HCT 34.2 % (39.0-53.0); HGB 11.7 gm/dL (13.0-17.5); Lymphocytes # (A) 1.3 k/uL (1.0-4.8); Lymphocytes % (A) 13 %; MCH 33.1 pg (25.0-35.0); MCHC 34.1 g/dL (31.0-37.0); MCV 96.8 fL (80.0-100.0); Mean Platelet Volume 9.6; Monocytes # (A) 0.8 k/uL (0-1.0); Monocytes % (A) 8 %; Neutrophils # (A) 7.8 k/uL (1.3-7.7); Neutrophils % (A) 77 %; Platelet Count 248 k/uL (150-450); RBC 3.53 m/uL (4.30-5.90); RDW 13.2 % (11.5-15.5); WBC 10.1 k/uL (3.8-10.6)
[2023-06-19 21:31] LABS: ALT 17 U/L (4-49); AST 28 U/L (17-59); African American GFR (CKD) 48 (>60 ml/min/1.73 sqM); Albumin 3.5 g/dL (3.5-5.0); Alkaline Phosphatase 104 U/L (38-126); Anion Gap 12 mmol/L; Blood Urea Nitrogen 27 mg/dL (9-20); C Reactive Protein 7.2 mg/dL (<1.0); Calcium 9.9 mg/dL (8.4-10.2); Carbon Dioxide 20 mmol/L (22-30); Chloride 102 mmol/L (98-107); Glucose 120 mg/dL (74-99); Non-African American GFR(CKD) 42 (>60 ml/min/1.73 sqM); Potassium 3.8 mmol/L (3.5-5.1); Sodium 134 mmol/L (137-145); Total Bilirubin 1.4 mg/dL (0.2-1.3); Total Protein 7.5 g/dL (6.3-8.2)
[2023-06-19] MEDS ORDERED: ONDANSETRON 4 MG/2 ML VIAL IVP PRN (21:56)
[2023-06-19] MEDS ORDERED: ACETAMINOPHEN TAB 325 MG TAB PO PRN (21:56)
[2023-06-19] MEDS ORDERED: HYDROcodone/APAP 5-325MG 1 EACH TAB PO PRN (21:56)
[2023-06-19] MEDS ORDERED: NALOXONE 0.4 MG/ML 1 ML VIAL IV PRN (21:56)
[2023-06-19] MEDS ORDERED: traMADol 50 MG TAB PO PRN (22:41)
[2023-06-19] MEDS ORDERED: SODIUM CHLORIDE 0.9% 1,000 ML IV ONE (22:41)
[2023-06-19] MEDS ORDERED: ALPRAZolam 0.25 MG TAB PO PRN (22:41)
[2023-06-20] MEDS: amLODIPine 5 MG TAB PO SCH (10:05)
[2023-06-20] MEDS: FINASTERIDE 5 MG TAB PO SCH (10:05)
[2023-06-20] MEDS: FENOFIBRATE 160 MG TAB PO SCH (10:05)
[2023-06-20] MEDS: atenoloL 25 MG TAB PO SCH ×2 (10:05→20:24)
[2023-06-20] MEDS: TAMSULOSIN 0.4 MG CAP.ER.24H PO SCH ×2 (10:05→20:24)
--- NOTE | 2023-06-20 11:03 | P.HPIM ---
History of Present Illness H&P Date: 06/20/23 Hector Frank, is a 68-year-old male who presented to [facility] emergency room with a chief complaint of severe bilateral feet pain with inability to stand and walk. He was evaluated in the emergency room vital examination on presentation revealed a temperature of 98.2 pulse 82 respiration 22 blood pressure 105/67 pulse ox 97% on room air Laboratory data revealed a white blood count of 10.1 hemoglobin 11.7 platelet count 248 BUN 27 creatinine 1.66 plasma lactic acid 2.6 Testing in the emergency room revealed x-ray of the bilateral feet were done and revealed no evidence of acute fracture and mild multi focal degeneration Patient was admitted to medical floor for further evaluation and treatment Past medical history is significant for history of atrial fibrillation, history of hypertension, history of benign prostatic hypertrophy, history of osteoarthritis with right total knee arthroplasty, history of degenerative disc disease with chronic neck and back pain, history of cardiac arrhythmia with history of ablation. Social history patient smokes up to one pack per day, he used to drink alcohol daily he states that he hasn't had any drinks for the last 7 days. On review of systems patient is alert and oriented 3 in no apparent distress there is no fever or chills no headache or dizziness no chest pain no shortness of breath he has occasion cough no nausea or vomiting no abdominal pain no diarrhea no blood in the stools burning with urination no frequency or urgency and no hematuria. Past Medical History Past Medical History: Atrial Fibrillation, Hypertension, Prostate Disorder Additional Past Medical History / Comment(s): dehydration, low B/P, kidney problem that was fixed with fluids and sodium was low. Additional hx: BPH, DDD-cervical pain, R/L hand fingers tingling if over used, AGE 18 FX RT FEMUR IN 4 PLACES HAD PLATE/SCEWS-SINCE REMOVED, HAS OPIOD INDUCED CONSTIPATION, TINNITUS bilaterally but pt has noticed it has decreased since he quit smoking, hay fever. History of Any Multi-Drug Resistant Organisms: None Reported Past Surgical History: Heart Catheterization, Joint Replacement, Orthopedic Surgery Additional Past Surgical History / Comment(s): bilateral CATARACTS, ANT CERVICAL DISCECTOMY/FUSION C4,5,6,7 USING CADAVOR BONE. LT HYDROCELE, LT CARPAL TUNNEL, RT FEMUR SX METAL SINCE REMOVED, COLONOSCOPY, CYSTS REMOVED FROM FOREHEAD,BUTTOCKS,;T MORMON. PROSTATE BX X2-BENIGN, partial R knee replacement. cardiac ablation Past Anesthesia/Blood Transfusion Reactions: No Reported Reaction Past Psychological History: No Psychological Hx Reported Smoking Status: Current every day smoker Past Alcohol Use History: Daily Past Drug Use History: None Reported - Past Family History Father Family Medical History: COPD, Dementia Additional Family Medical History / Comment(s): Father at age 84yrs. Mother Family Medical History: Cancer, COPD Additional Family Medical History / Comment(s): NASAL/THROAT CANCER. Mother at age 82 Medications and Allergies Home Medications Medication Instructions Recorded Confirmed Type Tamsulosin HCl [Flomax] 0.4 mg PO BID 02/04/16 06/19/23 History gemfibroziL [Lopid] 600 mg PO DAILY 02/04/16 06/19/23 History Dutasteride 0.5 mg PO DAILY 06/21/21 06/19/23 History ALPRAZolam [Xanax] 0.25 mg PO TID PRN 01/08/23 06/19/23 History atenoloL [Tenormin] 25 mg PO BID 01/08/23 06/19/23 History traMADol HCL 50 mg PO TID PRN 01/08/23 06/19/23 History amLODIPine [Norvasc] 5 mg PO DAILY 06/19/23 06/19/23 History Allergies Allergy/AdvReac Type Severity Reaction Status Date / Time No Known Allergies Allergy Verified 06/19/23 22:07 Physical Exam Vitals: Vital Signs Temp Pulse Pulse Resp BP BP BP 06/20/23 07:00 97.7 F 57 L 14 125/69 06/20/23 02:25 97.8 F 64 14 99/61 06/19/23 23:30 97.4 F L 75 16 134/70 06/19/23 22:36 72 14 120/74 06/19/23 19:50 97.7 F 68 16 122/93 06/19/23 18:01 98.2 F 82 22 105/67 Pulse Ox 06/20/23 07:00 95 06/20/23 02:25 96 06/19/23 23:30 99 06/19/23 22:36 96 06/19/23 19:50 95 06/19/23 18:01 97 Intake and Output 06/19/23 06/20/23 06/20/23 22:59 06:59 14:59 Output Total 150 Balance -150 Output: Urine 150 Other: Voiding Method Urinal Weight 68.039 kg 68.039 kg In general patient is alert and oriented x 3 in no distress HEENT head normocephalic and atraumatic Neck is supple no JVD no goiter no lymphadenopathy no carotid bruit Chest examination is clear to auscultation no crackles no wheezing Cardiac exam reveals regular heart sounds S1 and S2 no gallops no murmurs Abdomen is soft nontender no organomegaly with normal bowel sounds Extremity exam reveals no edema no cyanosis or clubbing Neurological examination reveals no gross focal deficits Results CBC & Chem 7: 06/19/23 20:06 06/19/23 20:06 Labs: Abnormal Lab Results - Last 24 Hours (Table) 06/19/23 06/19/23 06/19/23 Range/Units 20:06 20:06 20:06 RBC 3.53 L (4.30-5.90) m/uL Hgb 11.7 L (13.0-17.5) gm/dL Hct 34.2 L (39.0-53.0) % Neutrophils # 7.8 H (1.3-7.7) k/uL Sodium 134 L (137-145) mmol/L Carbon Dioxide 20 L (22-30) mmol/L BUN 27 H (9-20) mg/dL Creatinine 1.66 H (0.66-1.25) mg/dL Glucose 120 H (74-99) mg/dL Plasma Lactic Acid Drake 2.6 H* (0.7-2.0) mmol/L Total Bilirubin 1.4 H (0.2-1.3) mg/dL C-Reactive Protein 7.2 H (<1.0) mg/dL Thrombosis Risk Factor Assmnt - Choose All That Apply Each Risk Factor Represents 2 Points: Age 61-74 years Thrombosis Risk Factor Assessment Total Risk Factor Score: 2 Thrombosis Risk Factor Assessment Level: Low Risk Assessment and Plan Plan: Severe bilateral lower extremity pain Dehydration with acute kidney injury with elevated BUN and creatinine Elevated lactic acid on presentation at 2.6 Excessive alcohol use Tobacco abuse Underlying history of hypertension Underlying history of osteoarthritis Underlying history of degenerative disc disease Underlying history of benign prostatic hypertrophy Previous history of cardiac arrhythmia with history of ablation At this time patient is admitted to medical floor Neurology consultation was requested, for evaluation of possible peripheral neuropathy Will check vitamin B12, folate level, TSH, and follow up on lactic acid Patient was started on IV fluid Physical therapy and occupational therapy consult Will follow closely
[2023-06-20] MEDS ORDERED: SODIUM CHLORIDE 0.9% 1,000 ML IV STA (11:23)
--- NOTE | 2023-06-20 12:05 | XR ---
EXAMINATION TYPE: XR chest 1V portable DATE OF EXAM: 06/20/2023 11:50 AM COMPARISON: Chest radiographs from 06/21/2021 TECHNIQUE: XR chest 1V portable Portable AP radiograph of the chest. CLINICAL INDICATION:Male, 68 years old with history of cough; FINDINGS: Lungs/Pleura: There is no evidence of pleural effusion, focal consolidation, or pneumothorax. Pulmonary vascularity: Unremarkable. Heart/mediastinum: Cardiomediastinal silhouette is unremarkable. Musculoskeletal: No acute osseous pathology. Cervical fusion hardware. IMPRESSION: No acute cardiopulmonary disease/process.
[2023-06-20 13:30] LABS: Color,Urine Yellow
[2023-06-20 13:31] LABS: Appearance,Urine Slightly Cloudy (Clear); Bilirubin,Urine Negative (Negative); Blood,Urine Small (Negative); Glucose,Urine (UA) Negative (Negative); Ketones,Urine Negative (Negative); PH, Urine 6.5 (5.0-8.0); Protein,Urine 1+ (Negative); Specific Gravity,Urine 1.015 (1.001-1.035)
[2023-06-20 13:32] LABS: Leukocyte Esterase,Urine Large (Negative); Nitrite,Urine Negative (Negative); Urobilinogen,Urine <2.0 mg/dL (<2.0); WBC,Urine >182 /hpf (0-5)
[2023-06-20 13:33] LABS: Bacteria,Urine Moderate /hpf; RBC,Urine 2 /hpf (0-5)
--- NOTE | 2023-06-20 13:45 | P.CNNES ---
History of Present Illness Consult date: 06/20/23 Reason for Consult: Inability to ambulate secondary to foot pain History of Present Illness: The patient is a 68-year-old male who is seen in neurologic consultation on June 20, 2023, via telemedicine. The patient reports that he has been having difficulty ambulating because of foot pain. The pain has been present for the past 2 weeks. Initially the pain was not severe. He says that he was able to ambulate with the assistance of a cane. He says that because the pain has continued to worsen, he now is having episodes of falling and losing his balance. He describes the pain as a stabbing pain. This pain reportedly shoots up the patient's legs. The patient reports a five-year history of low back pain. He Reports a history of neck surgery and neck pain. The patient denies weakness in his upper extremities, pain in his hands, paresthesias and injury to his feet. The patient reports that his feet are feeling better today. She says that someone, in the emergency department yesterday, massage his feet. This reportedly helped to relieve his pain. He says he is able to stand on his feet today, without severe pain.The patient denies a history of diabetes. "Past medical history is significant for history of atrial fibrillation, history of hypertension, history of benign prostatic hypertrophy, history of osteoarthritis with right total knee arthroplasty, history of degenerative disc disease with chronic neck and back pain, history of cardiac arrhythmia with history of ablation. Social history patient smokes up to one pack per day, he used to drink alcohol daily he states that he hasn't had any drinks for the last 7 days". Past Medical History Past Medical History: Atrial Fibrillation, Hypertension, Prostate Disorder Additional Past Medical History / Comment(s): dehydration, low B/P, kidney problem that was fixed with fluids and sodium was low. Additional hx: BPH, DDD-cervical pain, R/L hand fingers tingling if over used, AGE 18 FX RT FEMUR IN 4 PLACES HAD PLATE/SCEWS-SINCE REMOVED, HAS OPIOD INDUCED CONSTIPATION, TINNITUS bilaterally but pt has noticed it has decreased since he quit smoking, hay fever. History of Any Multi-Drug Resistant Organisms: None Reported Past Surgical History: Heart Catheterization, Joint Replacement, Orthopedic Surgery Additional Past Surgical History / Comment(s): bilateral CATARACTS, ANT CERVICAL DISCECTOMY/FUSION C4,5,6,7 USING CADAVOR BONE. LT HYDROCELE, LT CARPAL TUNNEL, RT FEMUR SX METAL SINCE REMOVED, COLONOSCOPY, CYSTS REMOVED FROM FOREHEAD,BUTTOCKS,;T YAZIDISM. PROSTATE BX X2-BENIGN, partial R knee replacement. cardiac ablation Past Anesthesia/Blood Transfusion Reactions: No Reported Reaction Past Psychological History: No Psychological Hx Reported Smoking Status: Current every day smoker Past Alcohol Use History: Daily Past Drug Use History: None Reported - Past Family History Father Family Medical History: COPD, Dementia Additional Family Medical History / Comment(s): Father at age 84yrs. Mother Family Medical History: Cancer, COPD Additional Family Medical History / Comment(s): NASAL/THROAT CANCER. Mother at age 82 Medications and Allergies Home Medications Medication Instructions Recorded Confirmed Type Tamsulosin HCl [Flomax] 0.4 mg PO BID 02/04/16 06/19/23 History gemfibroziL [Lopid] 600 mg PO DAILY 02/04/16 06/19/23 History Dutasteride 0.5 mg PO DAILY 06/21/21 06/19/23 History ALPRAZolam [Xanax] 0.25 mg PO TID PRN 01/08/23 06/19/23 History atenoloL [Tenormin] 25 mg PO BID 01/08/23 06/19/23 History traMADol HCL 50 mg PO TID PRN 01/08/23 06/19/23 History amLODIPine [Norvasc] 5 mg PO DAILY 06/19/23 06/19/23 History Allergies Allergy/AdvReac Type Severity Reaction Status Date / Time No Known Allergies Allergy Verified 06/19/23 22:07 Physical Examination - Vital Signs Vital Signs: Vital Signs Temp Pulse Pulse Resp BP BP BP 06/20/23 07:00 97.7 F 57 L 14 125/69 06/20/23 02:25 97.8 F 64 14 99/61 06/19/23 23:30 97.4 F L 75 16 134/70 06/19/23 22:36 72 14 120/74 06/19/23 19:50 97.7 F 68 16 122/93 06/19/23 18:01 98.2 F 82 22 105/67 Pulse Ox 06/20/23 07:00 95 06/20/23 02:25 96 06/19/23 23:30 99 06/19/23 22:36 96 06/19/23 19:50 95 06/19/23 18:01 97 Intake and Output 06/19/23 06/20/23 06/20/23 22:59 06:59 14:59 Output Total 150 Balance -150 Output: Urine 150 Other: Voiding Method Urinal Weight 68.039 kg 68.039 kg Gen.: The patient is reclining in the bed. He is well-nourished. He is in no acute distress. HEENT: Head is atraumatic, normocephalic. Fundus not visualized. There is no scleral icterus. Mucous membranes are moist. Neck: Supple without carotid bruits Heart: Regular rate and rhythm Lungs: No respiratory distress Extremities: Without edema. The feet are warm to touch. There is good capillary refill. Neurological examination Mental status: The patient is awake, alert and oriented 3. His speech is clear. There is no dysarthria or aphasia Cranial nerves: Pupils are equal at 2 mm and reactive. Visual medina are full to confrontation. Extraocular movements are intact. Facial sensation is intact. There is no facial asymmetry. There is ptosis bilaterally. Hearing is grossly intact. Uvula and palate are midline. Shoulder shrug is symmetric. Tongue protrudes midline. Motor: Strength is 5/5 throughout Coordination: Finger to nose, rapid alternating movements and [id number] testing are intact. Sensation: Intact to light touch and proprioception throughout. There is no distal gradient sensory loss. Deep tendon reflexes: 2+/4+ throughout, with the exception of the right knee, secondary to surgery. Plantar responses are flexor bilaterally. Straight leg raising test is negative bilaterally. Gait: The patient was observed standing. He attempted to take a few steps forward. His gait is wide-based. He seems to be ataxic. Results - Laboratory Findings CBC and BMP: 06/19/23 20:06 06/19/23 20:06 Abnormal Lab Findings: Abnormal Labs 06/19/23 06/19/23 06/19/23 20:06 20:06 20:06 RBC 3.53 L Hgb 11.7 L Hct 34.2 L Neutrophils # 7.8 H Sodium 134 L Carbon Dioxide 20 L BUN 27 H Creatinine 1.66 H Glucose 120 H Plasma Lactic Acid Drake 2.6 H* Total Bilirubin 1.4 H Creatine Kinase C-Reactive Protein 7.2 H TSH 06/20/23 11:23 RBC Hgb Hct Neutrophils # Sodium Carbon Dioxide BUN Creatinine Glucose Plasma Lactic Acid Drake Total Bilirubin Creatine Kinase 42 L C-Reactive Protein TSH 0.445 L Assessment and Plan Assessment: 1. Patient has an essentially normal neurological examination.There are no findings consistent with peripheral neuropathy. Possible cervical spinal stenosis, resulting in lower extremity pain and ataxia 2. Alcohol abuse, Which may contribute to the patient's ataxia Plan: 1. I agree with checking B12, folate, TSH, thiamine level, VDRL 2. Consider physical therapy evaluation 3. MRI of the cervical spine for further evaluation of spinal stenosis 4. Consider podiatry consultation Time with Patient: Greater than 30 (50 minutes were spent caring for this patient today including obtaining a history, examining the patient, reviewing imaging, chart documentation, labs, placing orders and creating this note)
[2023-06-21] MEDS: TAMSULOSIN 0.4 MG CAP.ER.24H PO SCH ×2 (07:54→20:59)
[2023-06-21] MEDS: atenoloL 25 MG TAB PO SCH ×2 (07:54→20:59)
[2023-06-21] MEDS: amLODIPine 5 MG TAB PO SCH (07:54)
[2023-06-21] MEDS: FENOFIBRATE 160 MG TAB PO SCH (07:55)
[2023-06-21] MEDS: FINASTERIDE 5 MG TAB PO SCH (07:55)
[2023-06-21 09:38] LABS: BUN/Creat Ratio 13.69 Ratio (12.00-20.00); Blood Urea Nitrogen 21.9 mg/dL (9.0-27.0); Chloride 102 mmol/L (96-109); Glucose 102 mg/dL (70-110); Potassium 2.9 mmol/L (3.5-5.5); Sodium 134 mmol/L (135-145)
[2023-06-21 09:39] LABS: ALT 11 U/L (10-49); AST 24 U/L (14-35); Albumin 3.1 d/dL (3.8-4.9); Albumin/Globulin Ratio 1.03 Ratio (1.60-3.17); Alkaline Phosphatase 82 U/L (41-126); Carbon Dioxide 17.9 mmol/L (21.6-31.8); Total Bilirubin 0.6 mg/dL (0.3-1.2); Total Protein 6.1 d/dL (6.2-8.2)
[2023-06-21] MEDS ORDERED: Potassium Replacement Protocol 1 EACH MISC MISCELLANE PRN (09:43)
[2023-06-21 09:56] LABS: Basophils # (A) 0.04 X 10*3/uL (0.00-0.10); Basophils % (A) 0.5 %; Eosinophils # (A) 0.09 X 10*3/uL (0.04-0.35); Eosinophils % (A) 1.2 %; HCT 32.7 % (39.6-50.0); HGB 10.5 d/dL (13.0-17.0); Lymphocytes # (A) 1.47 X 10*3/uL (0.90-5.00); Lymphocytes % (A) 20.1 %; MCHC 32.1 d/dL (32.0-37.0); MCV 96.5 FL (80.0-97.0); Mean Platelet Volume 11.3 FL (9.5-12.2); Monocytes # (A) 0.72 X 10*3/uL (0.20-1.00); Monocytes % (A) 9.8 %; NRBC Per 100 WBC 0 X 10*3/uL (0.00-0.01); Neutrophils # (A) 4.93 X 10*3/uL (1.80-7.70); Neutrophils % (A) 67.4 %; Platelet Count 238 X 10*3/uL (140-440); RBC 3.39 X 10*6/uL (4.40-5.60); RDW 13.2 % (11.5-14.5); WBC 7.32 X 10*3/uL (4.50-10.00)
--- NOTE | 2023-06-21 10:32 | P.PN ---
Subjective Progress Note Date: 06/21/23 Hector Frank, is a 68-year-old male who presented to [facility] emergency room with a chief complaint of severe bilateral feet pain with inability to stand and walk. He was evaluated in the emergency room vital examination on presentation revealed a temperature of 98.2 pulse 82 respiration 22 blood pressure 105/67 pulse ox 97% on room air Laboratory data revealed a white blood count of 10.1 hemoglobin 11.7 platelet count 248 BUN 27 creatinine 1.66 plasma lactic acid 2.6 Testing in the emergency room revealed x-ray of the bilateral feet were done and revealed no evidence of acute fracture and mild multi focal degeneration Patient was admitted to medical floor for further evaluation and treatment Past medical history is significant for history of atrial fibrillation, history of hypertension, history of benign prostatic hypertrophy, history of osteoarthritis with right total knee arthroplasty, history of degenerative disc disease with chronic neck and back pain, history of cardiac arrhythmia with history of ablation. Social history patient smokes up to one pack per day, he used to drink alcohol daily he states that he hasn't had any drinks for the last 7 days. On review of systems patient is alert and oriented 3 in no apparent distress there is no fever or chills no headache or dizziness no chest pain no shortness of breath he has occasion cough no nausea or vomiting no abdominal pain no diarrhea no blood in the stools burning with urination no frequency or urgency and no hematuria. On 06/21/2023 patient Is alert and oriented 3. Positive for UTI started on Rocephin urine culture ordered. At this time patient denies chest pain or shortness of breath. Patient denies nausea vomiting or diarrhea. Current vital signs temperature 97.6, heart rate 59, respiratory rate 18, blood pressure 145/68. Neurology services are following MRI has been ordered Objective - Vital Signs Vital signs: Vital Signs Temp 97.6 F 06/21/23 07:00 Pulse 59 L 06/21/23 07:00 Resp 18 06/21/23 07:00 BP 145/68 06/21/23 07:00 Pulse Ox 99 06/21/23 07:00 FiO2 Intake & Output 06/20/23 06/21/23 06/21/23 18:59 06:59 18:59 Intake Total 236 Output Total 673 400 Balance 236 -553 400 Intake: Oral 236 Output: Urine 673 400 Other: Voiding Method Urinal Urinal # Voids 3 1 # Bowel Movements 0 - Exam In general patient is alert and oriented x 3 in no distress HEENT head normocephalic and atraumatic Neck is supple no JVD no goiter no lymphadenopathy no carotid bruit Chest examination is clear to auscultation no crackles no wheezing Cardiac exam reveals regular heart sounds S1 and S2 no gallops no murmurs Abdomen is soft nontender no organomegaly with normal bowel sounds Extremity exam reveals no edema no cyanosis or clubbing Neurological examination reveals no gross focal deficits - Labs CBC & Chem 7: 06/21/23 05:47 06/21/23 05:47 Labs: Abnormal Lab Results - Last 24 Hours (Table) 06/20/23 06/20/23 06/21/23 Range/Units 11:23 12:00 05:47 RBC 3.39 L (4.40-5.60) X 10*6/uL Hgb 10.5 L (13.0-17.0) d/dL Hct 32.7 L (39.6-50.0) % Sodium (135-145) mmol/L Potassium (3.5-5.5) mmol/L Carbon Dioxide (21.6-31.8) mmol/L Anion Gap (4.00-12.00) mmol/L Creatinine (0.6-1.5) mg/dL Est GFR (CKD-EPI) (>=60) Creatine Kinase 42 L (55-170) U/L Total Protein (6.2-8.2) d/dL Albumin (3.8-4.9) d/dL Albumin/Globulin Ratio (1.60-3.17) Ratio TSH 0.445 L (0.465-4.680) mIU/L Urine WBC >182 H (0-5) /hpf Urine Bacteria Moderate H (None) /hpf 06/21/23 Range/Units 05:47 RBC (4.40-5.60) X 10*6/uL Hgb (13.0-17.0) d/dL Hct (39.6-50.0) % Sodium 134 L (135-145) mmol/L Potassium 2.9 L (3.5-5.5) mmol/L Carbon Dioxide 17.9 L (21.6-31.8) mmol/L Anion Gap 14.10 H (4.00-12.00) mmol/L Creatinine 1.6 H (0.6-1.5) mg/dL Est GFR (CKD-EPI) 46 L (>=60) Creatine Kinase (55-170) U/L Total Protein 6.1 L (6.2-8.2) d/dL Albumin 3.1 L (3.8-4.9) d/dL Albumin/Globulin Ratio 1.03 L (1.60-3.17) Ratio TSH (0.465-4.680) mIU/L Urine WBC (0-5) /hpf Urine Bacteria (None) /hpf Assessment and Plan Plan: Severe bilateral lower extremity pain Dehydration with acute kidney injury with elevated BUN and creatinine Elevated lactic acid on presentation at 2.6 Excessive alcohol use Tobacco abuse Underlying history of hypertension Underlying history of osteoarthritis Underlying history of degenerative disc disease Underlying history of benign prostatic hypertrophy Previous history of cardiac arrhythmia with history of ablation Urinary tract infection. Patient started on IV Rocephin. Urine culture ordered Hypokalemia. Potassium 2.9 replace per protocol Hyperthyroidism. TSH level 0.445. Patient currently not on any thyroid medication. Recommend follow-up outpatient At this time patient is admitted to medical floor Neurology consultation was requested, for evaluation of possible peripheral neuropathy Will check vitamin B12, folate level, TSH, and follow up on lactic acid Patient was started on IV fluid MRI of the cervical spine ordered Physical therapy and occupational therapy consult Will follow closely
[2023-06-21] MEDS: POTASSIUM CHLORIDE ER 20 MEQ TAB.ER PO SCH ×3 (10:37→12:35)
[2023-06-21] MEDS: SODIUM CHLORIDE 0.9% 1,000 ML IV SCH (13:45)
[2023-06-22 04:32] VITALS: RESP 16
[2023-06-22] MEDS: SODIUM CHLORIDE 0.9% 1,000 ML IV SCH (05:59)
[2023-06-22 08:46] LABS: Basophils # (A) 0.02 X 10*3/uL (0.00-0.10); Basophils % (A) 0.2 %; Eosinophils # (A) 0.12 X 10*3/uL (0.04-0.35); Eosinophils % (A) 1.5 %; Lymphocytes # (A) 1.55 X 10*3/uL (0.90-5.00); MCH 31.1 pg (27.0-32.0); MCHC 31.3 d/dL (32.0-37.0); MCV 99.4 FL (80.0-97.0); Mean Platelet Volume 11.5 FL (9.5-12.2); Monocytes # (A) 0.72 X 10*3/uL (0.20-1.00); Monocytes % (A) 8.8 %; NRBC Per 100 WBC 0 X 10*3/uL (0.00-0.01); Neutrophils # (A) 5.65 X 10*3/uL (1.80-7.70); Neutrophils % (A) 69.3 %; Platelet Count 239 X 10*3/uL (140-440); RBC 3.22 X 10*6/uL (4.40-5.60); RDW 13.2 % (11.5-14.5); WBC 8.16 X 10*3/uL (4.50-10.00)
[2023-06-22 09:03] LABS: ALT 13 U/L (10-49); AST 22 U/L (14-35); Alkaline Phosphatase 80 U/L (41-126); BUN/Creat Ratio 12.46 Ratio (12.00-20.00); Blood Urea Nitrogen 16.2 mg/dL (9.0-27.0); Calcium 8.8 mg/dL (8.7-10.3); Carbon Dioxide 21.1 mmol/L (21.6-31.8); Chloride 105 mmol/L (96-109); Glucose 97 mg/dL (70-110); Potassium 3.5 mmol/L (3.5-5.5); Sodium 136 mmol/L (135-145); Total Bilirubin 0.4 mg/dL (0.3-1.2)
[2023-06-22] MEDS: TAMSULOSIN 0.4 MG CAP.ER.24H PO SCH (09:42)
[2023-06-22] MEDS: amLODIPine 5 MG TAB PO SCH (09:42)
[2023-06-22] MEDS: FINASTERIDE 5 MG TAB PO SCH (09:42)
[2023-06-22] MEDS: atenoloL 25 MG TAB PO SCH (09:42)
[2023-06-22] MEDS: FENOFIBRATE 160 MG TAB PO SCH (09:42)
--- NOTE | 2023-06-22 09:58 | MR ---
EXAMINATION TYPE: MR cervical spine wo con DATE OF EXAM: 06/22/2023 INDICATION: Patient age: Male; 68 years old; Reason for study: spinal stenosis; PHH. Spinal stenosis, bilateral foot pain. COMPARISON: 06/11/2010. TECHNIQUE: Multi planar, multi sequence imaging was performed utilizing: T1-weighted, T2-weighted, an d turbo inversion recovery imaging of the cervical spine. IV Contrast: None FINDINGS: Alignment: The cervical vertebral bodies have preserved heights. Alignment is within normal limits gi tin patient positioning. Bones: Post fixation changes to the spine involving C4 through C7. Mild multilevel disc degeneration changes with disc space narrowing present. Cord: The spinal cord is unremarkable with regards to their signal intensity and morphology. Discs: Multilevel disc desiccation is present. C2-C3: No significant disc pathology. The spinal canal is patent. Bilateral facet and uncovertebral joint arthropathy are present with moderate bilateral neural foraminal stenosis. C3-C4: A disc osteophyte complex is present which minimally narrows the ventral subarachnoid space. Bilateral facet and uncovertebral joint arthropathy are present with mild to moderate bilateral neur al foraminal stenosis. C4-C5/C5-C6: Calcification posteriorly along the posterior longitudinal ligament extending from the i nferior aspect of C4 and down past C5 up to 19 mm in caudocranial length. This impresses upon the spi nal cord anteriorly Bilateral facet and uncovertebral joint arthropathy are present with moderate roxanne ateral neural foraminal stenosis at these levels. C6-C7: No significant disc pathology. The spinal canal is patent. Bilateral facet and uncovertebral joint arthropathy are present with moderate bilateral neural foraminal stenosis. C7-T1: No significant disc pathology. The spinal canal is patent. Bilateral facet and uncovertebral joint arthropathy are present with mild bilateral neural foraminal stenosis. IMPRESSION: 1. Posterior longitudinal calcification slightly right of midline extending from 4 and into C5 verte bral body levels which impresses upon the anterior spinal cord with some myelomalacia. This is seen d ating back to 2009 although felt to be slightly increased compared to the exam. 2. Multilevel degeneration changes throughout the spine as described above with multiple levels of a t least moderate neural foraminal stenosis. Motion somewhat limits evaluation of the neural foramen. Mildly progressed from 2009.
[2023-06-22 16:34] VITALS: BP 122/69; PULSE 65; TEMP 97.4
--- NOTE | 2023-06-22 17:12 | P.DS ---
Providers Date of admission: 06/19/23 22:03 Expected date of discharge: 06/22/23 Attending physician: Jose Correa Consults: 06/19/23 21:56 Consult Physician Urgent Consulting Provider: Iraj Baker Consult Reason/Comments: Inability to ambulate due to foot pain Do you want consulting provider notified?: Yes 06/22/23 12:19 Consult Physician Routine Consulting Provider: Krystal Schultz Consult Reason/Comments: cervical stenosis Do you want consulting provider notified?: Yes Primary care physician: Jose Correa [facility] Course: Diagnosis on discharge: Severe bilateral lower extremity pain Dehydration with acute kidney injury with elevated BUN and creatinine Elevated lactic acid on presentation at 2.6 Excessive alcohol use Tobacco abuse Underlying history of hypertension Underlying history of osteoarthritis Underlying history of degenerative disc disease Underlying history of benign prostatic hypertrophy Previous history of cardiac arrhythmia with history of ablation Urinary tract infection. Patient started on IV Rocephin. Urine culture ordered Hypokalemia. Potassium 2.9 replace per protocol Hyperthyroidism. TSH level 0.445. Patient currently not on any thyroid medication. Recommend follow-up outpatient Hospital course: Hector Frank, is a 68-year-old male who presented to [facility] emergency room with a chief complaint of severe bilateral feet pain with inability to stand and walk. He was evaluated in the emergency room vital examination on presentation reveal ed a temperature of 98.2 pulse 82 respiration 22 blood pressure 105/67 pulse ox 97% on room air Laboratory data revealed a white blood count of 10.1 hemoglobin 11.7 platelet count 248 BUN 27 creatinine 1.66 plasma lactic acid 2.6 Testing in the emergency room revealed x-ray of the bilateral feet were done and revealed no evidence of acute fracture and mild multi focal degeneration Patient was admitted to medical floor for further evaluation and treatment Past medical history is significant for history of atrial fibrillation, history of hypertension, history of benign prostatic hypertrophy, history of osteoarthritis with right total knee arthroplasty, history of degenerative disc disease with chronic neck and back pain, history of cardiac arrhythmia with history of ablation. Social history patient smokes up to one pack per day, he used to drink alcohol daily he states that he hasn't had any drinks for the last 7 days. On review of systems patient is alert and oriented 3 in no apparent distress there is no fever or chills no headache or dizziness no chest pain no shortness of breath he has occasion cough no nausea or vomiting no abdominal pain no diarrhea no blood in the stools burning with urination no frequency or urgency and no hematuria. On 06/21/2023 patient Is alert and oriented 3. Positive for UTI started on Rocephin urine culture ordered. At this time patient denies chest pain or shortness of breath. Patient denies nausea vomiting or diarrhea. Current vital signs temperature 97.6, heart rate 59, respiratory rate 18, blood pressure 145/68. Neurology services are following MRI has been ordered On 06/22/2023 patient was seen and examined on the medical floor he is alert and oriented 3 in no apparent distress he is feeling better today and is able to stand up and walk patient is requesting to be discharged home MRI of the cervical spine revealed significant abnormality neurosurgery consultation was requested patient was evaluated by Dr. Antoine jones and was cleared for discharge, patient will be discharged to home today, he will be given a prescription for Ceftin 500 mg twice daily for 7 days he will be followed in our office within 1 week Plan - Discharge Summary New Discharge Prescriptions: New cefUROXime axetiL [Cefuroxime] 500 mg PO BID 7 Days #14 tab Continue Tamsulosin HCl [Flomax] 0.4 mg PO BID gemfibroziL [Lopid] 600 mg PO DAILY traMADol HCL 50 mg PO TID PRN PRN Reason: Pain Dutasteride 0.5 mg PO DAILY atenoloL [Tenormin] 25 mg PO BID ALPRAZolam [Xanax] 0.25 mg PO TID PRN PRN Reason: Anxiety amLODIPine [Norvasc] 5 mg PO DAILY Discharge Medication List Tamsulosin HCl [Flomax] 0.4 mg PO BID 02/04/16 [History] gemfibroziL [Lopid] 600 mg PO DAILY 02/04/16 [History] Dutasteride 0.5 mg PO DAILY 06/21/21 [History] ALPRAZolam [Xanax] 0.25 mg PO TID PRN 01/08/23 [History] atenoloL [Tenormin] 25 mg PO BID 01/08/23 [History] traMADol HCL 50 mg PO TID PRN 01/08/23 [History] amLODIPine [Norvasc] 5 mg PO DAILY 06/19/23 [History] cefUROXime axetiL [Cefuroxime] 500 mg PO BID 7 Days #14 tab 06/22/23 [Rx] Follow up Appointment(s)/Referral(s): Alexandro Rolon PAC [PHYSICIAN CONSOLIDATOR] - 3 Weeks (Patient may follow-up with Alexandro Rolon PA-C or Dr. Dejan Schultz at [facility] in 2-3 weeks following discharge. ) Jose Correa MD [Primary Care Provider] - 1-2 days
--- NOTE | 2023-06-23 08:19 | P.CNOR ---
History of Present Illness - [facility] Consult date: 06/22/23 Requesting physician: Jose Correa Consult reason: other (Cervical stenosis on MRI) History of present illness: Patient is a pleasant 68-year-old male who is seen and examined at bedside for further evaluation of his cervical spine after MRI imaging showed evidence of stenosis. Patient was admitted to the hospital for further treatment evaluation after he has been experiencing severe pain in his feet and ankles with standing and ambulation with the past 3 days. He states this has improved during his admission. He is able to stand at bedside for me in January independently without significant difficulty. He states he was unable to do this 3 days ago. In regards to his cervical spine, he does have some posterior cervical pain. He denies any upper extremity weakness or radiculopathy bilaterally. He does have a history of previous anterior cervical decompression and fusion at C4 to 5, C5- 6, and C6 [address] Beckett in 2007. MRI imaging does show some ossification of the posterior longitudinal ligament which was also seen on previous imaging from 2009. He is admitted to medicine. He is been seen and examined for multiple other medical diagnoses. He has no other complaints at the bedside. He does have a history of right total knee arthroplasty. He may be planning to follow with Dr. Ortiz for evaluation of his left knee. Past Medical History Past Medical History: Atrial Fibrillation, Hypertension, Prostate Disorder Additional Past Medical History / Comment(s): dehydration, low B/P, kidney problem that was fixed with fluids and sodium was low. Additional hx: BPH, DDD-cervical pain, R/L hand fingers tingling if over used, AGE 18 FX RT FEMUR IN 4 PLACES HAD PLATE/SCEWS-SINCE REMOVED, HAS OPIOD INDUCED CONSTIPATION, TINNITUS bilaterally but pt has noticed it has decreased since he quit smoking, hay fever. History of Any Multi-Drug Resistant Organisms: None Reported Past Surgical History: Heart Catheterization, Joint Replacement, Orthopedic Surgery Additional Past Surgical History / Comment(s): bilateral CATARACTS, ANT CERVICAL DISCECTOMY/FUSION C4,5,6,7 USING CADAVOR BONE. LT HYDROCELE, LT CARPAL TUNNEL, RT FEMUR SX METAL SINCE REMOVED, COLONOSCOPY, CYSTS REMOVED FROM FOREHEAD,BUTTOCKS,;T [employer]. PROSTATE BX X2-BENIGN, partial R knee replacement. cardiac ablation Past Anesthesia/Blood Transfusion Reactions: No Reported Reaction Past Psychological History: No Psychological Hx Reported Smoking Status: Current every day smoker Past Alcohol Use History: Daily Past Drug Use History: None Reported - Past Family History Father Family Medical History: COPD, Dementia Additional Family Medical History / Comment(s): Father at age 84yrs. Mother Family Medical History: Cancer, COPD Additional Family Medical History / Comment(s): NASAL/THROAT CANCER. Mother at age 82 Medications and Allergies Home Medications Medication Instructions Recorded Confirmed Type Tamsulosin HCl [Flomax] 0.4 mg PO BID 02/04/16 06/19/23 History gemfibroziL [Lopid] 600 mg PO DAILY 02/04/16 06/19/23 History Dutasteride 0.5 mg PO DAILY 06/21/21 06/19/23 History ALPRAZolam [Xanax] 0.25 mg PO TID PRN 01/08/23 06/19/23 History atenoloL [Tenormin] 25 mg PO BID 01/08/23 06/19/23 History traMADol HCL 50 mg PO TID PRN 01/08/23 06/19/23 History amLODIPine [Norvasc] 5 mg PO DAILY 06/19/23 06/19/23 History cefUROXime axetiL [Cefuroxime] 500 mg PO BID 7 Days #14 tab 06/22/23 Rx Allergies Allergy/AdvReac Type Severity Reaction Status Date / Time No Known Allergies Allergy Verified 06/19/23 22:07 Physical Examination Physical exam: Patient is awake, alert, and oriented 3 Vital signs stable Good chest excursion with deep inspiration and expiration Examination of the cervical spine reveals skin is intact with no abrasions, lacerations, or bruises; no erythema, purulence or signs of infection No pain with palpation of the posterior cervical spine or trapezius bilaterally Full range of motion of the cervical spine with adequate flexion, extension, and bilateral rotation Tourist Cabin Keeper strength, thumb strength, interosseous strength, biceps strength, triceps strength, and shoulder strength positive sustained bilaterally Upper extremity strength 5/5 bilaterally Biceps reflex 3+ bilaterally and Brachioradialis reflexes 3+ bilaterally Positive Hoffmans sign on the right; negative on the left Patient is able to stand at the bedside in January independently without any significant difficulty with his lower extremities Results Pertinent studies: MRI of the cervical spine taken on 06/21/2023: Posterior longitudinal calcification slightly to the right midline extending from C4 to C5 which impresses upon the anterior spinal cord which was previously seen on imaging from 2010 was felt to be slightly increased as compared to that imaging; evidence of previous fusion with retained hardware at C4-5, C5-6, and C6-7; C2-3 bilateral facet and uncovertebral joint arthropathy resulting in bilateral moderate neural foraminal stenosis; C3-4 disc osteophyte complex with bilateral facet and uncovertebral joint arthropathy resulting in [id number] bilateral neural foraminal stenosis; C4-5 and C5-6 calcification posterior longitudinal ligament with bilateral facet joint arthropathy with moderate bilateral neural foraminal stenosis; C6 to 7 bilateral facet and on the medial joint arthropathy resulting in moderate bilateral foraminal stenosis - Labs Labs: Abnormal Lab Results - Last 24 Hours (Table) 06/22/23 06/22/23 Range/Units 05:50 05:50 RBC 3.22 L (4.40-5.60) X 10*6/uL Hgb 10.0 L (13.0-17.0) d/dL Hct 32.0 L (39.6-50.0) % MCV 99.4 H (80.0-97.0) FL MCHC 31.3 L (32.0-37.0) d/dL Carbon Dioxide 21.1 L (21.6-31.8) mmol/L Est GFR (CKD-EPI) 59 L (>=60) Total Protein 6.0 L (6.2-8.2) d/dL Albumin 3.0 L (3.8-4.9) d/dL Albumin/Globulin Ratio 1.00 L (1.60-3.17) Ratio H & H 06/19/23 06/21/23 06/22/23 Range/Units 20:06 05:47 05:50 Hgb 11.7 L 10.5 L 10.0 L (13.0-17.5) gm/dL Hct 34.2 L 32.7 L 32.0 L (39.0-53.0) % Result Diagrams: 06/22/23 05:50 06/22/23 05:50 Assessment and Plan Assessment: Assessment: History of previous anterior cervical decompression and fusion at C4-5, C5-6, and C6-7 performed in 2007 Calcification in the posterior longitudinal ligament C4 to C5 Cervical myalgia Right upper extremity positive Hoffmans sign Slight upper extremity hyperreflexia with reflexes 3/4 Bilateral feet and ankle pain, improved History right total knee arthroplasty Dehydration with acute kidney injury with elevated BUN and creatinine Tobacco use History excessive alcohol use History hypertension History BPH Urinary tract infection, started on Rocephin Hypokalemia Hyperthyroidism (1) History of cervical spinal arthrodesis Status: Acute Code(s): Z98.1 - ARTHRODESIS STATUS SNOMED Code(s): 1717955387875 (2) Cervicalgia Status: Acute Code(s): M54.2 - CERVICALGIA SNOMED Code(s): 29658970 (3) Hawkins's reflex positive Status: Acute Code(s): R29.2 - ABNORMAL REFLEX SNOMED Code(s): 276961438 (4) Pain, joint, ankle and foot Status: Acute Code(s): M25.579 - PAIN IN UNSPECIFIED ANKLE AND JOINTS OF UNSP ECIFIED FOOT SNOMED Code(s): 529482543 (5) History of hypertension Status: Acute Code(s): Z86.79 - PERSONAL HISTORY OF OTHER DISEASES OF THE CIRCULATORY SYSTEM SNOMED Code(s): 300725697 (6) History of BPH Status: Acute Code(s): Z87.438 - PERSONAL HISTORY OF OTHER DISEASES OF MALE GENITAL ORGANS SNOMED Code(s): 814642981 (7) Hypokalemia Status: Acute Code(s): E87.6 - HYPOKALEMIA SNOMED Code(s): 18428010 (8) Hyperthyroidism Status: Acute Code(s): E05.90 - THYROTOXICOSIS, UNSP WITHOUT THYROTOXIC CRISIS OR STORM SNOMED Code(s): 56591326 (9) Tobacco use Status: Acute Code(s): Z72.0 - TOBACCO USE SNOMED Code(s): 586163906 (10) Alcohol use Status: Acute Code(s): Z78.9 - OTHER SPECIFIED HEALTH STATUS SNOMED Code(s): 641851 (11) History of total right knee replacement Status: Acute Code(s): Z96.651 - PRESENCE OF RIGHT ARTIFICIAL KNEE JOINT SNOMED Code(s): 8929978669172 (12) Dehydration Status: Acute Code(s): E86.0 - DEHYDRATION SNOMED Code(s): 40085612 (13) UTI (urinary tract infection) Status: Acute Code(s): N39.0 - URINARY TRACT INFECTION, SITE NOT SPECIFIED SNOMED Code(s): 67668504 Plan: Plan: 1. Patient is very pleasant 68-year-old male who has been having significant difficulty with pain in his feet and ankles over the past several days. He was having significant difficulty with ambulation due to his pain. He did not have any pain while sitting or lying down. During his admission to the hospital the symptoms have improved. We are consulted for further evaluation of his cervical spine following cervical stenosis on cervical MRI imaging. He does have a history of previous C4-5, C5- 6, and C6-7 anterior cervical decompression and fusion. MRI imaging does show some calcification of the posterior longitudinal ligament at C4 to C5. This was present on previous imaging from 2009 which may have slightly increased. Curre ntly, patient is not complaining of any upper extremity weakness or radiculopathy bilaterally. He has good upper extremity strength. He does admit to some posterior cervical pain but currently his pain is well controlled. The pain is not reproducible. He does have positive Rin sign on the right with some upper extremity hyperreflexia with reflexes 3/4. It is unknown whether these symptoms were present prior to his previous surgical intervention at his cervical spine in 2007. Currently, he feels his symptoms are adequately controlled in regards to his cervical spine. He is not having any new neurological deficits in his upper extremities. He has adequate range of motion of his cervical spine. He is able to perform good active range of motion of his upper extremities bilaterally independently. Currently, he will be cleared for discharge from an orthopedic spine standpoint. Patient has been discussed in significant detail with Dr. Dejan Schultz and we have reviewed his cervical MRI imaging. We're not currently planned for acute surgical intervention in regards to his cervical spine. He has had improvement of his bilateral feet and ankle pain. From an orthopedic standpoint I think it would be okay for the patient discharged home and follow- up in the outpatient setting. Patient may follow-up with Alexandro Rolon PA-C or Dr. Dejan Schultz at [facility] in 2-3 weeks following discharge. 2. Currently, patient will continue be seen and examined by medicine for his multiple other medical diagnoses including dehydration with acute kidney injury with elevated BUN and creatinine, tobacco use, history of excessive alcohol use, hypertension, urinary tract infection currently on antibiotics, hypokalemia, and hyperthyroidism Time with Patient: Greater than 30 (Including obtaining history, physical examination, reviewing of imaging, and dictation.)
== END 2023-06-22 18:09 | disposition home or self-care (01) ==
LOC: EC 17:28 → 6NMEDSUR 22:03
PROVIDERS: ADMIT Internal Medicine; ATTEND Internal Medicine
DX: E86.0 Dehydration (principal); N17.9 Acute kidney failure, unspecified; N39.0 Urinary tract infection, site not specified; M79.672 Pain in left foot; M79.671 Pain in right foot; R29.6 Repeated falls; R94.4 Abnormal results of kidney function studies; K59.03 Drug induced constipation; H93.13 Tinnitus, bilateral; R74.02 Elevation of levels of lactic acid dehydrogenase [LDH]; I10 Essential (primary) hypertension; Z87.891 Personal history of nicotine dependence; M19.90 Unspecified osteoarthritis, unspecified site; N40.0 Benign prostatic hyperplasia without lower urinary tract symptoms; I48.91 Unspecified atrial fibrillation; I49.9 Cardiac arrhythmia, unspecified; Z98.890 Other specified postprocedural states; E87.6 Hypokalemia; M48.02 Spinal stenosis, cervical region; E03.9 Hypothyroidism, unspecified; Z96.651 Presence of right artificial knee joint; G89.29 Other chronic pain; M54.50 Low back pain, unspecified; M54.2 Cervicalgia; Z98.42 Cataract extraction status, left eye; Z98.41 Cataract extraction status, right eye; Z98.1 Arthrodesis status; Z81.8 Family history of other mental and behavioral disorders; Z82.5 Family history of asthma and other chronic lower respiratory diseases; Z80.2 Family history of malignant neoplasm of other respiratory and intrathoracic organs; Z79.899 Other long term (current) drug therapy
CPT/HCPCS: 96361 ×4; 96365; 96366; 99284; 36415; 97162; 97166; 84425; 80053 ×3; 82607; 82550; 82746; 83605; 84443; 85025 ×3; 86140; 81001; 87086; 87077; 87186; 73630; 71045; 72141; G0378 ×4; S0138 ×3; J0696 ×2

== ENCOUNTER → 2024-02-09 | Outpatient (CLI) | payer MEDICARE ==
--- NOTE | 2024-02-09 17:04 | US ---
EXAMINATION TYPE: US kidneys/renal and bladder DATE OF EXAM: 02/09/2024 COMPARISON: NONE CLINICAL INDICATION: Male, 68 years old with history of R94.4 ABNORMAL RENAL FUNCTION TEST; abnormal rensal function test EXAM MEASUREMENTS: Right Kidney: 10 x 5.0 x 2.9 cm Left Kidney: 10.7 x 5.4 x 3.9 cm Right Kidney: Hydronephrosis seen. Left Kidney: Hydronephrosis seen. Bladder: Anechoic Bilateral Jets seen: no There is no evidence for hydronephrosis at this point in time. No nephrolithiasis is seen. No rk s are identified. The urinary bladder is anechoic. Prostate gland is prominent with median lobe hyp ertrophy changes. IMPRESSION: Bilateral hydronephrosis prostatomegaly correlate for chronic bladder outlet obstruction..
== END | disposition home or self-care (01) ==
LOC: RADUSWWP 14:11
PROVIDERS: ATTEND Internal Medicine
DX: N40.0 Benign prostatic hyperplasia without lower urinary tract symptoms (principal); N13.30 Unspecified hydronephrosis; R94.4 Abnormal results of kidney function studies
CPT/HCPCS: 76770

== ENCOUNTER 2024-07-04 03:26 | Inpatient (IN) | payer MEDICARE ==
[2024-07-04] MEDS ORDERED: cefTRIAXone IN SWFI 1,000 MG/10 ML SYRINGE IVP ONE (04:14)
[2024-07-04] MEDS ORDERED: IPRATROPIUM-ALBUTEROL 3 ML NEB ONE ×3 (04:31→15:10)
[2024-07-04] MEDS ORDERED: SODIUM CHLORIDE 0.9% 1,000 ML BAG ONE (22:00)
[2024-07-04] MEDS ORDERED: TAMSULOSIN 0.4 MG CAP.ER.24H PO ONE (23:31)
[2024-07-04] MEDS ORDERED: BENZONATATE 100 MG CAP PO ONE (23:31)
[2024-07-05] MEDS ORDERED: PIPERACILLIN-TAZOBACTAM 3.375 GM VIAL ONE ×3 (05:50→21:55)
[2024-07-05] MEDS ORDERED: POTASSIUM CHLORIDE ER 20 MEQ TAB.ER PO ONE ×5 (08:50→18:18)
[2024-07-05] MEDS ORDERED: TAMSULOSIN 0.4 MG CAP.ER.24H PO ONE ×2 (08:50→21:55)
[2024-07-05] MEDS ORDERED: IPRATROPIUM-ALBUTEROL 3 ML NEB ONE (09:21)
[2024-07-05] MEDS ORDERED: traMADol 50 MG TAB ONE (11:40)
[2024-07-05] MEDS ORDERED: BENZONATATE 100 MG CAP PO ONE (21:55)
[2024-07-05] MEDS ORDERED: SODIUM CHLORIDE 0.9% 100 ML BAG IV ONE (23:59)
[2024-07-05] MEDS ORDERED: SODIUM CHLORIDE 0.9% 500 ML BAG ONE (23:59)
[2024-07-05] MEDS ORDERED: SODIUM CHLORIDE 0.9% 1,000 ML BAG ONE (23:59)
[2024-07-05] MEDS ORDERED: FENOFIBRATE 160 MG TAB ONE (23:59)
[2024-07-06] MEDS ORDERED: IPRATROPIUM-ALBUTEROL 3 ML NEB ONE (04:30)
[2024-07-06] MEDS ORDERED: TAMSULOSIN 0.4 MG CAP.ER.24H PO ONE ×2 (09:24→23:28)
[2024-07-06] MEDS ORDERED: POTASSIUM CHLORIDE ER 20 MEQ TAB.ER PO ONE ×2 (16:33→17:44)
[2024-07-06] MEDS ORDERED: methylPREDNISolone SOD SUCCI 40 MG/ML 1 ML VIAL ONE ×2 (17:44→23:27)
[2024-07-06] MEDS ORDERED: PIPERACILLIN-TAZOBACTAM 3.375 GM VIAL ONE (23:27)
[2024-07-06] MEDS ORDERED: BENZONATATE 100 MG CAP PO ONE (23:29)
[2024-07-07] MEDS ORDERED: POTASSIUM CHLORIDE ER 20 MEQ TAB.ER PO ONE ×2 (03:37→04:22)
[2024-07-07] MEDS ORDERED: PIPERACILLIN-TAZOBACTAM 3.375 GM VIAL ONE ×3 (03:37→20:46)
[2024-07-07] MEDS ORDERED: IPRATROPIUM-ALBUTEROL 3 ML NEB ONE ×2 (04:55→08:00)
[2024-07-07] MEDS ORDERED: methylPREDNISolone SOD SUCCI 40 MG/ML 1 ML VIAL ONE ×4 (06:29→23:15)
[2024-07-07] MEDS ORDERED: BENZONATATE 100 MG CAP PO ONE (06:29)
[2024-07-07] MEDS ORDERED: TAMSULOSIN 0.4 MG CAP.ER.24H PO ONE ×2 (10:06→20:14)
[2024-07-07] MEDS ORDERED: traMADol 50 MG TAB ONE (17:58)
[2024-07-07] MEDS ORDERED: atenoloL 25 MG TAB ONE (20:14)
[2024-07-07] MEDS ORDERED: FENOFIBRATE 160 MG TAB ONE (23:59)
[2024-07-07] MEDS ORDERED: SODIUM CHLORIDE 0.9% 100 ML BAG ONE (23:59)
[2024-07-07] MEDS ORDERED: CHOLESTYRAMINE (WITH SUGAR) 4 GM PACKET ONE (23:59)
[2024-07-07] MEDS ORDERED: SODIUM CHLORIDE 0.9% 1,000 ML BAG ONE (23:59)
[2024-07-08] MEDS ORDERED: methylPREDNISolone SOD SUCCI 40 MG/ML 1 ML VIAL ONE ×2 (05:34→23:59)
[2024-07-08] MEDS ORDERED: IPRATROPIUM-ALBUTEROL 3 ML NEB ONE ×2 (08:00→18:15)
[2024-07-08] MEDS ORDERED: amLODIPine 5 MG TAB ONE (08:18)
[2024-07-08] MEDS ORDERED: TAMSULOSIN 0.4 MG CAP.ER.24H PO ONE ×2 (08:18→23:01)
[2024-07-08] MEDS ORDERED: atenoloL 25 MG TAB ONE (08:19)
[2024-07-08] MEDS ORDERED: FENOFIBRATE 160 MG TAB ONE (08:42)
[2024-07-08] MEDS ORDERED: PIPERACILLIN-TAZOBACTAM 3.375 GM VIAL ONE ×2 (16:50→23:01)
[2024-07-08] MEDS ORDERED: BENZONATATE 100 MG CAP PO ONE ×2 (23:01→23:04)
[2024-07-08] MEDS ORDERED: CHOLESTYRAMINE (WITH SUGAR) 4 GM PACKET ONE (23:59)
[2024-07-08] MEDS ORDERED: SODIUM CHLORIDE 0.9% 1,000 ML BAG ONE (23:59)
[2024-07-08] MEDS ORDERED: SODIUM CHLORIDE 0.9% 100 ML BAG ONE (23:59)
[2024-07-09] MEDS ORDERED: PIPERACILLIN-TAZOBACTAM 3.375 GM VIAL ONE ×3 (02:09→20:49)
[2024-07-09] MEDS ORDERED: methylPREDNISolone SOD SUCCI 40 MG/ML 1 ML VIAL ONE ×5 (02:09→23:38)
[2024-07-09] MEDS ORDERED: IPRATROPIUM-ALBUTEROL 3 ML NEB ONE (04:07)
[2024-07-09] MEDS ORDERED: BENZONATATE 100 MG CAP PO ONE ×2 (06:26→20:50)
[2024-07-09] MEDS ORDERED: POTASSIUM CHLORIDE ER 20 MEQ TAB.ER PO ONE ×4 (08:32→17:10)
[2024-07-09] MEDS ORDERED: TAMSULOSIN 0.4 MG CAP.ER.24H PO ONE ×2 (08:32→20:49)
[2024-07-09] MEDS ORDERED: amLODIPine 5 MG TAB ONE (08:32)
[2024-07-09] MEDS ORDERED: atenoloL 25 MG TAB ONE (08:33)
[2024-07-09] MEDS ORDERED: FENOFIBRATE 160 MG TAB ONE (10:56)
[2024-07-09] MEDS ORDERED: CHOLESTYRAMINE (WITH SUGAR) 4 GM PACKET ONE (23:59)
[2024-07-09] MEDS ORDERED: SODIUM CHLORIDE 0.9% 100 ML BAG ONE (23:59)
[2024-07-10] MEDS ORDERED: methylPREDNISolone SOD SUCCI 40 MG/ML 1 ML VIAL ONE ×3 (06:31→23:31)
[2024-07-10] MEDS ORDERED: POTASSIUM CHLORIDE ER 20 MEQ TAB.ER PO ONE ×2 (06:51→09:07)
[2024-07-10] MEDS ORDERED: PIPERACILLIN-TAZOBACTAM 3.375 GM VIAL ONE ×3 (07:13→20:58)
[2024-07-10] MEDS ORDERED: amLODIPine 5 MG TAB ONE (09:07)
[2024-07-10] MEDS ORDERED: TAMSULOSIN 0.4 MG CAP.ER.24H PO ONE ×2 (09:08→20:57)
[2024-07-10] MEDS ORDERED: atenoloL 25 MG TAB ONE (09:08)
[2024-07-10] MEDS ORDERED: FENOFIBRATE 160 MG TAB ONE (09:08)
[2024-07-11] MEDS ORDERED: methylPREDNISolone SOD SUCCI 40 MG/ML 1 ML VIAL ONE ×2 (01:46→05:47)
[2024-07-11] MEDS ORDERED: POTASSIUM CHLORIDE ER 20 MEQ TAB.ER PO ONE (05:43)
[2024-07-11] MEDS ORDERED: PIPERACILLIN-TAZOBACTAM 3.375 GM VIAL ONE ×2 (05:47→15:48)
[2024-07-11] MEDS ORDERED: FENOFIBRATE 160 MG TAB ONE (09:06)
[2024-07-11] MEDS ORDERED: FINASTERIDE 5 MG TAB ONE (09:06)
[2024-07-11] MEDS ORDERED: amLODIPine 5 MG TAB ONE (09:06)
[2024-07-11] MEDS ORDERED: TAMSULOSIN 0.4 MG CAP.ER.24H PO ONE (09:06)
[2024-07-11] MEDS ORDERED: atenoloL 25 MG TAB ONE (09:07)
--- NOTE | 2024-08-01 17:24 | CT ---
Patient Hector Frank ID [id number] Order # EXAMINATION TYPE: CT brain cspine wo con DATE OF EXAM: 07/10/2024 COMPARISON: No comparison available on downtime PACS. HISTORY: Fall with head injury CT DLP: 1343.9 mGycm, Automated exposure control for dose reduction was used. CONTRAST: Patient injected with 0 mL of Isovue 300. CT of the brain is performed utilizing 3 mm thick sections through the posterior fossa and 3 mm thick sections through the remaining calvarium. Study is performed within 24 hours of arrival to the hospital. No abnormal hyperdensity is present to suggest an acute intracranial hemorrhage. No mass lesion is evident. No acute infarcts are evident. There is some mild periventricular white matter hypodensity, likely o n the basis of chronic white matter ischemic changes. Ventricles and sulci are prominent for the patient age. Soft tissue swelling is over the right parie valente occipital region. No underlying fracture is evident. Paranasal sinuses and mastoid air cells within the [id number] are clear. IMPRESSIONS: 1. No acute intracranial process. Follow-up MRI can be performed as clinically indicated. 2 atrophy w ith mild chronic appearing periventricular white matter ischemic changes. CT cervical spine. COMPARISON: CT 07/07/2024 CT of the cervical spine is performed in the axial plane at 2 mm thick sections. Reconstructed image s in the coronal, and sagittal plane are reviewed on the computer. No acute fractures are evident. There is straightening of the cervical spine. Anterior cervical fusion is present C4-C7. Large spurs present C7-T1. Minimal grade 1 spondylolisthesis of C3 anterior on C4 may be present. Disc spaces away from the fusion are narrowed. There is fusion through the mid cervical spine. Vertebral body heights are preserved. No spinal canal stenosis is evident. No foraminal narrowing from uncovertebral joint hypertrophy and facet hypertrophy is present at C3-4. Foraminal narrowing is present C5-6. Noted below the vocal cord level is a collection of debris along the left side. Additional workup is recommended. Mass is not excluded. IMPRESSION: 1. Debris or mass just inferior to the left vocal cord. Additional workup is recommended. Neoplasm is not excluded. 2. No acute osseous abnormality cervical spine. 3. Degenerative changes to the postsurgical cervical spine
--- NOTE | 2024-08-03 14:06 | XR ---
[id number] AMADO GARCIA : 1955 EXAM: 2 radiographic views of the chest. DATE: 07/03/2024 21:34 INDICATION: SOB, COUGH, UTI COMPARISON: None, please note PACS downtime occurred during the radiologist interpretation of these i mages with limited priors/reports.. TECHNIQUE: Frontal and lateral views of the chest. FINDINGS: Lungs/Pleura: There is flattening of the diaphragm with increased lucency of the lungs. No evidence o f pneumothorax, pleural effusion or focal consolidation. Pulmonary vascularity: Unremarkable. Heart/mediastinum: Cardiomediastinal silhouette is enlarged . Musculoskeletal: No acute osseous pathology. IMPRESSION: 1. No acute cardiopulmonary disease/process. 2. COPD changes.
--- NOTE | 2024-08-04 08:24 | XR ---
Patient Hector Frank ID [id number] Order # Procedure 1 VIEW CXR EXAMINATION TYPE: XR chest 1V DATE OF EXAM: 07/06/2024 8:10 AM CLINICAL INDICATION: Follow-up pneumonia COMPARISON: None TECHNIQUE: XR chest 1V Frontal view of the chest. FINDINGS: Lungs/Pleura: There is no evidence of pleural effusion, focal consolidation, or pneumothorax. Pulmonary vascularity: Unremarkable. Heart/mediastinum: Cardiomediastinal silhouette is unremarkable. Musculoskeletal: No acute osseous pathology. Other findings: None IMPRESSION: No acute cardiopulmonary disease/process.
--- NOTE | 2024-08-04 14:31 | CONS ---
CONSULTATION REASON FOR CONSULTATION: Urinary retention, inability to place a catheter. HISTORY OF PRESENT ILLNESS: Hector Frank is a 69-year-old gentleman, who was brought into the hospital with weakness, poor intake, shortness of breath, productive cough, and weight loss. He was found in the emergency room to be slightly short of breath, disheveled and cachectic looking. He is brought into the hospital for further evaluation and treatment. He has a past history of hypertension, hyperlipidemia, BPH, incomplete bladder emptying. He was found to have large urinary residuals and we were asked to see the patient. The nursing staff is unable to catheterize the patient. The patient urologically has been seen by Dr. Begum in the past and has been on dutasteride and Flomax for several years. He has not had previous surgical urinary tract procedures. There has been no hematuria. He has had previous catheters. There has been no incontinence or blood in the urine. PAST MEDICAL HISTORY: Positive for hypertension, hyperlipidemia, BPH, incomplete bladder emptying. PAST SURGICAL HISTORY: Includes a right knee replacement and cervical vertebral surgery. MEDICATIONS: Previous medications include, 1. Flomax 0.4 daily. 2. Avodart 0.5 daily. 3. Atenolol 25 daily. 4. Ultram 50 p.r.n. 5. Norvasc 5 mg daily. 6. Xanax 0.25 t.i.d. p.r.n. REVIEW OF SYSTEMS: Complete and noncontributory. PHYSICAL EXAMINATION: GENERAL: He is pleasant, awake, cooperative, disheveled. HEENT: Clear. CHEST: Clear to auscultation. HEART: Without murmur or gallop. ABDOMEN: Soft. The bladder is palpably full. : The penis is circumcised. Testes, epididymides unremarkable. EXTREMITIES: No edema. NEUROLOGICAL: He is grossly intact. RECTAL: Deferred at this point in time. IMPRESSION: This patient has urinary retention with the nursing staff unable to pass a catheter. PLAN: Catheter placement. MMODL / IJN: [id number] /
--- NOTE | 2024-08-05 20:38 | CDI ---
Documentation Clarification Form Date: 08/05/2024 08:26:37 PM From: Elsi Callejas Phone: Admit Date: 07/04/2024 03:26:00 AM Patient Name: Hector Frank Visit Number: [id number] Discharge Date: 07/11/2024 06:44:00 PM ATTENTION: The Clinical Documentation Specialists (CDI) and [facility] Coding Staff appreciate your assistance in clarifying documentation. Please respond to the clarification below the line at the bottom and electronically sign. The CDI & [facility] Coding staff will review the response and follow-up if needed. Please note: Queries are made part of the Legal Health Record. If you have any questions, please contact the author of this message via ITS. Doctor/Provider: Jose Correa The Registered Dietitian assessment on 07/09/24 indicates this patient meets criteria for being underweight. Based on this information and the findings below, is there an additional diagnosis that is clinically appropriate for this patient? History/Risk Factors: 69yo M, FTT, roxanne hydronephrosis, PNA, BPH w obstruction, AECOPD, ETOH abuse, Cachexia, frailty, anemia, HTN Clinical Indicators: Current BMI: 19.9 Intake: fair; NKFA Labs: K 3.3; NA 133 No nutritionally pertinent meds Problem: inadequate energy intake Etiology: diminished appetite, FTT as evidenced by gradual wt. loss x 2yrs Treatment: monitor PO intake; monitor supplement intake. F/U 07/12 Is there an additional diagnosis that is clinically appropriate for this patient? [ ] Underweight [ ] Mild Protein-Calorie Malnutrition [ xxx] Moderate Protein-Calorie Malnutrition [ ] No additional diagnosis/Not clinically significant [ ] Other condition, please specify [ ] Unable to Determine (Template Last Revised: May 2023) MTDD
--- NOTE | 2024-08-08 09:22 | PCN ---
PROCEDURE NOTE PREOPERATIVE DIAGNOSIS: Urine retention with inability to place a catheter. POSTOPERATIVE DIAGNOSIS: Urine retention with inability to place a catheter. PROCEDURE: Successful catheter placement. INDICATIONS: The patient is 69. He is in the hospital with pulmonary issues, failure to thrive, and cachexia. The nursing staff has found he has had a large urinary postvoid residual greater than 700 mL multiple times. The catheter will be placed. He has previously been seen by Dr. Begum. He has been on Avodart and Flomax. DESCRIPTION OF PROCEDURE: The patient was prepped and draped sterilely. Due to the previous attempts that have failed, a 14-Canadian coude tip catheter was placed. A sterile prep and drape is administered. With lubrication jelly, the 14 catheter slowly passed with some difficulty into the bladder successfully with clear urine return. The balloon was insufflated. IMPRESSION: Successful catheter placement in the patient. The catheter should remain in place until he is ambulatory and feeling better at which time it can be removed. MMODL / IJN: [id number] /
--- NOTE | 2024-08-10 07:51 | XR ---
Patient Hector Frank ID [id number] Order # EXAMINATION TYPE: XR chest 2V DATE OF EXAM: 07/06/2024 2:13 PM CLINICAL INDICATION: Cough, SOB COMPARISON: THIS EXAM WAS READ DURING PACS DOWNTIME, NO PRIORS AVAILABLE. TECHNIQUE: XR chest 2V Frontal view of the chest. FINDINGS: Lungs/Pleura: There is flattening of the diaphragm with increased lucency of the lungs. No evidence o f pneumothorax, pleural effusion or focal consolidation. Pulmonary vascularity: Unremarkable. Heart/mediastinum: Cardiomediastinal silhouette is unremarkable. Musculoskeletal: No acute osseous pathology. There is fixation hardware in the lower cervical spine. Other findings: None IMPRESSION: 1. No acute cardiopulmonary disease process. 2. COPD changes.
--- NOTE | 2024-08-23 13:58 | US ---
EXAMINATION TYPE: US renals and bladder DATE OF EXAM: 07/04/2024 COMPARISON: NONE CLINICAL INDICATION: Urinary retention EXAM MEASUREMENTS: Right Kidney: 10.8 x 4.6 x 4.6 cm Left Kidney: 11.4 x 4.6 x 4.9 cm Post Void Residual Volume: 0 mL, decompressed with Epps catheter Right Kidney: Mild hydronephrosis. There is a 1.7 x 1.4 x 1.9 cm hypoechoic area left kidney may be a complex cyst. Follow-up is recommended. Left Kidney: Mild hydronephrosis less than on the right. Bladder: Urinary bladder is decompressed with Epps catheter bladder wall thickening is not excluded. Bilateral Jets seen: No Normal Post Void Residual: Epps catheter, not evaluated IMPRESSION: 1. Bilateral hydronephrosis. 2. Urinary bladder decompressed with Epps catheter urinary retention cannot be evaluated. 3. Urinary bladder wall thickening is not excluded. Additional workup recommended
--- NOTE | 2024-08-24 13:46 | PN ---
PROGRESS NOTE LOCATION: 479. REASON FOR FOLLOWUP: 1. Complicated UTI. 2. Diarrhea. INTERVAL HISTORY: The patient is afebrile. The patient is breathing comfortably. Denies any chest pain. Has been complaining of cough and bringing up some sputum. No hemoptysis. No nausea. No vomiting. No abdominal pain. Complaining of diarrhea. PHYSICAL EXAMINATION: VITAL SIGNS: His blood pressure is 137/70, pulse of 74, temperature 97.8. He is 95% on room air. GENERAL DESCRIPTION: This is an elderly male, lying in bed, in no distress. RESPIRATORY SYSTEM: Unlabored breathing, decreased intensity of breath sounds. No wheeze. HEART: S1, S2. Regular rate and rhythm. ABDOMEN: Soft, no tenderness. EXTREMITIES: No edema in feet. LABORATORY DATA: Cultures currently pending. DIAGNOSTIC IMPRESSION AND PLAN: 1. The patient with presentation to hospital with hematuria, complicated urinary tract infection. The patient is currently covered with Zosyn, to continue while waiting for the culture to finalize. 2. Diarrhea, possible antibiotic associated. We will check a stool for C difficile and treat if positive. 3. The patient is complaining of cough, bringing up some purulent sputum. Chest x-ray is pending. Try to obtain the sputum. Covered with Zosyn. MMODL / IJN: [id number] /
--- NOTE | 2024-08-24 13:46 | PN ---
PROGRESS NOTE DATE OF SERVICE: 07/07/2024 LOCATION: [facility]. REASON FOR FOLLOWUP: UTI, pneumonia. INTERVAL HISTORY: The patient is afebrile. The patient mentioned breathing slightly comfortably, he continued to have a cough and is bringing up some sputum. He has mentioned he was able to give sputum yesterday. Currently on room air. No nausea, vomiting. No abdominal pain. Still having diarrhea but seemed to have slightly slowed down. PHYSICAL EXAMINATION: VITAL SIGNS: Blood pressure 92/59, pulse of 90, temperature 98.3, he is 97% on room air. GENERAL: The patient is an elderly male lying in bed, in no distress. RESPIRATORY SYSTEM: Unlabored breathing, decreased intensity of breath sounds. No wheeze. HEART: S1, S2. Regular rate. ABDOMEN: Soft, no tenderness. LABS: Stool for C difficile culture currently pending. DIAGNOSTIC IMPRESSION AND PLAN: Patient admitted to the hospital with: 1. Hematuria, concerning for complicated urinary tract infection. Urine culture currently pending. 2. The patient with cough, sputum production, concern for possible tracheobronchitis/pneumonia. Sputum culture currently pending. The patient is broadly covered with Zosyn. Cultures will be followed and antibiotic adjusted further if needed. MMODL / IJN: [id number] /
--- NOTE | 2024-08-24 13:46 | CONS ---
CONSULTATION LOCATION: 479. REASON FOR CONSULTATION: Complicated urinary tract infection. HISTORY OF PRESENT ILLNESS: The patient is a 69-year-old male with a past medical history significant for Hypertension, hyperlipidemia, BPH and daily alcohol abuse, who presented to the ER complaining of generalized weakness, decreased oral intake, and weight loss, and has been complaining of blood in the urine that had been going on for about 3 weeks. He did have some difficulty urination and some burning. The patient denies having the fever, did have some chills. Also complaining of cough, shortness of breath. The cough has been of moderate intensity and bringing up some clear sputum. No pleuritic chest pain. The patient denies having any abdominal pain or diarrhea. With these symptoms the patient, has been evaluated. The patient, on presentation to the hospital, was afebrile and no fever has been recorded subsequently. The patient did have a positive UA, mildly elevated BUN and creatinine, concerning for a symptomatic urinary tract infection. The patient was started on Zosyn, and Infectious Disease was consulted for further management of antibiotic therapy. REVIEW OF SYSTEMS: Positive points have been mentioned in HPI. Rest of systems have been negative. PAST MEDICAL HISTORY: Hypertension, hyperlipidemia, BPH, alcohol abuse and hydronephrosis. PAST SURGICAL HISTORY: Reviewed. SOCIAL HISTORY: Positive for smoking about 1 pack of cigarettes per day. Has been daily drinker. Denies any drug use. FAMILY HISTORY: No pertinent findings were noticed. ALLERGIES: No known drug allergies. MEDICATIONS: The patient is currently: 1. Flomax. 2. Avodart. 3. Atenolol. 4. Ultram. 5. Norvasc. 6. Xanax. 7. Zosyn 3.375 g q.8 hours. PHYSICAL EXAMINATION: VITAL SIGNS: Blood pressure is 109/63, pulse of 82, temperature of 98.2, he is 98% on room air. GENERAL DESCRIPTION: This is an elderly male lying in bed, in no distress. HEENT EXAMINATION: Slight pallor. No scleral icterus. Oral mucous membranes dry. NECK: Trachea is central. No thyromegaly. LUNGS: Unlabored breathing. Coarse breath sounds bilaterally. HEART: S1, S2. Regular rate and rhythm. ABDOMEN: Soft, no tenderness, no guarding, no rigidity. EXTREMITIES: No edema. Feet examination, no rashes, no masses palpable. NEUROLOGICAL: The patient is awake, alert, oriented x3. Affect normal. LABORATORY DATA: BUN of 15, creatinine 1.70. Hemoglobin is 11.4, white count 17.18. UA has been positive. Culture is currently pending. The patient did have an abdominal ultrasound with mild bilateral hydronephrosis. DIAGNOSTIC IMPRESSION AND PLAN: The patient presented to the hospital with generalized weakness and not feeling well. He also has been complaining of cough, bringing up some sputum and did have hematuria. Ultrasound has been suspicious for bilateral hydronephrosis. He also has evidence of elevated white count, concerning for a symptomatic urinary tract infection, likely from enteric gram-negative pathogen. 1. - we will try to obtain chest x-ray report. 2. - try to obtain sputum for Gram stain and culture. 3. -continue with the Zosyn while awaiting for the culture to finalize and monitor clinical course closely. Thank you for this consultation. We will follow this patient along with you. MMODL / IJN: [id number] /
--- NOTE | 2024-08-24 13:52 | PN ---
PROGRESS NOTE DATE OF SERVICE: 07/08/2024 REASON FOR FOLLOWUP: UTI and question of pneumonia. INTERVAL HISTORY: The patient is afebrile. The patient is currently breathing comfortably on room air. Denies any chest pain or shortness of breath. Did have a cough with occasional sputum production. No vomiting or diarrhea. Mentioned feeling better. PHYSICAL EXAMINATION: VITAL SIGNS: Blood pressure is 127/77, pulse of 74, temperature is 97.5. He is 97% on room air. GENERAL DESCRIPTION: This is an elderly male lying in bed, in no distress. RESPIRATORY SYSTEM: Unlabored breathing, decreased intensity of breath sounds. No wheeze. HEART: S1, S2. Regular rate and rhythm. ABDOMEN: Soft. No tenderness. EXTREMITIES: No edema in the feet. LABORATORY DATA: Creatinine 1.43. White count was 18.43. Cultures currently pending. DIAGNOSTIC IMPRESSION AND PLAN: The patient presented to the hospital with hematuria concerning for a complicated UTI. Ultrasound with mild hydronephrosis status post catheter placement. Urine culture is currently pending. The patient is covered with Zosyn. We will transition to oral antibiotic on discharge and monitor clinical course closely. MMODL / IJN: [id number] /
--- NOTE | 2024-08-24 13:52 | PN ---
PROGRESS NOTE REASON FOR FOLLOWUP: Urinary tract infection. INTERVAL HISTORY: The patient is afebrile. The patient is breathing comfortably on room air. The patient denies having any chest pain. No shortness of breath. Continues to have a cough, but no worsening sputum production. No nausea, or vomiting. No abdominal pain. No diarrhea. PHYSICAL EXAMINATION: VITAL SIGNS: Blood pressure 130/70 with a pulse of 74, temperature 98.8. GENERAL DESCRIPTION: This is an elderly male lying in bed, in no distress. RESPIRATORY SYSTEM: Unlabored breathing, decreased breath sounds on the bases. No wheeze. HEART: S1, S2. Regular rate and rhythm. ABDOMEN: Soft, no tenderness. EXTREMITIES: No edema of the feet. LABORATORY DATA: Creatinine is 1.24, white count 13,000. DIAGNOSTIC IMPRESSION AND PLAN: The patient with a complicated UTI presented to the hospital with hematuria requiring Epps catheter placement for retention. Unfortunately, still waiting for the culture. The patient is covered with Zosyn, to continue and monitor clinical course closely. MMODL / IJN: [id number] /
--- NOTE | 2024-08-24 13:52 | PN ---
PROGRESS NOTE LOCATION: 479. REASON FOR FOLLOWUP: UTI. INTERVAL HISTORY: The patient is afebrile. He is currently breathing, comfortably on room air. Denies any chest pain or shortness of breath. Did have a cough with some sputum production. No vomiting. No abdominal pain, no diarrhea. PHYSICAL EXAMINATION: VITAL SIGNS: Blood pressure 126/72 with a pulse of 68, temperature 97.8, oxygen is 99% on room air. GENERAL DESCRIPTION: The patient is an elderly male, lying in bed, in no distress. RESPIRATORY SYSTEM: Unlabored breathing, decreased intensity of breath sounds. No wheeze. HEART: S1, S2, regular rate. ABDOMEN: Soft, no tenderness. LABORATORY DATA: Creatinine 1.24. White count 13.1. DIAGNOSTIC IMPRESSION AND PLAN: The patient with hospital hematuria, diagnosed with complicated UTI, requiring a Epps catheter placement for bilateral hydronephrosis. Urine culture still pending. The patient is covered with Zosyn. We will try to get the culture for discharge antibiotics and monitor clinical course closely. MMODL / IJN: [id number] /
--- NOTE | 2024-08-24 13:52 | PN ---
PROGRESS NOTE DATE OF SERVICE: 1954 LOCATION: [facility]. REASON FOR FOLLOWUP: Urinary tract infection. INTERVAL HISTORY: The patient is afebrile. He is breathing comfortably on room air. Denies any chest pain or shortness of breath. He did have a cough. No abdominal pain. No diarrhea. Epps catheter has been discontinued. Has not urinated yet. PHYSICAL EXAMINATION: VITAL SIGNS: Blood pressure 126/80, pulse of 70, temperature 98.4. GENERAL DESCRIPTION: This is an elderly male up in the bed in no distress. RESPIRATORY SYSTEM: Unlabored breathing. Decreased intensity of breath sounds. No wheeze. HEART: S1, S2. Regular rate and rhythm. ABDOMEN: Soft. No tenderness. LABORATORY DATA: No new labs available in the chart today. DIAGNOSTIC IMPRESSION AND PLAN: The patient presents to hospital with complicated urinary tract infection, and this patient did have hematuria, bilateral hydronephrosis requiring a Epps catheter placed which has been discontinued. Unfortunately, no cultures have been available. He has overall improvement on Zosyn. Consider short course of oral Augmentin on discharge and close outpatient followup. MMODL / IJN: [id number] /
--- NOTE | 2024-08-24 15:14 | CT ---
EXAMINATION TYPE: CT neck chest w con DATE OF EXAM: 07/07/2024 COMPARISON: No comparison available on [employer] PACS. HISTORY: Esophageal cancer, failure to thrive CT DLP: 450.5 mGycm CONTRAST: Patient injected with 100 mL of Isovue 300. TECHNIQUE: Axial images at 3 mm thick sections. Reconstructed images in the coronal plane and sagitt al plane are reviewed. FINDINGS: Limited CT sections are obtained the lung apices. The lung apices appear clear. CT neck: The torus tubarius and fossa of Rosenmuller are normal. Box Sorter spaces are normal. Para nasal sinuses and mastoid air cells within the field of view are clear. Parotid glands appear normal and symmetrical. Submandibular glands, are normal. Parapharyngeal spac es are normal. No suspicious adenopathy is evident. The hypopharynx appears within normal limits. There is asymmetry within the subglottic airway with irregular thickening along the left. Direct visu alization recommended. Findings are suspicious for neoplasm. Thyroid as visualized is normal. Proximal esophagus appears unremarkable. Osseous structures are normal. IMPRESSION: 1. Irregular mass just below the left vocal cord within the subglottic airway suspicious for mass. Di rect visualization recommended. EXAMINATION TYPE: CT neck chest w con DATE OF EXAM: 07/07/2024 COMPARISON: No comparison available on [employer] PACS. HISTORY: Esophageal cancer, failure to thrive CT DLP: 450.5 mGycm, Automated exposure control for dose reduction was used. CONTRAST: Performed injected with 100 mL of Isovue 300. TECHNIQUE: Axial images were obtained at 5 mm thick sections. Reconstructed images are reviewed on [employer] computer in the coronal plane. FINDINGS: Portion of the thyroid visualized is normal. Mass below the left vocal cord is at the edge of the film. There is some partial visualization of a s ubglottic airway mass on the left. Please see above CT Neck discussion. There is a 0.6 cm calcified nodule posterior right midlung. Series 304, image 38 Emphysematous changes are evident. No enlarged mediastinal or hilar adenopathy is evident. The ascending aorta diameter at the level o f the main pulmonary artery is 3.7 cm. The main pulmonary artery diameter at the bifurcation is 2.6 cm. RF lumen at the gastroesophageal junction was not identified within the esophagus. This could be closed and normal. Thickening extending into the gastric cardia however cannot be excluded which coul d be compatible with the patient's esophageal cancer. The more proximal and mid portions of the esoph maxine thorax appear normal Limited CT sections are obtained through the upper abdomen. Hydronephrosis cannot be excluded. IMPRESSION: 1. 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 See CT neck above. 2. Some thickening of the distal esophagus extending into the gastric cardia is not excluded. This co uld relate to the patient's esophageal cancer.
== END 2024-07-11 18:44 | disposition home health service (06) | DRG 689 ==
LOC: 4SSUR 03:26
PROVIDERS: ADMIT Internal Medicine; ATTEND Internal Medicine
PROC: 0T9B70Z Drainage of Bladder with Drainage Device, Via Natural or Artificial Opening (ICD-10-PCS; principal; 2024-07-05)
DX: N13.6 Pyonephrosis (principal); J18.9 Pneumonia, unspecified organism; J96.01 Acute respiratory failure with hypoxia; E44.0 Moderate protein-calorie malnutrition; R64 Cachexia; J44.1 Chronic obstructive pulmonary disease with (acute) exacerbation; K52.1 Toxic gastroenteritis and colitis; Z68.1 Body mass index [BMI] 19.9 or less, adult; N13.8 Other obstructive and reflux uropathy; R62.7 Adult failure to thrive; R54 Age-related physical debility; I10 Essential (primary) hypertension; F10.10 Alcohol abuse, uncomplicated; D50.9 Iron deficiency anemia, unspecified; D53.9 Nutritional anemia, unspecified; E86.0 Dehydration; K59.00 Constipation, unspecified; N32.0 Bladder-neck obstruction; N40.1 Benign prostatic hyperplasia with lower urinary tract symptoms; R39.14 Feeling of incomplete bladder emptying; F17.210 Nicotine dependence, cigarettes, uncomplicated; E78.5 Hyperlipidemia, unspecified; J38.3 Other diseases of vocal cords; Z87.440 Personal history of urinary (tract) infections; T36.0X5A Adverse effect of penicillins, initial encounter; R33.8 Other retention of urine; Z96.651 Presence of right artificial knee joint; Z79.899 Other long term (current) drug therapy
CPT/HCPCS: 36600; 70450; 70491; 71045; 71046; 71260; 72125; 76770; 82607; 82728; 82746; 83540; 83550; 83921; 84153; 84481; 87070; 87077; 87086; 87186; 87205; 94640; 96361; 96374; 99285

== ENCOUNTER 2024-08-30 11:11 | Emergency (ER) | payer MEDICARE ==
--- NOTE | 2024-08-30 12:15 | ED ---
SOB HPI - General Chief Complaint: Shortness of Breath Stated Complaint: WARNER Time Seen by Provider: 08/30/24 12:12 Source: patient, RN notes reviewed Mode of arrival: ambulatory Limitations: no limitations - History of Present Illness Initial Comments: 69-year-old male presenting for shortness of breath. States last month he was diagnosed with a tumor in his neck and has been having progressive shortness of breath since then. He has been seen by Dr. Soto who referred him to [facility]. He was on his way to [facility] to see an ENT specialist when he began to feel very short of breath which prompted him to come to the ER. States he has not undergone any treatment for the tumor yet. He feels as though it is difficult to get air past the "lump" in his throat. His fever, chills, chest pain. Does not wear at home oxygen - Related Data Home Medications Medication Instructions Recorded Confirmed Tamsulosin HCl [Flomax] 0.4 mg PO BID 02/04/16 08/30/24 gemfibroziL [Lopid] 600 mg PO DAILY@1630 02/04/16 08/30/24 Dutasteride 0.5 mg PO DAILY@1630 06/21/21 08/30/24 ALPRAZolam [Xanax] 0.25 mg PO DAILY 01/08/23 08/30/24 atenoloL [Tenormin] 25 mg PO BID 01/08/23 08/30/24 traMADol HCL 50 mg PO DAILY 01/08/23 08/30/24 amLODIPine [Norvasc] 5 mg PO DAILY@1630 06/19/23 08/30/24 Allergies Allergy/AdvReac Type Severity Reaction Status Date / Time No Known Allergies Allergy Verified 08/30/24 12:37 Review of Systems ROS Statement: Those systems with pertinent positive or pertinent negative responses have been documented in the HPI. ROS Other: All systems not noted in ROS Statement are negative. Past Medical History Past Medical History: Atrial Fibrillation, Hypertension, Prostate Disorder Additional Past Medical History / Comment(s): dehydration, low B/P, kidney problem that was fixed with fluids and sodium was low. Additional hx: BPH, DDD-cervical pain, R/L hand fingers tingling if over used, AGE 18 FX RT FEMUR IN 4 PLACES HAD PLATE/SCEWS-SINCE REMOVED, HAS OPIOD INDUCED CONSTIPATION, TINNITUS bilaterally but pt has noticed it has decreased since he quit smoking, hay fever. History of Any Multi-Drug Resistant Organisms: None Reported Past Surgical History: Heart Catheterization, Joint Replacement, Orthopedic Surgery Additional Past Surgical History / Comment(s): bilateral CATARACTS, ANT CERVICAL DISCECTOMY/FUSION C4,5,6,7 USING CADAVOR BONE. LT HYDROCELE, LT CARPAL TUNNEL, RT FEMUR SX METAL SINCE REMOVED, COLONOSCOPY, CYSTS REMOVED FROM FOREHEAD,BUTTOCKS,;T ORIENTAL ORTHODOX. PROSTATE BX X2-BENIGN, partial R knee replacement. cardiac ablation Past Anesthesia/Blood Transfusion Reactions: No Reported Reaction Past Psychological History: No Psychological Hx Reported Smoking Status: Current every day smoker Past Alcohol Use History: Daily Past Drug Use History: None Reported - Past Family History Father Family Medical History: COPD, Dementia Additional Family Medical History / Comment(s): Father at age 84yrs. Mother Family Medical History: Cancer, COPD Additional Family Medical History / Comment(s): NASAL/THROAT CANCER. Mother at age 82 General Exam Limitations: no limitations General appearance: alert, in no apparent distress, cachectic, other (Labored breathing) Head exam: Present: atraumatic, normocephalic, normal inspection Eye exam: Present: normal appearance, PERRL, EOMI. Absent: scleral icterus, conjunctival injection, periorbital swelling ENT exam: Present: normal exam, mucous membranes moist Neck exam: Absent: normal inspection (Palpable mass in the left neck), tenderness, meningismus, lymphadenopathy Respiratory exam: Present: normal lung sounds bilaterally. Absent: respiratory distress, wheezes, rales, rhonchi, stridor Cardiovascular Exam: Present: regular rate, normal rhythm, normal heart sounds. Absent: systolic murmur, diastolic murmur, rubs, gallop, clicks Neurological exam: Present: alert, oriented X3 Psychiatric exam: Present: normal affect, normal mood Skin exam: Present: warm, dry, intact, normal color. Absent: rash Course Vital Signs 08/30/24 08/30/24 08/30/24 11:15 11:24 12:05 Temperature 98.7 F 97.9 F Pulse Rate 81 76 Respiratory 24 20 Rate Blood Pressure 114/74 99/79 O2 Sat by Pulse 94 L 100 99 Oximetry 08/30/24 08/30/24 08/30/24 12:44 14:00 15:00 Temperature Pulse Rate 73 84 79 Respiratory 18 18 18 Rate Blood Pressure 111/69 137/78 112/87 O2 Sat by Pulse 98 99 98 Oximetry Medical Decision Making - Medical Decision Making Was pt. sent in by a medical professional or institution (HARLEY Da Silva, QUILL WORKER, urgent care, hospital, or jail...) When possible be specific @ -No Did you speak to anyone other than the patient for history (EMS, parent, family, police, friend...)? What history was obtained from this source @ -No Did you review nursing and triage notes (agree or disagree)? Why? @ -I reviewed and agree with nursing and triage notes Were old charts reviewed (outside hosp., previous admission, EMS record, old EKG, old radiological studies, urgent care reports/EKG's, jail records)? Report findings @ -No old charts were reviewed Differential Diagnosis (chest pain, altered mental status, abdominal pain women, abdominal pain men, vaginal bleeding, weakness, fever, dyspnea, syncope, headache, dizziness, GI bleed, back pain, seizure, CVA, palpatations, mental health, musculoskeletal)? @ -Differential Dyspnea: Coronary syndrome, arrhythmia, tamponade, asthma, COPD, pulmonary embolism, pneumonia, pneumothorax, pulmonary effusion, anaphylaxis, diabetic ketoacidosis, flailed chest, pulmonary contusion, diaphragmatic rupture, anemia, neuromuscular, this is not meant to be an all-inclusive list. EKG interpreted by me (3pts min.). @ -As above X-rays interpreted by me (1pt min.). @ -None done CT interpreted by me (1pt min.). @ -CT soft tissue neck revealed increased size of 4.6 cm left glottis/subglottic mass extends now into trachea and crosses midline, likely laryngeal cancer, moderate airway narrowing U/S interpreted by me (1pt. min.). @ -None done What testing was considered but not performed or refused? (CT, X-rays, U/S, labs)? Why? @ -None What meds were considered but not given or refused? Why? @ -None Did you discuss the management of the patient with other professionals (professionals i.e. HARLEY Da Silva, QUILL WORKER, lab, RT, psych nurse, social services technician, chainstitch pants outseamer, teacher, infantry officer, case maker)? Give summary @ -I spoke to [facility] transfer team who accepts admission at this time for laryngeal mass Was smoking cessation discussed for >3mins.? @ -No Was critical care preformed (if so, how long)? @ -No Were there social determinants of health that impacted care today? How? (Homelessness, low income, unemployed, alcoholism, drug addiction, transportation, low edu. Level, literacy, decrease access to med. care, prison, rehab)? @ -No Was there de-escalation of care discussed even if they declined (Discuss DNR or withdrawal of care, Hospice)? DNR status @ -No What co-morbidities impacted this encounter? (DM, HTN, Smoking, COPD, CAD, Cancer, CVA, ARF, Chemo, Hep., AIDS, mental health diagnosis, sleep apnea, morbid obesity)? @ -None Was patient admitted / discharged? Hospital course, mention meds given and route, prescriptions, significant lab abnormalities, going to OR and other pertinent info. @ -Transferred. This is a 69-year-old male presenting with shortness of breath worsening over the past 3 weeks status post diagnosis of neck tumor. In mid June he underwent CT neck that revealed a mass just inferior to vocal cords on the left side. He was heading down to [facility] to have consultation with ENT outpatient but was having difficulty breathing which prompted him to seek care in the ER. His breathing is unlabored with stridor, he is satting 98% on 3 L oxygen. Patient was given Decadron and racemic epinephrine breathing treatment. CBC and CMP are largely unremarkable. EKG reveals normal sinus rhythm with no ST changes. 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 Patient was updated on results and reports mild improvement of symptoms. I spoke to [facility] transfer team who accepts admission for laryngeal mass. Patient is agreeable to this plan. Case was discussed with my ED attending Dr. Cool. Undiagnosed new problem with uncertain prognosis? @ -No Drug Therapy requiring intensive monitoring for toxicity (Heparin, Nitro, Insulin, Cardizem)? @ -No Were any procedures done? @ -No Diagnosis/symptom? @ -Laryngeal mass Acute, or Chronic, or Acute on Chronic? @ -Acute Uncomplicated (without systemic symptoms) or Complicated (systemic symptoms)? @ -Complicated Side effects of treatment? @ -No Exacerbation, Progression, or Severe Exacerbation? @ -No Poses a threat to life or bodily function? How? (Chest pain, USA, [place], pneumonia, PE, COPD, DKA, ARF, appy, cholecystitis, CVA, Diverticulitis, Homicidal, Suicidal, threat to staff... and all critical care pts) @ -Yes - Lab Data Result diagrams: 08/30/24 12:38 08/30/24 12:38 Lab Results 08/30/24 08/30/24 Range/Units 12:38 12:38 WBC 10.7 H (3.8-10.6) k/uL RBC 3.68 L (4.30-5.90) m/uL Hgb 11.9 L (13.0-17.5) gm/dL Hct 38.6 L (39.0-53.0) % MCV 105.0 H (80.0-100.0) fL MCH 32.3 (25.0-35.0) pg MCHC 30.7 L (31.0-37.0) g/dL RDW 13.7 (11.5-15.5) % Plt Count 384 (150-450) k/uL MPV 8.1 Neutrophils % 80 % Lymphocytes % 12 % Monocytes % 6 % Eosinophils % 1 % Basophils % 0 % Neutrophils # 8.6 H (1.3-7.7) k/uL Lymphocytes # 1.3 (1.0-4.8) k/uL Monocytes # 0.6 (0-1.0) k/uL Eosinophils # 0.1 (0-0.7) k/uL Basophils # 0.0 (0-0.2) k/uL Hypochromasia Marked Macrocytosis Moderate Sodium 134 L (137-145) mmol/L Potassium 3.9 (3.5-5.1) mmol/L Chloride 107 (98-107) mmol/L Carbon Dioxide 21 L (22-30) mmol/L Anion Gap 6 mmol/L BUN 14 (9-20) mg/dL Creatinine 1.38 H (0.66-1.25) mg/dL Est GFR (CKD-EPI)AfAm 60 (>60 ml/min/1.73 sqM) Est GFR (CKD-EPI)NonAf 52 (>60 ml/min/1.73 sqM) Glucose 116 H (74-99) mg/dL Calcium 9.3 (8.4-10.2) mg/dL Total Bilirubin 1.0 (0.2-1.3) mg/dL AST 29 (17-59) U/L ALT 15 (4-49) U/L Alkaline Phosphatase 158 H (38-126) U/L Total Protein 6.0 L (6.3-8.2) g/dL Albumin 3.5 (3.5-5.0) g/dL - EKG Data -: EKG Interpreted by Me EKG Comments: Normal sinus rhythm with occasional PACs. Ventricular rate 76 bpm, PA interval 165, QRS duration 81, QT/QTc 388/418 Disposition Clinical Impression: Laryngeal mass Disposition: OTHER INSTITUTION NOT DEFINED Condition: Fair Referrals: Jose Correa MD [Primary Care Provider] - 1-2 days Time of Disposition: 16:07 - Out of Hospital Transfer - Req. Specs Out of Hospital Transfer - Requested Specifics: Other Emergency Center ([facility])
[2024-08-30 12:19] VITALS: TEMP 97.9
[2024-08-30] MEDS: DEXAMETHASONE SOD PHOSPHATE 10 MG/ML 1 ML VIAL IVP STA (12:43)
[2024-08-30 12:53] LABS: ALT 15 U/L (4-49); AST 29 U/L (17-59); African American GFR (CKD) 60 (>60 ml/min/1.73 sqM); Albumin 3.5 g/dL (3.5-5.0); Alkaline Phosphatase 158 U/L (38-126); Anion Gap 6 mmol/L; Blood Urea Nitrogen 14 mg/dL (9-20); Calcium 9.3 mg/dL (8.4-10.2); Carbon Dioxide 21 mmol/L (22-30); Chloride 107 mmol/L (98-107); Glucose 116 mg/dL (74-99); Non-African American GFR(CKD) 52 (>60 ml/min/1.73 sqM); Potassium 3.9 mmol/L (3.5-5.1); Sodium 134 mmol/L (137-145)
[2024-08-30 12:59] LABS: Basophils % (A) 0 %; Eosinophils # (A) 0.1 k/uL (0-0.7); Eosinophils % (A) 1 %; HCT 38.6 % (39.0-53.0); HGB 11.9 gm/dL (13.0-17.5); Hypochromasia Marked; Lymphocytes # (A) 1.3 k/uL (1.0-4.8); Lymphocytes % (A) 12 %; MCH 32.3 pg (25.0-35.0); MCHC 30.7 g/dL (31.0-37.0); Macrocytosis Moderate; Mean Platelet Volume 8.1; Monocytes # (A) 0.6 k/uL (0-1.0); Monocytes % (A) 6 %; Neutrophils # (A) 8.6 k/uL (1.3-7.7); Neutrophils % (A) 80 %; Platelet Count 384 k/uL (150-450); RBC 3.68 m/uL (4.30-5.90); RDW 13.7 % (11.5-15.5); WBC 10.7 k/uL (3.8-10.6)
--- NOTE | 2024-08-30 14:13 | CT ---
EXAMINATION TYPE: CT soft tissue neck w con CT DLP: 219.2 mGycm, Automated exposure control for dose reduction was used. DATE OF EXAM: 08/30/2024 1:54 PM COMPARISON: CT neck chest 07/29/2024. CLINICAL INDICATION:Male, 69 years old with history of shortness of breath, hx neck mass; PHH, shortn ess of breath, hx neck mass TECHNIQUE: Standard enhanced CT of the neck following intravenous administration of 100 cc of Isovue 300. Axial sections with coronal and sagittal reformats were obtained. FINDINGS: Brain: Visualized portions are grossly unremarkable. Orbits: Bilateral aphakia. Sinuses: Grossly unremarkable. Suprahyoid Neck: The oropharynx, oral cavity, parapharyngeal and retropharyngeal spaces are clear and symmetric. The nasopharynx is unremarkable. Infrahyoid Neck: Large soft tissue mass measuring 3.1 x 2.0 x 4.6 cm (AP, TV, CC dimensions) identifi ed extending from the false vocal cord region past the true vocal cords into the upper trachea. This is more prominent along the left wall but crosses midline. There is at least moderate airway narrowin g. Previously measured 2.4 x 1.5 x 2.4 cm. Parotid Glands: Unremarkable. Submandibular Glands: Unremarkable. Musculoskeletal: No acute osseous pathology. Anterior cervical fusion from C4 through C7. Large anter ior osteophyte at C7-T1. Multilevel facet arthropathy. Grade 1 anterolisthesis of C2 on C3 and C3 on C4. Lymph nodes: No pathologically enlarged lymph nodes identified within the neck. Vascular structures: Minimal atherosclerotic calcifications of the internal carotid arteries. Thoracic Inlet/airway: Airway is patent. Paraseptal and centrilobular emphysematous changes. Soft tissues/Thyroid: Thyroid and remainder of the soft tissues are unremarkable. Other: none. IMPRESSION Increased size of 4.6 cm left glottic/subglottic mass extends now into the trachea and crosses midlin e. Most consistent with primary laryngeal cancer. Results in moderate airway narrowing. [facility], , 08/30/2024 2:11 PM
[2024-08-30] MEDS: RACEPINEPHRINE 2.25% NEB 0.5 ML NEBU INHALATION STA (16:13)
[2024-08-30 16:17] VITALS: PULSE 80
[2024-08-30 17:07] VITALS: BP 124/90; RESP 18
== END 2024-08-30 17:16 | disposition other institution (70) ==
LOC: EC 11:11
CPT/HCPCS: 36415; 70491; 80053; 85025; 94640; 96374; 99285

== ENCOUNTER 2024-10-11 23:37 | Inpatient (IN) | payer MEDICARE ==
[2024-10-12 00:33] LABS: Basophils # (A) 0.1 k/uL (0-0.2); Basophils % (A) 0 %; Eosinophils # (A) 0.5 k/uL (0-0.7); Eosinophils % (A) 4 %; HCT 22.1 % (39.0-53.0); Hypochromasia Slight; Lymphocytes # (A) 2.3 k/uL (1.0-4.8); Lymphocytes % (A) 18 %; MCH 28.2 pg (25.0-35.0); MCHC 31.7 g/dL (31.0-37.0); Mean Platelet Volume 7.5; Monocytes # (A) 1.3 k/uL (0-1.0); Monocytes % (A) 10 %; Neutrophils # (A) 8.7 k/uL (1.3-7.7); Neutrophils % (A) 67 %; Platelet Count 702 k/uL (150-450); RBC 2.49 m/uL (4.30-5.90); RDW 15.3 % (11.5-15.5); WBC 13.1 k/uL (3.8-10.6)
[2024-10-12 00:44] LABS: ALT 9 U/L (4-49); AST 16 U/L (17-59); African American GFR (CKD) 69 (>60 ml/min/1.73 sqM); Albumin 2.6 g/dL (3.5-5.0); Alkaline Phosphatase 105 U/L (38-126); Anion Gap 5 mmol/L; Blood Urea Nitrogen 27 mg/dL (9-20); Calcium 8.5 mg/dL (8.4-10.2); Carbon Dioxide 28 mmol/L (22-30); Chloride 96 mmol/L (98-107); Glucose 112 mg/dL (74-99); Non-African American GFR(CKD) 60 (>60 ml/min/1.73 sqM); Potassium 4.8 mmol/L (3.5-5.1); Sodium 129 mmol/L (137-145); Total Bilirubin 0.3 mg/dL (0.2-1.3); Total Protein 5.6 g/dL (6.3-8.2)
[2024-10-12 00:45] LABS: INR 1.1 (<1.2); Partial Thromboplastin Time 37.1 sec (22.0-30.0); Prothrombin Time 11.4 sec (10.0-12.5)
--- NOTE | 2024-10-12 00:57 | ED ---
General Adult HPI - General Chief complaint: Recheck/Abnormal Lab/Rx Stated complaint: Abnormal labs Time Seen by Provider: 10/11/24 23:38 Source: EMS Mode of arrival: EMS - History of Present Illness Initial comments: Dictation was produced using Welcome Real-time dictation software. please excuse any grammatical, word or spelling errors. Chief Complaint: 69-year-old male brought to the emergency department [facility] for anemia History of Present Illness: Patient 69-year-old male with multiple comorbidities. Patient has history of trach. A-fib hypertension prostate disease. History present illness limited due to tracheostomy. Patient according to EMS was brought here for hemoglobin check. Apparently had outpatient lab that was hemoglobin 6.8. Patient [place] any black or bloody stools. Patient denies any pain complaints. The ROS documented in this emergency department record has been reviewed and confirmed by me. Those systems with pertinent positive or negative responses have been documented in the HPI. All other systems are other negative and/or noncontributory. - Related Data Home Medications Medication Instructions Recorded Confirmed Tamsulosin HCl [Flomax] 0.4 mg PO BID 02/04/16 08/30/24 gemfibroziL [Lopid] 600 mg PO DAILY@1630 02/04/16 08/30/24 Dutasteride 0.5 mg PO DAILY@1630 06/21/21 08/30/24 ALPRAZolam [Xanax] 0.25 mg PO DAILY 01/08/23 08/30/24 atenoloL [Tenormin] 25 mg PO BID 01/08/23 08/30/24 traMADol HCL 50 mg PO DAILY 01/08/23 08/30/24 amLODIPine [Norvasc] 5 mg PO DAILY@1630 06/19/23 08/30/24 Allergies Allergy/AdvReac Type Severity Reaction Status Date / Time No Known Allergies Allergy Verified 10/11/24 23:48 Review of Systems ROS Statement: Those systems with pertinent positive or pertinent negative responses have been documented in the HPI. ROS Other: All systems not noted in ROS Statement are negative. Past Medical History Past Medical History: Atrial Fibrillation, Cancer, GERD/Reflux, Hypertension, Prostate Disorder Additional Past Medical History / Comment(s): dehydration, low B/P, kidney problem that was fixed with fluids and sodium was low. Additional hx: BPH, DDD-cervical pain, R/L hand fingers tingling if over used, AGE 18 FX RT FEMUR IN 4 PLACES HAD PLATE/SCEWS-SINCE REMOVED, HAS OPIOD INDUCED CONSTIPATION, TINNITUS bilaterally but pt has noticed it has decreased since he quit smoking, hay fever. N History of Any Multi-Drug Resistant Organisms: None Reported Past Surgical History: Heart Catheterization, Joint Replacement, Orthopedic Surgery Additional Past Surgical History / Comment(s): bilateral CATARACTS, ANT CERVICAL DISCECTOMY/FUSION C4,5,6,7 USING CADAVOR BONE. LT HYDROCELE, LT CARPAL TUNNEL, RT FEMUR SX METAL SINCE REMOVED, COLONOSCOPY, CYSTS REMOVED FROM FOREHEAD,BUTTOCKS,;T SCIENTOLOGY. PROSTATE BX X2-BENIGN, partial R knee replacement. cardiac ablation, peg tube, trach placement. Past Anesthesia/Blood Transfusion Reactions: No Reported Reaction Past Psychological History: No Psychological Hx Reported Smoking Status: Former smoker Past Alcohol Use History: Daily Past Drug Use History: None Reported - Past Family History Father Family Medical History: COPD, Dementia Additional Family Medical History / Comment(s): Father at age 84yrs. Mother Family Medical History: Cancer, COPD Additional Family Medical History / Comment(s): NASAL/THROAT CANCER. Mother at age 82 General Exam - General Exam Comments Initial Comments: PHYSICAL EXAM: General Impression: Alert and oriented, not in acute distress HEENT: Normocephalic atraumatic, extra-ocular movements intact, pupils equal and reactive to light bilaterally, mucous membranes moist. Cardiovascular: Heart regular rate and rhythm Chest: no retractions, no tachypnea Abdomen: abdomen soft, non-tender, non-distended, no organomegaly Musculoskeletal: Pulses present and equal in all extremities, no peripheral edema Motor: no focal deficits noted Neurological: CN II-XII grossly intact, no focal motor or sensory deficits noted Skin: Intact with no visualized rashes Psych: Normal affect and mood Rectal exam: No gross blood Course Vital Signs 10/11/24 10/12/24 23:39 01:00 Temperature 98.8 F Pulse Rate 77 73 Respiratory 18 18 Rate Blood Pressure 101/70 105/60 O2 Sat by Pulse 98 98 Oximetry EKG Findings - EKG Comments: EKG Findings:: My EKG interpretation: Ventricular rate 69, sinus rhythm,. Will 200, QRS 85, QTc 441. No [place] prolongation, no QTC prolongation, no ST or T-wave changes noted. Overall, this EKG is unremarkable Medical Decision Making - Medical Decision Making Was pt. sent in by a medical professional or institution (, PA, MOLD BUILDER, urgent care, hospital, or [facility]...) When possible be specific @ -care home Did you speak to anyone other than the patient for history (EMS, parent, family, police, friend...)? What history was obtained from this source @ -See above Did you review nursing and triage notes (agree or disagree)? Why? @ -I reviewed and agree with nursing and triage notes Were old charts reviewed (outside hosp., previous admission, EMS record, old EKG, old radiological studies, urgent care reports/EKG's, [facility] records)? Report findings @ -No old charts were reviewed Differential Diagnosis (chest pain, altered mental status, abdominal pain women, abdominal pain men, vaginal bleeding, musculoskeletal, weakness, fever, dyspnea, syncope, headache, dizziness, GI bleed, back pain, seizure, CVA, palpatations, mental health)? @ -Differential GI Bleed: Esophageal varices, aortoenteric fistula, Nicki-Saldana, gastritis, peptic ulcer disease, diverticulosis, inflammatory bowel disease, hemorrhoids, fissure, colitis, malignancy, Meckel's diverticulum, this is not meant to be an all- inclusive list. EKG interpreted by me (3pts min.). @ -See above X-rays interpreted by me (1pt min.). @ -None done CT interpreted by me (1pt min.). @ -None done U/S interpreted by me (1pt. min.). @ -None done What testing was considered but not performed or refused? (CT, X-rays, U/S, labs)? Why? @ -None What meds were considered but not given or refused? Why? @ -None Was smoking cessation discussed for >3mins.? @ -No Were there social determinants of health that impacted care today? How? (Homelessness, low income, unemployed, alcoholism, drug addiction, transportation, low edu. Level, literacy, decrease access to med. care, fpc, rehab)? @ -No Was there de-escalation of care discussed even if they declined (Discuss DNR or withdrawal of care, Hospice)? DNR status @ -No What co-morbidities impacted this encounter? (DM, HTN, Smoking, COPD, CAD, Cancer, CVA, ARF, Chemo, Hep., AIDS, mental health diagnosis, sleep apnea, morbid obesity)? @ -None Was patient admitted / discharged? Hospital course, mention meds given and route, prescriptions, significant lab abnormalities, going to OR and other pertinent info. @ -69-year-old male presents to the ER for anemia. Vital signs upon arrival are within acceptable limits. Laboratory evaluation obtained. Hemoglobin 7.0. Sodium 129. Still call blood is positive. Patient given Protonix and blood transfusion. Will be admitted with consultation to GI. Did you discuss the management of the patient with other professionals (professionals i.e. , PA, MOLD BUILDER, lab, RT, psych nurse, social sciences research scientist, embroidery specialist, teacher, assistant chief nursing officer, case resource manager)? Give summary @ -No Was critical care preformed (if so, how long)? @ -No Undiagnosed new problem with uncertain prognosis? @ -No Drug Therapy requiring intensive monitoring for toxicity (Heparin, Nitro, Insulin, Cardizem)? @ -No Were any procedures done? @ -No Diagnosis/symptom? Acute, or Chronic, or Acute on Chronic? Uncomplicated (without systemic symptoms) or Complicated (systemic symptoms)? @ -GI bleed complicated by anemia Side effects of treatment? @ -No Exacerbation, Progression, or Severe Exacerbation? @ -No Poses a threat to life or bodily function? How? (Chest pain, USA, [place], pneumonia, PE, COPD, DKA, ARF, appy, cholecystitis, CVA, Diverticulitis, Homicidal, Suicidal, threat to staff... and all critical care pts) @ -yes - Lab Data Result diagrams: 10/12/24 00:22 10/12/24 00:22 Lab Results 10/12/24 10/12/24 10/12/24 Range/Units 00:18 00:22 00:22 WBC 13.1 H (3.8-10.6) k/uL RBC 2.49 L (4.30-5.90) m/uL Hgb 7.0 L D (13.0-17.5) gm/dL Hct 22.1 L (39.0-53.0) % MCV 89.0 D (80.0-100.0) fL MCH 28.2 (25.0-35.0) pg MCHC 31.7 (31.0-37.0) g/dL RDW 15.3 (11.5-15.5) % Plt Count 702 H (150-450) k/uL MPV 7.5 Neutrophils % 67 % Lymphocytes % 18 % Monocytes % 10 % Eosinophils % 4 % Basophils % 0 % Neutrophils # 8.7 H (1.3-7.7) k/uL Lymphocytes # 2.3 (1.0-4.8) k/uL Monocytes # 1.3 H (0-1.0) k/uL Eosinophils # 0.5 (0-0.7) k/uL Basophils # 0.1 (0-0.2) k/uL Hypochromasia Slight PT 11.4 (10.0-12.5) sec INR 1.1 (<1.2) APTT 37.1 H (22.0-30.0) sec Sodium (137-145) mmol/L Potassium (3.5-5.1) mmol/L Chloride (98-107) mmol/L Carbon Dioxide (22-30) mmol/L Anion Gap mmol/L BUN (9-20) mg/dL Creatinine (0.66-1.25) mg/dL Est GFR (CKD-EPI)AfAm (>60 ml/min/1.73 sqM) Est GFR (CKD-EPI)NonAf (>60 ml/min/1.73 sqM) Glucose (74-99) mg/dL Calcium (8.4-10.2) mg/dL Total Bilirubin (0.2-1.3) mg/dL AST (17-59) U/L ALT (4-49) U/L Alkaline Phosphatase (38-126) U/L Total Protein (6.3-8.2) g/dL Albumin (3.5-5.0) g/dL Stool Occult Blood (Negative) Blood Type O Positive Blood Type Recheck O Pos Bld Type Recheck Status No Antibody Screen POSITIVE Spec Expiration Date 10/15/2024231710/12/24 10/12/24 Range/Units 00:22 00:57 WBC (3.8-10.6) k/uL RBC (4.30-5.90) m/uL Hgb (13.0-17.5) gm/dL Hct (39.0-53.0) % MCV (80.0-100.0) fL MCH (25.0-35.0) pg MCHC (31.0-37.0) g/dL RDW (11.5-15.5) % Plt Count (150-450) k/uL MPV Neutrophils % % Lymphocytes % % Monocytes % % Eosinophils % % Basophils % % Neutrophils # (1.3-7.7) k/uL Lymphocytes # (1.0-4.8) k/uL Monocytes # (0-1.0) k/uL Eosinophils # (0-0.7) k/uL Basophils # (0-0.2) k/uL Hypochromasia PT (10.0-12.5) sec INR (<1.2) APTT (22.0-30.0) sec Sodium 129 L (137-145) mmol/L Potassium 4.8 (3.5-5.1) mmol/L Chloride 96 L (98-107) mmol/L Carbon Dioxide 28 (22-30) mmol/L Anion Gap 5 mmol/L BUN 27 H (9-20) mg/dL Creatinine 1.22 (0.66-1.25) mg/dL Est GFR (CKD-EPI)AfAm 69 (>60 ml/min/1.73 sqM) Est GFR (CKD-EPI)NonAf 60 (>60 ml/min/1.73 sqM) Glucose 112 H (74-99) mg/dL Calcium 8.5 (8.4-10.2) mg/dL Total Bilirubin 0.3 (0.2-1.3) mg/dL AST 16 L (17-59) U/L ALT 9 (4-49) U/L Alkaline Phosphatase 105 (38-126) U/L Total Protein 5.6 L (6.3-8.2) g/dL Albumin 2.6 L (3.5-5.0) g/dL Stool Occult Blood Positive (Negative) Blood Type Blood Type Recheck Bld Type Recheck Status Antibody Screen Spec Expiration Date Disposition Clinical Impression: GI bleed Disposition: ADMITTED IP TO THIS [facility] Condition: Fair Referrals: Jose Correa MD [Primary Care Provider] - 1-2 days Time of Disposition: 01:27
[2024-10-12] MEDS ORDERED: NALOXONE 0.4 MG/ML 1 ML VIAL IV PRN (01:24)
[2024-10-12] MEDS ORDERED: ONDANSETRON 4 MG/2 ML VIAL IVP PRN (01:24)
[2024-10-12] MEDS: SODIUM CHLORIDE 0.9% 1,000 ML IV STA (01:36)
[2024-10-12] MEDS: PANTOPRAZOLE 40 MG/10 ML VIAL IVP STA (01:39)
[2024-10-12] MEDS: SODIUM CHLORIDE 0.9% 1,000 ML IV SCH (03:08)
[2024-10-12] MEDS ORDERED: NON FORMULARY DRUG (Naloxone Hcl [Narcan] 4 MG Each) NASAL PRN (08:40)
[2024-10-12] MEDS ORDERED: NYSTATIN 100,000 UNIT/GM POWD 15 GM TOPICAL PRN (08:40)
[2024-10-12] MEDS ORDERED: PANTOPRAZOLE 40 MG TABLET PO SCH (09:00)
[2024-10-12] MEDS: ALPRAZolam 0.25 MG TAB PO PRN (09:24)
[2024-10-12] MEDS: DOXAZOSIN 4 MG TAB PO SCH (09:24)
[2024-10-12] MEDS: FINASTERIDE 5 MG TAB PO SCH (09:25)
[2024-10-12] MEDS: LEVOTHYROXINE 100 MCG TAB PO SCH (09:25)
[2024-10-12] MEDS: polyethylene glycoL 3350 17 GM POWD.PACK PO SCH (09:25)
[2024-10-12] MEDS: AMIODARONE 200 MG TAB PO SCH (09:25)
[2024-10-12] MEDS: PANTOPRAZOLE 40 MG/10 ML VIAL IV SCH (09:25)
[2024-10-12 11:01] LABS: % Iron Saturation 4.57 (15.00-50.00)
[2024-10-12] MEDS: NYSTATIN 100,000 UNIT/GM POWD 15 GM TOPICAL SCH (11:12)
--- NOTE | 2024-10-12 12:10 | P.HPIM ---
History of Present Illness H&P Date: 10/12/24 Hector Frank, is a 69-year-old male who presented to [facility] emergency room with a chief complaint of of anemia according to records patient has been at [facility] and was sent to ER for further evaluation due to hemoglobin of 7. Patient has recent tracheostomy difficult to communicate most history obtained from medical records. Patient was recently at [facility] in which she received tracheostomy and PEG tube for laryngeal mass attempting to obtain records. He was evaluated in the emergency room vital examination on presentation revealed temp 98.8, heart rate 77, respiratory rate 18, blood pressure 101/70 with a pulse ox of 98% on room air Laboratory data reveals white blood cell 13.1, hemoglobin 7.0, sodium 129, creatinine 1.2, bun 27. Stool for occult blood positive Testing in the emergency room revealed EKG showing sinus rhythm Patient was admitted to medical floor for further evaluation and treatment. Will consult GI and oncology services Past medical history is significant for laryngeal mass in which according to records patient presented to ER on August 30 due to difficulty in breathing patient was transferred to [facility] for ENT evaluation. Patient underwent tracheostomy and PEG tube placement since that transfer. Will attempt to take obtain medical records for further understanding of any surgery or treatment he is received. Additional medical history includes atrial fibrillation in which she is maintained on Eliquis this is currently on hold due to anemia, hypertension, prostate disorder, chronic pain, nicotine dependence, c onstipation. On review of systems patient is alert and oriented x 3. Difficulty communicating secondary to tracheostomy. Patient reports of chronic pain. Patient denies chest pain patient denies nausea vomiting or diarrhea. Patient denies any urinary burning or frequency Review of Systems Refer to HPI otherwise unremarkable Past Medical History Past Medical History: Atrial Fibrillation, Cancer, GERD/Reflux, Hypertension, Pr ostate Disorder Additional Past Medical History / Comment(s): dehydration, low B/P, kidney problem that was fixed with fluids and sodium was low. Additional hx: BPH, DDD-cervical pain, R/L hand fingers tingling if over used, AGE 18 FX RT FEMUR IN 4 PLACES HAD PLATE/SCEWS-SINCE REMOVED, HAS OPIOD INDUCED CONSTIPATION, TINNITUS bilaterally but pt has noticed it has decreased since he quit smoking, hay fever. N History of Any Multi-Drug Resistant Organisms: None Reported Past Surgical History: Heart Catheterization, Joint Replacement, Orthopedic Surgery Additional Past Surgical History / Comment(s): bilateral CATARACTS, ANT CERVICAL DISCECTOMY/FUSION C4,5,6,7 USING CADAVOR BONE. LT HYDROCELE, LT CARPAL TUNNEL, RT FEMUR SX METAL SINCE REMOVED, COLONOSCOPY, CYSTS REMOVED FROM FOREHEAD,BUTTOC [place],;T GNOSTICIST. PROSTATE BX X2-BENIGN, partial R knee replacement. cardiac ablation, peg tube, trach placement. Past Anesthesia/Blood Transfusion Reactions: No Reported Reaction Past Psychological History: No Psychological Hx Reported Smoking Status: Former smoker Past Alcohol Use History: Daily Past Drug Use History: None Reported - Past Family History Father Family Medical History: COPD, Dementia Additional Family Medical History / Comment(s): Father at age 84yrs. Mother Family Medical History: Cancer, COPD Additional Family Medical History / Comment(s): NASAL/THROAT CANCER. Mother at age 82 Medications and Allergies Home Medications Medication Instructions Recorded Confirmed Type ALPRAZolam [Xanax] 0.25 mg PO Q8H PRN 01/08/23 10/12/24 History Acetaminophen Tab [Tylenol Tab] 500 mg PO Q4H 10/12/24 10/12/24 History Amiodarone [Cordarone] 200 mg PO BID 10/12/24 10/12/24 History Apixaban [Eliquis] 5 mg PO BID 10/12/24 10/12/24 History Calcium Carbonate 1250mg(500ca) 1,250 mg PO QID 10/12/24 10/12/24 History Doxazosin [Cardura] 4 mg PO DAILY 10/12/24 10/12/24 History Finasteride [Proscar] 5 mg PO DAILY 10/12/24 10/12/24 History Levothyroxine Sodium [Synthroid] 100 mcg PO DAILY 10/12/24 10/12/24 History Miconazole Nitrate [Lotrimin AF 1 applic TOPICAL BID 10/12/24 10/12/24 History Powder] Miconazole Nitrate [Lotrimin AF 1 applic TOPICAL DAILY PRN 10/12/24 10/12/24 History Powder] Naloxone HCl [Narcan] 4 mg NASAL ONCE PRN 10/12/24 10/12/24 History Nutren 2.0 1 dose PEG/G-TUBE BID@0500,1900 10/12/24 10/12/24 History Pantoprazole [Protonix] 40 mg PO DAILY 10/12/24 10/12/24 History QUEtiapine FUMARATE [SEROquel] 25 mg PO HS 10/12/24 10/12/24 History oxyCODONE HCL [oxyCODONE HCL (IR)] 10 mg PO Q4H PRN 10/12/24 10/12/24 History polyethylene glycoL 3350 [Miralax] 17 gm PO BID 10/12/24 10/12/24 History Allergies Allergy/AdvReac Type Severity Reaction Status Date / Time No Known Allergies Allergy Verified 10/12/24 06:28 Physical Exam Vitals: Vital Signs Temp Pulse Resp BP Pulse Ox 10/12/24 10:00 77 20 110/71 97 10/12/24 09:00 77 22 117/61 96 10/12/24 06:07 71 18 97/54 96 10/12/24 04:00 73 18 97/60 95 10/12/24 02:00 65 18 102/64 98 10/12/24 01:00 73 18 105/60 98 10/11/24 23:39 98.8 F 77 18 101/70 98 Intake and Output 10/11/24 10/12/24 10/12/24 22:59 06:59 14:59 Output Total 800 Balance -800 Output: Urine 800 Other: Weight 65.317 kg In general patient is alert and oriented x 3 in no distress HEENT head normocephalic and atraumatic Neck is supple no JVD no goiter no lymphadenopathy no carotid bruit. Patient has tracheostomy in place Chest examination is clear to auscultation no crackles no wheezing Cardiac exam reveals regular heart sounds S1 and S2 no gallops no murmurs Abdomen is soft nontender no organomegaly with normal bowel sounds Extremity exam reveals no edema no cyanosis or clubbing Neurological examination reveals no gross focal deficits Results CBC & Chem 7: 10/12/24 00:22 10/12/24 00:22 Labs: Abnormal Lab Results - Last 24 Hours (Table) 10/12/24 10/12/24 10/12/24 Range/Units 00:18 00:22 00:22 WBC 13.1 H (3.8-10.6) k/uL RBC 2.49 L (4.30-5.90) m/uL Hgb 7.0 L D (13.0-17.5) gm/dL Hct 22.1 L (39.0-53.0) % Plt Count 702 H (150-450) k/uL Neutrophils # 8.7 H (1.3-7.7) k/uL Monocytes # 1.3 H (0-1.0) k/uL APTT 37.1 H (22.0-30.0) sec Sodium (137-145) mmol/L Chloride (98-107) mmol/L BUN (9-20) mg/dL Glucose (74-99) mg/dL Iron (65-175) UG/DL TIBC (228-460) UG/DL % Saturation (15.00-50.00) Transferrin (204.0-354.0) mg/dL Ferritin (22.0-322.0) ng/mL AST (17-59) U/L Total Protein (6.3-8.2) g/dL Albumin (3.5-5.0) g/dL Crossmatch See Detail 10/12/24 10/12/24 Range/Units 00:22 00:22 WBC (3.8-10.6) k/uL RBC (4.30-5.90) m/uL Hgb (13.0-17.5) gm/dL Hct (39.0-53.0) % Plt Count (150-450) k/uL Neutrophils # (1.3-7.7) k/uL Monocytes # (0-1.0) k/uL APTT (22.0-30.0) sec Sodium 129 L (137-145) mmol/L Chloride 96 L (98-107) mmol/L BUN 27 H (9-20) mg/dL Glucose 112 H (74-99) mg/dL Iron 9 L (65-175) UG/DL TIBC 197 L (228-460) UG/DL % Saturation 4.57 L (15.00-50.00) Transferrin 141.0 L (204.0-354.0) mg/dL Ferritin 591.0 H (22.0-322.0) ng/mL AST 16 L (17-59) U/L Total Protein 5.6 L (6.3-8.2) g/dL Albumin 2.6 L (3.5-5.0) g/dL Crossmatch Assessment and Plan Assessment: 1. Anemia with positive stool for occult blood patient's Eliquis currently on hold 2. History of recent diagnosis of laryngeal mass status post tracheostomy and PEG tube placement at [facility] 3. History of paroxysmal atrial fibrillation maintained on Eliquis currently on hold 4. History of nicotine dependence 5. History of degenerative disc disease 6. History of BPH 7. History of cardiac arrhythmia with history of ablation 8. Hyponatremia sodium low at 129. Will initiate gentle hydration DVT prophylaxis SCDs secondary to GI bleed. GI prophylax Protonix GI and oncology services consulted Continue normal saline at 100 Repeat labs ordered for a.m. Home meds resumed Time with Patient: Greater than 30 (Greater than 60% of the total time spent in counseling and coordination of care)
--- NOTE | 2024-10-12 13:12 | P.CONS ---
History of Present Illness - Reason for Consult Consult date: 10/12/24 GI bleed Requesting physician: Lon Vo - Chief Complaint Outpatient low hemoglobin - History of Present Illness This is a pleasant 69-year-old male with recent diagnosis of laryngeal mass status post PEG and tracheostomy done at [facility]. Unclear d iagnosis and treatment. Chronic medical conditions include atrial fibrillation on Eliquis, hypertension, prostate disorder chronic pain syndrome, nicotine dependence and constipation. Patient has been at [facility] and apparently had blood work done and was sent in for low hemoglobin. Difficult to obtain history from patient secondary to tracheostomy. On admission he had a hemoglobin of 7.0 and stool was checked for occult blood which was positive. Gastroenterology was consulted for GI bleed. He does report he does not recall any blood in his stool or black stool. He denies any abdominal pain, nausea or vomiting. States last colonoscopy was 5 to 6 years ago. Review of Systems REVIEW OF SYSTEMS: CARDIOPULMONARY: No chest pain or shortness of breath. Gastrointestinal: No abdominal pain. No nausea or vomiting. No hematemesis, coffee-ground emesis. No rectal bleeding, or melena. GENITOURINARY: No dysuria or hematuria. MUSCULOSKELETAL: Reports normal range of motion. SKIN: No rashes. No jaundice. ENDOCRINE: No chills, fevers. No excessive weight gain or loss. No polydipsia or polyuria. PSYCHIATRIC: Unremarkable. NEUROLOGY: No change in mental status. Denies dizziness, headache. ENT: Vision unremarkable. CONSTITUTIONAL: No recent weight loss. No fever, chills, night sweats. Past Medical History Past Medical History: Atrial Fibrillation, Cancer, GERD/Reflux, Hypertension, Prostate Disorder Additional Past Medical History / Comment(s): dehydration, low B/P, kidney prob inessa that was fixed with fluids and sodium was low. Additional hx: BPH, DDD- cervical pain, R/L hand fingers tingling if over used, AGE 18 FX RT FEMUR IN 4 PLACES HAD PLATE/SCEWS-SINCE REMOVED, HAS OPIOD INDUCED CONSTIPATION, TINNITUS bilaterally but pt has noticed it has decreased since he quit smoking, hay fever. N History of Any Multi-Drug Resistant Organisms: None Reported Past Surgical History: Heart Catheterization, Joint Replacement, Orthopedic Surgery Additional Past Surgical History / Comment(s): bilateral CATARACTS, ANT CERVICAL DISCECTOMY/FUSION C4,5,6,7 USING CADAVOR BONE. LT HYDROCELE, LT CARPAL TUNNEL, RT FEMUR SX METAL SINCE REMOVED, COLONOSCOPY, CYSTS REMOVED FROM FOREHEAD,BUTTOCKS,;T UATSDIN. PROSTATE BX X2-BENIGN, partial R knee replacement. cardiac ablation, peg tube, trach placement. Past Anesthesia/Blood Transfusion Reactions: No Reported Reaction Past Psychological History: No Psychological Hx Reported Smoking Status: Former smoker Past Alcohol Use History: Daily Past Drug Use History: None Reported - Past Family History Father Family Medical History: COPD, Dementia Additional Family Medical History / Comment(s): Father at age 84yrs. Mother Family Medical History: Cancer, COPD Additional Family Medical History / Comment(s): NASAL/THROAT CANCER. Mother at age 82 Medications and Allergies Home Medications Medication Instructions Recorded Confirmed Type ALPRAZolam [Xanax] 0.25 mg PO Q8H PRN 01/08/23 10/12/24 History Acetaminophen Tab [Tylenol Tab] 500 mg PO Q4H 10/12/24 10/12/24 History Amiodarone [Cordarone] 200 mg PO BID 10/12/24 10/12/24 History Apixaban [Eliquis] 5 mg PO BID 10/12/24 10/12/24 History Calcium Carbonate 1250mg(500ca) 1,250 mg PO QID 10/12/24 10/12/24 History Doxazosin [Cardura] 4 mg PO DAILY 10/12/24 10/12/24 History Finasteride [Proscar] 5 mg PO DAILY 10/12/24 10/12/24 History Levothyroxine Sodium [Synthroid] 100 mcg PO DAILY 10/12/24 10/12/24 History Miconazole Nitrate [Lotrimin AF 1 applic TOPICAL BID 10/12/24 10/12/24 History Powder] Miconazole Nitrate [Lotrimin AF 1 applic TOPICAL DAILY PRN 10/12/24 10/12/24 History Powder] Naloxone HCl [Narcan] 4 mg NASAL ONCE PRN 10/12/24 10/12/24 History Nutren 2.0 1 dose PEG/G-TUBE BID@0500,1900 10/12/24 10/12/24 History Pantoprazole [Protonix] 40 mg PO DAILY 10/12/24 10/12/24 History QUEtiapine FUMARATE [SEROquel] 25 mg PO HS 10/12/24 10/12/24 History oxyCODONE HCL [oxyCODONE HCL (IR)] 10 mg PO Q4H PRN 10/12/24 10/12/24 History polyethylene glycoL 3350 [Miralax] 17 gm PO BID 10/12/24 10/12/24 History Allergies Allergy/AdvReac Type Severity Reaction Status Date / Time No Known Allergies Allergy Verified 10/12/24 06:28 Physical Exam Vitals: Vital Signs Temp Pulse Resp BP Pulse Ox 10/12/24 06:07 71 18 97/54 96 10/12/24 04:00 73 18 97/60 95 10/12/24 02:00 65 18 102/64 98 10/12/24 01:00 73 18 105/60 98 10/11/24 23:39 98.8 F 77 18 101/70 98 Intake and Output 10/11/24 10/12/24 10/12/24 22:59 06:59 14:59 Output Total 800 Balance -800 Output: Urine 800 Other: Weight 65.317 kg General appearance: The patient is alert, oriented, appears in no acute distress. HET: Head is normocephalic and atraumatic. Conjunctiva pink. Sclera anicteric. Neck: Supple without lymphadenopathy. Tracheostomy present. Heart: Regular. Lungs: Equal expansion, normal respiratory effort. Abdomen: Soft, nontender, nondistended. PEG tube present. Skin: No rashes. No jaundice. Extremities: Normal skin color and turgor. No pedal edema. Neurological: No focal deficits. Alert and oriented x3. Results CBC & Chem 7: 10/12/24 00:22 10/12/24 00:22 Labs: Abnormal Lab Results - Last 24 Hours (Table) 10/12/24 10/12/24 10/12/24 Range/Units 00:18 00:22 00:22 WBC 13.1 H (3.8-10.6) k/uL RBC 2.49 L (4.30-5.90) m/uL Hgb 7.0 L D (13.0-17.5) gm/dL Hct 22.1 L (39.0-53.0) % Plt Count 702 H (150-450) k/uL Neutrophils # 8.7 H (1.3-7.7) k/uL Monocytes # 1.3 H (0-1.0) k/uL APTT 37.1 H (22.0-30.0) sec Sodium (137-145) mmol/L Chloride (98-107) mmol/L BUN (9-20) mg/dL Glucose (74-99) mg/dL AST (17-59) U/L Total Protein (6.3-8.2) g/dL Albumin (3.5-5.0) g/dL Crossmatch See Detail 10/12/24 Range/Units 00:22 WBC (3.8-10.6) k/uL RBC (4.30-5.90) m/uL Hgb (13.0-17.5) gm/dL Hct (39.0-53.0) % Plt Count (150-450) k/uL Neutrophils # (1.3-7.7) k/uL Monocytes # (0-1.0) k/uL APTT (22.0-30.0) sec Sodium 129 L (137-145) mmol/L Chloride 96 L (98-107) mmol/L BUN 27 H (9-20) mg/dL Glucose 112 H (74-99) mg/dL AST 16 L (17-59) U/L Total Protein 5.6 L (6.3-8.2) g/dL Albumin 2.6 L (3.5-5.0) g/dL Crossmatch Assessment and Plan (1) Anemia Narrative/Plan: 69-year-old male with recent diagnosis of laryngeal mass s/p tracheostomy and PEG tube placementWith chronic atrial fibrillation on Eliquis was sent into the emergency department for anemia. No signs of GI bleed other than "stool. Patient does suffer from constipation. He denies any blood in his stool or black stool. Anemia likely multifactorial. Will await further evaluation and recommendations from oncology. No plans at this time for endoscopic evaluation. Will order iron studies. Hold anticoagulation and treat symptomatically. Current Visit: Yes Status: Acute Code(s): D64.9 - ANEMIA, UNSPECIFIED SNOMED Code(s): 416843079 (2) Positive fecal occult blood test Current Visit: Yes Status: Acute Code(s): R19.5 - OTHER FECAL ABNORMALITIES SNOMED Code(s): 16724601 (3) Laryngeal mass Current Visit: Yes Status: Acute Code(s): J38.7 - OTHER DISEASES OF LARYNX SNOMED Code(s): 798758272 (4) Hypertension Current Visit: Yes Status: Acute Code(s): I10 - ESSENTIAL (PRIMARY) HYPERTENSION SNOMED Code(s): 18819170 (5) Constipation Current Visit: Yes Status: Acute Code(s): K59.00 - CONSTIPATION, UNSPECIFIED SNOMED Code(s): 86802927 Plan: 1. Continue symptomatic and supportive care 2. Diet as tolerated 3. Hold anticoagulation 4. Anemia profile ordered 5. Protonix 40 mg daily for GI prophylaxis 6. No plans at this time for endoscopic evaluation 7. Appreciate further evaluation/recommendations from oncology Thank you for this consultation, we will continue to follow. Dr. Tatiana Scott I agree with the dictator's note, documented as a scribe by Angely Castanon.
[2024-10-12] MEDS ORDERED: NUTREN PEG/G-TUBE SCH (19:00)
[2024-10-12] MEDS: QUEtiapine 25 MG TAB PO SCH (21:48)
[2024-10-13 10:30] LABS: Basophils # (A) 0.11 X 10*3/uL (0.00-0.10); Eosinophils # (A) 0.53 X 10*3/uL (0.04-0.35); Eosinophils % (A) 4.8 %; HCT 23.4 % (39.6-50.0); HGB 7.2 g/dL (13.0-17.0); Lymphocytes # (A) 2.41 X 10*3/uL (0.90-5.00); Lymphocytes % (A) 21.8 %; MCHC 30.8 g/dL (32.0-37.0); MCV 91.1 FL (80.0-97.0); Mean Platelet Volume 9.8 FL (9.5-12.2); Monocytes # (A) 1.64 X 10*3/uL (0.20-1.00); Monocytes % (A) 14.8 %; NRBC Per 100 WBC 0 X 10*3/uL (0.00-0.01); Neutrophils % (A) 56.2 %; Platelet Count 655 X 10*3/uL (140-440); RBC 2.57 X 10*6/uL (4.40-5.60); RDW 15.6 % (11.5-14.5); WBC 11.05 X 10*3/uL (4.50-10.00)
[2024-10-13 10:38] LABS: Appearance,Urine Cloudy (Clear); Bilirubin,Urine Negative (Negative); Blood,Urine Negative (Negative); Budding Yeast,Urine Moderate /hpf; Color,Urine Colorless; Glucose,Urine (UA) Negative (Negative); Hyphae Yeast, Urine Rare /hpf; Ketones,Urine Negative (Negative); Leukocyte Esterase,Urine Moderate (Negative); Nitrite,Urine Negative (Negative); Protein,Urine Negative (Negative); Specific Gravity,Urine 1.005 (1.001-1.035); Squamous Epithelial Cell,Urine <1 /hpf (0-4); Urobilinogen,Urine <2.0 mg/dL (<2.0); WBC,Urine 17 /hpf (0-5)
[2024-10-13 11:04] LABS: ALT <5 U/L (10-49); AST 15 U/L (14-35); Albumin 2.5 g/dL (3.8-4.9); Albumin/Globulin Ratio 0.93 Ratio (1.60-3.17); Alkaline Phosphatase 95 U/L (41-126); BUN/Creat Ratio 12.69 Ratio (12.00-20.00); Blood Urea Nitrogen 16.5 mg/dL (9.0-27.0); Calcium 8.4 mg/dL (8.7-10.3); Carbon Dioxide 24.1 mmol/L (21.6-31.8); Chloride 100 mmol/L (96-109); Globulin 2.7 g/dL (1.6-3.3); Glucose 80 mg/dL (70-110); Potassium 4.9 mmol/L (3.5-5.5); Sodium 134 mmol/L (135-145); Total Bilirubin 0.3 mg/dL (0.3-1.2); Total Protein 5.2 g/dL (6.2-8.2)
[2024-10-13] MEDS: SODIUM FERRIC GLUCONAT-SUCROSE 125 MG in SODIUM CHLORIDE 0.9% 100 ML IVPB SCH (11:17)
--- NOTE | 2024-10-13 14:37 | P.PN ---
Subjective Progress Note Date: 10/13/24 Principal diagnosis: Anemia This is a pleasant 69-year-old male with recent diagnosis of laryngeal mass status post PEG and tracheostomy done at [facility]. Unclear diagnosis and treatment. Chronic medical conditions include atrial fibrillation on Eliquis, hypertension, prostate disorder chronic pain syndrome, nicotine dependence and constipation. Patient has been at [facility] and apparently had blood work done and was sent in for low hemoglobin. Difficult to obtain history from patient secondary to tracheostomy. On admission he had a hemoglobin of 7.0 and stool was checked for occult blood which was positive. Gastroenterology was consulted for GI bleed. He does report he does not recall any blood in his stool or black stool. He denies any abdominal pain, nausea or vomiting. States last colonoscopy was 5 to 6 years ago. 10/13/2024 Patient seen and examined today as a follow-up. Hemoglobin 7.2 platelet count 655,000. Patient had a bowel movement this morning which we were present for that was brown and soft. He continues to deny any abdominal pain. Patient states he wants to be discharged and return to extended-care facility. Objective - Vital Signs Vital signs: Vital Signs Temp 98.1 F 10/13/24 08:30 Pulse 75 10/13/24 10:14 Resp 18 10/13/24 10:14 BP 104/61 10/13/24 10:14 Pulse Ox 98 10/13/24 10:14 FiO2 Intake & Output 10/12/24 10/13/24 10/13/24 18:59 06:59 18:59 Intake Total 570 Output Total 1450 Balance 570 -1450 Intake: Blood Product 570 Rc Pheresis As-3 Unit 282 [id number] Output: Urine 1450 - Exam general appearance: The patient is alert, oriented, appears in no acute distress. HET: Head is normocephalic and atraumatic. Conjunctiva pink. Sclera anicteric. Neck: Supple without lymphadenopathy. Tracheostomy in place. Abdomen: Soft, nontender, nondistended. PEG tube in place. Extremities: Normal skin color and turgor. No pedal edema Skin: No rashes, no jaundice Neurological: No focal deficits. Alert and oriented. - Labs CBC & Chem 7: 10/13/24 07:19 10/13/24 07:19 Labs: Abnormal Lab Results - Last 24 Hours (Table) 10/12/24 10/12/24 Range/Units 00:22 02:50 Iron 9 L (65-175) UG/DL TIBC 197 L (228-460) UG/DL % Saturation 4.57 L (15.00-50.00) Transferrin 141.0 L (204.0-354.0) mg/dL Ferritin 591.0 H (22.0-322.0) ng/mL Crossmatch See Detail Blood Bank Comment Sent to [facility] Reference Lab Result See BBK REF Reports A Assessment and Plan (1) Anemia Narrative/Plan: 69-year-old male with recent diagnosis of laryngeal mass s/p tracheostomy and PEG tube placementWith chronic atrial fibrillation on Eliquis was sent into the emergency department for anemia. No signs of GI bleed other than "stool. Patient does suffer from constipation. He denies any blood in his stool or black stool. Anemia likely multifactorial. Will await further evaluation and recommendations from oncology. No plans at this time for endoscopic evaluation. Will order iron studies. Hold anticoagulation and treat symptomatically. Iron 9 ferritin 591. Patient getting iron infusions Current Visit: Yes Status: Acute Code(s): D64.9 - ANEMIA, UNSPECIFIED SNOMED Code(s): 716133459 (2) Positive fecal occult blood test Current Visit: Yes Status: Acute Code(s): R19.5 - OTHER FECAL ABNORMALITIES SNOMED Code(s): 48322753 (3) Laryngeal mass Current Visit: Yes Status: Acute Code(s): J38.7 - OTHER DISEASES OF LARYNX SNOMED Code(s): 586805664 (4) Hypertension Current Visit: Yes Status: Acute Code(s): I10 - ESSENTIAL (PRIMARY) HYPERTENSION SNOMED Code(s): 48134892 (5) Constipation Narrative/Plan: Patient had bowel movement today Current Visit: Yes Status: Acute Code(s): K59.00 - CONSTIPATION, UNSPECIFIED SNOMED Code(s): 73768861 Plan: 1. Continue symptomatic and supportive care 2. Diet as tolerated 3. No signs of bleeding, may resume Eliquis per PCP recommendations 4. Anemia profile ordered 5. Protonix 40 mg daily for GI prophylaxis 6. No plans at this time for endoscopic evaluation 7. Agree with iron infusion 8. Appreciate further evaluation/recommendations from oncology Thank you for this consultation, we will continue to follow. Dr. Tatiana Scott I agree with the dictator's note, documented as a scribe by Angely Castanon.
--- NOTE | 2024-10-13 16:34 | P.PN ---
Subjective Progress Note Date: 10/13/24 Hector Frank, is a 69-year-old male who presented to [facility] emergency room with a chief complaint of of anemia according to records patient has been at [facility] and was sent to ER for further evaluation due to hemoglobin of 7. Patient has recent tracheostomy difficult to communicate most history obtained from medical records. Patient was recently at [facility] in which she received tracheostomy and PEG tube for laryngeal mass attempting to obtain records. He was evaluated in the emergency room vital examination on presentation revealed temp 98.8, heart rate 77, respiratory rate 18, blood pressure 101/70 with a pulse ox of 98% on room air Laboratory data reveals white blood cell 13.1, hemoglobin 7.0, sodium 129, creatinine 1.2, bun 27. Stool for occult blood positive Testing in the emergency room revealed EKG showing sinus rhythm Patient was admitted to medical floor for further evaluation and treatment. Will consult GI and oncology services Past medical history is significant for laryngeal mass in which according to records patient presented to ER on August 30 due to difficulty in breathing patient was transferred to [facility] for ENT evaluation. Patient underwent tracheostomy and PEG tube placement since that transfer. Will attempt to take obtain medical records for further understanding of any surgery or treatment he is received. Additional medical history includes atrial fibrillation in which she is maintained on Eliquis this is currently on hold due to anemia, hypertension, prostate disorder, chronic pain, nicotine dependence, constip ation. On review of systems patient is alert and oriented x 3. Difficulty communicating secondary to tracheostomy. Patient reports of chronic pain. Patient denies chest pain patient denies nausea vomiting or diarrhea. Patient denies any urinary burning or frequency On 10/13/2024 patient was seen and examined on the medical floor he is alert and oriented x 3 in no apparent distress, patient has low-grade fever of 99.2, no chills no headache or dizziness no chest pain no shortness of breath no cough no nausea or vomiting no abdominal pain no diarrhea no blood in the stools, he has frequency with urination and urgency with urination. Urine analysis reveals evidence of urinary tract infection, patient was started on IV iron supplements, and IV ceftriaxone, awaiting input from oncology. Objective - Vital Signs Vital signs: Vital Signs Temp 99.0 F 10/13/24 15:05 Pulse 78 10/13/24 16:08 Resp 20 10/13/24 16:08 BP 110/60 10/13/24 16:08 Pulse Ox 98 10/13/24 16:08 FiO2 Intake & Output 10/12/24 10/13/24 10/13/24 18:59 06:59 18:59 Intake Total 570 Output Total 2049 Balance 570 -2049 Intake: Blood Product 570 Rc Pheresis As-3 Unit 282 [id number] Output: Urine 2049 - Exam In general patient is alert and oriented x 3 in no distress HEENT head normocephalic and atraumatic Neck is supple no JVD no goiter no lymphadenopathy no carotid bruit. Patient has tracheostomy in place Chest examination is clear to auscultation no crackles no wheezing Cardiac exam reveals regular heart sounds S1 and S2 no gallops no murmurs Abdomen is soft nontender no organomegaly with normal bowel sounds Extremity exam reveals no edema no cyanosis or clubbing Neurological examination reveals no gross focal deficits - Labs CBC & Chem 7: 10/13/24 07:19 10/13/24 07:19 Labs: Abnormal Lab Results - Last 24 Hours (Table) 10/12/24 10/13/24 10/13/24 Range/Units 02:50 07:19 07:19 WBC 11.05 H (4.50-10.00) X 10*3/uL RBC 2.57 L (4.40-5.60) X 10*6/uL Hgb 7.2 L (13.0-17.0) g/dL Hct 23.4 L (39.6-50.0) % MCHC 30.8 L (32.0-37.0) g/dL RDW 15.6 H (11.5-14.5) % Plt Count 655 H (140-440) X 10*3/uL Immature Gran # 0.16 H (0.00-0.04) X 10*3/uL Monocytes # 1.64 H (0.20-1.00) X 10*3/uL Eosinophils # 0.53 H (0.04-0.35) X 10*3/uL Basophils # 0.11 H (0.00-0.10) X 10*3/uL Sodium 134 L (135-145) mmol/L Est GFR (CKD-EPI) 59 L (>=60) Calcium 8.4 L (8.7-10.3) mg/dL ALT <5 L (10-49) U/L Total Protein 5.2 L (6.2-8.2) g/dL Albumin 2.5 L (3.8-4.9) g/dL Albumin/Globulin Ratio 0.93 L (1.60-3.17) Ratio Ur Leukocyte Esterase (Negative) Urine WBC (0-5) /hpf Urine Yeast (Budding) (None) /hpf Crossmatch See Detail 10/13/24 Range/Units 10:18 WBC (4.50-10.00) X 10*3/uL RBC (4.40-5.60) X 10*6/uL Hgb (13.0-17.0) g/dL Hct (39.6-50.0) % MCHC (32.0-37.0) g/dL RDW (11.5-14.5) % Plt Count (140-440) X 10*3/uL Immature Gran # (0.00-0.04) X 10*3/uL Monocytes # (0.20-1.00) X 10*3/uL Eosinophils # (0.04-0.35) X 10*3/uL Basophils # (0.00-0.10) X 10*3/uL Sodium (135-145) mmol/L Est GFR (CKD-EPI) (>=60) Calcium (8.7-10.3) mg/dL ALT (10-49) U/L Total Protein (6.2-8.2) g/dL Albumin (3.8-4.9) g/dL Albumin/Globulin Ratio (1.60-3.17) Ratio Ur Leukocyte Esterase Moderate H (Negative) Urine WBC 17 H (0-5) /hpf Urine Yeast (Budding) Moderate H (None) /hpf Crossmatch Assessment and Plan Assessment: 1. Anemia with positive stool for occult blood patient's Eliquis currently on hold 2. History of recent diagnosis of laryngeal mass status post tracheostomy and PEG tube placement at [facility] 3. History of paroxysmal atrial fibrillation maintained on Eliquis currently on hold 4. History of nicotine dependence 5. History of degenerative disc disease 6. History of BPH 7. History of cardiac arrhythmia with history of ablation 8. Hyponatremia sodium low at 129. Will initiate gentle hydration DVT prophylaxis SCDs secondary to GI bleed. GI prophylax Protonix GI and oncology services consulted Continue normal saline at 100 Repeat labs ordered for a.m. Home meds resumed
--- NOTE | 2024-10-13 21:11 | P.CONS ---
History of Present Illness - Reason for Consult Consult date: 10/13/24 laryngeal mass Requesting physician: Jose Correa - Chief Complaint Acute anemia - History of Present Illness This is a pleasant 69-year-old male with recent diagnosis of laryngeal mass status post PEG and tracheostomy done at [facility]. Unclear diagnosis and treatment and treatment plan, he does know he has cancer. Patient is at [facility], blood work showed anemia so pt was sent to hospital for transfusion and work up. On admission Hgb was 7.0, he was transfused with a unit of blood, Hgb today is 7.2, not an expected appropriate response to 1 unit. On chart review baseline Hgb is in the 9-10 range. Occult was positive, GI consulted. Pt does not report any bleeding, hemoptysis, blood from mouth or trach, hematemesis, hematuria, hematochezia or melena. Review of Systems 10 point ROS is neg except as stated in HPI Past Medical History Past Medical History: Atrial Fibrillation, Cancer, GERD/Reflux, Hypertension, Prostate Disorder Additional Past Medical History / Comment(s): dehydration, low B/P, kidney problem that was fixed with fluids and sodium was low. Additional hx: BPH, DDD-cervical pain, R/L hand fingers tingling if over used, AGE 18 FX RT FEMUR IN 4 PLACES HAD PLATE/SCEWS-SINCE REMOVED, HAS OPIOD INDUCED CONSTIPATION, TINNITUS bilaterally but pt has noticed it has decreased since he quit smoking, hay fever. N History of Any Multi-Drug Resistant Organisms: None Reported Past Surgical History: Heart Catheterization, Joint Replacement, Orthopedic Surgery Additional Past Surgical History / Comment(s): bilateral CATARACTS, ANT CERVICAL DISCECTOMY/FUSION C4,5,6,7 USING CADAVOR BONE. LT HYDROCELE, LT CARPAL TUNNEL, RT FEMUR SX METAL SINCE REMOVED, COLONOSCOPY, CYSTS REMOVED FROM FOREHEAD,BUTTOCKS,;T CONGREGATIONAL. PROSTATE BX X2-BENIGN, partial R knee replacement. cardiac ablation, peg tube, trach placement. Past Anesthesia/Blood Transfusion Reactions: No Reported Reaction Past Psychological History: No Psychological Hx Reported Smoking Status: Former smoker Past Alcohol Use History: Daily Past Drug Use History: None Reported - Past Family History Father Family Medical History: COPD, Dementia Additional Family Medical History / Comment(s): Father at age 84yrs. Mother Family Medical History: Cancer, COPD Additional Family Medical History / Comment(s): NASAL/THROAT CANCER. Mother at age 82 Medications and Allergies Home Medications Medication Instructions Recorded Confirmed Type ALPRAZolam [Xanax] 0.25 mg PO Q8H PRN 01/08/23 10/12/24 History Acetaminophen Tab [Tylenol Tab] 500 mg PO Q4H 10/12/24 10/12/24 History Amiodarone [Cordarone] 200 mg PO BID 10/12/24 10/12/24 History Apixaban [Eliquis] 5 mg PO BID 10/12/24 10/12/24 History Calcium Carbonate 1250mg(500ca) 1,250 mg PO QID 10/12/24 10/12/24 History Doxazosin [Cardura] 4 mg PO DAILY 10/12/24 10/12/24 History Finasteride [Proscar] 5 mg PO DAILY 10/12/24 10/12/24 History Levothyroxine Sodium [Synthroid] 100 mcg PO DAILY 10/12/24 10/12/24 History Miconazole Nitrate [Lotrimin AF 1 applic TOPICAL BID 10/12/24 10/12/24 History Powder] Miconazole Nitrate [Lotrimin AF 1 applic TOPICAL DAILY PRN 10/12/24 10/12/24 History Powder] Naloxone HCl [Narcan] 4 mg NASAL ONCE PRN 10/12/24 10/12/24 History Nutren 2.0 1 dose PEG/G-TUBE BID@0500,1900 10/12/24 10/12/24 History Pantoprazole [Protonix] 40 mg PO DAILY 10/12/24 10/12/24 History QUEtiapine FUMARATE [SEROquel] 25 mg PO HS 10/12/24 10/12/24 History oxyCODONE HCL [oxyCODONE HCL (IR)] 10 mg PO Q4H PRN 10/12/24 10/12/24 History polyethylene glycoL 3350 [Miralax] 17 gm PO BID 10/12/24 10/12/24 History Allergies Allergy/AdvReac Type Severity Reaction Status Date / Time No Known Allergies Allergy Verified 10/12/24 06:28 Physical Exam Vitals: Vital Signs Temp Pulse Resp BP Pulse Ox 10/13/24 16:08 78 20 110/60 98 10/13/24 15:05 99.0 F 80 18 102/61 95 10/13/24 14:20 99.2 F 84 20 91/61 94 L 10/13/24 13:03 78 18 103/51 96 10/13/24 12:20 76 18 103/59 96 10/13/24 11:05 98.6 F 76 20 121/68 95 10/13/24 10:14 75 18 104/61 98 10/13/24 08:30 98.1 F 77 18 104/61 95 10/13/24 05:15 75 16 105/56 97 10/13/24 04:07 72 16 105/56 96 10/13/24 01:41 75 16 113/63 96 10/12/24 23:54 97 10/12/24 21:41 75 18 118/56 96 10/12/24 18:54 97.8 F 71 16 120/66 97 Intake and Output 10/13/24 10/13/24 10/13/24 06:59 14:59 22:59 Output Total 1450 600 Balance -1450 -600 Output: Urine 1450 600 - Constitutional General appearance: cooperative, no acute distress, thin - EENT Eyes: anicteric sclerae, EOMI ENT: hearing grossly normal - Neck trach in situ, surgical changes Neck: no lymphadenopathy - Respiratory Respiratory: bilateral: CTA - Cardiovascular Rhythm: regular Heart sounds: normal: S1, S2 Abnormal Heart Sounds: no systolic murmur, no diastolic murmur, no rub, no S3 Gallop, no S4 Gallop, no click, no other leg Peripheral Edema: bilateral: None - Gastrointestinal PEG insitu General gastrointestinal: no absent bowel sounds, no decreased bowel sounds, no distended, no hepatomegaly, no hyperactive bowel sounds, normal bowel sounds, no organomegaly, no rigid, no scaphoid, soft, no splenomegaly, no tenderness, no umbilical hernia, no ventral hernia - Integumentary Integumentary: normal - Neurologic Neurologic: CNII-XII intact - Musculoskeletal Musculoskeletal: generalized weakness - Psychiatric Psychiatric: A&O x's 3, appropriate affect, intact judgment & insight Results CBC & Chem 7: 10/13/24 07:19 10/13/24 07:19 Labs: Abnormal Lab Results - Last 24 Hours (Table) 11/20/24 11/21/24 11/21/24 Range/Units 02:50 07:19 07:19 WBC 11.05 H (4.50-10.00) X 10*3/uL RBC 2.57 L (4.40-5.60) X 10*6/uL Hgb 7.2 L (13.0-17.0) g/dL Hct 23.4 L (39.6-50.0) % MCHC 30.8 L (32.0-37.0) g/dL RDW 15.6 H (11.5-14.5) % Plt Count 655 H (140-440) X 10*3/uL Immature Gran # 0.16 H (0.00-0.04) X 10*3/uL Monocytes # 1.64 H (0.20-1.00) X 10*3/uL Eosinophils # 0.53 H (0.04-0.35) X 10*3/uL Basophils # 0.11 H (0.00-0.10) X 10*3/uL Sodium 134 L (135-145) mmol/L Est GFR (CKD-EPI) 59 L (>=60) Calcium 8.4 L (8.7-10.3) mg/dL ALT <5 L (10-49) U/L Total Protein 5.2 L (6.2-8.2) g/dL Albumin 2.5 L (3.8-4.9) g/dL Albumin/Globulin Ratio 0.93 L (1.60-3.17) Ratio Ur Leukocyte Esterase (Negative) Urine WBC (0-5) /hpf Urine Yeast (Budding) (None) /hpf Crossmatch See Detail 10/13/24 Range/Units 10:18 WBC (4.50-10.00) X 10*3/uL RBC (4.40-5.60) X 10*6/uL Hgb (13.0-17.0) g/dL Hct (39.6-50.0) % MCHC (32.0-37.0) g/dL RDW (11.5-14.5) % Plt Count (140-440) X 10*3/uL Immature Gran # (0.00-0.04) X 10*3/uL Monocytes # (0.20-1.00) X 10*3/uL Eosinophils # (0.04-0.35) X 10*3/uL Basophils # (0.00-0.10) X 10*3/uL Sodium (135-145) mmol/L Est GFR (CKD-EPI) (>=60) Calcium (8.7-10.3) mg/dL ALT (10-49) U/L Total Protein (6.2-8.2) g/dL Albumin (3.8-4.9) g/dL Albumin/Globulin Ratio (1.60-3.17) Ratio Ur Leukocyte Esterase Moderate H (Negative) Urine WBC 17 H (0-5) /hpf Urine Yeast (Budding) Moderate H (None) /hpf Crossmatch Assessment and Plan (1) Anemia Current Visit: Yes Status: Acute Priority: High Code(s): D64.9 - ANEMIA, UNSPECIFIED SNOMED Code(s): 265914101 (2) Laryngeal mass Current Visit: Yes Status: Acute Priority: High Code(s): J38.7 - OTHER DISEASES OF LARYNX SNOMED Code(s): 332393917 Plan: Anemia -Baseline Hgb 9-10 range -Pt did not have an appropriate response to 1 unit of blood (7 to 7.2). Occult positive, concern for acute bleeding -Eliquis has been held -Iron studies consistent with inflammation but, in the setting of suspected acu te blood loss, IV iron ordered Head/Neck malignancy -Pt reports that he does have cancer, had biopsy and trach in the last 4 weeks, he thinks. Does not know what treatment plan is. -Have requested pathology, procedure notes and last ENT Oncology surgeon note- Dr. Mackenzie Bauer). Will update the chart with what plan is Doctor attests: I performed a history and physical examination of this patient, developed impression and plan of care. Discussed with dictator. I agree with dictators note, documented as a scribe.
[2024-10-14 08:40] LABS: HCT 23.1 % (39.6-50.0); HGB 7.2 g/dL (13.0-17.0); MCH 27.8 pg (27.0-32.0); MCHC 31.2 g/dL (32.0-37.0); MCV 89.2 FL (80.0-97.0); Mean Platelet Volume 9.6 FL (9.5-12.2); NRBC Per 100 WBC 0 X 10*3/uL (0.00-0.01); Platelet Count 728 X 10*3/uL (140-440); RBC 2.59 X 10*6/uL (4.40-5.60); RDW 15.6 % (11.5-14.5); WBC 11.54 X 10*3/uL (4.50-10.00)
[2024-10-14 08:41] LABS: Basophils # (A) 0.07 X 10*3/uL (0.00-0.10); Basophils % (A) 0.6 %; Eosinophils # (A) 0.37 X 10*3/uL (0.04-0.35); Eosinophils % (A) 3.2 %; Lymphocytes % (A) 17.3 %; Monocytes # (A) 1.93 X 10*3/uL (0.20-1.00); Monocytes % (A) 16.7 %; Neutrophils # (A) 7.02 X 10*3/uL (1.80-7.70); Neutrophils % (A) 60.9 %
--- NOTE | 2024-10-14 09:05 | P.PN ---
Subjective Progress Note Date: 10/14/24 Hector Frank, is a 69-year-old male who presented to [facility] emergency room with a chief complaint of of anemia according to records patient has been at [facility] and was sent to ER for further evaluation due to hemoglobin of 7. Patient has recent tracheostomy difficult to communicate most history obtained from medical records. Patient was recently at [facility] in which she received tracheostomy and PEG tube for laryngeal mass attempting to obtain records. He was evaluated in the emergency room vital examination on presentation revealed temp 98.8, heart rate 77, respiratory rate 18, blood pressure 101/70 with a pulse ox of 98% on room air Laboratory data reveals white blood cell 13.1, hemoglobin 7.0, sodium 129, creatinine 1.2, bun 27. Stool for occult blood positive Testing in the emergency room revealed EKG showing sinus rhythm Patient was admitted to medical floor for further evaluation and treatment. Will consult GI and oncology services Past medical history is significant for laryngeal mass in which according to records patient presented to ER on August 30 due to difficulty in breathing patient was transferred to [facility] for ENT evaluation. Patient underwent tracheostomy and PEG tube placement since that transfer. Will attempt to take obtain medical records for further understanding of any surgery or treatment he is received. Additional medical history includes atrial fibrillation in which she is maintained on Eliquis this is currently on hold due to anemia, hypertension, prostate disorder, chronic pain, nicotine dependence, constip ation. On review of systems patient is alert and oriented x 3. Difficulty communicating secondary to tracheostomy. Patient reports of chronic pain. Patient denies chest pain patient denies nausea vomiting or diarrhea. Patient denies any urinary burning or frequency On 10/13/2024 patient was seen and examined on the medical floor he is alert and oriented x 3 in no apparent distress, patient has low-grade fever of 99.2, no chills no headache or dizziness no chest pain no shortness of breath no cough no nausea or vomiting no abdominal pain no diarrhea no blood in the stools, he has frequency with urination and urgency with urination. Urine analysis reveals evidence of urinary tract infection, patient was started on IV iron supplements, and IV ceftriaxone, awaiting input from oncology. On 10/14/2024 patient is alert and oriented x 3. Hemoglobin today 7.2 this is the same as yesterday. White blood cell 11.54. Current vital signs temp 98.2, heart rate 72, respiratory rate 18, blood pressure 98/61 with a pulse ox of 97% on room air patient has been started on IV iron maintained on IV Rocephin for UTI. Per oncology services attempting to obtain records from [facility] in regards to treatment for laryngeal mass. GI and oncology services following Objective - Vital Signs Vital signs: Vital Signs Temp 98.2 F 10/14/24 07:54 Pulse 72 10/14/24 07:54 Resp 18 10/14/24 07:54 BP 98/61 10/14/24 07:54 Pulse Ox 97 10/14/24 07:54 FiO2 35 10/14/24 04:00 Intake & Output 10/13/24 10/14/24 10/14/24 18:59 06:59 18:59 Intake Total 590 Output Total 2550 1000 Balance -2550 -410 Weight 65.317 kg Intake: Oral 590 Output: Urine 2550 1000 Other: Voiding Method Indwelling Catheter - Exam In general patient is alert and oriented x 3 in no distress HEENT head normocephalic and atraumatic Neck is supple no JVD no goiter no lymphadenopathy no carotid bruit. Patient has tracheostomy in place Chest examination is clear to auscultation no crackles no wheezing Cardiac exam reveals regular heart sounds S1 and S2 no gallops no murmurs Abdomen is soft nontender no organomegaly with normal bowel sounds Extremity exam reveals no edema no cyanosis or clubbing Neurological examination reveals no gross focal deficits - Labs CBC & Chem 7: 10/14/24 05:10 10/13/24 07:19 Labs: Abnormal Lab Results - Last 24 Hours (Table) 10/13/24 10/13/24 10/13/24 Range/Units 07:19 07:19 10:18 WBC 11.05 H (4.50-10.00) X 10*3/uL RBC 2.57 L (4.40-5.60) X 10*6/uL Hgb 7.2 L (13.0-17.0) g/dL Hct 23.4 L (39.6-50.0) % MCHC 30.8 L (32.0-37.0) g/dL RDW 15.6 H (11.5-14.5) % Plt Count 655 H (140-440) X 10*3/uL Immature Gran # 0.16 H (0.00-0.04) X 10*3/uL Monocytes # 1.64 H (0.20-1.00) X 10*3/uL Eosinophils # 0.53 H (0.04-0.35) X 10*3/uL Basophils # 0.11 H (0.00-0.10) X 10*3/uL Sodium 134 L (135-145) mmol/L Est GFR (CKD-EPI) 59 L (>=60) Calcium 8.4 L (8.7-10.3) mg/dL ALT <5 L (10-49) U/L Total Protein 5.2 L (6.2-8.2) g/dL Albumin 2.5 L (3.8-4.9) g/dL Albumin/Globulin Ratio 0.93 L (1.60-3.17) Ratio Ur Leukocyte Esterase Moderate H (Negative) Urine WBC 17 H (0-5) /hpf Urine Yeast (Budding) Moderate H (None) /hpf 10/14/ Range/Units 05:10 WBC 11.54 H (4.50-10.00) X 10*3/uL RBC 2.59 L (4.40-5.60) X 10*6/uL Hgb 7.2 L (13.0-17.0) g/dL Hct 23.1 L (39.6-50.0) % MCHC 31.2 L (32.0-37.0) g/dL RDW 15.6 H (11.5-14.5) % Plt Count 728 H (140-440) X 10*3/uL Immature Gran # 0.15 H (0.00-0.04) X 10*3/uL Monocytes # 1.93 H (0.20-1.00) X 10*3/uL Eosinophils # 0.37 H (0.04-0.35) X 10*3/uL Basophils # (0.00-0.10) X 10*3/uL Sodium (135-145) mmol/L Est GFR (CKD-EPI) (>=60) Calcium (8.7-10.3) mg/dL ALT (10-49) U/L Total Protein (6.2-8.2) g/dL Albumin (3.8-4.9) g/dL Albumin/Globulin Ratio (1.60-3.17) Ratio Ur Leukocyte Esterase (Negative) Urine WBC (0-5) /hpf Urine Yeast (Budding) (None) /hpf Assessment and Plan Assessment: 1. Anemia with positive stool for occult blood patient's Eliquis currently on hold 2. History of recent diagnosis of laryngeal mass status post tracheostomy and PEG tube placement at [facility] 3. History of paroxysmal atrial fibrillation maintained on Eliquis currently on hold 4. History of nicotine dependence 5. History of degenerative disc disease 6. History of BPH 7. History of cardiac arrhythmia with history of ablation 8. Hyponatremia sodium low at 129. Will initiate gentle hydration 9. Urinary tract infection patient started on Rocephin DVT prophylaxis SCDs secondary to GI bleed. GI prophylax Protonix GI and oncology services consulted Continue normal saline at 100 Repeat labs ordered for a.m. Home meds resumed
[2024-10-14 10:04] LABS: ALT 6 U/L (10-49); AST 12 U/L (14-35); Albumin 2.6 g/dL (3.8-4.9); Albumin/Globulin Ratio 0.87 Ratio (1.60-3.17); Alkaline Phosphatase 100 U/L (41-126); BUN/Creat Ratio 11.21 Ratio (12.00-20.00); Blood Urea Nitrogen 15.7 mg/dL (9.0-27.0); Calcium 8.6 mg/dL (8.7-10.3); Carbon Dioxide 25.4 mmol/L (21.6-31.8); Chloride 96 mmol/L (96-109); Glucose 89 mg/dL (70-110); Potassium 4.6 mmol/L (3.5-5.5); Sodium 131 mmol/L (135-145); Total Bilirubin 0.3 mg/dL (0.3-1.2); Total Protein 5.6 g/dL (6.2-8.2)
--- NOTE | 2024-10-14 12:26 | P.CRDCN ---
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 We have been asked to see the patient in consultation for chest pain. Patient examined at the bedside. Patient is admitted to the hospital secondary to GI bleed and is being followed by Dr. Scott. Consult was placed this morning by Dr. Correa at 930 for chest discomfort. Patient was evaluated at the bedside and states he has not been having any chest discomfort. Spoke with patient's nurse who also states that the patient has not reported any chest pain or pressure to her. There is no EKG completed today when the patient was supposedly having chest discomfort. DIAGNOSTICS: - EKG on admission revealed sinus mechanism with no signs of acute ischemia. There is no EKG from today when patient was supposedly having chest discomfort - Laboratory data: WBC 11.54. Hemoglobin 7.2. Platelet count 728. Sodium 131. Potassium 4.6. BUN 15. Creatinine 1.4. - Current home cardiac medications include amiodarone 200 mg twice a day, Eliquis 5 mg twice a day REVIEW OF SYSTEMS: At the time of my exam: CONSTITUTIONAL: Denies fever or chills. HEENT: Denies blurred vision, vision changes, or eye pain. Denies hemoptysis CARDIOVASCULAR: Denies chest pain. Denies orthopnea. Denies PND. Denies palpitations RESPIRATORY: Denies shortness of breath. GASTROINTESTINAL: Denies abdominal pain. Denies nausea or vomiting. HEMATOLOGIC: Denies bleeding disorders. GENITOURINARY: Denies any blood in urine. SKIN: Denies pruitis. Denies rash. PHYSICAL EXAM: VITAL SIGNS: Reviewed. GENERAL: Well-developed in no acute distress. HEENT: Head is normocephalic. Pupils are equal, round. Sclerae anicteric. Mucous membranes of the mouth are moist. Neck supple. No JVD or thyromegaly. Tracheostomy noted. LUNGS: Respirations even and unlabored. Lungs essentially clear to auscultation bilaterally. HEART: Regular rate and rhythm. S1 and S2 heard. ABDOMEN: Soft. Nondistended. Nontender. EXTREMITIES: Normal range of motion. No clubbing or cyanosis. Peripheral pulses intact. No lower extremity edema NEUROLOGIC: Awake and alert. Oriented x 3. ASSESSMENT: Anemia, no signs of acute GI bleeding per GI documentation, Eliquis on hold Paroxysmal atrial fibrillation, maintaining sinus mechanism Chest pain, ruled out, patient denies having any chest pain History of laryngeal mass with recent trach and PEG placement performed at [facility] Nicotine dependence PLAN: Consult was placed this morning by Dr. Correa at 930 for chest discomfort. There is no documentation by Dr. Correa's progress note from today that patient was having chest pain. Patient was evaluated at the bedside and states he has not been having any chest discomfort. Spoke with patient's nurse who also states that the patient has not reported any chest pain or pressure to her. There is no EKG completed today when the patient was supposedly having chest discomfort. Obtain EKG and scan into Intercom Obtain 2D echo to assess cardiac structure and function Continue to hold Eliquis due to anemia. GI following. Consider outpatient Watchman device if patient is unable to tolerate anticoagulation Further recommendations pending patient course Nurse practitioner note has been reviewed by physician. Signing provider agrees with the documented findings, assessment, and plan of care documented by ENGINE BOSS as a scribe. Past Medical History Past Medical History: Atrial Fibrillation, Cancer, GERD/Reflux, Hypertension, Prostate Disorder Additional Past Medical History / Comment(s): dehydration, low B/P, kidney problem that was fixed with fluids and sodium was low. Additional hx: BPH, DD D-cervical pain, R/L hand fingers tingling if over used, AGE 18 FX RT FEMUR IN 4 PLACES HAD PLATE/SCEWS-SINCE REMOVED, HAS OPIOD INDUCED CONSTIPATION, TINNITUS bilaterally but pt has noticed it has decreased since he quit smoking, hay fever. cardiac arrest 3 months ago, trach History of Any Multi-Drug Resistant Organisms: None Reported Past Surgical History: Heart Catheterization, Joint Replacement, Orthopedic Surgery Additional Past Surgical History / Comment(s): bilateral CATARACTS, ANT CERVICAL DISCECTOMY/FUSION C4,5,6,7 USING CADAVOR BONE. LT HYDROCELE, LT CARPAL TUNNEL, RT FEMUR SX METAL SINCE REMOVED, COLONOSCOPY, CYSTS REMOVED FROM FOREHEAD,BUTTOCKS,;T RELIGION. PROSTATE BX X2-BENIGN, partial R knee replacement. cardiac ablation, peg tube, trach placement. Past Anesthesia/Blood Transfusion Reactions: No Reported Reaction Past Psychological History: No Psychological Hx Reported Additional Psychological History / Comment(s): PER PTS. SON PT. 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 HAS HAD SEVERAL FALLS RECENTLY Smoking Status: Former smoker Past Alcohol Use History: Daily Additional Past Alcohol Use History / Comment(s): PER PTS. SON PT. HAS SMOKED HEAVILY AND DRANK HEAVILY FOR MANY YEARS Past Drug Use History: None Reported Additional Drug Use History / Comment(s): no alcohol in 5 weeks per patient. - Past Family History Father Family Medical History: COPD, Dementia Additional Family Medical History / Comment(s): Father at age 84yrs. Mother Family Medical History: Cancer, COPD Additional Family Medical History / Comment(s): NASAL/THROAT CANCER. Mother at age 82 Medications and Allergies Home Medications Medication Instructions Recorded Confirmed Type ALPRAZolam [Xanax] 0.25 mg PO Q8H PRN 01/08/23 10/12/24 History Acetaminophen Tab [Tylenol Tab] 500 mg PO Q4H 10/12/24 10/12/24 History Amiodarone [Cordarone] 200 mg PO BID 10/12/24 10/12/24 History Apixaban [Eliquis] 5 mg PO BID 10/12/24 10/12/24 History Calcium Carbonate 1250mg(500ca) 1,250 mg PO QID 10/12/24 10/12/24 History Doxazosin [Cardura] 4 mg PO DAILY 10/12/24 10/12/24 History Finasteride [Proscar] 5 mg PO DAILY 10/12/24 10/12/24 History Levothyroxine Sodium [Synthroid] 100 mcg PO DAILY 10/12/24 10/12/24 History Miconazole Nitrate [Lotrimin AF 1 applic TOPICAL BID 10/12/24 10/12/24 History Powder] Miconazole Nitrate [Lotrimin AF 1 applic TOPICAL DAILY PRN 10/12/24 10/12/24 History Powder] Naloxone HCl [Narcan] 4 mg NASAL ONCE PRN 10/12/24 10/12/24 History Nutren 2.0 1 dose PEG/G-TUBE BID@0500,1900 10/12/24 10/12/24 History Pantoprazole [Protonix] 40 mg PO DAILY 10/12/24 10/12/24 History QUEtiapine FUMARATE [SEROquel] 25 mg PO HS 10/12/24 10/12/24 History oxyCODONE HCL [oxyCODONE HCL (IR)] 10 mg PO Q4H PRN 10/12/24 10/12/24 History polyethylene glycoL 3350 [Miralax] 17 gm PO BID 10/12/24 10/12/24 History Allergies Allergy/AdvReac Type Severity Reaction Status Date / Time No Known Allergies Allergy Verified 10/12/24 06:28 Physical Exam Vitals: Vital Signs Temp Pulse Pulse Resp BP BP BP 10/14/24 12:10 98.1 F 70 17 101/54 10/14/24 07:54 98.2 F 72 18 98/61 10/14/24 07:52 98.2 F 72 19 98/61 10/14/24 04:00 10/14/24 02:00 99.1 F 76 16 109/65 10/13/24 22:04 73 18 98/55 10/13/24 20:06 74 18 102/58 10/13/24 18:17 78 13 115/70 10/13/24 17:15 79 15 102/58 10/13/24 16:08 78 20 110/60 10/13/24 15:05 99.0 F 80 18 102/61 10/13/24 14:20 99.2 F 84 20 91/61 10/13/24 13:03 78 18 103/51 10/13/24 12:20 76 18 103/59 Pulse Ox FiO2 10/14/24 12:10 95 10/14/24 07:54 97 10/14/24 07:52 97 10/14/24 04:00 35 10/14/24 02:00 92 L 10/13/24 22:04 96 10/13/24 20:06 95 10/13/24 18:17 95 10/13/24 17:15 95 10/13/24 16:08 98 10/13/24 15:05 95 10/13/24 14:20 94 L 10/13/24 13:03 96 10/13/24 12:20 96 Intake and Output 10/13/24 10/14/24 10/14/24 22:59 06:59 14:59 Intake Total 590 180 Output Total 1100 1000 Balance -1100 -410 180 Intake: Oral 590 180 Output: Urine 1100 1000 Other: Voiding Method Indwelling Catheter Indwelling Catheter Weight 65.317 kg Results 10/14/24 05:10 10/14/24 05:10 Cardiac Enzymes 10/14/24 Range/Units 05:10 AST 12 L (14-35) U/L CBC 10/14/24 Range/Units 05:10 WBC 11.54 H (4.50-10.00) X 10*3/uL RBC 2.59 L (4.40-5.60) X 10*6/uL Hgb 7.2 L (13.0-17.0) g/dL Hct 23.1 L (39.6-50.0) % Plt Count 728 H (140-440) X 10*3/uL Comprehensive Metabolic Panel 10/14/24 Range/Units 05:10 Sodium 131 L (135-145) mmol/L Potassium 4.6 (3.5-5.5) mmol/L Chloride 96 (96-109) mmol/L Carbon Dioxide 25.4 (21.6-31.8) mmol/L BUN 15.7 (9.0-27.0) mg/dL Creatinine 1.4 (0.6-1.5) mg/dL Glucose 89 (70-110) mg/dL Calcium 8.6 L (8.7-10.3) mg/dL AST 12 L (14-35) U/L ALT 6 L (10-49) U/L Alkaline Phosphatase 100 (41-126) U/L Total Protein 5.6 L (6.2-8.2) g/dL Albumin 2.6 L (3.8-4.9) g/dL Current Medications Generic Name Dose Route Start Last Admin Trade Name Freq PRN Reason Stop Dose Admin Alprazolam 0.25 mg 10/12/24 08:40 10/13/24 23:36 Alprazolam 0.25 Mg Tab PO 0.25 mg Q8H PRN Administration Anxiety Amiodarone HCl 200 mg 10/12/24 09:00 10/14/24 09:27 Amiodarone 200 Mg Tab PO 200 mg BID CIRA Administration Doxazosin Mesylate 4 mg 10/12/24 09:00 10/14/24 09:28 Doxazosin 4 Mg Tab PO 4 mg DAILY CIRA Administration Finasteride 5 mg 10/12/24 09:00 10/14/24 09:28 Finasteride 5 Mg Tab PO 5 mg DAILY CIRA Administration Sodium Chloride 1,000 mls @ 100 mls/hr 10/12/24 01:30 10/14/24 04:48 Saline 0.9% IV 100 mls/hr .Q10H CIRA Administration Ferric Sodium Gluconate 125 mg 110 mls @ 100 mls/hr 10/13/24 11:00 10/14/24 10:43 / Sodium Chloride IVPB 10/16/24 10:05 100 mls/hr DAILY CIRA Administration Ceftriaxone Sodium 1 gm/ 50 mls @ 100 mls/hr 10/13/24 17:00 10/14/24 09:32 Sodium Chloride IVPB 100 mls/hr Q24HR CIRA Administration Protocol Levothyroxine Sodium 100 mcg 10/12/24 09:00 10/14/24 06:39 Levothyroxine 100 Mcg Tab PO 100 mcg DAILY@0630 CIRA Administration Naloxone HCl 0.2 mg 10/12/24 01:24 Naloxone 0.4 Mg/Ml 1 Ml Vial IV Q2M PRN Opioid Reversal Nystatin 1 applic 10/12/24 09:00 10/14/24 09:28 Nystatin 100,000 Unit/Gm Powd 15 Gm TOPICAL 1 applic BID CIRA Administration Nystatin 1 applic 10/12/24 08:40 Nystatin 100,000 Unit/Gm Powd 15 Gm TOPICAL DAILY PRN redness/irrtation Ondansetron HCl 4 mg 10/12/24 01:24 Ondansetron 4 Mg/2 Ml Vial IVP Q8HR PRN Nausea And Vomiting Oxycodone HCl 10 mg 10/12/24 08:40 10/14/24 08:16 Oxycodone Hcl 5 Mg Tab PO 10 mg Q4H PRN Administration Pain Pantoprazole Sodium 40 mg 10/12/24 09:00 10/14/24 10:07 Pantoprazole 40 Mg/10 Ml Vial IV 40 mg DAILY CIRA Administration Polyethylene Glycol 17 gm 10/12/24 09:00 10/14/24 09:28 Polyethylene Glycol 3350 17 Gm Powd.Pack PO 17 gm BID CIRA Administration Quetiapine Fumarate 25 mg 10/12/24 21:00 10/13/24 20:53 Quetiapine 25 Mg Tab PO 25 mg HS CIRA Administration Intake and Output 10/13/24 10/14/24 10/14/24 22:59 06:59 14:59 Intake Total 590 180 Output Total 1100 1000 Balance -1100 -410 180 Intake: Oral 590 180 Output: Urine 1100 1000 Other: Voiding Method Indwelling Catheter Indwelling Catheter Weight 65.317 kg 10/14/24 05:10 10/14/24 05:10
[2024-10-14 12:45] VITALS: BMI 21.2
--- NOTE | 2024-10-14 12:50 | P.PN ---
Subjective Progress Note Date: 10/14/24 Principal diagnosis: Anemia This is a pleasant 69-year-old male with recent diagnosis of laryngeal mass status post PEG and tracheostomy done at [facility]. Unclear diagnosis and treatment. Chronic medical conditions include atrial fibrillation on Eliquis, hypertension, prostate disorder chronic pain syndrome, nicotine dependence and constipation. Patient has been at [facility] and apparently had blood work done and was sent in for low hemoglobin. Difficult to obtain history from patient secondary to tracheostomy. On admission he had a hemoglobin of 7.0 and stool was checked for occult blood which was positive. Gastroenterology was consulted for GI bleed. He does report he does not recall any blood in his stool or black stool. He denies any abdominal pain, nausea or vomiting. States last colonoscopy was 5 to 6 years ago. 10/13/2024 Patient seen and examined today as a follow-up. Hemoglobin 7.2 platelet count 655,000. Patient had a bowel movement this morning which we were present for that was brown and soft. He continues to deny any abdominal pain. Patient states he wants to be discharged and return to extended-care facility. 10/14/2024 Patient is seen and examined today as a follow-up. Hemoglobin is stable at 7.2 platelet count 728,000. Normocytic normochromic anemia. He continues to have no abdominal pain, nausea or vomiting. Bowel movements have been brown with no bright red blood or black stool. Objective - Vital Signs Vital signs: Vital Signs Temp 99.1 F 10/14/24 02:00 Pulse 76 10/14/24 02:00 Resp 16 10/14/24 02:00 BP 109/65 10/14/24 02:00 Pulse Ox 92 L 10/14/24 02:00 FiO2 35 10/14/24 04:00 Intake & Output 10/13/24 10/13/24 10/14/24 06:59 18:59 06:59 Intake Total 590 Output Total 2550 1000 Balance -2550 -410 Weight 65.317 kg Intake: Oral 590 Output: Urine 2550 1000 Other: Voiding Method Indwelling Catheter - Exam general appearance: The patient is alert, oriented, appears in no acute distress. HET: Head is normocephalic and atraumatic. Conjunctiva pink. Sclera anicteric. Neck: Supple without lymphadenopathy. Tracheostomy in place. Abdomen: Soft, nontender, nondistended. PEG tube in place. Extremities: Normal skin color and turgor. No pedal edema Skin: No rashes, no jaundice Neurological: No focal deficits. Alert and oriented. - Labs CBC & Chem 7: 10/14/24 05:10 10/14/24 05:10 Labs: Abnormal Lab Results - Last 24 Hours (Table) 10/13/24 10/13/24 10/13/24 Range/Units 07:19 07:19 10:18 WBC 11.05 H (4.50-10.00) X 10*3/uL RBC 2.57 L (4.40-5.60) X 10*6/uL Hgb 7.2 L (13.0-17.0) g/dL Hct 23.4 L (39.6-50.0) % MCHC 30.8 L (32.0-37.0) g/dL RDW 15.6 H (11.5-14.5) % Plt Count 655 H (140-440) X 10*3/uL Immature Gran # 0.16 H (0.00-0.04) X 10*3/uL Monocytes # 1.64 H (0.20-1.00) X 10*3/uL Eosinophils # 0.53 H (0.04-0.35) X 10*3/uL Basophils # 0.11 H (0.00-0.10) X 10*3/uL Sodium 134 L (135-145) mmol/L Est GFR (CKD-EPI) 59 L (>=60) Calcium 8.4 L (8.7-10.3) mg/dL ALT <5 L (10-49) U/L Total Protein 5.2 L (6.2-8.2) g/dL Albumin 2.5 L (3.8-4.9) g/dL Albumin/Globulin Ratio 0.93 L (1.60-3.17) Ratio Ur Leukocyte Esterase Moderate H (Negative) Urine WBC 17 H (0-5) /hpf Urine Yeast (Budding) Moderate H (None) /hpf Assessment and Plan (1) Anemia Narrative/Plan: 69-year-old male with recent diagnosis of laryngeal mass s/p tracheostomy and PEG tube placement With chronic atrial fibrillation on Eliquis was sent into the emergency department for anemia. No signs of GI bleed other than "stool. Patient does suffer from constipation. He denies any blood in his stool or black stool. Anemia likely multifactorial. No plans at this time for endoscopic evaluation. Patient with normochromic normocytic anemia, likely secondary to chronic disease. Iron 9 ferritin 591. Patient getting iron infusions Current Visit: Yes Status: Acute Priority: High Code(s): D64.9 - ANEMIA, UNSPECIFIED SNOMED Code(s): 204828125 (2) Positive fecal occult blood test Narrative/Plan: No other signs of GI bleed Current Visit: Yes Status: Acute Code(s): R19.5 - OTHER FECAL ABNORMALITIES SNOMED Code(s): 11409365 (3) Laryngeal mass Current Visit: Yes Status: Acute Priority: High Code(s): J38.7 - OTHER DISEASES OF LARYNX SNOMED Code(s): 698017577 (4) Hypertension Current Visit: Yes Status: Acute Code(s): I10 - ESSENTIAL (PRIMARY) HYPERTENSION SNOMED Code(s): 90571704 (5) Constipation Narrative/Plan: Patient had bowel movement today Current Visit: Yes Status: Acute Code(s): K59.00 - CONSTIPATION, UNSPECIFIED SNOMED Code(s): 85396357 Plan: 1. Continue symptomatic and supportive care 2. Diet as tolerated 3. No signs of bleeding, may resume Eliquis per PCP recommendations 4. MiraLAX daily for bowel regimen 5. Protonix 40 mg daily for GI prophylaxis 6. No plans at this time for endoscopic evaluation 7. Agree with iron infusion Thank you for this consultation, we we will sign off at this time. Dr. Tatiana Scott I agree with the dictator's note, documented as a scribe by Angely Castanon.
--- NOTE | 2024-10-14 22:36 | P.CONS ---
History of Present Illness - Reason for Consult Consult date: 10/14/24 Leukocytosis Requesting physician: Jose Correa - Chief Complaint Low hemoglobin x 1 day on admission - History of Present Illness Patient is a 69-year-old male with a past medical history significant for reflux hypertension prostate disorder atrial fibrillation, laryngeal cancer status post PEG and tracheostomy that was done at [facility] patient also have urine retention with a chronic indwelling Epps catheter that apparently has not been changed in about a month, the patient has been sent to the hospital after the patient was noticed to have low hemoglobin on the blood draw in the outpatient setting there is no clear history of any nausea vomiting or bleeding per rectum patient on presentation to the hospital was afebrile and did have few low-grade fever of 99 F, patient has not been tachycardic hypotensive or hypoxic and no need for supplemental oxygen he did have white count of 13.1 on admission which is currently down to 11.54 creatinine has been normal liver isms are normal patient did have a UA which did shows moderate leukocyte esterase 17 WBC urine culture have been requested patient has been started on Rocephin infectious disease was consulted today for further management of his elevated white count patient denies any chills or headache denies any chest pain shortness with occasional cough no abdominal pain no diarr hea Review of Systems Positive point and negatives has been mentioned in the HPI, complete review of systems was performed and all other systems are negative Past Medical History Past Medical History: Atrial Fibrillation, Cancer, GERD/Reflux, Hypertension, Prostate Disorder Additional Past Medical History / Comment(s): dehydration, low B/P, kidney problem that was fixed with fluids and sodium was low. Additional hx: BPH, DDD-cervical pain, R/L hand fingers tingling if over used, AGE 18 FX RT FEMUR IN 4 PLACES HAD PLATE/SCEWS-SINCE REMOVED, HAS OPIOD INDUCED CONSTIPATION, TINNITUS bilaterally but pt has noticed it has decreased since he quit smoking, hay fever. cardiac arrest 3 months ago, trach History of Any Multi-Drug Resistant Organisms: None Reported Past Surgical History: Heart Catheterization, Joint Replacement, Orthopedic Surgery Additional Past Surgical History / Comment(s): bilateral CATARACTS, ANT CERVICAL DISCECTOMY/FUSION C4,5,6,7 USING CADAVOR BONE. LT HYDROCELE, LT CARPAL TUNNEL, RT FEMUR SX METAL SINCE REMOVED, COLONOSCOPY, CYSTS REMOVED FROM FOREHEAD,BUTTOCKS,;T ANGLICAN. PROSTATE BX X2-BENIGN, partial R knee replacement. cardiac ablation, peg tube, trach placement. Past Anesthesia/Blood Transfusion Reactions: No Reported Reaction Past Psychological History: No Psychological Hx Reported Additional Psychological History / Comment(s): PER PTS. SON PT. 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 HAS HAD SEVERAL FALLS RECENTLY Smoking Status: Former smoker Past Alcohol Use History: Daily Additional Past Alcohol Use History / Comment(s): PER PTS. SON PT. HAS SMOKED HEAVILY AND DRANK HEAVILY FOR MANY YEARS Past Drug Use History: None Reported Additional Drug Use History / Comment(s): no alcohol in 5 weeks per patient. - Past Family History Father Family Medical History: COPD, Dementia Additional Family Medical History / Comment(s): Father at age 84yrs. Mother Family Medical History: Cancer, COPD Additional Family Medical History / Comment(s): NASAL/THROAT CANCER. Mother at age 82 Medications and Allergies Home Medications Medication Instructions Recorded Confirmed Type ALPRAZolam [Xanax] 0.25 mg PO Q8H PRN 01/08/23 10/12/24 History Acetaminophen Tab [Tylenol Tab] 500 mg PO Q4H 10/12/24 10/12/24 History Amiodarone [Cordarone] 200 mg PO BID 10/12/24 10/12/24 History Apixaban [Eliquis] 5 mg PO BID 10/12/24 10/12/24 History Calcium Carbonate 1250mg(500ca) 1,250 mg PO QID 10/12/24 10/12/24 History Doxazosin [Cardura] 4 mg PO DAILY 10/12/24 10/12/24 History Finasteride [Proscar] 5 mg PO DAILY 10/12/24 10/12/24 History Levothyroxine Sodium [Synthroid] 100 mcg PO DAILY 10/12/24 10/12/24 History Miconazole Nitrate [Lotrimin AF 1 applic TOPICAL BID 10/12/24 10/12/24 History Powder] Miconazole Nitrate [Lotrimin AF 1 applic TOPICAL DAILY PRN 10/12/24 10/12/24 History Powder] Naloxone HCl [Narcan] 4 mg NASAL ONCE PRN 10/12/24 10/12/24 History Nutren 2.0 1 dose PEG/G-TUBE BID@0500,1900 10/12/24 10/12/24 History Pantoprazole [Protonix] 40 mg PO DAILY 10/12/24 10/12/24 History QUEtiapine FUMARATE [SEROquel] 25 mg PO HS 10/12/24 10/12/24 History oxyCODONE HCL [oxyCODONE HCL (IR)] 10 mg PO Q4H PRN 10/12/24 10/12/24 History polyethylene glycoL 3350 [Miralax] 17 gm PO BID 10/12/24 10/12/24 History Allergies Allergy/AdvReac Type Severity Reaction Status Date / Time No Known Allergies Allergy Verified 10/12/24 06:28 Physical Exam Vitals: Vital Signs Temp Pulse Pulse Resp BP BP BP 10/14/24 12:10 98.1 F 70 17 101/54 10/14/24 07:54 98.2 F 72 18 98/61 10/14/24 07:52 98.2 F 72 19 98/61 10/14/24 04:00 10/14/24 02:00 99.1 F 76 16 109/65 10/13/24 22:04 73 18 98/55 10/13/24 20:06 74 18 102/58 10/13/24 18:17 78 13 115/70 10/13/24 17:15 79 15 102/58 10/13/24 16:08 78 20 110/60 10/13/24 15:05 99.0 F 80 18 102/61 10/13/24 14:20 99.2 F 84 20 91/61 Pulse Ox FiO2 10/14/24 12:10 95 10/14/24 07:54 97 10/14/24 07:52 97 10/14/24 04:00 35 10/14/24 02:00 92 L 10/13/24 22:04 96 10/13/24 20:06 95 10/13/24 18:17 95 10/13/24 17:15 95 10/13/24 16:08 98 10/13/24 15:05 95 10/13/24 14:20 94 L Intake and Output 10/13/24 10/14/24 10/14/24 22:59 06:59 14:59 Intake Total 590 180 Output Total 1100 1000 Balance -1100 -410 180 Intake: Oral 590 180 Output: Urine 1100 1000 Other: Voiding Method Indwelling Catheter Indwelling Catheter Weight 65.317 kg 65.317 kg GENERAL DESCRIPTION: Elderly male up in bed, no distress. No tachypnea or accessory muscle of respiration use. HEENT: Shows Pallor , no scleral icterus. Oral mucous membrane is dry. Mild thrush NECK: Trachea central, no thyromegaly. LUNGS: Unlabored breathing. Clear to auscultation anteriorly. No wheeze or crackle. HEART: S1, S2, regular rate and rhythm. No loud murmur ABDOMEN: Soft, no tenderness, PEG tube site is slightly crusted but there was no redness or purulent drainage EXTREMITIES: No edema of feet. SKIN: Patient did have 2 scabbed over lesion on the anterior chest wall with no redness or any drainage NEUROLOGICAL: The patient is awake, alert, mood and affect normal. Results CBC & Chem 7: 10/15/24 06:19 10/15/24 06:19 Labs: Abnormal Lab Results - Last 24 Hours (Table) 10/14/24 10/14/24 Range/Units 05:10 05:10 WBC 11.54 H (4.50-10.00) X 10*3/uL RBC 2.59 L (4.40-5.60) X 10*6/uL Hgb 7.2 L (13.0-17.0) g/dL Hct 23.1 L (39.6-50.0) % MCHC 31.2 L (32.0-37.0) g/dL RDW 15.6 H (11.5-14.5) % Plt Count 728 H (140-440) X 10*3/uL Immature Gran # 0.15 H (0.00-0.04) X 10*3/uL Monocytes # 1.93 H (0.20-1.00) X 10*3/uL Eosinophils # 0.37 H (0.04-0.35) X 10*3/uL Sodium 131 L (135-145) mmol/L Est GFR (CKD-EPI) 54 L (>=60) BUN/Creatinine Ratio 11.21 L (12.00-20.00) Ratio Calcium 8.6 L (8.7-10.3) mg/dL AST 12 L (14-35) U/L ALT 6 L (10-49) U/L Total Protein 5.6 L (6.2-8.2) g/dL Albumin 2.6 L (3.8-4.9) g/dL Albumin/Globulin Ratio 0.87 L (1.60-3.17) Ratio Assessment and Plan (1) Catheter-associated urinary tract infection Current Visit: Yes Status: Acute Code(s): T83.511A - I/I REACT D/T INDWELLING URETHRAL CATHETER, INIT; N39.0 - URINARY TRACT INFECTION, SITE NOT SPECIFIED SNOMED Code(s): 135076573 (2) Leukocytosis Current Visit: No Status: Acute Code(s): D72.829 - ELEVATED WHITE BLOOD CELL COUNT, UNSPECIFIED SNOMED Code(s): 328872863 Plan: 1patient with a leukocytosis which is likely multifactorial in this patient presenting to the hospital with a low hemoglobin questionably reactive versus related to catheter assisted UTI as the patient did have a chronic draining Fol ey catheter that has been there for more than a month. 2patient did have 2 scabbed over lesion to the anterior chest wall and some crusting around the PEG tube site but no evidence of any cellulitis clinically doubt source of his elevated white count 3-nursing staff is advised to change his Epps catheter and obtain urine culture from the new Epps 4-for now continue with Rocephin while waiting for the culture to finalize We will follow on clinical condition and cultures to further adjust medication if needed Thank you for this consultation we will follow the patient along with you Dictation was produced using [employer] dictation software. please excuse any grammatical, word or spelling errors. Time with Patient: Greater than 30
--- NOTE | 2024-10-15 09:25 | P.PN ---
Subjective Progress Note Date: 10/15/24 HISTORY OF PRESENT ILLNESS: This is a 69-year-old male with a past medical history significant for laryngeal mass with trach and PEG performed at [facility], atrial fibrillation, and nicotine dependence. Patient does not follow with a silk snapper. We have been asked to see the patient in consultation for chest pain. Patient examined at the bedside. Patient is admitted to the hospital secondary to GI bleed and is being followed by Dr. Scott. Consult was placed this morning by Dr. Correa at 930 for chest discomfort. Patient was evaluated at the bedside and states he has not been having any chest discomfort. Spoke with patient's nurse who also states that the patient has not reported any chest pain or pressure to her. There is no EKG completed today when the patient was supposedly having chest discomfort. DIAGNOSTICS: - EKG on admission revealed sinus mechanism with no signs of acute ischemia. There is no EKG from today when patient was supposedly having chest discomfort - Laboratory data: WBC 11.54. Hemoglobin 7.2. Platelet count 728. Sodium 131. Potassium 4.6. BUN 15. Creatinine 1.4. - Current home cardiac medications include amiodarone 200 mg twice a day, Eliquis 5 mg twice a day Progress note October 15 Patient has difficulty communicating because of tracheostomy tube. He cannot communicate if he has any chest pains or not. It is unclear if he really had chest pain. This could be symptoms of his acute anemia. ECG shows sinus rhythm, Q waves inferior leads suggestive of old LA in inferior wall, normal QTc of 448 ms. He does have prior history of paroxysmal atrial fibrillation. He is off anticoagulation. His echo is still awaited. PHYSICAL EXAM: VITAL SIGNS: Reviewed. GENERAL: Well-developed in no acute distress. HEENT: Head is normocephalic. Pupils are equal, round. Sclerae anicteric. Mucous membranes of the mouth are moist. Neck supple. No JVD or thyromegaly. Tracheostomy noted. LUNGS: Respirations even and unlabored. Lungs essentially clear to auscultation bilaterally. HEART: Regular rate and rhythm. S1 and S2 heard. ABDOMEN: Soft. Nondistended. Nontender. EXTREMITIES: Normal range of motion. No clubbing or cyanosis. Peripheral p ulses intact. No lower extremity edema NEUROLOGIC: Awake and alert. Oriented x 3. ASSESSMENT: Symptomatic anemia Anemia, no signs of acute GI bleeding per GI documentation, Eliquis on hold Paroxysmal atrial fibrillation, maintaining sinus mechanism Chest pain, ruled out, patient denies having any chest pain History of laryngeal mass with recent trach and PEG placement performed at [facility] Nicotine dependence PLAN: It is noted that he is on amiodarone 200 mg twice daily. Will reduce the dose to 200 mg daily Difficulty in communication because of tracheostomy tube in place. Patient is atypical chest pain most likely related to his symptomatic anemia. Patient was evaluated at the bedside and states he has not been having any chest discomfort. Spoke with patient's nurse who also states that the patient has not reported any chest pain or pressure to her. Obtain 2D echo to assess cardiac structure and function Continue to hold Eliquis due to anemia. GI following. Consider outpatient Watchman device if patient is unable to tolerate anticoagulation Objective - Vital Signs Vital signs: Vital Signs Temp 98.5 F 10/15/24 07:48 Pulse 81 10/15/24 07:48 Resp 17 10/15/24 07:48 BP 117/62 10/15/24 07:48 Pulse Ox 96 10/15/24 07:48 FiO2 21 10/14/24 20:40 Intake & Output 10/14/24 10/15/24 10/15/24 18:59 06:59 18:59 Intake Total 416 1690 Output Total 50 1300 Balance 366 390 Weight 65.317 kg Intake: Intake, IV Titration 1100 Amount Sodium Chloride 0.9% 1, 1100 000 ml @ 100 mls/hr IV . Q10H [facility] Rx#:[id number] Oral 416 590 Output: Urine 50 1300 Other: Voiding Method Indwelling Catheter Indwelling Catheter - Labs CBC & Chem 7: 10/14/24 05:10 10/14/24 05:10 Labs: Abnormal Lab Results - Last 24 Hours (Table) 10/14/24 Range/Units 05:10 Sodium 131 L (135-145) mmol/L Est GFR (CKD-EPI) 54 L (>=60) BUN/Creatinine Ratio 11.21 L (12.00-20.00) Ratio Calcium 8.6 L (8.7-10.3) mg/dL AST 12 L (14-35) U/L ALT 6 L (10-49) U/L Total Protein 5.6 L (6.2-8.2) g/dL Albumin 2.6 L (3.8-4.9) g/dL Albumin/Globulin Ratio 0.87 L (1.60-3.17) Ratio Microbiology - Last 24 Hours (Table) 10/13/24 10:18 Urine Culture - Preliminary Urine,Catheterized
--- NOTE | 2024-10-15 09:57 | P.PN ---
Subjective Progress Note Date: 10/15/24 Hector Frank, is a 69-year-old male who presented to [facility] emergency room with a chief complaint of of anemia according to records patient has been at [facility] and was sent to ER for further evaluation due to hemoglobin of 7. Patient has recent tracheostomy difficult to communicate most history obtained from medical records. Patient was recently at [facility] in which she received tracheostomy and PEG tube for laryngeal mass attempting to obtain records. He was evaluated in the emergency room vital examination on presentation revealed temp 98.8, heart rate 77, respiratory rate 18, blood pressure 101/70 with a pulse ox of 98% on room air Laboratory data reveals white blood cell 13.1, hemoglobin 7.0, sodium 129, creatinine 1.2, bun 27. Stool for occult blood positive Testing in the emergency room revealed EKG showing sinus rhythm Patient was admitted to medical floor for further evaluation and treatment. Will consult GI and oncology services Past medical history is significant for laryngeal mass in which according to records patient presented to ER on August 30 due to difficulty in breathing patient was transferred to [facility] for ENT evaluation. Patient underwent tracheostomy and PEG tube placement since that transfer. Will attempt to take obtain medical records for further understanding of any surgery or treatment he is received. Additional medical history includes atrial fibrillation in which she is maintained on Eliquis this is currently on hold due to anemia, hypertension, prostate disorder, chronic pain, nicotine dependence, constip ation. On review of systems patient is alert and oriented x 3. Difficulty communicating secondary to tracheostomy. Patient reports of chronic pain. Patient denies chest pain patient denies nausea vomiting or diarrhea. Patient denies any urinary burning or frequency On 10/13/2024 patient was seen and examined on the medical floor he is alert and oriented x 3 in no apparent distress, patient has low-grade fever of 99.2, no chills no headache or dizziness no chest pain no shortness of breath no cough no nausea or vomiting no abdominal pain no diarrhea no blood in the stools, he has frequency with urination and urgency with urination. Urine analysis reveals evidence of urinary tract infection, patient was started on IV iron supplements, and IV ceftriaxone, awaiting input from oncology. On 10/14/2024 patient is alert and oriented x 3. Hemoglobin today 7.2 this is the same as yesterday. White blood cell 11.54. Current vital signs temp 98.2, heart rate 72, respiratory rate 18, blood pressure 98/61 with a pulse ox of 97% on room air patient has been started on IV iron maintained on IV Rocephin for UTI. Per oncology services attempting to obtain records from [facility] in regards to treatment for laryngeal mass. GI and oncology services following On 10/15/2024 patient is alert and oriented x 3. Lab work currently pending for today patient remains on IV Rocephin for UTI awaiting further oncology input. 2D echo has been ordered per cardiology. Current vital signs temp 98.5, heart rate 81, respiratory rate 17, blood pressure 117/62 with a pulse ox of 96% on room air patient denies chest pain or shortness of breath. Patient denies nausea vomiting or diarrhea. Patient denies any urinary burning or frequency Objective - Vital Signs Vital signs: Vital Signs Temp 98.5 F 10/15/24 07:48 Pulse 81 10/15/24 07:48 Resp 17 10/15/24 07:48 BP 117/62 10/15/24 07:48 Pulse Ox 96 10/15/24 07:48 FiO2 21 10/14/24 20:40 Intake & Output 10/14/24 10/15/24 10/15/24 18:59 06:59 18:59 Intake Total 416 1690 Output Total 50 1300 Balance 366 390 Weight 65.317 kg Intake: Intake, IV Titration 1100 Amount Sodium Chloride 0.9% 1, 1100 000 ml @ 100 mls/hr IV . Q10H [facility] Rx#:[id number] Oral 416 590 Output: Urine 50 1300 Other: Voiding Method Indwelling Catheter Indwelling Catheter - Exam In general patient is alert and oriented x 3 in no distress HEENT head normocephalic and atraumatic Neck is supple no JVD no goiter no lymphadenopathy no carotid bruit. Patient h as tracheostomy in place Chest examination is clear to auscultation no crackles no wheezing Cardiac exam reveals regular heart sounds S1 and S2 no gallops no murmurs Abdomen is soft nontender no organomegaly with normal bowel sounds Extremity exam reveals no edema no cyanosis or clubbing Neurological examination reveals no gross focal deficits - Labs CBC & Chem 7: 10/14/24 05:10 10/14/24 05:10 Labs: Abnormal Lab Results - Last 24 Hours (Table) 10/14/24 Range/Units 05:10 Sodium 131 L (135-145) mmol/L Est GFR (CKD-EPI) 54 L (>=60) BUN/Creatinine Ratio 11.21 L (12.00-20.00) Ratio Calcium 8.6 L (8.7-10.3) mg/dL AST 12 L (14-35) U/L ALT 6 L (10-49) U/L Total Protein 5.6 L (6.2-8.2) g/dL Albumin 2.6 L (3.8-4.9) g/dL Albumin/Globulin Ratio 0.87 L (1.60-3.17) Ratio Microbiology - Last 24 Hours (Table) 10/13/24 10:18 Urine Culture - Preliminary Urine,Catheterized Assessment and Plan Assessment: 1. Anemia with positive stool for occult blood patient's Eliquis currently on hold 2. History of recent diagnosis of laryngeal mass status post tracheostomy and PEG tube placement at [facility] 3. History of paroxysmal atrial fibrillation maintained on Eliquis currently on hold 4. History of nicotine dependence 5. History of degenerative disc disease 6. History of BPH 7. History of cardiac arrhythmia with history of ablation 8. Hyponatremia sodium low at 129. Will initiate gentle hydration 9. Urinary tract infection patient started on Rocephin DVT prophylaxis SCDs secondary to GI bleed. GI prophylax Protonix GI and oncology services consulted Continue normal saline at 100 Repeat labs ordered for a.m. Home meds resumed
[2024-10-15 10:50] LABS: Basophils # (A) 0.08 X 10*3/uL (0.00-0.10); Basophils % (A) 0.7 %; Eosinophils # (A) 0.41 X 10*3/uL (0.04-0.35); Eosinophils % (A) 3.7 %; HCT 22.8 % (39.6-50.0); Lymphocytes % (A) 18.2 %; MCH 28.3 pg (27.0-32.0); MCHC 30.7 g/dL (32.0-37.0); MCV 92.3 FL (80.0-97.0); Mean Platelet Volume 10.2 FL (9.5-12.2); Monocytes # (A) 1.87 X 10*3/uL (0.20-1.00); NRBC Per 100 WBC 0 X 10*3/uL (0.00-0.01); Neutrophils # (A) 6.44 X 10*3/uL (1.80-7.70); Neutrophils % (A) 58.9 %; Platelet Count 706 X 10*3/uL (140-440); RBC 2.47 X 10*6/uL (4.40-5.60); RDW 15.7 % (11.5-14.5); WBC 10.97 X 10*3/uL (4.50-10.00)
[2024-10-15 11:08] LABS: ALT 7 U/L (10-49); AST 15 U/L (14-35); Albumin 2.6 g/dL (3.8-4.9); Albumin/Globulin Ratio 0.96 Ratio (1.60-3.17); Alkaline Phosphatase 97 U/L (41-126); BUN/Creat Ratio 12.15 Ratio (12.00-20.00); Blood Urea Nitrogen 15.8 mg/dL (9.0-27.0); Calcium 8.5 mg/dL (8.7-10.3); Carbon Dioxide 21.4 mmol/L (21.6-31.8); Chloride 99 mmol/L (96-109); Globulin 2.7 g/dL (1.6-3.3); Glucose 90 mg/dL (70-110); Potassium 4.9 mmol/L (3.5-5.5); Sodium 132 mmol/L (135-145); Total Bilirubin <0.2 mg/dL (0.3-1.2); Total Protein 5.3 g/dL (6.2-8.2)
--- NOTE | 2024-10-15 13:30 | P.PN ---
Subjective Progress Note Date: 10/15/24 Principal diagnosis: Reason for follow-up is leukocytosis possible catheter associated UTI Patient is a 69-year-old male with a past medical history significant for reflux hypertension prostate disorder atrial fibrillation, laryngeal cancer status post PEG and tracheostomy that was done at [facility] patient also have urine retention with a chronic indwelling Epps catheter present to the hospital with low hemoglobin also noticed to have elevated white count prompted this consultation. On today's evaluation that is 10/15/2024,the patient remains to be afebrile, patient is on room air not requiring supplemental oxygen and denies any shortness of breath no chest pain or cough.Patient denies having any nausea or vomiting, no abdominal pain and no diarrhea has been reported. Patient white count is down to 10.97, creatinine is 1.3 UTI culture currently pending Objective - Vital Signs Vital signs: Vital Signs Temp 98.5 F 10/15/24 07:48 Pulse 81 10/15/24 07:48 Resp 17 10/15/24 07:48 BP 117/62 10/15/24 07:48 Pulse Ox 96 10/15/24 07:48 FiO2 21 10/14/24 20:40 Intake & Output 10/14/24 10/15/24 10/15/24 18:59 06:59 18:59 Intake Total 416 1690 Output Total 50 1300 Balance 366 390 Weight 65.317 kg Intake: Intake, IV Titration 1100 Amount Sodium Chloride 0.9% 1, 1100 000 ml @ 100 mls/hr IV . Q10H [facility] Rx#:[id number] Oral 416 590 Output: Urine 50 1300 Other: Voiding Method Indwelling Catheter Indwelling Catheter Indwelling Catheter - Exam GENERAL DESCRIPTION: An elderly male lying in bed in no distress RESPIRATORY SYSTEM: Unlabored breathing , decreased breath sounds at bases HEART: S1 S2 regular rate and rhythm , ABDOMEN: Soft , no tenderness EXTREMITIES: No edema feet - Labs CBC & Chem 7: 10/15/24 06:19 10/15/24 06:19 Labs: Abnormal Lab Results - Last 24 Hours (Table) 10/15/24 10/15/24 Range/Units 06:19 06:19 WBC 10.97 H (4.50-10.00) X 10*3/uL RBC 2.47 L (4.40-5.60) X 10*6/uL Hgb 7.0 L (13.0-17.0) g/dL Hct 22.8 L (39.6-50.0) % MCHC 30.7 L (32.0-37.0) g/dL RDW 15.7 H (11.5-14.5) % Plt Count 706 H (140-440) X 10*3/uL Immature Gran # 0.17 H (0.00-0.04) X 10*3/uL Monocytes # 1.87 H (0.20-1.00) X 10*3/uL Eosinophils # 0.41 H (0.04-0.35) X 10*3/uL Sodium 132 L (135-145) mmol/L Carbon Dioxide 21.4 L (21.6-31.8) mmol/L Est GFR (CKD-EPI) 59 L (>=60) Calcium 8.5 L (8.7-10.3) mg/dL Total Bilirubin <0.2 L (0.3-1.2) mg/dL ALT 7 L (10-49) U/L Total Protein 5.3 L (6.2-8.2) g/dL Albumin 2.6 L (3.8-4.9) g/dL Albumin/Globulin Ratio 0.96 L (1.60-3.17) Ratio Microbiology - Last 24 Hours (Table) 10/13/24 10:18 Urine Culture - Preliminary Urine,Catheterized Assessment and Plan (1) Catheter-associated urinary tract infection Current Visit: Yes Status: Acute Code(s): T83.511A - I/I REACT D/T INDWELLING URETHRAL CATHETER, INIT; N39.0 - URINARY TRACT INFECTION, SITE NOT SPECIFIED SNOMED Code(s): 289057388 (2) Leukocytosis Current Visit: No Status: Acute Code(s): D72.829 - ELEVATED WHITE BLOOD CELL COUNT, UNSPECIFIED SNOMED Code(s): 299729459 Plan: 1patient with a leukocytosis which is likely multifactorial in this patient presenting to the hospital with a low hemoglobin questionably reactive versus related to catheter assisted UTI as the patient did have a chronic draining Epps catheter that has been there for more than a month. 2patient did have 2 scabbed over lesion to the anterior chest wall and some crusting around the PEG tube site but no evidence of any cellulitis clinically doubt source of his elevated white count 3- the patient Epps catheter has been changed urine cultures currently pending white count is trending down continue with Rocephin while waiting for the culture to finalize Dictation was produced using [email or web address] software. please excuse any grammatical, word or spelling errors.
[2024-10-15] MEDS: HYDROmorphone 0.5 MG/0.5 ML SYRINGE IVP PRN (19:55)
[2024-10-15] MEDS: MENTHOL-CAMPHOR LOTION 222 APPLIC/222 ML BOTTLE TOPICAL SCH (20:37)
[2024-10-16] MEDS: AMIODARONE 200 MG TAB PO SCH (09:27)
[2024-10-16 10:01] LABS: Basophils # (A) 0.07 X 10*3/uL (0.00-0.10); Basophils % (A) 0.7 %; Eosinophils # (A) 0.46 X 10*3/uL (0.04-0.35); Eosinophils % (A) 4.4 %; HCT 20.8 % (39.6-50.0); HGB 6.6 g/dL (13.0-17.0); MCH 28.8 pg (27.0-32.0); MCHC 31.7 g/dL (32.0-37.0); MCV 90.8 FL (80.0-97.0); Mean Platelet Volume 9.9 FL (9.5-12.2); NRBC Per 100 WBC 0 X 10*3/uL (0.00-0.01); Neutrophils # (A) 6.05 X 10*3/uL (1.80-7.70); Neutrophils % (A) 57.2 %; Platelet Count 673 X 10*3/uL (140-440); RBC 2.29 X 10*6/uL (4.40-5.60); RDW 15.6 % (11.5-14.5); WBC 10.56 X 10*3/uL (4.50-10.00)
[2024-10-16 10:32] LABS: ALT 5 U/L (10-49); AST 12 U/L (14-35); Albumin 2.4 g/dL (3.8-4.9); Albumin/Globulin Ratio 0.92 Ratio (1.60-3.17); Alkaline Phosphatase 89 U/L (41-126); BUN/Creat Ratio 11.67 Ratio (12.00-20.00); Calcium 8.5 mg/dL (8.7-10.3); Chloride 99 mmol/L (96-109); Globulin 2.6 g/dL (1.6-3.3); Glucose 88 mg/dL (70-110); Potassium 4.6 mmol/L (3.5-5.5); Sodium 132 mmol/L (135-145); Total Bilirubin <0.2 mg/dL (0.3-1.2)
--- NOTE | 2024-10-16 13:31 | P.PN ---
Subjective Progress Note Date: 10/16/24 Principal diagnosis: Squamous cell carcinoma of the larynx -Afebrile, no acute events overnight -Notes swelling in the right hand compared to the left along with irritation from IV in the left hand -He denies any melena, bright red blood per rectum, or blood loss from the tracheostomy site Objective - Vital Signs Vital signs: Vital Signs Temp 98.6 F 10/16/24 07:47 Pulse 80 10/16/24 08:00 Resp 17 10/16/24 08:00 BP 96/55 10/16/24 07:47 Pulse Ox 92 L 10/16/24 07:47 FiO2 21 10/14/24 20:40 Intake & Output 10/15/24 10/16/24 10/16/24 18:59 06:59 18:59 Intake Total 1150 1100 Output Total 1100 1200 Balance 50 -100 Intake: Intake, IV Titration 1150 1100 Amount Sodium Chloride 0.9% 1, 1000 1100 000 ml @ 100 mls/hr IV . Q10H [facility] Rx#:[id number] Sodium Ferric Gluconat- 100 Sucrose 125 mg In Sodium Chloride 0.9% 100 ml @ 100 mls/hr IVPB DAILY [facility] Rx#:[id number] cefTRIAXone 1 gm In 50 Sodium Chloride 0.9% 50 ml @ 100 mls/hr IVPB Q24HR [facility] Rx#:[id number] Output: Urine 1100 1200 Other: Voiding Method Indwelling Catheter Indwelling Catheter Indwelling Catheter - Constitutional General appearance: Present: cooperative, no acute distress - EENT EENT Comment(s): Tracheostomy site clean/dry/intact with no erythema, phlebitis, or bleeding Eyes: Present: EOMI - Respiratory Details: Nonlabored breathing - Cardiovascular Details: Warm and well-perfused - Gastrointestinal General gastrointestinal: Present: soft. Absent: distended, tenderness - Integumentary Integumentary: Present: pale. Absent: rash - Neurologic Neurologic: Present: CNII-XII intact. Absent: focal deficits - Musculoskeletal Musculoskeletal Comment(s): Mild edema noted in the right hand compared to the left - Labs CBC & Chem 7: 10/16/24 05:48 10/16/24 05:48 Labs: Abnormal Lab Results - Last 24 Hours (Table) 10/16/24 10/16/24 Range/Units 05:48 05:48 WBC 10.56 H (4.50-10.00) X 10*3/uL RBC 2.29 L (4.40-5.60) X 10*6/uL Hgb 6.6 A* (13.0-17.0) g/dL Hct 20.8 L (39.6-50.0) % MCHC 31.7 L (32.0-37.0) g/dL RDW 15.6 H (11.5-14.5) % Plt Count 673 H (140-440) X 10*3/uL Immature Gran # 0.18 H (0.00-0.04) X 10*3/uL Monocytes # 1.90 H (0.20-1.00) X 10*3/uL Eosinophils # 0.46 H (0.04-0.35) X 10*3/uL Sodium 132 L (135-145) mmol/L BUN/Creatinine Ratio 11.67 L (12.00-20.00) Ratio Calcium 8.5 L (8.7-10.3) mg/dL Total Bilirubin <0.2 L (0.3-1.2) mg/dL AST 12 L (14-35) U/L ALT 5 L (10-49) U/L Total Protein 5.0 L (6.2-8.2) g/dL Albumin 2.4 L (3.8-4.9) g/dL Albumin/Globulin Ratio 0.92 L (1.60-3.17) Ratio Microbiology - Last 24 Hours (Table) 10/13/24 10:18 Urine Culture - Final Urine,Catheterized Josefina tropicalis Assessment and Plan (1) Squamous cell carcinoma of larynx Current Visit: Yes Status: Acute Code(s): C32.9 - MALIGNANT NEOPLASM OF LARYNX, UNSPECIFIED SNOMED Code(s): 049583657 (2) Iron deficiency anemia Current Visit: Yes Status: Acute Code(s): D50.9 - IRON DEFICIENCY ANEMIA, UNSPECIFIED SNOMED Code(s): 89074686 Plan: Iron deficiency anemia -Baseline Hgb 9-10 range -Pt did not have an appropriate response to 1 unit of blood (7 to 7.2). Occult positive, concern for acute bleeding -Eliquis has been held -Iron studies consistent with inflammation but, in the setting of suspected acute blood loss, IV iron ordered -Per GI, there is no plan for endoscopic interventions -Received 4 bags of IV iron from 10/13/2024 through 10/16/2024 Head/Neck malignancy Squamous cell carcinoma of the larynx -Reviewed medical records received from [facility] -Was noted to have endolaryngeal subglottic exophytic mass extending from the left true vocal cord and crossing the midline contralaterally with near obstruction of the airway and extended 2.5 cm subglottically -Biopsy of the lesion noted invasive squamous cell carcinoma that was focally keratinizing and well to poorly differentiated with high Ki-67 of 90% and negative p16 -Per extensive discussion with Mr. Frank, he notes having had tracheostomy performed at [facility] in addition to having CT imaging performed previously -He had been at [facility] following this for ROBBIN -I will discuss his case with Dr. Mann to obtain additional information with regards to imaging that has been performed and whether this needs to be repeated to obtain formal staging -Per my discussion with Mr. Frank, he is frustrated as he does not know the plan with regards to his oncology care -I provided reassurance that I would try to get as much information as I possibly could with regards to the workup performed today so that a definitive plan could be formed Ena Lopez MD Time with Patient: Greater than 30
--- NOTE | 2024-10-16 15:48 | P.PN ---
Subjective Progress Note Date: 10/16/24 Hector Frank, is a 69-year-old male who presented to [facility] emergency room with a chief complaint of of anemia according to records patient has been at [facility] and was sent to ER for further evaluation due to hemoglobin of 7. Patient has recent tracheostomy difficult to communicate most history obtained from medical records. Patient was recently at [facility] in which she received tracheostomy and PEG tube for laryngeal mass attempting to obtain records. He was evaluated in the emergency room vital examination on presentation revealed temp 98.8, heart rate 77, respiratory rate 18, blood pressure 101/70 with a pulse ox of 98% on room air Laboratory data reveals white blood cell 13.1, hemoglobin 7.0, sodium 129, creatinine 1.2, bun 27. Stool for occult blood positive Testing in the emergency room revealed EKG showing sinus rhythm Patient was admitted to medical floor for further evaluation and treatment. Will consult GI and oncology services Past medical history is significant for laryngeal mass in which according to records patient presented to ER on August 30 due to difficulty in breathing patient was transferred to [facility] for ENT evaluation. Patient underwent tracheostomy and PEG tube placement since that transfer. Will attempt to take obtain medical records for further understanding of any surgery or treatment he is received. Additional medical history includes atrial fibrillation in which she is maintained on Eliquis this is currently on hold due to anemia, hypertension, prostate disorder, chronic pain, nicotine dependence, constip ation. On review of systems patient is alert and oriented x 3. Difficulty communicating secondary to tracheostomy. Patient reports of chronic pain. Patient denies chest pain patient denies nausea vomiting or diarrhea. Patient denies any urinary burning or frequency On 10/13/2024 patient was seen and examined on the medical floor he is alert and oriented x 3 in no apparent distress, patient has low-grade fever of 99.2, no chills no headache or dizziness no chest pain no shortness of breath no cough no nausea or vomiting no abdominal pain no diarrhea no blood in the stools, he has frequency with urination and urgency with urination. Urine analysis reveals evidence of urinary tract infection, patient was started on IV iron supplements, and IV ceftriaxone, awaiting input from oncology. On 10/14/2024 patient is alert and oriented x 3. Hemoglobin today 7.2 this is the same as yesterday. White blood cell 11.54. Current vital signs temp 98.2, heart rate 72, respiratory rate 18, blood pressure 98/61 with a pulse ox of 97% on room air patient has been started on IV iron maintained on IV Rocephin for UTI. Per oncology services attempting to obtain records from [facility] in regards to treatment for laryngeal mass. GI and oncology services following On 10/15/2024 patient is alert and oriented x 3. Lab work currently pending for today patient remains on IV Rocephin for UTI awaiting further oncology input. 2D echo has been ordered per cardiology. Current vital signs temp 98.5, heart rate 81, respiratory rate 17, blood pressure 117/62 with a pulse ox of 96% on room air patient denies chest pain or shortness of breath. Patient denies nausea vomiting or diarrhea. Patient denies any urinary burning or frequency On 10/16/2024 patient was seen and examined on the medical floor he is alert and oriented in no apparent distress there is no fever or chills no headache or dizziness no chest pain no shortness of breath no cough no nausea or vomiting no abdominal pain no diarrhea and no urinary symptoms. Hemoglobin today is down to 6.6, unit of red blood cell transfusion was ordered, oncology are following. Objective - Vital Signs Vital signs: Vital Signs Temp 98.6 F 10/16/24 07:47 Pulse 80 10/16/24 07:47 Resp 17 10/16/24 07:47 BP 96/55 10/16/24 07:47 Pulse Ox 92 L 10/16/24 07:47 FiO2 21 10/14/24 20:40 Intake & Output 10/15/24 10/16/24 10/16/24 18:59 06:59 18:59 Intake Total 1150 1100 Output Total 1100 1200 Balance 50 -100 Intake: Intake, IV Titration 1150 1100 Amount Sodium Chloride 0.9% 1, 1000 1100 000 ml @ 100 mls/hr IV . Q10H [facility] Rx#:[id number] Sodium Ferric Gluconat- 100 Sucrose 125 mg In Sodium Chloride 0.9% 100 ml @ 100 mls/hr IVPB DAILY [facility] Rx#:[id number] cefTRIAXone 1 gm In 50 Sodium Chloride 0.9% 50 ml @ 100 mls/hr IVPB Q24HR [facility] Rx#:[id number] Output: Urine 1100 1200 Other: Voiding Method Indwelling Catheter Indwelling Catheter - Exam In general patient is alert and oriented x 3 in no distress HEENT head normocephalic and atraumatic Neck is supple no JVD no goiter no lymphadenopathy no carotid bruit. Patient has tracheostomy in place Chest examination is clear to auscultation no crackles no wheezing Cardiac exam reveals regular heart sounds S1 and S2 no gallops no murmurs Abdomen is soft nontender no organomegaly with normal bowel sounds Extremity exam reveals no edema no cyanosis or clubbing Neurological examination reveals no gross focal deficits - Labs CBC & Chem 7: 10/16/24 05:48 10/16/24 05:48 Labs: Abnormal Lab Results - Last 24 Hours (Table) 10/16/24 10/16/24 Range/Units 05:48 05:48 WBC 10.56 H (4.50-10.00) X 10*3/uL RBC 2.29 L (4.40-5.60) X 10*6/uL Hgb 6.6 A* (13.0-17.0) g/dL Hct 20.8 L (39.6-50.0) % MCHC 31.7 L (32.0-37.0) g/dL RDW 15.6 H (11.5-14.5) % Plt Count 673 H (140-440) X 10*3/uL Immature Gran # 0.18 H (0.00-0.04) X 10*3/uL Monocytes # 1.90 H (0.20-1.00) X 10*3/uL Eosinophils # 0.46 H (0.04-0.35) X 10*3/uL Sodium 132 L (135-145) mmol/L BUN/Creatinine Ratio 11.67 L (12.00-20.00) Ratio Calcium 8.5 L (8.7-10.3) mg/dL Total Bilirubin <0.2 L (0.3-1.2) mg/dL AST 12 L (14-35) U/L ALT 5 L (10-49) U/L Total Protein 5.0 L (6.2-8.2) g/dL Albumin 2.4 L (3.8-4.9) g/dL Albumin/Globulin Ratio 0.92 L (1.60-3.17) Ratio Microbiology - Last 24 Hours (Table) 10/13/24 10:18 Urine Culture - Final Urine,Catheterized Josefina tropicalis Assessment and Plan Assessment: 1. Anemia with positive stool for occult blood patient's Eliquis currently on hold 2. History of recent diagnosis of laryngeal mass status post tracheostomy and PEG tube placement at [facility] 3. History of paroxysmal atrial fibrillation maintained on Eliquis currently on hold 4. History of nicotine dependence 5. History of degenerative disc disease 6. History of BPH 7. History of cardiac arrhythmia with history of ablation 8. Hyponatremia sodium low at 129. Will initiate gentle hydration 9. Urinary tract infection patient started on Rocephin DVT prophylaxis SCDs secondary to GI bleed. GI prophylax Protonix GI and oncology services consulted Continue normal saline at 100 Repeat labs ordered for a.m. Home meds resumed
--- NOTE | 2024-10-16 18:03 | CA ---
Transthoracic Echo Report Name: Hector Frank Age: 69 Gender: M : 1955 Exam Date: 10/15/2024 09:10 Exam Location: [facility] Ht (in): 69 Wt (lb): 144 Ordering Physician: Karie Ballard Attending/Referring Phys: [id number], Nellie [employer]ch[employer] Lead Nidia Burton RDCS Procedure CPT: Indications: LV function, CP Cardiac Hx: Technical Quality: Technically difficult study Contrast 1: Definity Total Dose (mL): 2 Contrast 2: Total Dose (mL): MEASUREMENTS (Male / Female) Normal Values 2D ECHO LV Diastolic Diameter PLAX 3.4 cm 4.2 - 5.9 / 3.9 - 5.3 cm LV Systolic Diameter PLAX 2.7 cm IVS Diastolic Thickness 1.5 cm 0.6 - 1.0 / 0.6 - 0.9 cm LVPW Diastolic Thickness 1.5 cm 0.6 - 1.0 / 0.6 - 0.9 cm LV Relative Wall Thickness 0.8 RV Internal Dim ED PLAX 3.7 cm LVOT Diameter 1.9 cm LA Volume 54.2 cm??? 18 - 58 / 22 - 52 cm??? LA Volume Index 30.4 cm???/m??? 16 - 28 cm???/m??? DOPPLER AV Peak Velocity 118.2 cm/s AV Peak Gradient 5.6 mmHg AV Mean Velocity 91.4 cm/s AV Mean Gradient 3.6 mmHg AV Velocity Time Integral 22.6 cm LVOT Peak Velocity 91.6 cm/s LVOT Peak Gradient 3.4 mmHg LVOT Velocity Time Integral 17.8 cm LVOT Stroke Volume 52.1 cm??? LVOT Stroke Volume Index 29.0 ml/m??? LVOT Cardiac Index 2105.3 cm???/min???m??? AV Area Cont Eq vti 2.3 cm??? AV Area Cont Eq pk 2.3 cm??? MV Area PHT 2.7 cm??? Mitral E Point Velocity 52.6 cm/s Mitral A Point Velocity 49.1 cm/s Mitral E to A Ratio 1.1 MV Deceleration Time 276.4 ms MV E' Velocity 7.5 cm/s Mitral E to MV E' Ratio 7.0 TR Peak Velocity 242.8 cm/s TR Peak Gradient 23.6 mmHg FINDINGS Left Ventricle Moderately increased left ventricular wall thickness. Left ventricular cavity size normal. No obvious regional wall motion abnormalities. Left ventricular ejection fraction is estimated at 50 %. Grade 1 diastolic dysfunction. Right Ventricle Right ventricular dilatation. Normal TAPSE and S'right ventricular systolic pressure within normal limits. Right Atrium Right atrium not well visualized. Left Atrium Mildly increased left atrial volume. Mitral Valve Structurally normal mitral valve. No mitral stenosis. Mild mitral annular calcification. Mild mitral regurgitation. Aortic Valve No aortic valve stenosis or regurgitation. Tricuspid Valve Mild tricuspid regurgitation. Pulmonic Valve Structurally normal pulmonic valve. Trace pulmonic regurgitation. Pericardium No pericardial effusion. Aorta Normal size aortic root and proximal ascending aorta. CONCLUSIONS Technically difficult study. Left ventricular ejection fraction is estimated at 50 %. No obvious regional wall motion abnormalities. Mild mitral regurgitation. Mild tricuspid regurgitation. Previewed by: Dr Olvin Edwards (Electronically Signed) Final Date: 16 October 2024 18:02
--- NOTE | 2024-10-16 21:58 | P.PN ---
Subjective Progress Note Date: 10/16/24 Principal diagnosis: Reason for follow-up is leukocytosis possible catheter associated UTI This is a telehealth visit Patient is a 69-year-old male with a past medical history significant for reflux hypertension prostate disorder atrial fibrillation, laryngeal cancer status post PEG and tracheostomy that was done at [facility] patient also have urine retention with a chronic indwelling Epps catheter present to the hospital with low hemoglobin also noticed to have elevated white count prompted this consultation. On today's evaluation that is 10/16/2024, the patient continues to be afebrile, the patient is on room air and breathing comfortably, the Pt denies having any chest pain or cough, the patient did have some abdominal discomfort but no nause a vomiting or diarrhea. The patient white count is 10.56 creatinine is 1.2 culture currently pending Objective - Vital Signs Vital signs: Vital Signs Temp 98.6 F 10/16/24 07:47 Pulse 80 10/16/24 07:47 Resp 17 10/16/24 07:47 BP 96/55 10/16/24 07:47 Pulse Ox 92 L 10/16/24 07:47 FiO2 21 10/14/24 20:40 Intake & Output 10/15/24 10/16/24 10/16/24 18:59 06:59 18:59 Intake Total 1150 1100 Output Total 1100 1200 Balance 50 -100 Intake: Intake, IV Titration 1150 1100 Amount Sodium Chloride 0.9% 1, 1000 1100 000 ml @ 100 mls/hr IV . Q10H [facility] Rx#:[id number] Sodium Ferric Gluconat- 100 Sucrose 125 mg In Sodium Chloride 0.9% 100 ml @ 100 mls/hr IVPB DAILY [facility] Rx#:[id number] cefTRIAXone 1 gm In 50 Sodium Chloride 0.9% 50 ml @ 100 mls/hr IVPB Q24HR [facility] Rx#:[id number] Output: Urine 1100 1200 Other: Voiding Method Indwelling Catheter Indwelling Catheter - Exam Elderly f male lying in the bed in no distress No tachypnea or accessory muscle respiration use Unlabored breathing Patient is awake alert - Labs CBC & Chem 7: 10/16/24 05:48 10/16/24 05:48 Labs: Abnormal Lab Results - Last 24 Hours (Table) 10/15/24 10/16/24 10/16/24 Range/Units 06:19 05:48 05:48 WBC 10.56 H (4.50-10.00) X 10*3/uL RBC 2.29 L (4.40-5.60) X 10*6/uL Hgb 6.6 A* (13.0-17.0) g/dL Hct 20.8 L (39.6-50.0) % MCHC 31.7 L (32.0-37.0) g/dL RDW 15.6 H (11.5-14.5) % Plt Count 673 H (140-440) X 10*3/uL Immature Gran # 0.18 H (0.00-0.04) X 10*3/uL Monocytes # 1.90 H (0.20-1.00) X 10*3/uL Eosinophils # 0.46 H (0.04-0.35) X 10*3/uL Sodium 132 L 132 L (135-145) mmol/L Carbon Dioxide 21.4 L (21.6-31.8) mmol/L Est GFR (CKD-EPI) 59 L (>=60) BUN/Creatinine Ratio 11.67 L (12.00-20.00) Ratio Calcium 8.5 L 8.5 L (8.7-10.3) mg/dL Total Bilirubin <0.2 L <0.2 L (0.3-1.2) mg/dL AST 12 L (14-35) U/L ALT 7 L 5 L (10-49) U/L Total Protein 5.3 L 5.0 L (6.2-8.2) g/dL Albumin 2.6 L 2.4 L (3.8-4.9) g/dL Albumin/Globulin Ratio 0.96 L 0.92 L (1.60-3.17) Ratio Microbiology - Last 24 Hours (Table) 10/13/24 10:18 Urine Culture - Final Urine,Catheterized Josefina tropicalis Assessment and Plan (1) Catheter-associated urinary tract infection Current Visit: Yes Status: Acute Code(s): T83.511A - I/I REACT D/T INDWELLING URETHRAL CATHETER, INIT; N39.0 - URINARY TRACT INFECTION, SITE NOT SPECIFIED SNOMED Code(s): 467292890 (2) Leukocytosis Current Visit: No Status: Acute Code(s): D72.829 - ELEVATED WHITE BLOOD CELL COUNT, UNSPECIFIED SNOMED Code(s): 622950188 Plan: 1patient with a leukocytosis which is likely multifactorial in this patient presenting to the hospital with a low hemoglobin questionably reactive versus related to catheter assisted UTI as the patient did have a chronic draining Epps catheter that has been there for more than a month. 2patient did have 2 scabbed over lesion to the anterior chest wall and some crusting around the PEG tube site but no evidence of any cellulitis clinically doubt source of his elevated white count 3- the patient Epps catheter has been changed urine cultures currently pending and the patient white count is trending down, the patient will be continued with Rocephin while waiting for the culture to finalize Dictation was produced using Kiosked dictation software. please excuse any grammatical, word or spelling errors. Time with Patient: Less than 30
[2024-10-16 23:39] LABS: Appearance,Urine Clear (Clear); Bacteria,Urine Occasional /hpf; Bilirubin,Urine Negative (Negative); Blood,Urine Negative (Negative); Budding Yeast,Urine Many /hpf; Color,Urine Colorless; Glucose,Urine (UA) Negative (Negative); Ketones,Urine Negative (Negative); Leukocyte Esterase,Urine Large (Negative); Mucus,Urine Rare /hpf; Nitrite,Urine Negative (Negative); PH, Urine 6.5 (5.0-8.0); Protein,Urine Negative (Negative); RBC,Urine 23 /hpf (0-5); Specific Gravity,Urine 1.007 (1.001-1.035); Squamous Epithelial Cell,Urine <1 /hpf (0-4); Urobilinogen,Urine <2.0 mg/dL (<2.0); WBC,Urine 39 /hpf (0-5)
--- NOTE | 2024-10-17 08:44 | CDI ---
Documentation Clarification Form Date: 10/17/2024 07:59:38 AM From: Sachi Weaver RN CCDS Phone: [phone] Admit Date: 10/12/2024 01:26:00 AM Patient Name: Hector Frank Visit Number: [id number] Discharge Date: ATTENTION: The Clinical Documentation Specialists (CDI) and [facility] Coding Staff appreciate your assistance in clarifying documentation. Please respond to the clarification below the line at the bottom and electronically sign. The CDI & [facility] Coding staff will review the response and follow-up if needed. Please note: Queries are made part of the Legal Health Record. If you have any questions, please contact the author of this message via ITS. Doctor: Jose Correa Unspecified anemia is documented 10/12 10/16, Medicine HP and notes. Additional specificity regarding the type, acuity of anemia is requested. History/Risk Factors: 69 year old male presents to the ED with anemia sent in from [facility]. Medical history: Tracheostomy 2/2 head/neck malignancy; Atrial Fibrillation, GERD, HTN, and BPH. HP, 10/12 Clinical indicators: GI Consult, 10/14: No signs of GI bleed other than stool . Patient does suffer from constipation. He denies any blood in his stool or black stool. Anemia is likely multifactorial. No plans at this time for endoscopic evaluation. Patient with Normochromic normocytic anemia, likely secondary to chronic disease. Heme Onc note, 10/16: Iron deficiency anemia -Baseline Hgb 9-10 range -Pt did not have an appropriate response to 1 unit of blood (7 to 7.2).Occult positive, concern for acute bleeding -Eliquis has been held -Iron studies consistent with inflammation but, in the setting of suspected acute blood loss, IV iron ordered. Hemoglobin: 10/12 7.0; 10/13 7.2; 10/14 7.2; 10/15 7.0 Hematocrit: 10/12 22.1; 10/13 23.4; 10/14 23.1; 10/15 22.8 10/12 Labs: Iron: 9; TIBC 197; % Saturation 4.57; Transferrin 141.0 ; Ferritin 591.0 10/12 Stool Occult Blood positive. Treatment: Eliqus on hold, 2 units PRBC, 10/13 Ferric Sodium Gluconate IVPB Daily x 4 bags. Please clarify the type(s) and acuity of anemia: [ ] Acute blood loss anemia [ ] Iron deficiency anemia [ ] Normochromic normocytic anemia [ xxx ] Unable to determine [ ] Other, please specify (Template Last Revised: December 2020) MTDD
--- NOTE | 2024-10-17 09:12 | CDI ---
Documentation Clarification Form Date: 10/17/2024 08:45:06 AM From: Sachi Weaver RN CCDS Phone: [phone] Admit Date: 10/12/2024 01:26:00 AM Patient Name: Hector Frank Visit Number: [id number] Discharge Date: ATTENTION: The Clinical Documentation Specialists (CDI) and [facility] Coding Staff appreciate your assistance in clarifying documentation. Please respond to the clarification below the line at the bottom and electronically sign. The CDI & [facility] Coding staff will review the response and follow-up if needed. Please note: Queries are made part of the Legal Health Record. If you have any questions, please contact the author of this message via ITS. Doctor: Jose Terry Stage 2 Bilateral Buttock pressure ulcer POA is documented nursing wound assessment 10/14. Additional clarification regarding the stage of the pressure ulcer is requested. History/Risk Factors: 69 year old male presents to the ED with anemia sent in from [facility]. Medical history: Tracheostomy 2/2 head/neck malignancy; Atrial Fibrillation, GERD, HTN, and BPH. , 10/12 Clinical Indicators: Location: Bilateral Buttocks Wound description: Moisture: Dry/Scaly, [place] wound color: Ecchymosis; [place] Wound: No abnormality; Dressing dry and intact Treatment: Turning 2QH, Nystatin powder, Foam with border dressing; Checking Bed pad Q1H Please clarify the stage of pressure ulcer Bilateral Buttock Stage 2 pressure ulcer, if known: [ xxx ] Stage 2 Pressure Ulcer Bilateral Buttock POA [ ] Stage 2 Pressure Ulcer Bilateral Buttock not POA [ ] Other condition, please specify [ ] Unable to determine Clinical Definitions: Stage 1 Pressure Ulcer: intact skin, non-blanching redness of local area Stage 2 Pressure Ulcer: Partial thickness, loss of dermis, pink wound bed Stage 3 Pressure Ulcer: Full thickness tissue loss Stage 4 Pressure Ulcer: Full thickness tissue loss with exposed bone, tendon, or muscle. Unstageable pressure ulcer: Full thickness tissue loss in which the base of the ulcer is covered by slough (yellow, falcon, garrison, green or brown) and/or eschar (falcon, brown or black) in the wound bed. (Template Last Revised: January 2021) MTDD
[2024-10-17] MEDS: FLUCONAZOLE 100 MG TAB PO SCH (09:42)
--- NOTE | 2024-10-17 12:33 | P.PN ---
Subjective Progress Note Date: 10/17/24 Principal diagnosis: Anemia, GI bleeding? In follow-up today patient complains of pain on his backside from sitting, he denies bleeding. Communication is difficult as pt insists on trying to speak, his voice is barely a whisper and his mouth movements are hard to read. He will not use the stylus to write on his tablet so, his writing is challenging to read. Patient was updated on his diagnosis, prognosis and treatment plan as discussed with Dr. Mann this AM. Objective - Vital Signs Vital signs: Vital Signs Temp 98.3 F 10/17/24 07:23 Pulse 68 10/17/24 07:23 Resp 16 10/17/24 07:23 BP 107/64 10/17/24 07:23 Pulse Ox 98 10/17/24 07:57 FiO2 21 10/14/24 20:40 Intake & Output 10/16/24 10/17/24 10/17/24 18:59 06:59 18:59 Intake Total 310 Output Total 2300 475 Balance -1989 Intake: Blood Product 310 Rc As-1 Unit 310 [id number] Output: Urine 2300 475 Other: Voiding Method Indwelling Catheter Indwelling Catheter - Constitutional General appearance: Present: cooperative, mild distress, thin - EENT EENT Comment(s): trach insitu Eyes: Present: anicteric sclerae ENT: Present: hearing grossly normal - Respiratory Respiratory: bilateral: diminished - Cardiovascular Rhythm: regular Heart sounds: normal: S1, S2 Abnormal Heart Sounds: Absent: systolic murmur, diastolic murmur, rub, S3 Gallop, S4 Gallop, click, other - Peripheral edema leg Peripheral Edema: bilateral: None - Gastrointestinal Gastrointestinal Comment(s): PEG insitu General gastrointestinal: Present: soft - Musculoskeletal Musculoskeletal: Present: generalized weakness - Psychiatric Psychiatric: Present: A&O x's 3, appropriate affect, intact judgment & insight - Labs CBC & Chem 7: 10/16/24 05:48 10/16/24 05:48 Labs: Abnormal Lab Results - Last 24 Hours (Table) 10/16/24 10/16/24 10/16/24 Range/Units 05:48 05:48 12:40 WBC 10.56 H (4.50-10.00) X 10*3/uL RBC 2.29 L (4.40-5.60) X 10*6/uL Hgb 6.6 A* (13.0-17.0) g/dL Hct 20.8 L (39.6-50.0) % MCHC 31.7 L (32.0-37.0) g/dL RDW 15.6 H (11.5-14.5) % Plt Count 673 H (140-440) X 10*3/uL Immature Gran # 0.18 H (0.00-0.04) X 10*3/uL Monocytes # 1.90 H (0.20-1.00) X 10*3/uL Eosinophils # 0.46 H (0.04-0.35) X 10*3/uL Sodium 132 L (135-145) mmol/L BUN/Creatinine Ratio 11.67 L (12.00-20.00) Ratio Calcium 8.5 L (8.7-10.3) mg/dL Total Bilirubin <0.2 L (0.3-1.2) mg/dL AST 12 L (14-35) U/L ALT 5 L (10-49) U/L Total Protein 5.0 L (6.2-8.2) g/dL Albumin 2.4 L (3.8-4.9) g/dL Albumin/Globulin Ratio 0.92 L (1.60-3.17) Ratio Ur Leukocyte Esterase (Negative) Urine RBC (0-5) /hpf Urine WBC (0-5) /hpf Urine Bacteria (None) /hpf Urine Mucus (None) /hpf Urine Yeast (Budding) (None) /hpf Crossmatch See Detail 10/16/24 Range/Units 23:25 WBC (4.50-10.00) X 10*3/uL RBC (4.40-5.60) X 10*6/uL Hgb (13.0-17.0) g/dL Hct (39.6-50.0) % MCHC (32.0-37.0) g/dL RDW (11.5-14.5) % Plt Count (140-440) X 10*3/uL Immature Gran # (0.00-0.04) X 10*3/uL Monocytes # (0.20-1.00) X 10*3/uL Eosinophils # (0.04-0.35) X 10*3/uL Sodium (135-145) mmol/L BUN/Creatinine Ratio (12.00-20.00) Ratio Calcium (8.7-10.3) mg/dL Total Bilirubin (0.3-1.2) mg/dL AST (14-35) U/L ALT (10-49) U/L Total Protein (6.2-8.2) g/dL Albumin (3.8-4.9) g/dL Albumin/Globulin Ratio (1.60-3.17) Ratio Ur Leukocyte Esterase Large H (Negative) Urine RBC 23 H (0-5) /hpf Urine WBC 39 H (0-5) /hpf Urine Bacteria Occasional H (None) /hpf Urine Mucus Rare H (None) /hpf Urine Yeast (Budding) Many H (None) /hpf Crossmatch Assessment and Plan (1) Anemia Current Visit: Yes Status: Acute Priority: High Code(s): D64.9 - ANEMIA, UNSPECIFIED SNOMED Code(s): 658770099 (2) Laryngeal mass Current Visit: Yes Status: Acute Priority: High Code(s): J38.7 - OTHER DISEASES OF LARYNX SNOMED Code(s): 869861808 Plan: Anemia -Baseline Hgb 9-10 range -Pt did not have an appropriate response to 1 unit of blood (7 to 7.2). His Hgb was 6.9 yesterday, s/p 1 unit, pending today's CBC -Surgical losses, dilutional, malnutrition, GI losses? Dr. Mann was adamant that Pt is NOT have any upper endoscopy procedures at this time. There is no endoscopy planned per GI after exam. -Eliquis has been held due to suspected bleeding, Cardiology has seen pt, recommendations reviewed -Iron studies consistent with inflammation but, in the setting of suspected acute blood loss, IV iron ordered x 4. Head/Neck malignancy -Per discussion with Dr. 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 -Treatment recommendations for adjuvant radiation, no chemotherapy indicated. Not sure if pt understood the plan but, we will cont to reinforce the information -Case was discussed with Radiation Oncologist who will see and assess pt and give their final recommendations. Patient would not begin adjuvant radiation until #1, completely healed from surgery, which will be at least another 2 to 3 weeks and, #2 patient is no longer in rehabilitation. On assessment, patient performance status is 2-3. Did discuss the case with Physical Therapist who will perform a more thorough assessment of the patient and report their findings and recommendations. -Patient at that this time does not need to follow-up with a Medical Oncologist. He does however, need to follow-up with the surgeon Dr. Mann. A f/u appt was scheduled for this week. Surgeon will have to be contacted to reschedule that appointment. Doctor attests: I performed a history and physical examination of this patient, developed impression and plan of care. Discussed with dictator. I agree with dictators note, documented as a scribe.
[2024-10-17 13:06] LABS: HCT 26.4 % (39.0-53.0); Hypochromasia Slight; MCH 28.5 pg (25.0-35.0); MCHC 32.1 g/dL (31.0-37.0); MCV 88.9 fL (80.0-100.0); Mean Platelet Volume 7.4; Platelet Count 798 k/uL (150-450); Poikilocytosis Slight; RBC 2.97 m/uL (4.30-5.90); RDW 15.3 % (11.5-15.5); WBC 10.1 k/uL (3.8-10.6)
[2024-10-17 13:11] LABS: HGB 8.5 gm/dL (13.0-17.5)
--- NOTE | 2024-10-17 17:53 | P.PN ---
Subjective Progress Note Date: 10/17/24 Hector Frank, is a 69-year-old male who presented to [facility] emergency room with a chief complaint of of anemia according to records patient has been at [facility] and was sent to ER for further evaluation due to hemoglobin of 7. Patient has recent tracheostomy difficult to communicate most history obtained from medical records. Patient was recently at [facility] in which she received tracheostomy and PEG tube for laryngeal mass attempting to obtain records. He was evaluated in the emergency room vital examination on presentation revealed temp 98.8, heart rate 77, respiratory rate 18, blood pressure 101/70 with a pulse ox of 98% on room air Laboratory data reveals white blood cell 13.1, hemoglobin 7.0, sodium 129, creatinine 1.2, bun 27. Stool for occult blood positive Testing in the emergency room revealed EKG showing sinus rhythm Patient was admitted to medical floor for further evaluation and treatment. Will consult GI and oncology services Past medical history is significant for laryngeal mass in which according to records patient presented to ER on August 30 due to difficulty in breathing patient was transferred to [facility] for ENT evaluation. Patient underwent tracheostomy and PEG tube placement since that transfer. Will attempt to take obtain medical records for further understanding of any surgery or treatment he is received. Additional medical history includes atrial fibrillation in which she is maintained on Eliquis this is currently on hold due to anemia, hypertension, prostate disorder, chronic pain, nicotine dependence, constip ation. On review of systems patient is alert and oriented x 3. Difficulty communicating secondary to tracheostomy. Patient reports of chronic pain. Patient denies chest pain patient denies nausea vomiting or diarrhea. Patient denies any urinary burning or frequency On 10/13/2024 patient was seen and examined on the medical floor he is alert and oriented x 3 in no apparent distress, patient has low-grade fever of 99.2, no chills no headache or dizziness no chest pain no shortness of breath no cough no nausea or vomiting no abdominal pain no diarrhea no blood in the stools, he has frequency with urination and urgency with urination. Urine analysis reveals evidence of urinary tract infection, patient was started on IV iron supplements, and IV ceftriaxone, awaiting input from oncology. On 10/14/2024 patient is alert and oriented x 3. Hemoglobin today 7.2 this is the same as yesterday. White blood cell 11.54. Current vital signs temp 98.2, heart rate 72, respiratory rate 18, blood pressure 98/61 with a pulse ox of 97% on room air patient has been started on IV iron maintained on IV Rocephin for UTI. Per oncology services attempting to obtain records from [facility] in regards to treatment for laryngeal mass. GI and oncology services following On 10/15/2024 patient is alert and oriented x 3. Lab work currently pending for today patient remains on IV Rocephin for UTI awaiting further oncology input. 2D echo has been ordered per cardiology. Current vital signs temp 98.5, heart rate 81, respiratory rate 17, blood pressure 117/62 with a pulse ox of 96% on room air patient denies chest pain or shortness of breath. Patient denies nausea vomiting or diarrhea. Patient denies any urinary burning or frequency On 10/16/2024 patient was seen and examined on the medical floor he is alert and oriented in no apparent distress there is no fever or chills no headache or dizziness no chest pain no shortness of breath no cough no nausea or vomiting no abdominal pain no diarrhea and no urinary symptoms. Hemoglobin today is down to 6.6, unit of red blood cell transfusion was ordered, oncology are following. On 10/17/2024 patient was seen and examined on the medical floor he is alert and oriented x 3 in no apparent distress, there is no fever or chills no headache or dizziness no chest pain no shortness of breath no cough no nausea or vomiting no abdominal pain no diarrhea no urinary symptoms, hemoglobin is up to 8.5 after 1 unit of red blood cell transfusion and iron supplements, input from oncology was reviewed, awaiting consult from radiation oncology, possible discharge in the next 1 to 2 days, if hemoglobin is stable. Objective - Vital Signs Vital signs: Vital Signs Temp 97.9 F 10/17/24 12:35 Pulse 74 10/17/24 12:35 Resp 16 10/17/24 12:35 BP 109/60 10/17/24 12:35 Pulse Ox 96 10/17/24 12:35 FiO2 21 10/14/24 20:40 Intake & Output 10/16/24 10/17/24 10/17/24 18:59 06:59 18:59 Intake Total 310 Output Total 2300 475 1000 Balance -1990 -475 -1000 Weight 65.317 kg Intake: Blood Product 310 Rc As-1 Unit 310 [id number] Output: Urine 2300 475 1000 Other: Voiding Method Indwelling Catheter Indwelling Catheter Indwelling Catheter - Exam In general patient is alert and oriented x 3 in no distress HEENT head normocephalic and atraumatic Neck is supple no JVD no goiter no lymphadenopathy no carotid bruit. Patient has tracheostomy in place Chest examination is clear to auscultation no crackles no wheezing Cardiac exam reveals regular heart sounds S1 and S2 no gallops no murmurs Abdomen is soft nontender no organomegaly with normal bowel sounds Extremity exam reveals no edema no cyanosis or clubbing Neurological examination reveals no gross focal deficits - Labs CBC & Chem 7: 10/17/24 12:36 10/16/24 05:48 Labs: Abnormal Lab Results - Last 24 Hours (Table) 10/16/24 10/16/24 10/17/24 Range/Units 12:40 23:25 12:36 RBC 2.97 L (4.30-5.90) m/uL Hgb 8.5 L D (13.0-17.5) gm/dL Hct 26.4 L (39.0-53.0) % Plt Count 798 H (150-450) k/uL Ur Leukocyte Esterase Large H (Negative) Urine RBC 23 H (0-5) /hpf Urine WBC 39 H (0-5) /hpf Urine Bacteria Occasional H (None) /hpf Urine Mucus Rare H (None) /hpf Urine Yeast (Budding) Many H (None) /hpf Crossmatch See Detail Assessment and Plan Assessment: 1. Anemia with positive stool for occult blood patient's Eliquis currently on hold 2. History of recent diagnosis of laryngeal mass status post tracheostomy and PEG tube placement at [facility] 3. History of paroxysmal atrial fibrillation maintained on Eliquis currently on hold 4. History of nicotine dependence 5. History of degenerative disc disease 6. History of BPH 7. History of cardiac arrhythmia with history of ablation 8. Hyponatremia sodium low at 129. Will initiate gentle hydration 9. Urinary tract infection patient started on Rocephin DVT prophylaxis SCDs secondary to GI bleed. GI prophylax Protonix GI and oncology services consulted Continue normal saline at 100 Repeat labs ordered for a.m. Home meds resumed
--- NOTE | 2024-10-17 21:27 | P.PN ---
Subjective Progress Note Date: 10/17/24 Principal diagnosis: Reason for follow-up is leukocytosis possible catheter associated UTI Patient is a 69-year-old male with a past medical history significant for reflux hypertension prostate disorder atrial fibrillation, laryngeal cancer status post PEG and tracheostomy that was done at [facility] patient also have urine retention with a chronic indwelling Epps catheter present to the hospital with low hemoglobin also noticed to have elevated white count prompted this consultation. On today's evaluation that is 10/17/2024, Patient is afebrile patient is currently on room air and denies having any shortness of breath, the patient denies any chest pain or cough, the patient denies any nausea vomiting however has been complaining of diarrhea. The patient white count is 10.1 repeat UA is positive and mostly with his initial urine culture with Josefina tropicalis Objective - Vital Signs Vital signs: Vital Signs Temp 98.3 F 10/17/24 07:23 Pulse 68 10/17/24 07:23 Resp 16 10/17/24 07:23 BP 107/64 10/17/24 07:23 Pulse Ox 98 10/17/24 07:57 FiO2 21 10/14/24 20:40 Intake & Output 10/16/24 10/17/24 10/17/24 18:59 06:59 18:59 Intake Total 310 Output Total 2300 475 1000 Balance -1989 Intake: Blood Product 310 Rc As-1 Unit 310 [id number] Output: Urine 2300 475 1000 Other: Voiding Method Indwelling Catheter Indwelling Catheter - Exam GENERAL DESCRIPTION: An elderly male lying in bed in no distress RESPIRATORY SYSTEM: Unlabored breathing , decreased breath sounds at bases HEART: S1 S2 regular rate and rhythm , ABDOMEN: Soft , no tenderness EXTREMITIES: No edema feet - Labs CBC & Chem 7: 10/17/24 12:36 10/16/24 05:48 Labs: Abnormal Lab Results - Last 24 Hours (Table) 10/16/24 10/16/24 Range/Units 12:40 23:25 Ur Leukocyte Esterase Large H (Negative) Urine RBC 23 H (0-5) /hpf Urine WBC 39 H (0-5) /hpf Urine Bacteria Occasional H (None) /hpf Urine Mucus Rare H (None) /hpf Urine Yeast (Budding) Many H (None) /hpf Crossmatch See Detail Assessment and Plan (1) Catheter-associated urinary tract infection Current Visit: Yes Status: Acute Code(s): T83.511A - I/I REACT D/T INDWELLING URETHRAL CATHETER, INIT; N39.0 - URINARY TRACT INFECTION, SITE NOT SPECIFIED SNOMED Code(s): 128619681 (2) Leukocytosis Current Visit: No Status: Acute Code(s): D72.829 - ELEVATED WHITE BLOOD CELL COUNT, UNSPECIFIED SNOMED Code(s): 791059870 Plan: 1patient with a leukocytosis which is likely multifactorial in this patient presenting to the hospital with a low hemoglobin questionably reactive versus related to catheter assisted UTI as the patient did have a chronic draining Epps catheter that has been there for more than a month. 2patient did have 2 scabbed over lesion to the anterior chest wall and some crusting around the PEG tube site but no evidence of any cellulitis clinically doubt source of his elevated white count 3- the patient Epps catheter has been changed initial urine culture Did grew Josefina repeat UA is also positive with yeast Diflucan has been added we will discontinue Rocephin 4diarrhea possible antibiotic associated hopefully will improve with discontinuation of Rocephin Dictation was produced using [employer] dictation software. please excuse any grammatical, word or spelling errors. Time with Patient: Less than 30
[2024-10-18 08:39] LABS: Basophils # (A) 0.06 X 10*3/uL (0.00-0.10); Basophils % (A) 0.6 %; Eosinophils # (A) 0.33 X 10*3/uL (0.04-0.35); Eosinophils % (A) 3.1 %; HCT 21.8 % (39.6-50.0); HGB 6.9 g/dL (13.0-17.0); Lymphocytes % (A) 16.9 %; MCH 28.6 pg (27.0-32.0); MCHC 31.7 g/dL (32.0-37.0); MCV 90.5 FL (80.0-97.0); Monocytes # (A) 1.37 X 10*3/uL (0.20-1.00); Monocytes % (A) 12.9 %; NRBC Per 100 WBC 0 X 10*3/uL (0.00-0.01); Neutrophils # (A) 6.93 X 10*3/uL (1.80-7.70); Neutrophils % (A) 65.1 %; Platelet Count 671 X 10*3/uL (140-440); RBC 2.41 X 10*6/uL (4.40-5.60); RDW 15.5 % (11.5-14.5); WBC 10.64 X 10*3/uL (4.50-10.00)
[2024-10-18 08:54] LABS: ALT 6 U/L (10-49); AST 17 U/L (14-35); Albumin 2.3 g/dL (3.8-4.9); Albumin/Globulin Ratio 0.88 Ratio (1.60-3.17); Alkaline Phosphatase 85 U/L (41-126); BUN/Creat Ratio 10.18 Ratio (12.00-20.00); Blood Urea Nitrogen 11.2 mg/dL (9.0-27.0); Calcium 8.5 mg/dL (8.7-10.3); Carbon Dioxide 22.4 mmol/L (21.6-31.8); Chloride 96 mmol/L (96-109); Globulin 2.6 g/dL (1.6-3.3); Glucose 83 mg/dL (70-110); Potassium 4.2 mmol/L (3.5-5.5); Sodium 136 mmol/L (135-145); Total Bilirubin <0.2 mg/dL (0.3-1.2); Total Protein 4.9 g/dL (6.2-8.2)
--- NOTE | 2024-10-18 10:21 | P.PN ---
Subjective Progress Note Date: 10/18/24 Hector Frank, is a 69-year-old male who presented to [facility] emergency room with a chief complaint of of anemia according to records patient has been at [facility] and was sent to ER for further evaluation due to hemoglobin of 7. Patient has recent tracheostomy difficult to communicate most history obtained from medical records. Patient was recently at [facility] in which she received tracheostomy and PEG tube for laryngeal mass attempting to obtain records. He was evaluated in the emergency room vital examination on presentation revealed temp 98.8, heart rate 77, respiratory rate 18, blood pressure 101/70 with a pulse ox of 98% on room air Laboratory data reveals white blood cell 13.1, hemoglobin 7.0, sodium 129, creatinine 1.2, bun 27. Stool for occult blood positive Testing in the emergency room revealed EKG showing sinus rhythm Patient was admitted to medical floor for further evaluation and treatment. Will consult GI and oncology services Past medical history is significant for laryngeal mass in which according to records patient presented to ER on August 30 due to difficulty in breathing patient was transferred to [facility] for ENT evaluation. Patient underwent tracheostomy and PEG tube placement since that transfer. Will attempt to take obtain medical records for further understanding of any surgery or treatment he is received. Additional medical history includes atrial fibrillation in which she is maintained on Eliquis this is currently on hold due to anemia, hypertension, prostate disorder, chronic pain, nicotine dependence, constip ation. On review of systems patient is alert and oriented x 3. Difficulty communicating secondary to tracheostomy. Patient reports of chronic pain. Patient denies chest pain patient denies nausea vomiting or diarrhea. Patient denies any urinary burning or frequency On 10/13/2024 patient was seen and examined on the medical floor he is alert and oriented x 3 in no apparent distress, patient has low-grade fever of 99.2, no chills no headache or dizziness no chest pain no shortness of breath no cough no nausea or vomiting no abdominal pain no diarrhea no blood in the stools, he has frequency with urination and urgency with urination. Urine analysis reveals evidence of urinary tract infection, patient was started on IV iron supplements, and IV ceftriaxone, awaiting input from oncology. On 10/14/2024 patient is alert and oriented x 3. Hemoglobin today 7.2 this is the same as yesterday. White blood cell 11.54. Current vital signs temp 98.2, heart rate 72, respiratory rate 18, blood pressure 98/61 with a pulse ox of 97% on room air patient has been started on IV iron maintained on IV Rocephin for UTI. Per oncology services attempting to obtain records from [facility] in regards to treatment for laryngeal mass. GI and oncology services following On 10/15/2024 patient is alert and oriented x 3. Lab work currently pending for today patient remains on IV Rocephin for UTI awaiting further oncology input. 2D echo has been ordered per cardiology. Current vital signs temp 98.5, heart rate 81, respiratory rate 17, blood pressure 117/62 with a pulse ox of 96% on room air patient denies chest pain or shortness of breath. Patient denies nausea vomiting or diarrhea. Patient denies any urinary burning or frequency On 10/16/2024 patient was seen and examined on the medical floor he is alert and oriented in no apparent distress there is no fever or chills no headache or dizziness no chest pain no shortness of breath no cough no nausea or vomiting no abdominal pain no diarrhea and no urinary symptoms. Hemoglobin today is down to 6.6, unit of red blood cell transfusion was ordered, oncology are following. On 10/17/2024 patient was seen and examined on the medical floor he is alert and oriented x 3 in no apparent distress, there is no fever or chills no headache or dizziness no chest pain no shortness of breath no cough no nausea or vomiting no abdominal pain no diarrhea no urinary symptoms, hemoglobin is up to 8.5 after 1 unit of red blood cell transfusion and iron supplements, input from oncology was reviewed, awaiting consult from radiation oncology, possible discharge in the next 1 to 2 days, if hemoglobin is stable. On 10/18/2024 patient is alert and oriented x 3. Hemoglobin today 6.91 unit PRBCs has been ordered. Discussed case with oncology services. Awaiting further input from radiation oncology. Current vital signs temp 97.9, heart rat e 65, respiratory rate 18, blood pressure 118/65 with a pulse ox of 97% on room air. Patient denies chest pain or shortness of breath. Patient denies nausea vomiting or diarrhea. Patient denies any urinary burning or frequency Objective - Vital Signs Vital signs: Vital Signs Temp 97.9 F 10/18/24 07:02 Pulse 65 10/18/24 07:02 Resp 18 10/18/24 07:02 BP 118/65 10/18/24 07:02 Pulse Ox 97 10/18/24 07:02 FiO2 21 10/14/24 20:40 Intake & Output 10/17/24 10/18/24 10/18/24 18:59 06:59 18:59 Output Total 1400 1500 Balance -1400 -1500 Weight 65.317 kg Output: Urine 1400 1500 Other: Voiding Method Indwelling Catheter Indwelling Catheter - Exam In general patient is alert and oriented x 3 in no distress HEENT head normocephalic and atraumatic Neck is supple no JVD no goiter no lymphadenopathy no carotid bruit. Patient has tracheostomy in place Chest examination is clear to auscultation no crackles no wheezing Cardiac exam reveals regular heart sounds S1 and S2 no gallops no murmurs Abdomen is soft nontender no organomegaly with normal bowel sounds Extremity exam reveals no edema no cyanosis or clubbing Neurological examination reveals no gross focal deficits - Labs CBC & Chem 7: 10/18/24 04:36 10/18/24 04:36 Labs: Abnormal Lab Results - Last 24 Hours (Table) 10/17/24 10/18/24 10/18/24 Range/Units 12:36 04:36 04:36 WBC 10.64 H (4.50-10.00) X 10*3/uL RBC 2.97 L 2.41 L (4.30-5.90) m/uL Hgb 8.5 L D 6.9 A* (13.0-17.5) gm/dL Hct 26.4 L 21.8 L (39.0-53.0) % MCHC 31.7 L (32.0-37.0) g/dL RDW 15.5 H (11.5-14.5) % Plt Count 798 H 671 H (150-450) k/uL Immature Gran # 0.15 H (0.00-0.04) X 10*3/uL Monocytes # 1.37 H (0.20-1.00) X 10*3/uL Anion Gap 17.60 H (4.00-12.00) mmol/L BUN/Creatinine Ratio 10.18 L (12.00-20.00) Ratio Calcium 8.5 L (8.7-10.3) mg/dL Total Bilirubin <0.2 L (0.3-1.2) mg/dL ALT 6 L (10-49) U/L Total Protein 4.9 L (6.2-8.2) g/dL Albumin 2.3 L (3.8-4.9) g/dL Albumin/Globulin Ratio 0.88 L (1.60-3.17) Ratio Microbiology - Last 24 Hours (Table) 10/16/24 23:25 Urine Culture - Preliminary Urine,Voided Yeast species Assessment and Plan Assessment: 1. Anemia with positive stool for occult blood patient's Eliquis currently on hold 2. History of recent diagnosis of laryngeal mass status post tracheostomy and PEG tube placement at [facility] 3. History of paroxysmal atrial fibrillation maintained on Eliquis currently on hold 4. History of nicotine dependence 5. History of degenerative disc disease 6. History of BPH 7. History of cardiac arrhythmia with history of ablation 8. Hyponatremia sodium low at 129. Will initiate gentle hydration 9. Urinary tract infection patient started on Rocephin DVT prophylaxis SCDs secondary to GI bleed. GI prophylax Protonix GI and oncology services consulted Continue normal saline at 100 Repeat labs ordered for a.m. Home meds resumed
--- NOTE | 2024-10-18 13:52 | P.GSCN ---
History of Present Illness Consult date: 10/18/24 History of present illness: CHIEF COMPLAINT: Anemia HISTORY OF PRESENT ILLNESS: This is a 69-year-old male who initially presented to the hospital due to hemoglobin of 6.8 in the outpatient setting. He does have a known history of recent diagnosis of a laryngeal mass and status post tracheostomy and PEG tube placement out of [facility]. Patient does take Eliquis for his atrial fibrillation. Patient was seen by GI service initially on this admission. They had no plans for endoscopy. GI service is not available this week. Therefore surgical service was consulted in regards to patient's drop in hemoglobin again. He is receiving another unit of blood for hemoglobin of 6.9. Nursing staff did report 1 black stool this morning. Patient denies any abdominal pain. He denies any nausea or vomiting. Patient's Eliquis is on hold. Patient has a PEG tube that he is currently not using. Per nurse he is on a pured diet. PAST MEDICAL HISTORY: Atrial Fibrillation, Cancer, GERD/Reflux, Hypertension, Prostate Disorder PAST SURGICAL HISTORY: Heart Catheterization, Joint Replacement, Orthopedic Surgery MEDICATIONS: See below ALLERGIES: See below SOCIAL HISTORY: No illicit drug use. REVIEW OF SYSTEMS: CONSTITUTIONAL: Denies fever or chills. HEENT: Denies blurred vision, vision changes, or eye pain. Denies hemoptysis CARDIOVASCULAR: Denies chest pain or pressure. RESPIRATORY: No shortness of breath. GASTROINTESTINAL: See HPI for pertinent findings HEMATOLOGIC: Denies bleeding disorders. GENITOURINARY: Denies any blood in urine or increased urinary frequency. SKIN: Denies pruitis. Denies rash. PHYSICAL EXAM: VITAL SIGNS: Reviewed GENERAL: Well-developed in no acute distress. HEENT: Has tracheostomy ABDOMEN: Soft. Nondistended. Nontender NEUROLOGIC: Alert and oriented. Cranial nerves II through XII grossly intact. LABORATORY DATA: WBC is 10.64 Hgb 7.0 on admission did drop down to 6.6 then back up to 8.5 and is now 6.9 Hemoglobin had been 11.9 on 08/30/2024 Sodium 136 potassium 4.2 creatinine 1.1 IMAGING: ASSESSMENT: 1. Anemia with 1 episode of melanotic stool 2. 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 Status post tracheostomy and PEG tube placement PLAN: -No plans for endoscopy at this time. Noted that patient's surgeon for the laryngeal mass is recommending NO EGD as per charted by oncology service. -Case was discussed with oncology service -Agree with blood transfusion for hemoglobin of 6.9 -Continue to monitor for any signs or symptoms of bleeding -Continue to monitor hemoglobin and transfuse as needed -Continue to observe -Change Protonix to IV twice a day -Continue to hold Eliquis -Continue pured diet Physician Press Setup Operator note has been reviewed by physician. Signing provider agrees with the documented findings, assessment, and plan of care. Past Medical History Past Medical History: Atrial Fibrillation, Cancer, GERD/Reflux, Hypertension, Prostate Disorder Additional Past Medical History / Comment(s): dehydration, low B/P, kidney problem that was fixed with fluids and sodium was low. Additional hx: BPH, DDD-cervical pain, R/L hand fingers tingling if over used, AGE 18 FX RT FEMUR IN 4 PLACES HAD PLATE/SCEWS-SINCE REMOVED, HAS OPIOD INDUCED CONSTIPATION, TINNITUS bilaterally but pt has noticed it has decreased since he quit smoking, hay fever. cardiac arrest 3 months ago, trach History of Any Multi-Drug Resistant Organisms: None Reported Past Surgical History: Heart Catheterization, Joint Replacement, Orthopedic Surgery Additional Past Surgical History / Comment(s): bilateral CATARACTS, ANT CERVICAL DISCECTOMY/FUSION C4,5,6,7 USING CADAVOR BONE. LT HYDROCELE, LT CARPAL TUNNEL, RT FEMUR SX METAL SINCE REMOVED, COLONOSCOPY, CYSTS REMOVED FROM FOREHEAD,BUTTOCKS,;T BUDDHISM. PROSTATE BX X2-BENIGN, partial R knee replacement. cardiac ablation, peg tube, trach placement. Past Anesthesia/Blood Transfusion Reactions: No Reported Reaction Past Psychological History: No Psychological Hx Reported Additional Psychological History / Comment(s): PER PTS. SON PT. 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 HAS HAD SEVERAL FALLS RECENTLY Smoking Status: Former smoker Past Alcohol Use History: Daily Additional Past Alcohol Use History / Comment(s): PER PTS. SON PT. HAS SMOKED HEAVILY AND DRANK HEAVILY FOR MANY YEARS Past Drug Use History: None Reported Additional Drug Use History / Comment(s): no alcohol in 5 weeks per patient. - Past Family History Father Family Medical History: COPD, Dementia Additional Family Medical History / Comment(s): Father at age 84yrs. Mother Family Medical History: Cancer, COPD Additional Family Medical History / Comment(s): NASAL/THROAT CANCER. Mother at age 82 Medications and Allergies Home Medications Medication Instructions Recorded Confirmed Type ALPRAZolam [Xanax] 0.25 mg PO Q8H PRN 01/08/23 10/12/24 History Acetaminophen Tab [Tylenol Tab] 500 mg PO Q4H 10/12/24 10/12/24 History Amiodarone [Cordarone] 200 mg PO BID 10/12/24 10/12/24 History Apixaban [Eliquis] 5 mg PO BID 10/12/24 10/12/24 History Calcium Carbonate 1250mg(500ca) 1,250 mg PO QID 10/12/24 10/12/24 History Doxazosin [Cardura] 4 mg PO DAILY 10/12/24 10/12/24 History Finasteride [Proscar] 5 mg PO DAILY 10/12/24 10/12/24 History Levothyroxine Sodium [Synthroid] 100 mcg PO DAILY 10/12/24 10/12/24 History Miconazole Nitrate [Lotrimin AF 1 applic TOPICAL BID 10/12/24 10/12/24 History Powder] Miconazole Nitrate [Lotrimin AF 1 applic TOPICAL DAILY PRN 10/12/24 10/12/24 History Powder] Naloxone HCl [Narcan] 4 mg NASAL ONCE PRN 10/12/24 10/12/24 History Nutren 2.0 1 dose PEG/G-TUBE BID@0500,1900 10/12/24 10/12/24 History Pantoprazole [Protonix] 40 mg PO DAILY 10/12/24 10/12/24 History QUEtiapine FUMARATE [SEROquel] 25 mg PO HS 10/12/24 10/12/24 History oxyCODONE HCL [oxyCODONE HCL (IR)] 10 mg PO Q4H PRN 10/12/24 10/12/24 History polyethylene glycoL 3350 [Miralax] 17 gm PO BID 10/12/24 10/12/24 History Allergies Allergy/AdvReac Type Severity Reaction Status Date / Time No Known Allergies Allergy Verified 10/12/24 06:28 Surgical - Exam Vital Signs Temp Pulse Resp BP Pulse Ox 98.8 F 77 18 101/70 98 10/11/24 23:39 10/11/24 23:39 10/11/24 23:39 10/11/24 23:39 10/11/24 23:39 Results - Labs 10/18/24 04:36 10/18/24 04:36 Abnormal Lab Results - Last 24 Hours (Table) 10/16/24 10/17/24 10/18/24 Range/Units 12:40 12:36 04:36 WBC 10.64 H (4.50-10.00) X 10*3/uL RBC 2.97 L 2.41 L (4.30-5.90) m/uL Hgb 8.5 L D 6.9 A* (13.0-17.5) gm/dL Hct 26.4 L 21.8 L (39.0-53.0) % MCHC 31.7 L (32.0-37.0) g/dL RDW 15.5 H (11.5-14.5) % Plt Count 798 H 671 H (150-450) k/uL Immature Gran # 0.15 H (0.00-0.04) X 10*3/uL Monocytes # 1.37 H (0.20-1.00) X 10*3/uL Anion Gap (4.00-12.00) mmol/L BUN/Creatinine Ratio (12.00-20.00) Ratio Calcium (8.7-10.3) mg/dL Total Bilirubin (0.3-1.2) mg/dL ALT (10-49) U/L Total Protein (6.2-8.2) g/dL Albumin (3.8-4.9) g/dL Albumin/Globulin Ratio (1.60-3.17) Ratio Crossmatch See Detail 10/18/24 Range/Units 04:36 WBC (4.50-10.00) X 10*3/uL RBC (4.30-5.90) m/uL Hgb (13.0-17.5) gm/dL Hct (39.0-53.0) % MCHC (32.0-37.0) g/dL RDW (11.5-14.5) % Plt Count (150-450) k/uL Immature Gran # (0.00-0.04) X 10*3/uL Monocytes # (0.20-1.00) X 10*3/uL Anion Gap 17.60 H (4.00-12.00) mmol/L BUN/Creatinine Ratio 10.18 L (12.00-20.00) Ratio Calcium 8.5 L (8.7-10.3) mg/dL Total Bilirubin <0.2 L (0.3-1.2) mg/dL ALT 6 L (10-49) U/L Total Protein 4.9 L (6.2-8.2) g/dL Albumin 2.3 L (3.8-4.9) g/dL Albumin/Globulin Ratio 0.88 L (1.60-3.17) Ratio Crossmatch Microbiology - Last 24 Hours (Table) 10/16/24 23:25 Urine Culture - Preliminary Urine,Voided Yeast species Diabetes panel 10/18/24 Range/Units 04:36 Sodium 136 (135-145) mmol/L Potassium 4.2 (3.5-5.5) mmol/L Chloride 96 (96-109) mmol/L Carbon Dioxide 22.4 (21.6-31.8) mmol/L BUN 11.2 (9.0-27.0) mg/dL Creatinine 1.1 (0.6-1.5) mg/dL Glucose 83 (70-110) mg/dL Calcium 8.5 L (8.7-10.3) mg/dL AST 17 (14-35) U/L ALT 6 L (10-49) U/L Alkaline Phosphatase 85 (41-126) U/L Total Protein 4.9 L (6.2-8.2) g/dL Albumin 2.3 L (3.8-4.9) g/dL Calcium panel 10/18/24 Range/Units 04:36 Calcium 8.5 L (8.7-10.3) mg/dL Albumin 2.3 L (3.8-4.9) g/dL Pituitary panel 10/18/24 Range/Units 04:36 Sodium 136 (135-145) mmol/L Potassium 4.2 (3.5-5.5) mmol/L Chloride 96 (96-109) mmol/L Carbon Dioxide 22.4 (21.6-31.8) mmol/L BUN 11.2 (9.0-27.0) mg/dL Creatinine 1.1 (0.6-1.5) mg/dL Glucose 83 (70-110) mg/dL Calcium 8.5 L (8.7-10.3) mg/dL Adrenal panel 10/18/24 Range/Units 04:36 Sodium 136 (135-145) mmol/L Potassium 4.2 (3.5-5.5) mmol/L Chloride 96 (96-109) mmol/L Carbon Dioxide 22.4 (21.6-31.8) mmol/L BUN 11.2 (9.0-27.0) mg/dL Creatinine 1.1 (0.6-1.5) mg/dL Glucose 83 (70-110) mg/dL Calcium 8.5 L (8.7-10.3) mg/dL Total Bilirubin <0.2 L (0.3-1.2) mg/dL AST 17 (14-35) U/L ALT 6 L (10-49) U/L Alkaline Phosphatase 85 (41-126) U/L Total Protein 4.9 L (6.2-8.2) g/dL Albumin 2.3 L (3.8-4.9) g/dL
--- NOTE | 2024-10-18 14:06 | P.PN ---
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 On today's evaluation that is 10/18/2024, patient has been afebrile, patient is breathing comfortably and is currently on room air, patient denies having any significant cough no chest pain, patient denies nausea vomiting abdominal pain and no further diarrhea has been reported. Patient with creatinine 0.61 hemoglobin 6.9, creatinine is 1.1 Objective - Vital Signs Vital signs: Vital Signs Temp 97.9 F 10/18/24 07:02 Pulse 65 10/18/24 07:02 Resp 18 10/18/24 07:02 BP 118/65 10/18/24 07:02 Pulse Ox 97 10/18/24 07:02 FiO2 21 10/14/24 20:40 Intake & Output 10/17/24 10/18/24 10/18/24 18:59 06:59 18:59 Output Total 1400 1500 Balance -1400 -1500 Weight 65.317 kg Output: Urine 1400 1500 Other: Voiding Method Indwelling Catheter Indwelling Catheter # Bowel Movements 1 - Exam GENERAL DESCRIPTION: An elderly male lying in bed in no distress RESPIRATORY SYSTEM: Unlabored breathing , decreased breath sounds at bases HEART: S1 S2 regular rate and rhythm , ABDOMEN: Soft , no tenderness EXTREMITIES: No edema feet - Labs CBC & Chem 7: 10/18/24 04:36 10/18/24 04:36 Labs: Abnormal Lab Results - Last 24 Hours (Table) 10/16/24 10/17/24 10/18/24 Range/Units 12:40 12:36 04:36 WBC 10.64 H (4.50-10.00) X 10*3/uL RBC 2.97 L 2.41 L (4.30-5.90) m/uL Hgb 8.5 L D 6.9 A* (13.0-17.5) gm/dL Hct 26.4 L 21.8 L (39.0-53.0) % MCHC 31.7 L (32.0-37.0) g/dL RDW 15.5 H (11.5-14.5) % Plt Count 798 H 671 H (150-450) k/uL Immature Gran # 0.15 H (0.00-0.04) X 10*3/uL Monocytes # 1.37 H (0.20-1.00) X 10*3/uL Anion Gap (4.00-12.00) mmol/L BUN/Creatinine Ratio (12.00-20.00) Ratio Calcium (8.7-10.3) mg/dL Total Bilirubin (0.3-1.2) mg/dL ALT (10-49) U/L Total Protein (6.2-8.2) g/dL Albumin (3.8-4.9) g/dL Albumin/Globulin Ratio (1.60-3.17) Ratio Crossmatch See Detail 10/18/24 Range/Units 04:36 WBC (4.50-10.00) X 10*3/uL RBC (4.30-5.90) m/uL Hgb (13.0-17.5) gm/dL Hct (39.0-53.0) % MCHC (32.0-37.0) g/dL RDW (11.5-14.5) % Plt Count (150-450) k/uL Immature Gran # (0.00-0.04) X 10*3/uL Monocytes # (0.20-1.00) X 10*3/uL Anion Gap 17.60 H (4.00-12.00) mmol/L BUN/Creatinine Ratio 10.18 L (12.00-20.00) Ratio Calcium 8.5 L (8.7-10.3) mg/dL Total Bilirubin <0.2 L (0.3-1.2) mg/dL ALT 6 L (10-49) U/L Total Protein 4.9 L (6.2-8.2) g/dL Albumin 2.3 L (3.8-4.9) g/dL Albumin/Globulin Ratio 0.88 L (1.60-3.17) Ratio Crossmatch Microbiology - Last 24 Hours (Table) 10/16/24 23:25 Urine Culture - Preliminary Urine,Voided Yeast species Assessment and Plan (1) Catheter-associated urinary tract infection Current Visit: Yes Status: Acute Code(s): T83.511A - I/I REACT D/T INDWELLING URETHRAL CATHETER, INIT; N39.0 - URINARY TRACT INFECTION, SITE NOT SPECIFIED SNOMED Code(s): 104998839 (2) Leukocytosis Current Visit: No Status: Acute Code(s): D72.829 - ELEVATED WHITE BLOOD CELL COUNT, UNSPECIFIED SNOMED Code(s): 508493402 Plan: 1patient with a leukocytosis which is likely multifactorial in this patient presenting to the hospital with a low hemoglobin questionably reactive versus related to catheter assisted UTI as the patient did have a chronic draining Epps catheter that has been there for more than a month. 2patient did have 2 scabbed over lesion to the anterior chest wall and some crusting around the PEG tube site but no evidence of any cellulitis clinically doubt source of his elevated white count 3- the patient Epps catheter has been changed initial urine culture Did grew Josefina repeat UA is also positive with yeast we will continue the patient on Diflucan Dictation was produced using [employer] dictation software. please excuse any grammatical, word or spelling errors. Time with Patient: Less than 30
--- NOTE | 2024-10-18 15:33 | P.PN ---
Subjective Progress Note Date: 10/18/24 Principal diagnosis: Anemia, GI bleeding? In follow-up today pt has no acute c/o. Diagnosis, prognosis and treatment plan as discussed with Dr. Mann was reiterated to pt. Also discussed anemia Objective - Vital Signs Vital signs: Vital Signs Temp 98.6 F 10/18/24 14:06 Pulse 74 10/18/24 14:06 Resp 18 10/18/24 14:06 BP 126/72 10/18/24 14:06 Pulse Ox 96 10/18/24 14:06 FiO2 21 10/14/24 20:40 Intake & Output 10/17/24 10/18/24 10/18/24 18:59 06:59 18:59 Intake Total 310 Output Total 1400 1500 Balance -1400 -1500 310 Weight 65.317 kg Intake: Blood Product 310 Rc As-1 Unit 310 [id number] Output: Urine 1400 1500 Other: Voiding Method Indwelling Catheter Indwelling Catheter Indwelling Catheter # Bowel Movements 1 - Constitutional Constitutional Comment(s): looks much older then chronological age General appearance: Present: no acute distress, thin - EENT Eyes: Present: anicteric sclerae, EOMI ENT: Present: hearing grossly normal - Respiratory Details: resp unlabored at rest - Cardiovascular Details: skin warm, mild anasarca - Gastrointestinal Gastrointestinal Comment(s): PEG insitu - Musculoskeletal Musculoskeletal: Present: generalized weakness - Psychiatric Psychiatric: Present: A&O x's 3 - Labs CBC & Chem 7: 10/18/24 04:36 10/18/24 04:36 Labs: Abnormal Lab Results - Last 24 Hours (Table) 10/16/24 10/18/24 10/18/24 Range/Units 12:40 04:36 04:36 WBC 10.64 H (4.50-10.00) X 10*3/uL RBC 2.41 L (4.40-5.60) X 10*6/uL Hgb 6.9 A* (13.0-17.0) g/dL Hct 21.8 L (39.6-50.0) % MCHC 31.7 L (32.0-37.0) g/dL RDW 15.5 H (11.5-14.5) % Plt Count 671 H (140-440) X 10*3/uL Immature Gran # 0.15 H (0.00-0.04) X 10*3/uL Monocytes # 1.37 H (0.20-1.00) X 10*3/uL Anion Gap 17.60 H (4.00-12.00) mmol/L BUN/Creatinine Ratio 10.18 L (12.00-20.00) Ratio Calcium 8.5 L (8.7-10.3) mg/dL Total Bilirubin <0.2 L (0.3-1.2) mg/dL ALT 6 L (10-49) U/L Total Protein 4.9 L (6.2-8.2) g/dL Albumin 2.3 L (3.8-4.9) g/dL Albumin/Globulin Ratio 0.88 L (1.60-3.17) Ratio Crossmatch See Detail Microbiology - Last 24 Hours (Table) 10/16/24 23:25 Urine Culture - Final Urine,Voided Josefina tropicalis Assessment and Plan (1) Anemia Current Visit: Yes Status: Acute Priority: High Code(s): D64.9 - ANEMIA, UNSPECIFIED SNOMED Code(s): 806667534 (2) Laryngeal mass Current Visit: Yes Status: Acute Priority: High Code(s): J38.7 - OTHER DISEASES OF LARYNX SNOMED Code(s): 694235767 Plan: Anemia -Baseline Hgb 9-10 range -Pt has not had an appropriate response PRBCs. Hgb 6.6 10/16, 1 unit given 10/17, Hgb 8.5 10/18, today Hgb is 6.9 today. -Surgical losses, dilutional, malnutrition, GI losses? Dr. Mann was adamant that Pt is NOT have any upper endoscopy procedures at this time. Discussed briefly with Surgical PA, no lower endoscopy planned either. -Eliquis has been held due to suspected bleeding, Cardiology has seen pt, recommendations reviewed -Iron studies consistent with inflammation but, in the setting of suspected acute blood loss, IV iron ordered x 4. -Folic acid, B12 and B1 were low normal on labs from last year-B complex ordered -CBC is being monitored. Transfuse for Hgb < 7 or if symptomatic Head/Neck malignancy -Per discussion with Dr. 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 -Treatment recommendations for adjuvant radiation, no chemotherapy indicated. Reinforce the information and plan again today -Radiation Oncologist has seen pt. Pending their findings and recommendations. -Patient at that this time does not need to follow-up with a Medical Oncologist. He does however, need to follow-up with the surgeon Dr. Mann. A f/u appt was scheduled for this week. Surgeon will have to be contacted to reschedule that appointment. Doctor attests: I performed a history and physical examination of this patient, developed impression and plan of care. Discussed with dictator. I agree with dictators note, documented as a scribe.
[2024-10-18] MEDS: CYANOCOBALAMIN 500 MCG TAB PO SCH (16:51)
[2024-10-18] MEDS: FOLIC ACID 1 MG TAB PO SCH (16:51)
[2024-10-18] MEDS: PANTOPRAZOLE 40 MG/10 ML VIAL IV SCH (20:36)
[2024-10-19 08:41] LABS: Basophils # (A) 0.08 X 10*3/uL (0.00-0.10); Basophils % (A) 0.7 %; Eosinophils # (A) 0.49 X 10*3/uL (0.04-0.35); Eosinophils % (A) 4.5 %; HCT 28.2 % (39.6-50.0); HGB 8.9 g/dL (13.0-17.0); Lymphocytes % (A) 22.2 %; MCH 29.4 pg (27.0-32.0); MCHC 31.6 g/dL (32.0-37.0); MCV 93.1 FL (80.0-97.0); Mean Platelet Volume 9.7 FL (9.5-12.2); Monocytes # (A) 1.23 X 10*3/uL (0.20-1.00); Monocytes % (A) 11.4 %; NRBC Per 100 WBC 0 X 10*3/uL (0.00-0.01); Neutrophils # (A) 6.48 X 10*3/uL (1.80-7.70); Neutrophils % (A) 60.2 %; Platelet Count 673 X 10*3/uL (140-440); RBC 3.03 X 10*6/uL (4.40-5.60); RDW 15.4 % (11.5-14.5); WBC 10.79 X 10*3/uL (4.50-10.00)
[2024-10-19 09:34] LABS: ALT 7 U/L (10-49); AST 19 U/L (14-35); Albumin 2.3 g/dL (3.8-4.9); Albumin/Globulin Ratio 0.82 Ratio (1.60-3.17); Alkaline Phosphatase 93 U/L (41-126); BUN/Creat Ratio 10.36 Ratio (12.00-20.00); Blood Urea Nitrogen 11.4 mg/dL (9.0-27.0); Calcium 8.5 mg/dL (8.7-10.3); Carbon Dioxide 21.1 mmol/L (21.6-31.8); Chloride 106 mmol/L (96-109); Globulin 2.8 g/dL (1.6-3.3); Glucose 94 mg/dL (70-110); Potassium 4.2 mmol/L (3.5-5.5); Sodium 136 mmol/L (135-145); Total Bilirubin 0.3 mg/dL (0.3-1.2); Total Protein 5.1 g/dL (6.2-8.2)
[2024-10-19 10:14] LABS: Reticulocyte % 2.3 % (0.5-2.0)
--- NOTE | 2024-10-19 10:57 | P.PN ---
Subjective Progress Note Date: 10/19/24 Hector Frank, is a 69-year-old male who presented to [facility] emergency room with a chief complaint of of anemia according to records patient has been at [facility] and was sent to ER for further evaluation due to hemoglobin of 7. Patient has recent tracheostomy difficult to communicate most history obtained from medical records. Patient was recently at [facility] in which she received tracheostomy and PEG tube for laryngeal mass attempting to obtain records. He was evaluated in the emergency room vital examination on presentation revealed temp 98.8, heart rate 77, respiratory rate 18, blood pressure 101/70 with a pulse ox of 98% on room air Laboratory data reveals white blood cell 13.1, hemoglobin 7.0, sodium 129, creatinine 1.2, bun 27. Stool for occult blood positive Testing in the emergency room revealed EKG showing sinus rhythm Patient was admitted to medical floor for further evaluation and treatment. Will consult GI and oncology services Past medical history is significant for laryngeal mass in which according to records patient presented to ER on August 30 due to difficulty in breathing patient was transferred to [facility] for ENT evaluation. Patient underwent tracheostomy and PEG tube placement since that transfer. Will attempt to take obtain medical records for further understanding of any surgery or treatment he is received. Additional medical history includes atrial fibrillation in which she is maintained on Eliquis this is currently on hold due to anemia, hypertension, prostate disorder, chronic pain, nicotine dependence, constip ation. On review of systems patient is alert and oriented x 3. Difficulty communicating secondary to tracheostomy. Patient reports of chronic pain. Patient denies chest pain patient denies nausea vomiting or diarrhea. Patient denies any urinary burning or frequency On 10/13/2024 patient was seen and examined on the medical floor he is alert and oriented x 3 in no apparent distress, patient has low-grade fever of 99.2, no chills no headache or dizziness no chest pain no shortness of breath no cough no nausea or vomiting no abdominal pain no diarrhea no blood in the stools, he has frequency with urination and urgency with urination. Urine analysis reveals evidence of urinary tract infection, patient was started on IV iron supplements, and IV ceftriaxone, awaiting input from oncology. On 10/14/2024 patient is alert and oriented x 3. Hemoglobin today 7.2 this is the same as yesterday. White blood cell 11.54. Current vital signs temp 98.2, heart rate 72, respiratory rate 18, blood pressure 98/61 with a pulse ox of 97% on room air patient has been started on IV iron maintained on IV Rocephin for UTI. Per oncology services attempting to obtain records from [facility] in regards to treatment for laryngeal mass. GI and oncology services following On 10/15/2024 patient is alert and oriented x 3. Lab work currently pending for today patient remains on IV Rocephin for UTI awaiting further oncology input. 2D echo has been ordered per cardiology. Current vital signs temp 98.5, heart rate 81, respiratory rate 17, blood pressure 117/62 with a pulse ox of 96% on room air patient denies chest pain or shortness of breath. Patient denies nausea vomiting or diarrhea. Patient denies any urinary burning or frequency On 10/16/2024 patient was seen and examined on the medical floor he is alert and oriented in no apparent distress there is no fever or chills no headache or dizziness no chest pain no shortness of breath no cough no nausea or vomiting no abdominal pain no diarrhea and no urinary symptoms. Hemoglobin today is down to 6.6, unit of red blood cell transfusion was ordered, oncology are following. On 10/17/2024 patient was seen and examined on the medical floor he is alert and oriented x 3 in no apparent distress, there is no fever or chills no headache or dizziness no chest pain no shortness of breath no cough no nausea or vomiting no abdominal pain no diarrhea no urinary symptoms, hemoglobin is up to 8.5 after 1 unit of red blood cell transfusion and iron supplements, input from oncology was reviewed, awaiting consult from radiation oncology, possible discharge in the next 1 to 2 days, if hemoglobin is stable. On 10/18/2024 patient is alert and oriented x 3. Hemoglobin today 6.91 unit PRBCs has been ordered. Discussed case with oncology services. Awaiting further input from radiation oncology. Current vital signs temp 97.9, heart rat e 65, respiratory rate 18, blood pressure 118/65 with a pulse ox of 97% on room air. Patient denies chest pain or shortness of breath. Patient denies nausea vomiting or diarrhea. Patient denies any urinary burning or frequency On 10/19/2024 patient is alert and oriented x 3. Patient son at bedside family meeting held. Patient received 1 unit PRBCs yesterday. Hemoglobin today 8.9. Surgical services were consulted no plans for EGD due to recent tracheostomy. If hemoglobin continues to drop tentative plans for tagged RBC. Per oncology services patient will follow-up with surgical oncology out of [facility] with radiation after therapy completion. Patient is complaining about increased right hand pain will order uric acid level and x-ray. At this time patient denies chest pain or shortness of breath. Patient denies nausea vomiting or diarrhea. Patient denies any urinary burning or frequency Objective - Vital Signs Vital signs: Vital Signs Temp 98.7 F 10/19/24 07:43 Pulse 68 10/19/24 07:43 Resp 17 10/19/24 07:43 BP 117/70 10/19/24 07:43 Pulse Ox 94 L 10/19/24 07:43 FiO2 21 10/14/24 20:40 Intake & Output 10/18/24 10/19/24 10/19/24 18:59 06:59 18:59 Intake Total 1510 Output Total 1000 1000 Balance 510 -1000 Intake: Intake, IV Titration 1200 Amount Sodium Chloride 0.9% 1, 1200 000 ml @ 100 mls/hr IV . Q10H [facility] Rx#:[id number] Blood Product 310 Rc As-1 Unit 310 [id number] Output: Urine 1000 1000 Other: Voiding Method Indwelling Catheter Indwelling Catheter # Bowel Movements 1 - Exam In general patient is alert and oriented x 3 in no distress HEENT head normocephalic and atraumatic Neck is supple no JVD no goiter no lymphadenopathy no carotid bruit. Patient has tracheostomy in place Chest examination is clear to auscultation no crackles no wheezing Cardiac exam reveals regular heart sounds S1 and S2 no gallops no murmurs Abdomen is soft nontender no organomegaly with normal bowel sounds Extremity exam reveals no edema no cyanosis or clubbing Neurological examination reveals no gross focal deficits - Labs CBC & Chem 7: 10/19/24 05:12 10/19/24 05:12 Labs: Abnormal Lab Results - Last 24 Hours (Table) 10/16/24 10/19/24 10/19/24 Range/Units 12:40 05:12 05:12 WBC 10.79 H (4.50-10.00) X 10*3/uL RBC 3.03 L (4.40-5.60) X 10*6/uL Hgb 8.9 L (13.0-17.0) g/dL Hct 28.2 L (39.6-50.0) % MCHC 31.6 L (32.0-37.0) g/dL RDW 15.4 H (11.5-14.5) % Plt Count 673 H (140-440) X 10*3/uL Immature Gran # 0.11 H (0.00-0.04) X 10*3/uL Monocytes # 1.23 H (0.20-1.00) X 10*3/uL Eosinophils # 0.49 H (0.04-0.35) X 10*3/uL Retic Count (0.5-2.0) % Carbon Dioxide 21.1 L (21.6-31.8) mmol/L BUN/Creatinine Ratio 10.36 L (12.00-20.00) Ratio Calcium 8.5 L (8.7-10.3) mg/dL ALT 7 L (10-49) U/L Lactate Dehydrogenase (120-246) U/L Total Protein 5.1 L (6.2-8.2) g/dL Albumin 2.3 L (3.8-4.9) g/dL Albumin/Globulin Ratio 0.82 L (1.60-3.17) Ratio Crossmatch See Detail 10/19/24 10/19/24 Range/Units 09:47 09:47 WBC (4.50-10.00) X 10*3/uL RBC (4.40-5.60) X 10*6/uL Hgb (13.0-17.0) g/dL Hct (39.6-50.0) % MCHC (32.0-37.0) g/dL RDW (11.5-14.5) % Plt Count (140-440) X 10*3/uL Immature Gran # (0.00-0.04) X 10*3/uL Monocytes # (0.20-1.00) X 10*3/uL Eosinophils # (0.04-0.35) X 10*3/uL Retic Count 2.3 H (0.5-2.0) % Carbon Dioxide (21.6-31.8) mmol/L BUN/Creatinine Ratio (12.00-20.00) Ratio Calcium (8.7-10.3) mg/dL ALT (10-49) U/L Lactate Dehydrogenase 410 H (120-246) U/L Total Protein (6.2-8.2) g/dL Albumin (3.8-4.9) g/dL Albumin/Globulin Ratio (1.60-3.17) Ratio Crossmatch Microbiology - Last 24 Hours (Table) 10/16/24 23:25 Urine Culture - Final Urine,Voided Josefina tropicalis Assessment and Plan Assessment: 1. Anemia with positive stool for occult blood patient's Eliquis currently on hold 2. History of recent diagnosis of laryngeal mass status post tracheostomy and PEG tube placement at [facility] 3. History of paroxysmal atrial fibrillation maintained on Eliquis currently on hold 4. History of nicotine dependence 5. History of degenerative disc disease 6. History of BPH 7. History of cardiac arrhythmia with history of ablation 8. Hyponatremia sodium low at 129. Will initiate gentle hydration 9. Urinary tract infection patient started on Rocephin DVT prophylaxis SCDs secondary to GI bleed. GI prophylax Protonix GI and oncology services consulted Continue normal saline at 100 Repeat labs ordered for a.m. Home meds resumed
--- NOTE | 2024-10-19 11:19 | P.PN ---
Subjective Progress Note Date: 10/19/24 Patient tyra stable. He has no signs of acute GI bleed. On exam vital signs appear stable. Abdomen soft. Patient will be continued be observed. Will remain on surgical standby. Objective - Vital Signs Vital signs: Vital Signs Temp 98.7 F 10/19/24 07:43 Pulse 68 10/19/24 07:43 Resp 17 10/19/24 07:43 BP 117/70 10/19/24 07:43 Pulse Ox 94 L 10/19/24 07:43 FiO2 21 10/14/24 20:40 Intake & Output 10/18/24 10/19/24 10/19/24 18:59 06:59 18:59 Intake Total 1510 Output Total 1000 1000 Balance 510 -1000 Intake: Intake, IV Titration 1200 Amount Sodium Chloride 0.9% 1, 1200 000 ml @ 100 mls/hr IV . Q10H [facility] Rx#:[id number] Blood Product 310 Rc As-1 Unit 310 [id number] Output: Urine 1000 1000 Other: Voiding Method Indwelling Catheter Indwelling Catheter # Bowel Movements 1 - Labs CBC & Chem 7: 10/19/24 05:12 10/19/24 05:12 Labs: Abnormal Lab Results - Last 24 Hours (Table) 10/16/24 10/19/24 10/19/24 Range/Units 12:40 05:12 05:12 WBC 10.79 H (4.50-10.00) X 10*3/uL RBC 3.03 L (4.40-5.60) X 10*6/uL Hgb 8.9 L (13.0-17.0) g/dL Hct 28.2 L (39.6-50.0) % MCHC 31.6 L (32.0-37.0) g/dL RDW 15.4 H (11.5-14.5) % Plt Count 673 H (140-440) X 10*3/uL Immature Gran # 0.11 H (0.00-0.04) X 10*3/uL Monocytes # 1.23 H (0.20-1.00) X 10*3/uL Eosinophils # 0.49 H (0.04-0.35) X 10*3/uL Retic Count (0.5-2.0) % Carbon Dioxide 21.1 L (21.6-31.8) mmol/L BUN/Creatinine Ratio 10.36 L (12.00-20.00) Ratio Calcium 8.5 L (8.7-10.3) mg/dL ALT 7 L (10-49) U/L Lactate Dehydrogenase (120-246) U/L Total Protein 5.1 L (6.2-8.2) g/dL Albumin 2.3 L (3.8-4.9) g/dL Albumin/Globulin Ratio 0.82 L (1.60-3.17) Ratio Crossmatch See Detail 10/19/24 10/19/24 Range/Units 09:47 09:47 WBC (4.50-10.00) X 10*3/uL RBC (4.40-5.60) X 10*6/uL Hgb (13.0-17.0) g/dL Hct (39.6-50.0) % MCHC (32.0-37.0) g/dL RDW (11.5-14.5) % Plt Count (140-440) X 10*3/uL Immature Gran # (0.00-0.04) X 10*3/uL Monocytes # (0.20-1.00) X 10*3/uL Eosinophils # (0.04-0.35) X 10*3/uL Retic Count 2.3 H (0.5-2.0) % Carbon Dioxide (21.6-31.8) mmol/L BUN/Creatinine Ratio (12.00-20.00) Ratio Calcium (8.7-10.3) mg/dL ALT (10-49) U/L Lactate Dehydrogenase 410 H (120-246) U/L Total Protein (6.2-8.2) g/dL Albumin (3.8-4.9) g/dL Albumin/Globulin Ratio (1.60-3.17) Ratio Crossmatch Microbiology - Last 24 Hours (Table) 10/16/24 23:25 Urine Culture - Final Urine,Voided Josefina tropicalis
--- NOTE | 2024-10-19 15:47 | XR ---
EXAMINATION TYPE: XR hand complete RT DATE OF EXAM: 10/19/2024 3:38 PM COMPARISON: None CLINICAL INDICATION: Male, 69 years old with history of right hand swelling; [facility] TECHNIQUE: XR hand complete RT 3views were obtained. FINDINGS: Normal alignment of the visualized joints. No acute osseous pathology is identified. No e vidence of soft tissue swelling. Multifocal degeneration changes with joint space narrowing and osteo phyte formation. remote injury to the left fifth metacarpal. Multilevel IMPRESSION: 1. No acute osseous pathology. 2. 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 3. Mild left fifth metacarpal injury. [facility], , 10/19/2024 3:44 PM
[2024-10-19 16:07] LABS: Protein, Total 5.7 g/dL (6.2-8.2)
--- NOTE | 2024-10-19 16:16 | P.PN ---
Subjective Progress Note Date: 10/19/24 Principal diagnosis: Anemia, GI bleeding? In follow-up today pt has no acute c/o. PEG is being used, no reported vomiting. Objective - Vital Signs Vital signs: Vital Signs Temp 98.7 F 10/19/24 07:43 Pulse 68 10/19/24 07:43 Resp 17 10/19/24 07:43 BP 117/70 10/19/24 07:43 Pulse Ox 94 L 10/19/24 07:43 FiO2 21 10/14/24 20:40 Intake & Output 10/18/24 10/19/24 10/19/24 18:59 06:59 18:59 Intake Total 1510 Output Total 1000 1000 Balance 510 -1000 Intake: Intake, IV Titration 1200 Amount Sodium Chloride 0.9% 1, 1200 000 ml @ 100 mls/hr IV . Q10H [facility] Rx#:[id number] Blood Product 310 Rc As-1 Unit 310 [id number] Output: Urine 1000 1000 Other: Voiding Method Indwelling Catheter Indwelling Catheter # Bowel Movements 1 - Constitutional General appearance: Present: cooperative, no acute distress, thin - EENT Eyes: Present: anicteric sclerae, EOMI ENT: Present: hearing grossly normal - Respiratory Details: resp unlabored at rest - Cardiovascular Rhythm: regular (radial pulse) - Musculoskeletal Musculoskeletal: Present: generalized weakness - Psychiatric Psychiatric: Present: A&O x's 3, intact judgment & insight - Labs CBC & Chem 7: 10/19/24 05:12 10/19/24 05:12 Labs: Abnormal Lab Results - Last 24 Hours (Table) 10/16/24 10/19/24 10/19/24 Range/Units 12:40 05:12 05:12 WBC 10.79 H (4.50-10.00) X 10*3/uL RBC 3.03 L (4.40-5.60) X 10*6/uL Hgb 8.9 L (13.0-17.0) g/dL Hct 28.2 L (39.6-50.0) % MCHC 31.6 L (32.0-37.0) g/dL RDW 15.4 H (11.5-14.5) % Plt Count 673 H (140-440) X 10*3/uL Immature Gran # 0.11 H (0.00-0.04) X 10*3/uL Monocytes # 1.23 H (0.20-1.00) X 10*3/uL Eosinophils # 0.49 H (0.04-0.35) X 10*3/uL Retic Count (0.5-2.0) % Carbon Dioxide 21.1 L (21.6-31.8) mmol/L BUN/Creatinine Ratio 10.36 L (12.00-20.00) Ratio Calcium 8.5 L (8.7-10.3) mg/dL ALT 7 L (10-49) U/L Lactate Dehydrogenase (120-246) U/L Total Protein 5.1 L (6.2-8.2) g/dL Albumin 2.3 L (3.8-4.9) g/dL Albumin/Globulin Ratio 0.82 L (1.60-3.17) Ratio Crossmatch See Detail 10/19/24 10/19/24 Range/Units 09:47 09:47 WBC (4.50-10.00) X 10*3/uL RBC (4.40-5.60) X 10*6/uL Hgb (13.0-17.0) g/dL Hct (39.6-50.0) % MCHC (32.0-37.0) g/dL RDW (11.5-14.5) % Plt Count (140-440) X 10*3/uL Immature Gran # (0.00-0.04) X 10*3/uL Monocytes # (0.20-1.00) X 10*3/uL Eosinophils # (0.04-0.35) X 10*3/uL Retic Count 2.3 H (0.5-2.0) % Carbon Dioxide (21.6-31.8) mmol/L BUN/Creatinine Ratio (12.00-20.00) Ratio Calcium (8.7-10.3) mg/dL ALT (10-49) U/L Lactate Dehydrogenase 410 H (120-246) U/L Total Protein (6.2-8.2) g/dL Albumin (3.8-4.9) g/dL Albumin/Globulin Ratio (1.60-3.17) Ratio Crossmatch Microbiology - Last 24 Hours (Table) 10/16/24 23:25 Urine Culture - Final Urine,Voided Josefina tropicalis Assessment and Plan (1) Anemia Current Visit: Yes Status: Acute Priority: High Code(s): D64.9 - ANEMIA, UNSPECIFIED SNOMED Code(s): 946679809 (2) Laryngeal mass Current Visit: Yes Status: Acute Priority: High Code(s): J38.7 - OTHER DISEASES OF LARYNX SNOMED Code(s): 111239844 Plan: Anemia -Baseline Hgb 9-10 range -1 unit PRBCs given for a Hgb 6.9 yesterday, Hgb is 8.9 today. Would have expected a Hgb closer to 8. -Surgical losses, dilutional, malnutrition, GI losses? Dr. Mann was adamant that Pt is NOT have any upper endoscopy procedures at this time. No lower endoscopy planned at this time. -Eliquis has been held due to suspected bleeding, Cardiology has seen pt, recommendations reviewed -Iron studies consistent with inflammation but, in the setting of suspected acute blood loss, IV iron ordered x 4. -Folic acid, B12 and B1 were low normal on labs from last year-B complex ordered -CBC is being monitored. Transfuse for Hgb < 7 or if symptomatic -Paraproteinemia and hemolysis work up ordered, to rule out Head/Neck malignancy -Per discussion with Dr. 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 -Treatment recommendations for adjuvant radiation, no chemotherapy indicated. Reinforced the plan again today -Radiation Oncologist has seen pt. Pending their findings and recommendations. -Patient at that this time does not need to follow-up with a Medical Oncologist. He does however, need to follow-up with the surgeon Dr. Mnan. A f/u appt was scheduled for this week. Surgeon will have to be contacted to reschedule that appointment. Doctor attests: I performed a history and physical examination of this patient, developed impression and plan of care. Discussed with dictator. I agree with dictators note, documented as a scribe.
--- NOTE | 2024-10-20 09:45 | P.PN ---
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 On today's evaluation that is 10/19/2024, Patient is afebrile this morning patient seem to be breathing comfortably currently on room air denies any chest pain patient cough no nausea no vomiting no abdominal pain or diarrhea. Patient white count is 10.79 hemoglobin is 8.9 creatinine is 1.1 repeat urinalysis showing Josefina tropicalis Objective - Vital Signs Vital signs: Vital Signs Temp 98.7 F 10/19/24 07:43 Pulse 68 10/19/24 07:43 Resp 17 10/19/24 07:43 BP 117/70 10/19/24 07:43 Pulse Ox 94 L 10/19/24 07:43 FiO2 21 10/14/24 20:40 Intake & Output 10/18/24 10/19/24 10/19/24 18:59 06:59 18:59 Intake Total 1510 Output Total 1000 1000 Balance 510 -1000 Intake: Intake, IV Titration 1200 Amount Sodium Chloride 0.9% 1, 1200 000 ml @ 100 mls/hr IV . Q10H [facility] Rx#:[id number] Blood Product 310 Rc As-1 Unit 310 [id number] Output: Urine 1000 1000 Other: Voiding Method Indwelling Catheter Indwelling Catheter # Bowel Movements 1 - Exam GENERAL DESCRIPTION: An elderly male lying in bed in no distress RESPIRATORY SYSTEM: Unlabored breathing , decreased breath sounds at bases HEART: S1 S2 regular rate and rhythm , ABDOMEN: Soft , no tenderness EXTREMITIES: No edema feet - Labs CBC & Chem 7: 10/19/24 05:12 10/19/24 05:12 Labs: Abnormal Lab Results - Last 24 Hours (Table) 10/16/24 10/19/24 10/19/24 Range/Units 12:40 05:12 05:12 WBC 10.79 H (4.50-10.00) X 10*3/uL RBC 3.03 L (4.40-5.60) X 10*6/uL Hgb 8.9 L (13.0-17.0) g/dL Hct 28.2 L (39.6-50.0) % MCHC 31.6 L (32.0-37.0) g/dL RDW 15.4 H (11.5-14.5) % Plt Count 673 H (140-440) X 10*3/uL Immature Gran # 0.11 H (0.00-0.04) X 10*3/uL Monocytes # 1.23 H (0.20-1.00) X 10*3/uL Eosinophils # 0.49 H (0.04-0.35) X 10*3/uL Retic Count (0.5-2.0) % Carbon Dioxide 21.1 L (21.6-31.8) mmol/L BUN/Creatinine Ratio 10.36 L (12.00-20.00) Ratio Calcium 8.5 L (8.7-10.3) mg/dL ALT 7 L (10-49) U/L Lactate Dehydrogenase (120-246) U/L Total Protein 5.1 L (6.2-8.2) g/dL Albumin 2.3 L (3.8-4.9) g/dL Albumin/Globulin Ratio 0.82 L (1.60-3.17) Ratio Crossmatch See Detail 10/19/24 10/19/24 Range/Units 09:47 09:47 WBC (4.50-10.00) X 10*3/uL RBC (4.40-5.60) X 10*6/uL Hgb (13.0-17.0) g/dL Hct (39.6-50.0) % MCHC (32.0-37.0) g/dL RDW (11.5-14.5) % Plt Count (140-440) X 10*3/uL Immature Gran # (0.00-0.04) X 10*3/uL Monocytes # (0.20-1.00) X 10*3/uL Eosinophils # (0.04-0.35) X 10*3/uL Retic Count 2.3 H (0.5-2.0) % Carbon Dioxide (21.6-31.8) mmol/L BUN/Creatinine Ratio (12.00-20.00) Ratio Calcium (8.7-10.3) mg/dL ALT (10-49) U/L Lactate Dehydrogenase 410 H (120-246) U/L Total Protein (6.2-8.2) g/dL Albumin (3.8-4.9) g/dL Albumin/Globulin Ratio (1.60-3.17) Ratio Crossmatch Microbiology - Last 24 Hours (Table) 10/16/24 23:25 Urine Culture - Final Urine,Voided Josefina tropicalis Assessment and Plan (1) Catheter-associated urinary tract infection Current Visit: Yes Status: Acute Code(s): T83.511A - I/I REACT D/T INDWELLING URETHRAL CATHETER, INIT; N39.0 - URINARY TRACT INFECTION, SITE NOT SPECIFIED SNOMED Code(s): 635139470 (2) Leukocytosis Current Visit: No Status: Acute Code(s): D72.829 - ELEVATED WHITE BLOOD CELL COUNT, UNSPECIFIED SNOMED Code(s): 529417279 Plan: 1patient with a leukocytosis which is likely multifactorial in this patient presenting to the hospital with a low hemoglobin questionably reactive versus related to catheter assisted UTI as the patient did have a chronic draining Epps catheter that has been there for more than a month. 2patient did have 2 scabbed over lesion to the anterior chest wall and some crusting around the PEG tube site but no evidence of any cellulitis clinically doubt source of his elevated white count 3- the patient Epps catheter has been changed initial urine culture Did grew Josefina repeat UA is also positive and growing the same pathogen that is Josefina tropicalis 4patient to continue with the Diflucan and will monitor clinical course closely Dictation was produced using [employer] software. please excuse any grammatical, word or spelling errors. Time with Patient: Less than 30
--- NOTE | 2024-10-20 09:59 | P.PN ---
Subjective Progress Note Date: 10/20/24 Hector Frank, is a 69-year-old male who presented to [facility] emergency room with a chief complaint of of anemia according to records patient has been at [facility] and was sent to ER for further evaluation due to hemoglobin of 7. Patient has recent tracheostomy difficult to communicate most history obtained from medical records. Patient was recently at [facility] in which she received tracheostomy and PEG tube for laryngeal mass attempting to obtain records. He was evaluated in the emergency room vital examination on presentation revealed temp 98.8, heart rate 77, respiratory rate 18, blood pressure 101/70 with a pulse ox of 98% on room air Laboratory data reveals white blood cell 13.1, hemoglobin 7.0, sodium 129, creatinine 1.2, bun 27. Stool for occult blood positive Testing in the emergency room revealed EKG showing sinus rhythm Patient was admitted to medical floor for further evaluation and treatment. Will consult GI and oncology services Past medical history is significant for laryngeal mass in which according to records patient presented to ER on August 30 due to difficulty in breathing patient was transferred to [facility] for ENT evaluation. Patient underwent tracheostomy and PEG tube placement since that transfer. Will attempt to take obtain medical records for further understanding of any surgery or treatment he is received. Additional medical history includes atrial fibrillation in which she is maintained on Eliquis this is currently on hold due to anemia, hypertension, prostate disorder, chronic pain, nicotine dependence, constip ation. On review of systems patient is alert and oriented x 3. Difficulty communicating secondary to tracheostomy. Patient reports of chronic pain. Patient denies chest pain patient denies nausea vomiting or diarrhea. Patient denies any urinary burning or frequency On 10/13/2024 patient was seen and examined on the medical floor he is alert and oriented x 3 in no apparent distress, patient has low-grade fever of 99.2, no chills no headache or dizziness no chest pain no shortness of breath no cough no nausea or vomiting no abdominal pain no diarrhea no blood in the stools, he has frequency with urination and urgency with urination. Urine analysis reveals evidence of urinary tract infection, patient was started on IV iron supplements, and IV ceftriaxone, awaiting input from oncology. On 10/14/2024 patient is alert and oriented x 3. Hemoglobin today 7.2 this is the same as yesterday. White blood cell 11.54. Current vital signs temp 98.2, heart rate 72, respiratory rate 18, blood pressure 98/61 with a pulse ox of 97% on room air patient has been started on IV iron maintained on IV Rocephin for UTI. Per oncology services attempting to obtain records from [facility] in regards to treatment for laryngeal mass. GI and oncology services following On 10/15/2024 patient is alert and oriented x 3. Lab work currently pending for today patient remains on IV Rocephin for UTI awaiting further oncology input. 2D echo has been ordered per cardiology. Current vital signs temp 98.5, heart rate 81, respiratory rate 17, blood pressure 117/62 with a pulse ox of 96% on room air patient denies chest pain or shortness of breath. Patient denies nausea vomiting or diarrhea. Patient denies any urinary burning or frequency On 10/16/2024 patient was seen and examined on the medical floor he is alert and oriented in no apparent distress there is no fever or chills no headache or dizziness no chest pain no shortness of breath no cough no nausea or vomiting no abdominal pain no diarrhea and no urinary symptoms. Hemoglobin today is down to 6.6, unit of red blood cell transfusion was ordered, oncology are following. On 10/17/2024 patient was seen and examined on the medical floor he is alert and oriented x 3 in no apparent distress, there is no fever or chills no headache or dizziness no chest pain no shortness of breath no cough no nausea or vomiting no abdominal pain no diarrhea no urinary symptoms, hemoglobin is up to 8.5 after 1 unit of red blood cell transfusion and iron supplements, input from oncology was reviewed, awaiting consult from radiation oncology, possible discharge in the next 1 to 2 days, if hemoglobin is stable. On 10/18/2024 patient is alert and oriented x 3. Hemoglobin today 6.91 unit PRBCs has been ordered. Discussed case with oncology services. Awaiting further input from radiation oncology. Current vital signs temp 97.9, heart rat e 65, respiratory rate 18, blood pressure 118/65 with a pulse ox of 97% on room air. Patient denies chest pain or shortness of breath. Patient denies nausea vomiting or diarrhea. Patient denies any urinary burning or frequency On 10/19/2024 patient is alert and oriented x 3. Patient son at bedside family meeting held. Patient received 1 unit PRBCs yesterday. Hemoglobin today 8.9. Surgical services were consulted no plans for EGD due to recent tracheostomy. If hemoglobin continues to drop tentative plans for tagged RBC. Per oncology services patient will follow-up with surgical oncology out of [facility] with radiation after therapy completion. Patient is complaining about increased right hand pain will order uric acid level and x-ray. At this time patient denies chest pain or shortness of breath. Patient denies nausea vomiting or diarrhea. Patient denies any urinary burning or frequency On 10/20/2024 patient was seen and examined on the medical floor he is alert and oriented x 3 in no apparent distress he denies any symptoms at this time there is no fever or chills no headache or dizziness no chest pain no shortness of breath no cough no nausea or vomiting no abdominal pain no diarrhea and no urinary symptoms, will continue to monitor hemoglobin closely. Objective - Vital Signs Vital signs: Vital Signs Temp 98.9 F 10/20/24 07:21 Pulse 73 10/20/24 07:21 Resp 17 10/20/24 07:21 BP 106/57 10/20/24 07:21 Pulse Ox 95 10/20/24 07:21 FiO2 21 10/14/24 20:40 Intake & Output 10/19/24 10/20/24 10/20/24 18:59 06:59 18:59 Intake Total 480 Output Total 1300 1575 Balance -820 -1575 Weight 65.317 kg Intake: Oral 480 Output: Urine 1300 1575 Other: Voiding Method Indwelling Catheter Indwelling Catheter # Bowel Movements 0 - Exam In general patient is alert and oriented x 3 in no distress HEENT head normocephalic and atraumatic Neck is supple no JVD no goiter no lymphadenopathy no carotid bruit. Patient has tracheostomy in place Chest examination is clear to auscultation no crackles no wheezing Cardiac exam reveals regular heart sounds S1 and S2 no gallops no murmurs Abdomen is soft nontender no organomegaly with normal bowel sounds Extremity exam reveals no edema no cyanosis or clubbing Neurological examination reveals no gross focal deficits - Labs CBC & Chem 7: 10/19/24 05:12 10/19/24 05:12 Labs: Abnormal Lab Results - Last 24 Hours (Table) 10/19/24 10/19/24 10/19/24 Range/Units 05:12 09:47 09:47 Retic Count 2.3 H (0.5-2.0) % Haptoglobin (31.2-198.0) mg/dL Carbon Dioxide 21.1 L (21.6-31.8) mmol/L BUN/Creatinine Ratio 10.36 L (12.00-20.00) Ratio Calcium 8.5 L (8.7-10.3) mg/dL ALT 7 L (10-49) U/L Lactate Dehydrogenase 410 H (120-246) U/L Total Protein 5.1 L (6.2-8.2) g/dL Total Protein (PEP) (6.2-8.2) g/dL Albumin 2.3 L (3.8-4.9) g/dL Albumin/Globulin Ratio 0.82 L (1.60-3.17) Ratio 10/19/24 Range/Units 09:47 Retic Count (0.5-2.0) % Haptoglobin 337.0 H (31.2-198.0) mg/dL Carbon Dioxide (21.6-31.8) mmol/L BUN/Creatinine Ratio (12.00-20.00) Ratio Calcium (8.7-10.3) mg/dL ALT (10-49) U/L Lactate Dehydrogenase (120-246) U/L Total Protein (6.2-8.2) g/dL Total Protein (PEP) 5.7 L (6.2-8.2) g/dL Albumin (3.8-4.9) g/dL Albumin/Globulin Ratio (1.60-3.17) Ratio Assessment and Plan Assessment: 1. Anemia with positive stool for occult blood patient's Eliquis currently on hold 2. History of recent diagnosis of laryngeal mass status post tracheostomy and PEG tube placement at [facility] 3. History of paroxysmal atrial fibrillation maintained on Eliquis currently on hold 4. History of nicotine dependence 5. History of degenerative disc disease 6. History of BPH 7. History of cardiac arrhythmia with history of ablation 8. Hyponatremia sodium low at 129. Will initiate gentle hydration 9. Urinary tract infection patient started on Rocephin DVT prophylaxis SCDs secondary to GI bleed. GI prophylax Protonix GI and oncology services consulted Continue normal saline at 100 Repeat labs ordered for a.m. Home meds resumed
[2024-10-20 10:24] LABS: ALT 5 U/L (10-49); AST 16 U/L (14-35); Albumin 2.3 g/dL (3.8-4.9); Albumin/Globulin Ratio 0.85 Ratio (1.60-3.17); Alkaline Phosphatase 86 U/L (41-126); Blood Urea Nitrogen 12.1 mg/dL (9.0-27.0); Calcium 8.4 mg/dL (8.7-10.3); Carbon Dioxide 21.5 mmol/L (21.6-31.8); Chloride 102 mmol/L (96-109); Globulin 2.7 g/dL (1.6-3.3); Glucose 80 mg/dL (70-110); Potassium 4.6 mmol/L (3.5-5.5); Sodium 134 mmol/L (135-145); Total Bilirubin 0.3 mg/dL (0.3-1.2)
[2024-10-20 10:39] LABS: Basophils # (A) 0.06 X 10*3/uL (0.00-0.10); Basophils % (A) 0.5 %; Eosinophils # (A) 0.53 X 10*3/uL (0.04-0.35); Eosinophils % (A) 4.4 %; HCT 27.9 % (39.6-50.0); HGB 8.7 g/dL (13.0-17.0); Lymphocytes # (A) 2.21 X 10*3/uL (0.90-5.00); Lymphocytes % (A) 18.5 %; MCH 29.1 pg (27.0-32.0); MCHC 31.2 g/dL (32.0-37.0); MCV 93.3 FL (80.0-97.0); Mean Platelet Volume 9.8 FL (9.5-12.2); Monocytes % (A) 13.4 %; NRBC Per 100 WBC 0 X 10*3/uL (0.00-0.01); Neutrophils # (A) 7.38 X 10*3/uL (1.80-7.70); Neutrophils % (A) 61.9 %; Platelet Count 683 X 10*3/uL (140-440); RBC 2.99 X 10*6/uL (4.40-5.60); RDW 15.7 % (11.5-14.5); WBC 11.94 X 10*3/uL (4.50-10.00)
--- NOTE | 2024-10-20 13:19 | P.PN ---
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 On today's evaluation that is 10/20/2024,the patient denies any fever or any chills, patient is breathing comfortably on room air, the patient denies chest pain shortness of breath and no significant cough, patient denies abdominal pain, no nausea vomiting. Patient white count is 11.94 creatinine is 1.1 Objective - Vital Signs Vital signs: Vital Signs Temp 98.9 F 10/20/24 07:21 Pulse 73 10/20/24 07:21 Resp 17 10/20/24 07:21 BP 106/57 10/20/24 07:21 Pulse Ox 95 10/20/24 07:21 FiO2 21 10/14/24 20:40 Intake & Output 10/19/24 10/20/24 10/20/24 18:59 06:59 18:59 Intake Total 480 240 Output Total 1300 1575 Balance -820 -1575 240 Weight 65.317 kg Intake: Oral 480 240 Output: Urine 1300 1575 Other: Voiding Method Indwelling Catheter Indwelling Catheter Indwelling Catheter # Bowel Movements 0 - Exam GENERAL DESCRIPTION: An elderly male lying in bed in no distress RESPIRATORY SYSTEM: Unlabored breathing , decreased breath sounds at bases HEART: S1 S2 regular rate and rhythm , ABDOMEN: Soft , no tenderness EXTREMITIES: No edema feet - Labs CBC & Chem 7: 10/20/24 05:36 10/20/24 05:36 Labs: Abnormal Lab Results - Last 24 Hours (Table) 10/19/24 10/20/24 10/20/24 Range/Units 09:47 05:36 05:36 WBC 11.94 H (4.50-10.00) X 10*3/uL RBC 2.99 L (4.40-5.60) X 10*6/uL Hgb 8.7 L (13.0-17.0) g/dL Hct 27.9 L (39.6-50.0) % MCHC 31.2 L (32.0-37.0) g/dL RDW 15.7 H (11.5-14.5) % Plt Count 683 H (140-440) X 10*3/uL Immature Gran # 0.16 H (0.00-0.04) X 10*3/uL Monocytes # 1.60 H (0.20-1.00) X 10*3/uL Eosinophils # 0.53 H (0.04-0.35) X 10*3/uL Haptoglobin 337.0 H (31.2-198.0) mg/dL Sodium 134 L (135-145) mmol/L Carbon Dioxide 21.5 L (21.6-31.8) mmol/L BUN/Creatinine Ratio 11.00 L (12.00-20.00) Ratio Calcium 8.4 L (8.7-10.3) mg/dL ALT 5 L (10-49) U/L Total Protein 5.0 L (6.2-8.2) g/dL Total Protein (PEP) 5.7 L (6.2-8.2) g/dL Albumin 2.3 L (3.8-4.9) g/dL Albumin/Globulin Ratio 0.85 L (1.60-3.17) Ratio Assessment and Plan (1) Catheter-associated urinary tract infection Current Visit: Yes Status: Acute Code(s): T83.511A - I/I REACT D/T INDWELLING URETHRAL CATHETER, INIT; N39.0 - URINARY TRACT INFECTION, SITE NOT SPECIFIED SNOMED Code(s): 975193764 (2) Leukocytosis Current Visit: No Status: Acute Code(s): D72.829 - ELEVATED WHITE BLOOD CELL COUNT, UNSPECIFIED SNOMED Code(s): 330508427 Plan: 1patient with a leukocytosis which is likely multifactorial in this patient presenting to the hospital with a low hemoglobin questionably reactive versus related to catheter assisted UTI as the patient did have a chronic draining Epps catheter that has been there for more than a month. 2patient did have 2 scabbed over lesion to the anterior chest wall and some crusting around the PEG tube site but no evidence of any cellulitis clinically doubt source of his elevated white count 3- the patient Epps catheter has been changed initial urine culture Did grew Josefina repeat UA is also positive and growing the same pathogen that is Josefina tropicalis 4patient is afebrile however the patient white count slightly up today will be monitored closely, to continue with the Diflucan and continue supportive care Dictation was produced using [employer] dictation software. please excuse any grammatical, word or spelling errors. Time with Patient: Less than 30
--- NOTE | 2024-10-20 15:19 | P.PN ---
Subjective Progress Note Date: 10/20/24 CHIEF COMPLAINT: GI bleed HISTORY OF PRESENT ILLNESS: The patient is a 69-year-old male being followed for GI bleed. Per discussion with nursing, patient had a bowel movement brown without bleeding. No reports of other source of bleeding. He is tolerating diet. ROS: No reports of nausea and vomiting. No fevers or chills. No new chest pain. PHYSICAL EXAM: VITAL SIGNS: Reviewed CONSTITUTIONAL: Well developed and in no acute distress. EYES: Extraocular movements grossly intact. HEAD, EARS, NOSE, THROAT: Head is atraumatic, normocephalic. Hears conversational speech. No nasal drainage. RESPIRATORY: Non-labored respirations and equal bilateral excursions. CARDIOVASCULAR: Regular rhythm ABDOMEN: No peritonitis MUSCULOSKELETAL: No clubbing. No cyanosis. SKIN: Good skin turgor. Well perfused. NEUROLOGIC: No focal or lateralizing signs. PSYCH: Alert and oriented to person CLINICAL LABS: Reviewed. Hemoglobin up 6.9-8.7, anemia ASSESSMENT: 1. Gastrointestinal bleeding 2. Acute blood loss anemia 3. History of laryngeal cancer status post tracheostomy/gastrostomy tube PLAN: 1. Monitor hemoglobin and transfuse as needed 2. Tagged RBC scan should patient develop any bleeding 3. Continue to hold Eliquis Objective - Vital Signs Vital signs: Vital Signs Temp 98.1 F 10/20/24 14:00 Pulse 94 10/20/24 14:00 Resp 17 10/20/24 14:00 BP 131/71 10/20/24 14:00 Pulse Ox 94 L 10/20/24 14:00 FiO2 21 10/14/24 20:40 Intake & Output 10/19/24 10/20/24 10/20/24 18:59 06:59 18:59 Intake Total 480 2031 Output Total 1300 1575 1 Balance -820 -1575 2030 Weight 65.317 kg Intake: Oral 480 2031 Output: Urine 1300 1575 Stool 1 Other: Voiding Method Indwelling Catheter Indwelling Catheter Indwelling Catheter # Voids 4 # Bowel Movements 0 - Labs CBC & Chem 7: 10/20/24 05:36 10/20/24 05:36 Labs: Abnormal Lab Results - Last 24 Hours (Table) 10/19/24 10/20/24 10/20/24 Range/Units 09:47 05:36 05:36 WBC 11.94 H (4.50-10.00) X 10*3/uL RBC 2.99 L (4.40-5.60) X 10*6/uL Hgb 8.7 L (13.0-17.0) g/dL Hct 27.9 L (39.6-50.0) % MCHC 31.2 L (32.0-37.0) g/dL RDW 15.7 H (11.5-14.5) % Plt Count 683 H (140-440) X 10*3/uL Immature Gran # 0.16 H (0.00-0.04) X 10*3/uL Monocytes # 1.60 H (0.20-1.00) X 10*3/uL Eosinophils # 0.53 H (0.04-0.35) X 10*3/uL Haptoglobin 337.0 H (31.2-198.0) mg/dL Sodium 134 L (135-145) mmol/L Carbon Dioxide 21.5 L (21.6-31.8) mmol/L BUN/Creatinine Ratio 11.00 L (12.00-20.00) Ratio Calcium 8.4 L (8.7-10.3) mg/dL ALT 5 L (10-49) U/L Total Protein 5.0 L (6.2-8.2) g/dL Total Protein (PEP) 5.7 L (6.2-8.2) g/dL Albumin 2.3 L (3.8-4.9) g/dL Albumin/Globulin Ratio 0.85 L (1.60-3.17) Ratio
[2024-10-21 09:50] LABS: HCT 27.6 % (39.6-50.0); HGB 8.5 g/dL (13.0-17.0); MCHC 30.8 g/dL (32.0-37.0); MCV 90.8 FL (80.0-97.0); Mean Platelet Volume 9.9 FL (9.5-12.2); NRBC Per 100 WBC 0 X 10*3/uL (0.00-0.01); Platelet Count 671 X 10*3/uL (140-440); RBC 3.04 X 10*6/uL (4.40-5.60); RDW 15.5 % (11.5-14.5); WBC 12.15 X 10*3/uL (4.50-10.00)
[2024-10-21 09:51] LABS: Basophils # (A) 0.08 X 10*3/uL (0.00-0.10); Basophils % (A) 0.7 %; Eosinophils # (A) 0.53 X 10*3/uL (0.04-0.35); Eosinophils % (A) 4.4 %; Lymphocytes % (A) 18.1 %; Monocytes # (A) 1.52 X 10*3/uL (0.20-1.00); Monocytes % (A) 12.5 %; Neutrophils # (A) 7.65 X 10*3/uL (1.80-7.70); Neutrophils % (A) 62.9 %
--- NOTE | 2024-10-21 10:08 | P.PN ---
Subjective Progress Note Date: 10/21/24 Hector Frank, is a 69-year-old male who presented to [facility] emergency room with a chief complaint of of anemia according to records patient has been at [facility] and was sent to ER for further evaluation due to hemoglobin of 7. Patient has recent tracheostomy difficult to communicate most history obtained from medical records. Patient was recently at [facility] in which she received tracheostomy and PEG tube for laryngeal mass attempting to obtain records. He was evaluated in the emergency room vital examination on presentation revealed temp 98.8, heart rate 77, respiratory rate 18, blood pressure 101/70 with a pulse ox of 98% on room air Laboratory data reveals white blood cell 13.1, hemoglobin 7.0, sodium 129, creatinine 1.2, bun 27. Stool for occult blood positive Testing in the emergency room revealed EKG showing sinus rhythm Patient was admitted to medical floor for further evaluation and treatment. Will consult GI and oncology services Past medical history is significant for laryngeal mass in which according to records patient presented to ER on August 30 due to difficulty in breathing patient was transferred to [facility] for ENT evaluation. Patient underwent tracheostomy and PEG tube placement since that transfer. Will attempt to take obtain medical records for further understanding of any surgery or treatment he is received. Additional medical history includes atrial fibrillation in which she is maintained on Eliquis this is currently on hold due to anemia, hypertension, prostate disorder, chronic pain, nicotine dependence, constip ation. On review of systems patient is alert and oriented x 3. Difficulty communicating secondary to tracheostomy. Patient reports of chronic pain. Patient denies chest pain patient denies nausea vomiting or diarrhea. Patient denies any urinary burning or frequency On 10/13/2024 patient was seen and examined on the medical floor he is alert and oriented x 3 in no apparent distress, patient has low-grade fever of 99.2, no chills no headache or dizziness no chest pain no shortness of breath no cough no nausea or vomiting no abdominal pain no diarrhea no blood in the stools, he has frequency with urination and urgency with urination. Urine analysis reveals evidence of urinary tract infection, patient was started on IV iron supplements, and IV ceftriaxone, awaiting input from oncology. On 10/14/2024 patient is alert and oriented x 3. Hemoglobin today 7.2 this is the same as yesterday. White blood cell 11.54. Current vital signs temp 98.2, heart rate 72, respiratory rate 18, blood pressure 98/61 with a pulse ox of 97% on room air patient has been started on IV iron maintained on IV Rocephin for UTI. Per oncology services attempting to obtain records from [place] in regards to treatment for laryngeal mass. GI and oncology services following On 10/15/2024 patient is alert and oriented x 3. Lab work currently pending for today patient remains on IV Rocephin for UTI awaiting further oncology input. 2D echo has been ordered per cardiology. Current vital signs temp 98.5, heart rate 81, respiratory rate 17, blood pressure 117/62 with a pulse ox of 96% on room air patient denies chest pain or shortness of breath. Patient denies nausea vomiting or diarrhea. Patient denies any urinary burning or frequency On 10/16/2024 patient was seen and examined on the medical floor he is alert and oriented in no apparent distress there is no fever or chills no headache or dizziness no chest pain no shortness of breath no cough no nausea or vomiting no abdominal pain no diarrhea and no urinary symptoms. Hemoglobin today is down to 6.6, unit of red blood cell transfusion was ordered, oncology are following. On 10/17/2024 patient was seen and examined on the medical floor he is alert and oriented x 3 in no apparent distress, there is no fever or chills no headache or dizziness no chest pain no shortness of breath no cough no nausea or vomiting no abdominal pain no diarrhea no urinary symptoms, hemoglobin is up to 8.5 after 1 unit of red blood cell transfusion and iron supplements, input from oncology was reviewed, awaiting consult from radiation oncology, possible discharge in the next 1 to 2 days, if hemoglobin is stable. On 10/18/2024 patient is alert and oriented x 3. Hemoglobin today 6.91 unit PRBCs has been ordered. Discussed case with oncology services. Awaiting further input from radiation oncology. Current vital signs temp 97.9, heart rat e 65, respiratory rate 18, blood pressure 118/65 with a pulse ox of 97% on room air. Patient denies chest pain or shortness of breath. Patient denies nausea vomiting or diarrhea. Patient denies any urinary burning or frequency On 10/19/2024 patient is alert and oriented x 3. Patient son at bedside family meeting held. Patient received 1 unit PRBCs yesterday. Hemoglobin today 8.9. Surgical services were consulted no plans for EGD due to recent tracheostomy. If hemoglobin continues to drop tentative plans for tagged RBC. Per oncology services patient will follow-up with surgical oncology out of [facility] with radiation after therapy completion. Patient is complaining about increased right hand pain will order uric acid level and x-ray. At this time patient denies chest pain or shortness of breath. Patient denies nausea vomiting or diarrhea. Patient denies any urinary burning or frequency On 10/20/2024 patient was seen and examined on the medical floor he is alert and oriented x 3 in no apparent distress he denies any symptoms at this time there is no fever or chills no headache or dizziness no chest pain no shortness of breath no cough no nausea or vomiting no abdominal pain no diarrhea and no urinary symptoms, will continue to monitor hemoglobin closely. On 10/21/2024 patient is alert and oriented x 3 currently sitting up in chair. Hemoglobin today 8.5. Continue to monitor hemoglobin. Patient denies chest pain or shortness of breath. Patient denies nausea vomiting or diarrhea. Patient denies any urinary burning or frequency infectious disease services are following patient remains on Diflucan Objective - Vital Signs Vital signs: Vital Signs Temp 98.1 F 10/21/24 07:11 Pulse 76 10/21/24 07:11 Resp 16 10/21/24 07:11 BP 112/67 10/21/24 07:11 Pulse Ox 94 L 10/21/24 07:11 FiO2 21 10/14/24 20:40 Intake & Output 10/20/24 10/21/24 10/21/24 18:59 06:59 18:59 Intake Total 2272 1100 Output Total 1201 3200 Balance 1071 -2100 Intake: Intake, IV Titration 1100 Amount Sodium Chloride 0.9% 1, 1100 000 ml @ 100 mls/hr IV . Q10H [facility] Rx#:[id number] Oral 2272 Output: Urine 1200 3200 Stool 1 Other: Voiding Method Indwelling Catheter Indwelling Catheter # Voids 4 # Bowel Movements 1 - Exam In general patient is alert and oriented x 3 in no distress HEENT head normocephalic and atraumatic Neck is supple no JVD no goiter no lymphadenopathy no carotid bruit. Patient has tracheostomy in place Chest examination is clear to auscultation no crackles no wheezing Cardiac exam reveals regular heart sounds S1 and S2 no gallops no murmurs Abdomen is soft nontender no organomegaly with normal bowel sounds Extremity exam reveals no edema no cyanosis or clubbing Neurological examination reveals no gross focal deficits - Labs CBC & Chem 7: 10/21/24 06:23 10/20/24 05:36 Labs: Abnormal Lab Results - Last 24 Hours (Table) 10/20/24 10/20/24 10/21/24 Range/Units 05:36 05:36 06:23 WBC 11.94 H 12.15 H (4.50-10.00) X 10*3/uL RBC 2.99 L 3.04 L (4.40-5.60) X 10*6/uL Hgb 8.7 L 8.5 L (13.0-17.0) g/dL Hct 27.9 L 27.6 L (39.6-50.0) % MCHC 31.2 L 30.8 L (32.0-37.0) g/dL RDW 15.7 H 15.5 H (11.5-14.5) % Plt Count 683 H 671 H (140-440) X 10*3/uL Immature Gran # 0.16 H 0.17 H (0.00-0.04) X 10*3/uL Monocytes # 1.60 H 1.52 H (0.20-1.00) X 10*3/uL Eosinophils # 0.53 H 0.53 H (0.04-0.35) X 10*3/uL Sodium 134 L (135-145) mmol/L Carbon Dioxide 21.5 L (21.6-31.8) mmol/L BUN/Creatinine Ratio 11.00 L (12.00-20.00) Ratio Calcium 8.4 L (8.7-10.3) mg/dL ALT 5 L (10-49) U/L Total Protein 5.0 L (6.2-8.2) g/dL Albumin 2.3 L (3.8-4.9) g/dL Albumin/Globulin Ratio 0.85 L (1.60-3.17) Ratio Assessment and Plan Assessment: 1. Anemia with positive stool for occult blood patient's Eliquis currently on hold 2. History of recent diagnosis of laryngeal mass status post tracheostomy and PEG tube placement at [facility] 3. History of paroxysmal atrial fibrillation maintained on Eliquis currently on hold 4. History of nicotine dependence 5. History of degenerative disc disease 6. History of BPH 7. History of cardiac arrhythmia with history of ablation 8. Hyponatremia sodium low at 129. Will initiate gentle hydration 9. Urinary tract infection patient started on Rocephin DVT prophylaxis SCDs secondary to GI bleed. GI prophylax Protonix GI and oncology services consulted Continue normal saline at 100 Repeat labs ordered for a.m. Home meds resumed
[2024-10-21 13:09] LABS: ALT 7 U/L (10-49); AST 15 U/L (14-35); Albumin 2.5 g/dL (3.8-4.9); Albumin/Globulin Ratio 0.86 Ratio (1.60-3.17); Alkaline Phosphatase 91 U/L (41-126); Blood Urea Nitrogen 14.8 mg/dL (9.0-27.0); Calcium 8.6 mg/dL (8.7-10.3); Carbon Dioxide 21.2 mmol/L (21.6-31.8); Chloride 103 mmol/L (96-109); Globulin 2.9 g/dL (1.6-3.3); Glucose 92 mg/dL (70-110); Potassium 4.6 mmol/L (3.5-5.5); Sodium 135 mmol/L (135-145); Total Bilirubin 0.2 mg/dL (0.3-1.2); Total Protein 5.4 g/dL (6.2-8.2)
[2024-10-21 14:12] LABS: Free Lambda Lt Chain Qnt, Seru 8.89 mg/dL (0.57-2.63)
--- NOTE | 2024-10-21 15:39 | P.PN ---
Subjective Progress Note Date: 10/21/24 Principal diagnosis: Reason for follow-up is leukocytosis possible catheter associated UTI Patient is a 69-year-old male with a past medical history significant for reflux hypertension prostate disorder atrial fibrillation, laryngeal cancer status post PEG and tracheostomy that was done at [facility] patient also have urine retention with a chronic indwelling Epps catheter present to the hospital with low hemoglobin also noticed to have elevated white count prompted this consultation. On today's evaluation that is 10/21/2024,the patient remains to be afebrile, patient is on room air not requiring supplemental oxygen and denies any shortness of breath no chest pain or cough.Patient denies having any nausea or vomiting, no abdominal pain and no diarrhea has been reported has been complaining of pain mostly to the shoulder area. Patient white count is 12.15 today, creat is 1.0 Objective - Vital Signs Vital signs: Vital Signs Temp 98.1 F 10/21/24 07:11 Pulse 76 10/21/24 07:11 Resp 16 10/21/24 07:11 BP 112/67 10/21/24 07:11 Pulse Ox 94 L 10/21/24 07:11 FiO2 21 10/14/24 20:40 Intake & Output 10/20/24 10/21/24 10/21/24 18:59 06:59 18:59 Intake Total 2272 1100 472 Output Total 1201 3200 1000 Balance 2500 -4027 -392 Intake: Intake, IV Titration 1100 Amount Sodium Chloride 0.9% 1, 1100 000 ml @ 100 mls/hr IV . Q10H [facility] Rx#:[id number] Oral 2272 472 Output: Urine 1200 3200 1000 Stool 1 Other: Voiding Method Indwelling Catheter Indwelling Catheter Indwelling Catheter # Voids 4 # Bowel Movements 1 - Exam GENERAL DESCRIPTION: An elderly male lying in bed in no distress RESPIRATORY SYSTEM: Unlabored breathing , decreased breath sounds at bases HEART: S1 S2 regular rate and rhythm , ABDOMEN: Soft , no tenderness EXTREMITIES: No edema feet - Labs CBC & Chem 7: 10/21/24 06:23 10/21/24 06:23 Labs: Abnormal Lab Results - Last 24 Hours (Table) 10/19/24 10/21/24 10/21/24 Range/Units 09:47 06:23 06:23 WBC 12.15 H (4.50-10.00) X 10*3/uL RBC 3.04 L (4.40-5.60) X 10*6/uL Hgb 8.5 L (13.0-17.0) g/dL Hct 27.6 L (39.6-50.0) % MCHC 30.8 L (32.0-37.0) g/dL RDW 15.5 H (11.5-14.5) % Plt Count 671 H (140-440) X 10*3/uL Immature Gran # 0.17 H (0.00-0.04) X 10*3/uL Monocytes # 1.52 H (0.20-1.00) X 10*3/uL Eosinophils # 0.53 H (0.04-0.35) X 10*3/uL Carbon Dioxide 21.2 L (21.6-31.8) mmol/L Calcium 8.6 L (8.7-10.3) mg/dL Total Bilirubin 0.2 L (0.3-1.2) mg/dL ALT 7 L (10-49) U/L Total Protein 5.4 L (6.2-8.2) g/dL Albumin 2.5 L (3.8-4.9) g/dL Albumin/Globulin Ratio 0.86 L (1.60-3.17) Ratio Free [place] LC, Quant 8.10 H (0.33-1.94) mg/dL Free Lambda LC, Quant 8.89 H (0.57-2.63) mg/dL Assessment and Plan (1) Catheter-associated urinary tract infection Current Visit: Yes Status: Acute Code(s): T83.511A - I/I REACT D/T INDWELLING URETHRAL CATHETER, INIT; N39.0 - URINARY TRACT INFECTION, SITE NOT SPECIFIED SNOMED Code(s): 261580469 (2) Leukocytosis Current Visit: No Status: Acute Code(s): D72.829 - ELEVATED WHITE BLOOD CELL COUNT, UNSPECIFIED SNOMED Code(s): 206143314 Plan: 1patient with a leukocytosis which is likely multifactorial in this patient presenting to the hospital with a low hemoglobin questionably reactive versus related to catheter assisted UTI as the patient did have a chronic draining Epps catheter that has been there for more than a month. 2patient did have 2 scabbed over lesion to the anterior chest wall and some crusting around the PEG tube site but no evidence of any cellulitis clinically doubt source of his elevated white count 3- the patient Epps catheter has been changed initial urine culture Did grew Josefina repeat UA is also positive and growing the same pathogen that is Josefina tropicalis 4patient is afebrile slight worsening of the white count we will recheck his inflammatory marker with a.m. lab continue with the Diflucan Dictation was produced using [employer] dictation software. please excuse any grammatical, word or spelling errors. Time with Patient: Less than 30
--- NOTE | 2024-10-21 21:36 | P.PN ---
Subjective Progress Note Date: 10/21/24 CHIEF COMPLAINT: GI bleed HISTORY OF PRESENT ILLNESS: The patient is a 69-year-old male being followed for GI bleed. He is sitting up in a chair. He is on pured diet. ROS: No reports of nausea and vomiting. No fevers or chills. No new chest pain. PHYSICAL EXAM: VITAL SIGNS: Reviewed CONSTITUTIONAL: Well developed and in no acute distress. EYES: Extraocular movements grossly intact. HEAD, EARS, NOSE, THROAT: Head is atraumatic, normocephalic. Hears conversational speech. No nasal drainage. RESPIRATORY: Non-labored respirations and equal bilateral excursions. CARDIOVASCULAR: Regular rhythm ABDOMEN: No peritonitis MUSCULOSKELETAL: No clubbing. No cyanosis. SKIN: Good skin turgor. Well perfused. NEUROLOGIC: No focal or lateralizing signs. PSYCH: Alert and oriented to person CLINICAL LABS: Reviewed. Hemoglobin stable 8.5-8.7. WBC now elevated over 11,000. ASSESSMENT: 1. Gastrointestinal bleeding 2. Acute blood loss anemia 3. History of laryngeal cancer status post tracheostomy/gastrostomy tube 4. Leukocytosis PLAN: 1. Patient has new leukocytosis. Repeat CBC in the morning. 2. Continue pured diet. Objective - Vital Signs Vital signs: Vital Signs Temp 98.2 F 10/21/24 20:00 Pulse 80 10/21/24 20:00 Resp 12 10/21/24 20:00 BP 105/64 10/21/24 20:00 Pulse Ox 96 10/21/24 20:00 FiO2 21 10/14/24 20:40 Intake & Output 10/21/24 10/21/24 10/22/24 06:59 18:59 06:59 Intake Total 1100 472 Output Total 3200 2200 Balance -2099 Intake: Intake, IV Titration 1100 Amount Sodium Chloride 0.9% 1, 1100 000 ml @ 100 mls/hr IV . Q10H [facility] Rx#:[id number] Oral 472 Output: Urine 3200 2200 Other: Voiding Method Indwelling Catheter Indwelling Catheter - Labs CBC & Chem 7: 10/21/24 06:23 10/21/24 06:23 Labs: Abnormal Lab Results - Last 24 Hours (Table) 10/19/24 10/21/24 10/21/24 Range/Units 09:47 06:23 06:23 WBC 12.15 H (4.50-10.00) X 10*3/uL RBC 3.04 L (4.40-5.60) X 10*6/uL Hgb 8.5 L (13.0-17.0) g/dL Hct 27.6 L (39.6-50.0) % MCHC 30.8 L (32.0-37.0) g/dL RDW 15.5 H (11.5-14.5) % Plt Count 671 H (140-440) X 10*3/uL Immature Gran # 0.17 H (0.00-0.04) X 10*3/uL Monocytes # 1.52 H (0.20-1.00) X 10*3/uL Eosinophils # 0.53 H (0.04-0.35) X 10*3/uL Carbon Dioxide 21.2 L (21.6-31.8) mmol/L Calcium 8.6 L (8.7-10.3) mg/dL Total Bilirubin 0.2 L (0.3-1.2) mg/dL ALT 7 L (10-49) U/L Total Protein 5.4 L (6.2-8.2) g/dL Albumin 2.5 L (3.8-4.9) g/dL Albumin/Globulin Ratio 0.86 L (1.60-3.17) Ratio Free [place] LC, Quant 8.10 H (0.33-1.94) mg/dL Free Lambda LC, Quant 8.89 H (0.57-2.63) mg/dL
[2024-10-22 09:36] LABS: Basophils # (A) 0.07 X 10*3/uL (0.00-0.10); Basophils % (A) 0.6 %; Eosinophils # (A) 0.51 X 10*3/uL (0.04-0.35); Eosinophils % (A) 4.4 %; HCT 26.3 % (39.6-50.0); HGB 8.1 g/dL (13.0-17.0); Lymphocytes # (A) 1.85 X 10*3/uL (0.90-5.00); Lymphocytes % (A) 15.9 %; MCH 28.4 pg (27.0-32.0); MCHC 30.8 g/dL (32.0-37.0); MCV 92.3 FL (80.0-97.0); Mean Platelet Volume 9.9 FL (9.5-12.2); Monocytes # (A) 1.56 X 10*3/uL (0.20-1.00); Monocytes % (A) 13.4 %; NRBC Per 100 WBC 0 X 10*3/uL (0.00-0.01); Neutrophils # (A) 7.48 X 10*3/uL (1.80-7.70); Neutrophils % (A) 64.4 %; Platelet Count 624 X 10*3/uL (140-440); RBC 2.85 X 10*6/uL (4.40-5.60); RDW 15.9 % (11.5-14.5); WBC 11.62 X 10*3/uL (4.50-10.00)
[2024-10-22 10:26] LABS: ALT 5 U/L (10-49); AST 16 U/L (14-35); Albumin 2.4 g/dL (3.8-4.9); Albumin/Globulin Ratio 0.83 Ratio (1.60-3.17); Alkaline Phosphatase 88 U/L (41-126); Blood Urea Nitrogen 14.2 mg/dL (9.0-27.0); Calcium 8.6 mg/dL (8.7-10.3); Carbon Dioxide 22.1 mmol/L (21.6-31.8); Chloride 102 mmol/L (96-109); Globulin 2.9 g/dL (1.6-3.3); Glucose 90 mg/dL (70-110); Potassium 4.8 mmol/L (3.5-5.5); Sodium 133 mmol/L (135-145); Total Bilirubin 0.3 mg/dL (0.3-1.2); Total Protein 5.3 g/dL (6.2-8.2)
[2024-10-22] MEDS: SODIUM CHLORIDE 0.9% 1,000 ML IV STA (11:54)
--- NOTE | 2024-10-22 12:03 | P.PN ---
Subjective Progress Note Date: 10/22/24 Hector Frank, is a 69-year-old male who presented to [facility] emergency room with a chief complaint of of anemia according to records patient has been at [facility] and was sent to ER for further evaluation due to hemoglobin of 7. Patient has recent tracheostomy difficult to communicate most history obtained from medical records. Patient was recently at [facility] in which she received tracheostomy and PEG tube for laryngeal mass attempting to obtain records. He was evaluated in the emergency room vital examination on presentation revealed temp 98.8, heart rate 77, respiratory rate 18, blood pressure 101/70 with a pulse ox of 98% on room air Laboratory data reveals white blood cell 13.1, hemoglobin 7.0, sodium 129, creatinine 1.2, bun 27. Stool for occult blood positive Testing in the emergency room revealed EKG showing sinus rhythm Patient was admitted to medical floor for further evaluation and treatment. Will consult GI and oncology services Past medical history is significant for laryngeal mass in which according to records patient presented to ER on August 30 due to difficulty in breathing patient was transferred to [facility] for ENT evaluation. Patient underwent tracheostomy and PEG tube placement since that transfer. Will attempt to take obtain medical records for further understanding of any surgery or treatment he is received. Additional medical history includes atrial fibrillation in which she is maintained on Eliquis this is currently on hold due to anemia, hypertension, prostate disorder, chronic pain, nicotine dependence, constip ation. On review of systems patient is alert and oriented x 3. Difficulty communicating secondary to tracheostomy. Patient reports of chronic pain. Patient denies chest pain patient denies nausea vomiting or diarrhea. Patient denies any urinary burning or frequency On 10/13/2024 patient was seen and examined on the medical floor he is alert and oriented x 3 in no apparent distress, patient has low-grade fever of 99.2, no chills no headache or dizziness no chest pain no shortness of breath no cough no nausea or vomiting no abdominal pain no diarrhea no blood in the stools, he has frequency with urination and urgency with urination. Urine analysis reveals evidence of urinary tract infection, patient was started on IV iron supplements, and IV ceftriaxone, awaiting input from oncology. On 10/14/2024 patient is alert and oriented x 3. Hemoglobin today 7.2 this is the same as yesterday. White blood cell 11.54. Current vital signs temp 98.2, heart rate 72, respiratory rate 18, blood pressure 98/61 with a pulse ox of 97% on room air patient has been started on IV iron maintained on IV Rocephin for UTI. Per oncology services attempting to obtain records from [facility] in regards to treatment for laryngeal mass. GI and oncology services following On 10/15/2024 patient is alert and oriented x 3. Lab work currently pending for today patient remains on IV Rocephin for UTI awaiting further oncology input. 2D echo has been ordered per cardiology. Current vital signs temp 98.5, heart rate 81, respiratory rate 17, blood pressure 117/62 with a pulse ox of 96% on room air patient denies chest pain or shortness of breath. Patient denies nausea vomiting or diarrhea. Patient denies any urinary burning or frequency On 10/16/2024 patient was seen and examined on the medical floor he is alert and oriented in no apparent distress there is no fever or chills no headache or dizziness no chest pain no shortness of breath no cough no nausea or vomiting no abdominal pain no diarrhea and no urinary symptoms. Hemoglobin today is down to 6.6, unit of red blood cell transfusion was ordered, oncology are following. On 10/17/2024 patient was seen and examined on the medical floor he is alert and oriented x 3 in no apparent distress, there is no fever or chills no headache or dizziness no chest pain no shortness of breath no cough no nausea or vomiting no abdominal pain no diarrhea no urinary symptoms, hemoglobin is up to 8.5 after 1 unit of red blood cell transfusion and iron supplements, input from oncology was reviewed, awaiting consult from radiation oncology, possible discharge in the next 1 to 2 days, if hemoglobin is stable. On 10/18/2024 patient is alert and oriented x 3. Hemoglobin today 6.91 unit PRBCs has been ordered. Discussed case with oncology services. Awaiting further input from radiation oncology. Current vital signs temp 97.9, heart rat e 65, respiratory rate 18, blood pressure 118/65 with a pulse ox of 97% on room air. Patient denies chest pain or shortness of breath. Patient denies nausea vomiting or diarrhea. Patient denies any urinary burning or frequency On 10/19/2024 patient is alert and oriented x 3. Patient son at bedside family meeting held. Patient received 1 unit PRBCs yesterday. Hemoglobin today 8.9. Surgical services were consulted no plans for EGD due to recent tracheostomy. If hemoglobin continues to drop tentative plans for tagged RBC. Per oncology services patient will follow-up with surgical oncology out of [facility] with radiation after therapy completion. Patient is complaining about increased right hand pain will order uric acid level and x-ray. At this time patient denies chest pain or shortness of breath. Patient denies nausea vomiting or diarrhea. Patient denies any urinary burning or frequency On 10/20/2024 patient was seen and examined on the medical floor he is alert and oriented x 3 in no apparent distress he denies any symptoms at this time there is no fever or chills no headache or dizziness no chest pain no shortness of breath no cough no nausea or vomiting no abdominal pain no diarrhea and no urinary symptoms, will continue to monitor hemoglobin closely. On 10/21/2024 patient is alert and oriented x 3 currently sitting up in chair. Hemoglobin today 8.5. Continue to monitor hemoglobin. Patient denies chest pain or shortness of breath. Patient denies nausea vomiting or diarrhea. Patient denies any urinary burning or frequency infectious disease services are following patient remains on Diflucan. On 10/22/2024 patient was seen and examined on the medical floor, he is alert and oriented in no apparent distress, difficult to communicate with, temperature is 98.5 pulse 65 respiration 15 blood pressure 102/57 pulse ox 93% on room air, white blood count 11.62 hemoglobin 8.1 platelet count 624 sodium 133 he denies any fever or chills no headache or dizziness no chest pain no shortness of breath he has occasional cough no nausea or vomiting no abdominal pain no diarrhea and no urinary symptoms, he remains on Diflucan, infectious disease, general surgery, oncology are following. Objective - Vital Signs Vital signs: Vital Signs Temp 98.5 F 10/22/24 07:04 Pulse 65 10/22/24 07:04 Resp 15 10/22/24 07:04 BP 102/57 10/22/24 07:04 Pulse Ox 94 L 10/22/24 07:44 FiO2 21 10/14/24 20:40 Intake & Output 10/21/24 10/22/24 10/22/24 18:59 06:59 18:59 Intake Total 472 1100 Output Total 2200 Balance -1728 1100 Intake: Intake, IV Titration 1100 Amount Sodium Chloride 0.9% 1, 1100 000 ml @ 100 mls/hr IV . Q10H [facility] Rx#:[id number] Oral 472 Output: Urine 2200 Other: Voiding Method Indwelling Catheter - Exam In general patient is alert and oriented x 3 in no distress HEENT head normocephalic and atraumatic Neck is supple no JVD no goiter no lymphadenopathy no carotid bruit. Patient has tracheostomy in place Chest examination is clear to auscultation no crackles no wheezing Cardiac exam reveals regular heart sounds S1 and S2 no gallops no murmurs Abdomen is soft nontender no organomegaly with normal bowel sounds Extremity exam reveals no edema no cyanosis or clubbing Neurological examination reveals no gross focal deficits - Labs CBC & Chem 7: 10/22/24 05:10 10/22/24 05:10 Labs: Abnormal Lab Results - Last 24 Hours (Table) 10/19/24 10/21/24 10/21/24 Range/Units 09:47 06:23 06:23 WBC 12.15 H (4.50-10.00) X 10*3/uL RBC 3.04 L (4.40-5.60) X 10*6/uL Hgb 8.5 L (13.0-17.0) g/dL Hct 27.6 L (39.6-50.0) % MCHC 30.8 L (32.0-37.0) g/dL RDW 15.5 H (11.5-14.5) % Plt Count 671 H (140-440) X 10*3/uL Immature Gran # 0.17 H (0.00-0.04) X 10*3/uL Monocytes # 1.52 H (0.20-1.00) X 10*3/uL Eosinophils # 0.53 H (0.04-0.35) X 10*3/uL Carbon Dioxide 21.2 L (21.6-31.8) mmol/L Calcium 8.6 L (8.7-10.3) mg/dL Total Bilirubin 0.2 L (0.3-1.2) mg/dL ALT 7 L (10-49) U/L Total Protein 5.4 L (6.2-8.2) g/dL Albumin 2.5 L (3.8-4.9) g/dL Albumin/Globulin Ratio 0.86 L (1.60-3.17) Ratio Free [place] LC, Quant 8.10 H (0.33-1.94) mg/dL Free Lambda LC, Quant 8.89 H (0.57-2.63) mg/dL Assessment and Plan Assessment: 1. Anemia with positive stool for occult blood patient's Eliquis currently on hold 2. History of recent diagnosis of laryngeal mass status post tracheostomy and PEG tube placement at [facility] 3. History of paroxysmal atrial fibrillation maintained on Eliquis currently on hold 4. History of nicotine dependence 5. History of degenerative disc disease 6. History of BPH 7. History of cardiac arrhythmia with history of ablation 8. Hyponatremia sodium low at 129. Will initiate gentle hydration 9. Urinary tract infection patient started on Rocephin DVT prophylaxis SCDs secondary to GI bleed. GI prophylax Protonix GI and oncology services consulted Continue normal saline at 100 Repeat labs ordered for a.m. Home meds resumed
--- NOTE | 2024-10-22 15:37 | P.PN ---
Subjective Progress Note Date: 10/22/24 CHIEF COMPLAINT: GI bleed HISTORY OF PRESENT ILLNESS: The patient is a 69-year-old male being followed for GI bleed. He is sitting up in bed. No reports of blood in stools and confirmed with his nurse at bedside. ROS: No reports of nausea and vomiting. No fevers or chills. No new chest pain. PHYSICAL EXAM: VITAL SIGNS: Reviewed CONSTITUTIONAL: Well developed and in no acute distress. EYES: Extraocular movements grossly intact. HEAD, EARS, NOSE, THROAT: Head is atraumatic, normocephalic. Hears conversational speech. No nasal drainage. Dressing along the neck clean dry intact. Tracheostomy clean dry intact. RESPIRATORY: Non-labored respirations and equal bilateral excursions. CARDIOVASCULAR: Regular rhythm ABDOMEN: No peritonitis. Gastrostomy tube without blood. MUSCULOSKELETAL: No clubbing. No cyanosis. Bilateral hand swelling noted. SKIN: Good skin turgor. Well perfused. NEUROLOGIC: No focal or lateralizing signs. PSYCH: Alert and oriented to person CLINICAL LABS: Reviewed. WBC trending down 12.15 to 11.62. Presence of persistent leukocytosis. Hemoglobin 8.1. ASSESSMENT: 1. Gastrointestinal bleeding 2. Acute blood loss anemia 3. History of laryngeal cancer status post tracheostomy/gastrostomy tube 4. Leukocytosis PLAN: 1. Currently, no signs of bleeding. No acute surgical invention. 2. Patient has persistent leukocytosis. Currently no antibiotics. Patient is on antifungal Diflucan per infectious disease. 3. Will continue to monitor Objective - Vital Signs Vital signs: Vital Signs Temp 98.0 F 10/22/24 11:19 Pulse 73 10/22/24 11:19 Resp 14 10/22/24 11:19 BP 95/55 10/22/24 11:19 Pulse Ox 93 L 10/22/24 11:19 FiO2 21 10/14/24 20:40 Intake & Output 10/21/24 10/22/24 10/22/24 18:59 06:59 18:59 Intake Total 472 1100 Output Total 2200 Balance -1728 1100 Intake: Intake, IV Titration 1100 Amount Sodium Chloride 0.9% 1, 1100 000 ml @ 100 mls/hr IV . Q10H [facility] Rx#:[id number] Oral 472 Output: Urine 2200 Other: Voiding Method Indwelling Catheter Indwelling Catheter - Labs CBC & Chem 7: 10/22/24 05:10 10/22/24 05:10 Labs: Abnormal Lab Results - Last 24 Hours (Table) 10/22/24 10/22/24 Range/Units 05:10 05:10 WBC 11.62 H (4.50-10.00) X 10*3/uL RBC 2.85 L (4.40-5.60) X 10*6/uL Hgb 8.1 L (13.0-17.0) g/dL Hct 26.3 L (39.6-50.0) % MCHC 30.8 L (32.0-37.0) g/dL RDW 15.9 H (11.5-14.5) % Plt Count 624 H (140-440) X 10*3/uL Immature Gran # 0.15 H (0.00-0.04) X 10*3/uL Monocytes # 1.56 H (0.20-1.00) X 10*3/uL Eosinophils # 0.51 H (0.04-0.35) X 10*3/uL Sodium 133 L (135-145) mmol/L Calcium 8.6 L (8.7-10.3) mg/dL ALT 5 L (10-49) U/L C-Reactive Protein 11.40 H (0.00-0.80) mg/dL Total Protein 5.3 L (6.2-8.2) g/dL Albumin 2.4 L (3.8-4.9) g/dL Albumin/Globulin Ratio 0.83 L (1.60-3.17) Ratio
--- NOTE | 2024-10-22 16:24 | P.PN ---
Subjective Progress Note Date: 10/22/24 Principal diagnosis: Reason for follow-up is leukocytosis possible catheter associated UTI Patient is a 69-year-old male with a past medical history significant for reflux hypertension prostate disorder atrial fibrillation, laryngeal cancer status post PEG and tracheostomy that was done at [facility] patient also have urine retention with a chronic indwelling Epps catheter present to the hospital with low hemoglobin also noticed to have elevated white count prompted this consultation. On today's evaluation that is 10/22/2024, the patient continues to be afebrile, the patient is on room air and breathing comfortably, the Pt denies having any chest pain patient did have some cough and is bringing up some yellow sputum reported by the nursing staff no vomiting or diarrhea has been reported. Patient white count is slightly down to 11.62 creatinine is 1.0, Pro-Chay's is0.13 Objective - Vital Signs Vital signs: Vital Signs Temp 98.0 F 10/22/24 11:19 Pulse 73 10/22/24 11:19 Resp 14 10/22/24 11:19 BP 95/55 10/22/24 11:19 Pulse Ox 93 L 10/22/24 11:19 FiO2 21 10/14/24 20:40 Intake & Output 10/21/24 10/22/24 10/22/24 18:59 06:59 18:59 Intake Total 472 1100 Output Total 2200 Balance -1728 1100 Intake: Intake, IV Titration 1100 Amount Sodium Chloride 0.9% 1, 1100 000 ml @ 100 mls/hr IV . Q10H [facility] Rx#:[id number] Oral 472 Output: Urine 2200 Other: Voiding Method Indwelling Catheter Indwelling Catheter - Exam GENERAL DESCRIPTION: An elderly male lying in bed in no distress RESPIRATORY SYSTEM: Unlabored breathing , decreased breath sounds at bases HEART: S1 S2 regular rate and rhythm , ABDOMEN: Soft , no tenderness EXTREMITIES: No edema feet - Labs CBC & Chem 7: 10/22/24 05:10 10/22/24 05:10 Labs: Abnormal Lab Results - Last 24 Hours (Table) 10/22/24 10/22/24 Range/Units 05:10 05:10 WBC 11.62 H (4.50-10.00) X 10*3/uL RBC 2.85 L (4.40-5.60) X 10*6/uL Hgb 8.1 L (13.0-17.0) g/dL Hct 26.3 L (39.6-50.0) % MCHC 30.8 L (32.0-37.0) g/dL RDW 15.9 H (11.5-14.5) % Plt Count 624 H (140-440) X 10*3/uL Immature Gran # 0.15 H (0.00-0.04) X 10*3/uL Monocytes # 1.56 H (0.20-1.00) X 10*3/uL Eosinophils # 0.51 H (0.04-0.35) X 10*3/uL Sodium 133 L (135-145) mmol/L Calcium 8.6 L (8.7-10.3) mg/dL ALT 5 L (10-49) U/L C-Reactive Protein 11.40 H (0.00-0.80) mg/dL Total Protein 5.3 L (6.2-8.2) g/dL Albumin 2.4 L (3.8-4.9) g/dL Albumin/Globulin Ratio 0.83 L (1.60-3.17) Ratio Assessment and Plan (1) Catheter-associated urinary tract infection Current Visit: Yes Status: Acute Code(s): T83.511A - I/I REACT D/T INDWELLING URETHRAL CATHETER, INIT; N39.0 - URINARY TRACT INFECTION, SITE NOT SPECIFIED SNOMED Code(s): 694174354 (2) Leukocytosis Current Visit: No Status: Acute Code(s): D72.829 - ELEVATED WHITE BLOOD CELL COUNT, UNSPECIFIED SNOMED Code(s): 956280819 Plan: 1patient with a leukocytosis which is likely multifactorial in this patient presenting to the hospital with a low hemoglobin questionably reactive versus related to catheter assisted UTI as the patient did have a chronic draining Epps catheter that has been there for more than a month. 2patient did have 2 scabbed over lesion to the anterior chest wall and some crusting around the PEG tube site but no evidence of any cellulitis clinically doubt source of his elevated white count 3- the patient Epps catheter has been changed initial urine culture Did grew Josefina repeat UA is also positive and growing the same pathogen that is Josefina tropicalis 4patient is afebrile and the patient white count is trending down he did have some cough however procalcitonin is only 0.13 he will continue Diflucan hold on adding any further antibiotics at this point Dictation was produced using [employer] dictation software. please excuse any grammatical, word or spelling errors. Time with Patient: Less than 30
--- NOTE | 2024-10-23 09:23 | P.PN ---
Subjective Progress Note Date: 10/23/24 Hector Frank, is a 69-year-old male who presented to [facility] emergency room with a chief complaint of of anemia according to records patient has been at [facility] and was sent to ER for further evaluation due to hemoglobin of 7. Patient has recent tracheostomy difficult to communicate most history obtained from medical records. Patient was recently at [facility] in which she received tracheostomy and PEG tube for laryngeal mass attempting to obtain records. He was evaluated in the emergency room vital examination on presentation revealed temp 98.8, heart rate 77, respiratory rate 18, blood pressure 101/70 with a pulse ox of 98% on room air Laboratory data reveals white blood cell 13.1, hemoglobin 7.0, sodium 129, creatinine 1.2, bun 27. Stool for occult blood positive Testing in the emergency room revealed EKG showing sinus rhythm Patient was admitted to medical floor for further evaluation and treatment. Will consult GI and oncology services Past medical history is significant for laryngeal mass in which according to records patient presented to ER on August 30 due to difficulty in breathing patient was transferred to [facility] for ENT evaluation. Patient underwent tracheostomy and PEG tube placement since that transfer. Will attempt to take obtain medical records for further understanding of any surgery or treatment he is received. Additional medical history includes atrial fibrillation in which she is maintained on Eliquis this is currently on hold due to anemia, hypertension, prostate disorder, chronic pain, nicotine dependence, constip ation. On review of systems patient is alert and oriented x 3. Difficulty communicating secondary to tracheostomy. Patient reports of chronic pain. Patient denies chest pain patient denies nausea vomiting or diarrhea. Patient denies any urinary burning or frequency On 10/13/2024 patient was seen and examined on the medical floor he is alert and oriented x 3 in no apparent distress, patient has low-grade fever of 99.2, no chills no headache or dizziness no chest pain no shortness of breath no cough no nausea or vomiting no abdominal pain no diarrhea no blood in the stools, he has frequency with urination and urgency with urination. Urine analysis reveals evidence of urinary tract infection, patient was started on IV iron supplements, and IV ceftriaxone, awaiting input from oncology. On 10/14/2024 patient is alert and oriented x 3. Hemoglobin today 7.2 this is the same as yesterday. White blood cell 11.54. Current vital signs temp 98.2, heart rate 72, respiratory rate 18, blood pressure 98/61 with a pulse ox of 97% on room air patient has been started on IV iron maintained on IV Rocephin for UTI. Per oncology services attempting to obtain records from [facility] in regards to treatment for laryngeal mass. GI and oncology services following On 10/15/2024 patient is alert and oriented x 3. Lab work currently pending for today patient remains on IV Rocephin for UTI awaiting further oncology input. 2D echo has been ordered per cardiology. Current vital signs temp 98.5, heart rate 81, respiratory rate 17, blood pressure 117/62 with a pulse ox of 96% on room air patient denies chest pain or shortness of breath. Patient denies nausea vomiting or diarrhea. Patient denies any urinary burning or frequency On 10/16/2024 patient was seen and examined on the medical floor he is alert and oriented in no apparent distress there is no fever or chills no headache or dizziness no chest pain no shortness of breath no cough no nausea or vomiting no abdominal pain no diarrhea and no urinary symptoms. Hemoglobin today is down to 6.6, unit of red blood cell transfusion was ordered, oncology are following. On 10/17/2024 patient was seen and examined on the medical floor he is alert and oriented x 3 in no apparent distress, there is no fever or chills no headache or dizziness no chest pain no shortness of breath no cough no nausea or vomiting no abdominal pain no diarrhea no urinary symptoms, hemoglobin is up to 8.5 after 1 unit of red blood cell transfusion and iron supplements, input from oncology was reviewed, awaiting consult from radiation oncology, possible discharge in the next 1 to 2 days, if hemoglobin is stable. On 10/18/2024 patient is alert and oriented x 3. Hemoglobin today 6.91 unit PRBCs has been ordered. Discussed case with oncology services. Awaiting further input from radiation oncology. Current vital signs temp 97.9, heart rat e 65, respiratory rate 18, blood pressure 118/65 with a pulse ox of 97% on room air. Patient denies chest pain or shortness of breath. Patient denies nausea vomiting or diarrhea. Patient denies any urinary burning or frequency On 10/19/2024 patient is alert and oriented x 3. Patient son at bedside family meeting held. Patient received 1 unit PRBCs yesterday. Hemoglobin today 8.9. Surgical services were consulted no plans for EGD due to recent tracheostomy. If hemoglobin continues to drop tentative plans for tagged RBC. Per oncology services patient will follow-up with surgical oncology out of [facility] with radiation after therapy completion. Patient is complaining about increased right hand pain will order uric acid level and x-ray. At this time patient denies chest pain or shortness of breath. Patient denies nausea vomiting or diarrhea. Patient denies any urinary burning or frequency On 10/20/2024 patient was seen and examined on the medical floor he is alert and oriented x 3 in no apparent distress he denies any symptoms at this time there is no fever or chills no headache or dizziness no chest pain no shortness of breath no cough no nausea or vomiting no abdominal pain no diarrhea and no urinary symptoms, will continue to monitor hemoglobin closely. On 10/21/2024 patient is alert and oriented x 3 currently sitting up in chair. Hemoglobin today 8.5. Continue to monitor hemoglobin. Patient denies chest pain or shortness of breath. Patient denies nausea vomiting or diarrhea. Patient denies any urinary burning or frequency infectious disease services are following patient remains on Diflucan. On 10/22/2024 patient was seen and examined on the medical floor, he is alert and oriented in no apparent distress, difficult to communicate with, temperature is 98.5 pulse 65 respiration 15 blood pressure 102/57 pulse ox 93% on room air, white blood count 11.62 hemoglobin 8.1 platelet count 624 sodium 133 he denies any fever or chills no headache or dizziness no chest pain no shortness of breath he has occasional cough no nausea or vomiting no abdominal pain no diarrhea and no urinary symptoms, he remains on Diflucan, infectious disease, general surgery, oncology are following. On 10/23/2024 patient is alert and oriented 3. Patient remains on Diflucan. Patient denies chest pain or shortness of breath. Patient denies nausea vomiting or diarrhea. Patient denies any urinary burning or frequency. Current vital signs temp 97.9, heart rate 71, respiratory rate 16, blood pressure 111/61 with pulse ox 96% on room air Objective - Vital Signs Vital signs: Vital Signs Temp 97.9 F 10/23/24 06:57 Pulse 71 10/23/24 06:57 Resp 16 10/23/24 06:57 BP 111/61 10/23/24 06:57 Pulse Ox 96 10/23/24 06:57 FiO2 21 10/14/24 20:40 Intake & Output 10/22/24 10/23/24 10/23/24 18:59 06:59 18:59 Output Total 1300 1200 Balance -1300 -1200 Output: Urine 1300 1200 Other: Voiding Method Indwelling Catheter Indwelling Catheter - Exam In general patient is alert and oriented x 3 in no distress HEENT head normocephalic and atraumatic Neck is supple no JVD no goiter no lymphadenopathy no carotid bruit. Patient has tracheostomy in place Chest examination is clear to auscultation no crackles no wheezing Cardiac exam reveals regular heart sounds S1 and S2 no gallops no murmurs Abdomen is soft nontender no organomegaly with normal bowel sounds Extremity exam reveals no edema no cyanosis or clubbing Neurological examination reveals no gross focal deficits - Labs CBC & Chem 7: 10/22/24 05:10 10/22/24 05:10 Labs: Abnormal Lab Results - Last 24 Hours (Table) 10/22/24 10/22/24 Range/Units 05:10 05:10 WBC 11.62 H (4.50-10.00) X 10*3/uL RBC 2.85 L (4.40-5.60) X 10*6/uL Hgb 8.1 L (13.0-17.0) g/dL Hct 26.3 L (39.6-50.0) % MCHC 30.8 L (32.0-37.0) g/dL RDW 15.9 H (11.5-14.5) % Plt Count 624 H (140-440) X 10*3/uL Immature Gran # 0.15 H (0.00-0.04) X 10*3/uL Monocytes # 1.56 H (0.20-1.00) X 10*3/uL Eosinophils # 0.51 H (0.04-0.35) X 10*3/uL Sodium 133 L (135-145) mmol/L Calcium 8.6 L (8.7-10.3) mg/dL ALT 5 L (10-49) U/L C-Reactive Protein 11.40 H (0.00-0.80) mg/dL Total Protein 5.3 L (6.2-8.2) g/dL Albumin 2.4 L (3.8-4.9) g/dL Albumin/Globulin Ratio 0.83 L (1.60-3.17) Ratio Assessment and Plan Assessment: 1. Anemia with positive stool for occult blood patient's Eliquis currently on hold 2. History of recent diagnosis of laryngeal mass status post tracheostomy and PEG tube placement at [facility] 3. History of paroxysmal atrial fibrillation maintained on Eliquis currently on hold 4. History of nicotine dependence 5. History of degenerative disc disease 6. History of BPH 7. History of cardiac arrhythmia with history of ablation 8. Hyponatremia sodium low at 129. Will initiate gentle hydration 9. Urinary tract infection patient started on Rocephin DVT prophylaxis SCDs secondary to GI bleed. GI prophylax Protonix GI and oncology services consulted Continue normal saline at 100 Repeat labs ordered for a.m. Home meds resumed
--- NOTE | 2024-10-23 15:11 | P.PN ---
Subjective Progress Note Date: 10/23/24 CHIEF COMPLAINT: GI bleed HISTORY OF PRESENT ILLNESS: The patient is a 69-year-old male being followed for GI bleed. He is sitting up in bed. No reports of obvious signs of bleeding. No new events overnight. He is on pured tray. ROS: No reports of nausea and vomiting. No fevers or chills. No new chest pain. PHYSICAL EXAM: VITAL SIGNS: Reviewed CONSTITUTIONAL: Well developed and in no acute distress. EYES: Extraocular movements grossly intact. HEAD, EARS, NOSE, THROAT: Head is atraumatic, normocephalic. Hears conversational speech. No nasal drainage. Dressing along the neck clean dry intact. Tracheostomy clean dry intact. RESPIRATORY: Non-labored respirations and equal bilateral excursions. CARDIOVASCULAR: Regular rhythm ABDOMEN: No peritonitis. Gastrostomy tube without blood. MUSCULOSKELETAL: No clubbing. No cyanosis. Bilateral hand swelling noted. SKIN: Good skin turgor. Well perfused. NEUROLOGIC: No focal or lateralizing signs. PSYCH: Alert and oriented to person CLINICAL LABS: Reviewed. No new labs today. ASSESSMENT: 1. Gastrointestinal bleeding 2. Acute blood loss anemia 3. History of laryngeal cancer status post tracheostomy/gastrostomy tube 4. Leukocytosis PLAN: 1. Continue pured diet. 2. Hemoglobin has been trending downward slowly from 8.9-8.1 over the past 4+ days. Recommend repeat CBC. CBC ordered. Objective - Vital Signs Vital signs: Vital Signs Temp 97.9 F 10/23/24 13:08 Pulse 71 10/23/24 13:08 Resp 18 10/23/24 13:08 BP 96/48 10/23/24 13:08 Pulse Ox 93 L 10/23/24 13:08 FiO2 21 10/14/24 20:40 Intake & Output 10/22/24 10/23/24 10/23/24 18:59 06:59 18:59 Output Total 1300 1200 Balance -1300 -1200 Output: Urine 1300 1200 Other: Voiding Method Indwelling Catheter Indwelling Catheter Indwelling Catheter - Labs CBC & Chem 7: 10/22/24 05:10 10/22/24 05:10
[2024-10-24 07:52] VITALS: RESP 18
[2024-10-24 08:36] LABS: Basophils # (A) 0.06 X 10*3/uL (0.00-0.10); Basophils % (A) 0.5 %; Eosinophils # (A) 0.36 X 10*3/uL (0.04-0.35); Eosinophils % (A) 2.7 %; HCT 26.6 % (39.6-50.0); HGB 8.2 g/dL (13.0-17.0); Lymphocytes # (A) 1.63 X 10*3/uL (0.90-5.00); Lymphocytes % (A) 12.3 %; MCH 28.3 pg (27.0-32.0); MCHC 30.8 g/dL (32.0-37.0); MCV 91.7 FL (80.0-97.0); Monocytes # (A) 1.75 X 10*3/uL (0.20-1.00); Monocytes % (A) 13.3 %; NRBC Per 100 WBC 0 X 10*3/uL (0.00-0.01); Neutrophils # (A) 9.26 X 10*3/uL (1.80-7.70); Neutrophils % (A) 70.1 %; Platelet Count 635 X 10*3/uL (140-440)
[2024-10-24 08:46] LABS: Blood Urea Nitrogen 16.2 mg/dL (9.0-27.0); Glucose 105 mg/dL (70-110)
[2024-10-24 08:47] LABS: ALT 8 U/L (10-49); AST 15 U/L (14-35); Albumin 2.5 g/dL (3.8-4.9); Albumin/Globulin Ratio 0.83 Ratio (1.60-3.17); Alkaline Phosphatase 92 U/L (41-126); Calcium 8.8 mg/dL (8.7-10.3); Carbon Dioxide 23.8 mmol/L (21.6-31.8); Chloride 100 mmol/L (96-109); Sodium 134 mmol/L (135-145); Total Bilirubin 0.3 mg/dL (0.3-1.2); Total Protein 5.5 g/dL (6.2-8.2)
--- NOTE | 2024-10-24 12:02 | P.PN ---
Subjective Progress Note Date: 10/24/24 SURGICAL PROGRESS NOTE CHIEF COMPLAINT: GI bleed HISTORY OF PRESENT ILLNESS: Per nursing staff there is been no report of any further bleeding. Patient is sitting up in bed. No new complaints. Hemoglobin 8.1 yesterday and 8.2 today PHYSICAL EXAM: VITAL SIGNS: Reviewed. GENERAL: Well-developed in no acute distress. ABDOMEN: Soft. Nondistended. Nontender. ASSESSMENT: 1. Gastrointestinal bleeding 2. Acute blood loss anemia 3. History of laryngeal cancer status post tracheostomy/gastrostomy tube 4. Leukocytosis PLAN: -Continue pured diet -Continue to monitor hemoglobin -No plans for endoscopy at this time Physician Stem Crusher note has been reviewed by physician. Signing provider agrees with the documented findings, assessment, and plan of care. Objective - Vital Signs Vital signs: Vital Signs Temp 98.7 F 10/24/24 07:27 Pulse 77 10/24/24 07:27 Resp 18 10/24/24 07:27 BP 116/63 10/24/24 07:27 Pulse Ox 95 10/24/24 11:50 FiO2 21 10/14/24 20:40 Intake & Output 10/23/24 10/24/24 10/24/24 18:59 06:59 18:59 Intake Total 1440 Output Total 2000 Balance -560 Intake: Intake, IV Titration 1200 Amount Sodium Chloride 0.9% 1, 1200 000 ml @ 100 mls/hr IV . Q10H [facility] Rx#:[id number] Oral 240 Output: Urine 2000 Other: Voiding Method Indwelling Catheter Indwelling Catheter Indwelling Catheter # Bowel Movements 1 - Labs CBC & Chem 7: 10/24/24 03:57 10/24/24 03:57 Labs: Abnormal Lab Results - Last 24 Hours (Table) 10/24/24 10/24/24 Range/Units 03:57 03:57 WBC 13.20 H (4.50-10.00) X 10*3/uL RBC 2.90 L (4.40-5.60) X 10*6/uL Hgb 8.2 L (13.0-17.0) g/dL Hct 26.6 L (39.6-50.0) % MCHC 30.8 L (32.0-37.0) g/dL RDW 16.0 H (11.5-14.5) % Plt Count 635 H (140-440) X 10*3/uL Immature Gran # 0.14 H (0.00-0.04) X 10*3/uL Neutrophils # 9.26 H (1.80-7.70) X 10*3/uL Monocytes # 1.75 H (0.20-1.00) X 10*3/uL Eosinophils # 0.36 H (0.04-0.35) X 10*3/uL Sodium 134 L (135-145) mmol/L ALT 8 L (10-49) U/L Total Protein 5.5 L (6.2-8.2) g/dL Albumin 2.5 L (3.8-4.9) g/dL Albumin/Globulin Ratio 0.83 L (1.60-3.17) Ratio
[2024-10-24 13:11] VITALS: BP 111/59; PULSE 71; TEMP 98.1
--- NOTE | 2024-10-24 13:18 | P.DS ---
Providers Date of admission: 10/12/24 01:26 Expected date of discharge: 10/24/24 Attending physician: Jose Correa Consults: 10/12/24 01:24 Consult Physician Routine Consulting Provider: Jessie Scott Consult Reason/Comments: gi bleed Do you want consulting provider notified?: Yes 10/12/24 09:26 Consult Physician Routine Consulting Provider: Buck Crain Consult Reason/Comments: laryngeal mass, recent trach Do you want consulting provider notified?: Yes 10/14/24 09:30 Consult Physician Routine Consulting Provider: Han Murcia Consult Reason/Comments: chest discomfort Do you want consulting provider notified?: Yes 10/14/24 13:01 Consult Physician Routine Consulting Provider: Bernardo Montague Consult Reason/Comments: leukocytosis Do you want consulting provider notified?: Yes 10/17/24 08:57 Consult Physician Routine Consulting Provider: Kali Duvall Consult Reason/Comments: post op radiation, head/neck Do you want consulting provider notified?: Already Contacted 10/18/24 12:00 Consult Physician Routine Consulting Provider: Remington Mcfarlane Consult Reason/Comments: GI bleed Do you want consulting provider notified?: Already Contacted Primary care physician: Jose Correa [facility] Course: Diagnosis on discharge: 1. Anemia with positive stool for occult blood patient's Eliquis currently on hold 2. 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 History of paroxysmal atrial fibrillation maintained on Eliquis currently on hold 4. History of nicotine dependence 5. History of degenerative disc disease 6. History of BPH 7. History of cardiac arrhythmia with history of ablation 8. Hyponatremia sodium low at 129. Will initiate gentle hydration 9. Urinary tract infection patient started on [facility] course: Hector Frank, is a 69-year-old male who presented to [facility] emergency room with a chief complaint of of anemia according to records patient has been at [facility] and was sent to ER for further evaluation due to hemoglobin of 7. Patient has recent tracheostomy difficult to communicate most history obtained from medical records. Patient was recently at [facility] in which she received tracheostomy and PEG tube for laryngeal mass attempting to obtain records. He was evaluated in the emergency room vital examination on presentation revealed temp 98.8, heart rate 77, respiratory rate 18, blood pressure 101/70 with a pulse ox of 98% on room air Laboratory data reveals white blood cell 13.1, hemoglobin 7.0, sodium 129, creatinine 1.2, bun 27. Stool for occult blood positive Testing in the emergency room revealed EKG showing sinus rhythm Patient was admitted to medical floor for further evaluation and treatment. Will consult GI and oncology services Past medical history is significant for laryngeal mass in which according to records patient presented to ER on August 30 due to difficulty in breathing patient was transferred to [facility] for ENT evaluation. Patient underwent tracheostomy and PEG tube placement since that transfer. Will attempt to take obtain medical records for further understanding of any surgery or treatment he is received. Additional medical history includes atrial fibrillation in which she is maintained on Eliquis this is currently on hold due to anemia, hypertension, prostate disorder, chronic pain, nicotine dependence, constipation. On review of systems patient is alert and oriented x 3. Difficulty communicating secondary to tracheostomy. Patient reports of chronic pain. Patient denies chest pain patient denies nausea vomiting or diarrhea. Patient denies any urinary burning or frequency On 10/13/2024 patient was seen and examined on the medical floor he is alert and oriented x 3 in no apparent distress, patient has low-grade fever of 99.2, no chills no headache or dizziness no chest pain no shortness of breath no cough no nausea or vomiting no abdominal pain no diarrhea no blood in the stools, he has frequency with urination and urgency with urination. Urine analysis reveals evidence of urinary tract infection, patient was started on IV iron supplements, and IV ceftriaxone, awaiting input from oncology. On 10/14/2024 patient is alert and oriented x 3. Hemoglobin today 7.2 this is the same as yesterday. White blood cell 11.54. Current vital signs temp 98.2, heart rate 72, respiratory rate 18, blood pressure 98/61 with a pulse ox of 97% on room air patient has been started on IV iron maintained on IV Rocephin for UTI. Per oncology services attempting to obtain records from [facility] in regards to treatment for laryngeal mass. GI and oncology services following On 10/15/2024 patient is alert and oriented x 3. Lab work currently pending for today patient remains on IV Rocephin for UTI awaiting further oncology input. 2D echo has been ordered per cardiology. Current vital signs temp 98.5, heart rate 81, respiratory rate 17, blood pressure 117/62 with a pulse ox of 96% on room air patient denies chest pain or shortness of breath. Patient denies nausea vomiting or diarrhea. Patient denies any urinary burning or frequency On 10/16/2024 patient was seen and examined on the medical floor he is alert and oriented in no apparent distress there is no fever or chills no headache or dizziness no chest pain no shortness of breath no cough no nausea or vomiting no abdominal pain no diarrhea and no urinary symptoms. Hemoglobin today is down to 6.6, unit of red blood cell transfusion was ordered, oncology are following. On 10/17/2024 patient was seen and examined on the medical floor he is alert and oriented x 3 in no apparent distress, there is no fever or chills no headache or dizziness no chest pain no shortness of breath no cough no nausea or vomiting no abdominal pain no diarrhea no urinary symptoms, hemoglobin is up to 8.5 after 1 unit of red blood cell transfusion and iron supplements, input from oncology was reviewed, awaiting consult from radiation oncology, possible discharge in the next 1 to 2 days, if hemoglobin is stable. On 10/18/2024 patient is alert and oriented x 3. Hemoglobin today 6.91 unit PRBCs has been ordered. Discussed case with oncology services. Awaiting further input from radiation oncology. Current vital signs temp 97.9, heart rate 65, respiratory rate 18, blood pressure 118/65 with a pulse ox of 97% on room air. Patient denies chest pain or shortness of breath. Patient denies nausea vomiting or diarrhea. Patient denies any urinary burning or frequency On 10/19/2024 patient is alert and oriented x 3. Patient son at bedside family meeting held. Patient received 1 unit PRBCs yesterday. Hemoglobin today 8.9. Surgical services were consulted no plans for EGD due to recent tracheostomy. If hemoglobin continues to drop tentative plans for tagged RBC. Per oncology services patient will follow-up with surgical oncology out of [facility] with radiation after therapy completion. Patient is complaining about increased right hand pain will order uric acid level and x-ray. At this time patient denies chest pain or shortness of breath. Patient denies nausea vomiting or diarrhea. Patient denies any urinary burning or frequency On 10/20/2024 patient was seen and examined on the medical floor he is alert and oriented x 3 in no apparent distress he denies any symptoms at this time there is no fever or chills no headache or dizziness no chest pain no shortness of breath no cough no nausea or vomiting no abdominal pain no diarrhea and no urinary symptoms, will continue to monitor hemoglobin closely. On 10/21/2024 patient is alert and oriented x 3 currently sitting up in chair. Hemoglobin today 8.5. Continue to monitor hemoglobin. Patient denies chest pain or shortness of breath. Patient denies nausea vomiting or diarrhea. Patient denies any urinary burning or frequency infectious disease services are following patient remains on Diflucan. On 10/22/2024 patient was seen and examined on the medical floor, he is alert and oriented in no apparent distress, difficult to communicate with, temperature is 98.5 pulse 65 respiration 15 blood pressure 102/57 pulse ox 93% on room air, white blood count 11.62 hemoglobin 8.1 platelet count 624 sodium 133 he denies any fever or chills no headache or dizziness no chest pain no shortness of breath he has occasional cough no nausea or vomiting no abdominal pain no diarrhea and no urinary symptoms, he remains on Diflucan, infectious disease, general surgery, oncology are following. On 10/23/2024 patient is alert and oriented 3. Patient remains on Diflucan. Patient denies chest pain or shortness of breath. Patient denies nausea vom iting or diarrhea. Patient denies any urinary burning or frequency. Current vital signs temp 97.9, heart rate 71, respiratory rate 16, blood pressure 111/61 with pulse ox 96% on room air On 10/24/2024 patient was seen and examined on the medical floor he is alert and oriented x 3 in no apparent distress there is no fever or chills no headache or dizziness no chest pain no shortness of breath no cough no nausea or vomiting no abdominal pain no diarrhea no urinary symptoms. Hemoglobin is stable at 8.2 today. Patient received multiple red blood cell transfusion during this admission, at this time we will continue with oral Protonix, continue to withhold Eliquis, as risk of bleeding and anemia is higher than the benefit at this point. [facility], and Eliquis could be resumed if hemoglobin is stable with no evidence of bleeding. No EGD or colonoscopy could you be performed during this admission due to patient general condition. [facility], prescriptions for Xanax and oxycodone were provided. Patient Condition at Discharge: Fair Plan - Discharge Summary Discharge Rx Participant: No New Discharge Prescriptions: New Fluconazole [Diflucan] 100 mg PO DAILY 10 Days #10 tab Menthol-Camphor Lotion [Sarna Lotion 0.5%-0.5%] 1 applic TOPICAL TID ml Cyanocobalamin [Vitamin B-12] 1,000 mcg PO DAILY tab Folic Acid 1 mg PO DAILY tab Continue oxyCODONE HCL [oxyCODONE HCL (IR)] 10 mg PO Q4H PRN PRN Reason: Pain Calcium Carbonate 1250mg(500ca) 1,250 mg PO QID Miconazole Nitrate [Lotrimin AF Powder] 1 applic TOPICAL DAILY PRN PRN Reason: redness/irrtation Amiodarone [Cordarone] 200 mg PO BID QUEtiapine FUMARATE [SEROquel] 25 mg PO HS Pantoprazole [Protonix] 40 mg PO DAILY Finasteride [Proscar] 5 mg PO DAILY Doxazosin [Cardura] 4 mg PO DAILY Nutren 2.0 1 dose PEG/G-TUBE BID@0500,1900 ALPRAZolam [Xanax] 0.25 mg PO Q8H PRN PRN Reason: Anxiety polyethylene glycoL 3350 [Miralax] 17 gm PO BID Miconazole Nitrate [Lotrimin AF Powder] 1 applic TOPICAL BID Levothyroxine Sodium [Synthroid] 100 mcg PO DAILY Discontinued Apixaban [Eliquis] 5 mg PO BID Naloxone HCl [Narcan] 4 mg NASAL ONCE PRN PRN Reason: overdose Acetaminophen Tab [Tylenol Tab] 500 mg PO Q4H Discharge Medication List ALPRAZolam [Xanax] 0.25 mg PO Q8H PRN 01/08/23 [History] Amiodarone [Cordarone] 200 mg PO BID 10/12/24 [History] Calcium Carbonate 1250mg(500ca) 1,250 mg PO QID 10/12/24 [History] Doxazosin [Cardura] 4 mg PO DAILY 10/12/24 [History] Finasteride [Proscar] 5 mg PO DAILY 10/12/24 [History] Levothyroxine Sodium [Synthroid] 100 mcg PO DAILY 10/12/24 [History] Miconazole Nitrate [Lotrimin AF Powder] 1 applic TOPICAL BID 10/12/24 [History] Miconazole Nitrate [Lotrimin AF Powder] 1 applic TOPICAL DAILY PRN 10/12/24 [History] Nutren 2.0 1 dose PEG/G-TUBE BID@0500,1900 10/12/24 [History] Pantoprazole [Protonix] 40 mg PO DAILY 10/12/24 [History] QUEtiapine FUMARATE [SEROquel] 25 mg PO HS 10/12/24 [History] oxyCODONE HCL [oxyCODONE HCL (IR)] 10 mg PO Q4H PRN 10/12/24 [History] polyethylene glycoL 3350 [Miralax] 17 gm PO BID 10/12/24 [History] Cyanocobalamin [Vitamin B-12] 1,000 mcg PO DAILY tab 10/24/24 [Rx] Fluconazole [Diflucan] 100 mg PO DAILY 10 Days #10 tab 10/24/24 [Rx] Folic Acid 1 mg PO DAILY tab 10/24/24 [Rx] Menthol-Camphor Lotion [Sarna Lotion 0.5%-0.5%] 1 applic TOPICAL TID ml 10/24/24 [Rx] Follow up Appointment(s)/Referral(s): Claus Mann MD [REFERRING] - 3 Weeks Jose Correa MD [Primary Care Provider] - 1-2 days
--- NOTE | 2024-10-24 16:33 | P.PN ---
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 On today's evaluation that is 10/23/2024, Patient is afebrile patient is currently on room air and denies having any shortness of breath, the patient denies any chest pain or any worsening cough, the patient denies any nausea vomiting did not have any abdominal pain and no diarrhea. Patient did not have a lab draw today Objective - Vital Signs Vital signs: Vital Signs Temp 97.9 F 10/23/24 06:57 Pulse 71 10/23/24 06:57 Resp 16 10/23/24 06:57 BP 111/61 10/23/24 06:57 Pulse Ox 96 10/23/24 06:57 FiO2 21 10/14/24 20:40 Intake & Output 10/22/24 10/23/24 10/23/24 18:59 06:59 18:59 Output Total 1300 1200 Balance -1300 -1200 Output: Urine 1300 1200 Other: Voiding Method Indwelling Catheter Indwelling Catheter Indwelling Catheter - Exam GENERAL DESCRIPTION: An elderly male lying in bed in no distress RESPIRATORY SYSTEM: Unlabored breathing , decreased breath sounds at bases HEART: S1 S2 regular rate and rhythm , ABDOMEN: Soft , no tenderness EXTREMITIES: No edema feet - Labs CBC & Chem 7: 10/24/24 03:57 10/24/24 03:57 Assessment and Plan (1) Catheter-associated urinary tract infection Current Visit: Yes Status: Acute Code(s): T83.511A - I/I REACT D/T INDWELLING URETHRAL CATHETER, INIT; N39.0 - URINARY TRACT INFECTION, SITE NOT SPECIFIED SNOMED Code(s): 176010749 (2) Leukocytosis Current Visit: No Status: Acute Code(s): D72.829 - ELEVATED WHITE BLOOD CELL COUNT, UNSPECIFIED SNOMED Code(s): 272138407 Plan: 1patient with a leukocytosis which is likely multifactorial in this patient presenting to the hospital with a low hemoglobin questionably reactive versus related to catheter assisted UTI as the patient did have a chronic draining Epps catheter that has been there for more than a month. 2patient did have 2 scabbed over lesion to the anterior chest wall and some crusting around the PEG tube site but no evidence of any cellulitis clinically doubt source of his elevated white count 3- the patient Epps catheter has been changed initial urine culture Did grew Josefina repeat UA is also positive and growing the same pathogen that is Josefina tropicalis 4patient is afebrile and the patient white count is trending down as of yesterday no CBC was done today, patient procalcitonin is only 0.13 he will continue Diflucan and repeat his CBC with a.m. lab Dictation was produced using [employer] dictation software. please excuse any grammatical, word or spelling errors. Time with Patient: Less than 30
--- NOTE | 2024-10-24 16:35 | P.PN ---
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 On today's evaluation that is 10/24/2024, patient has been afebrile, patient is breathing comfortably and is currently on room air, patient did have occasional cough denies any worsening, no chest pain, patient denies nausea vomiting or diarrhea reported by nursing staff and no abdominal pain. Patient white count is up to 13.20 creat is 1.0 Objective - Vital Signs Vital signs: Vital Signs Temp 98.1 F 10/24/24 12:19 Pulse 71 10/24/24 12:19 Resp 18 10/24/24 12:19 BP 111/59 10/24/24 12:19 Pulse Ox 94 L 10/24/24 12:19 FiO2 21 10/14/24 20:40 Intake & Output 10/23/24 10/24/24 10/24/24 18:59 06:59 18:59 Intake Total 1440 Output Total 2000 Balance -560 Intake: Intake, IV Titration 1200 Amount Sodium Chloride 0.9% 1, 1200 000 ml @ 100 mls/hr IV . Q10H [facility] Rx#:[id number] Oral 240 Output: Urine 2000 Other: Voiding Method Indwelling Catheter Indwelling Catheter Indwelling Catheter # Bowel Movements 1 - Exam GENERAL DESCRIPTION: An elderly male lying in bed in no distress RESPIRATORY SYSTEM: Unlabored breathing , decreased breath sounds at bases HEART: S1 S2 regular rate and rhythm , ABDOMEN: Soft , no tenderness EXTREMITIES: No edema feet - Labs CBC & Chem 7: 10/24/24 03:57 10/24/24 03:57 Labs: Abnormal Lab Results - Last 24 Hours (Table) 10/24/24 10/24/24 Range/Units 03:57 03:57 WBC 13.20 H (4.50-10.00) X 10*3/uL RBC 2.90 L (4.40-5.60) X 10*6/uL Hgb 8.2 L (13.0-17.0) g/dL Hct 26.6 L (39.6-50.0) % MCHC 30.8 L (32.0-37.0) g/dL RDW 16.0 H (11.5-14.5) % Plt Count 635 H (140-440) X 10*3/uL Immature Gran # 0.14 H (0.00-0.04) X 10*3/uL Neutrophils # 9.26 H (1.80-7.70) X 10*3/uL Monocytes # 1.75 H (0.20-1.00) X 10*3/uL Eosinophils # 0.36 H (0.04-0.35) X 10*3/uL Sodium 134 L (135-145) mmol/L ALT 8 L (10-49) U/L Total Protein 5.5 L (6.2-8.2) g/dL Albumin 2.5 L (3.8-4.9) g/dL Albumin/Globulin Ratio 0.83 L (1.60-3.17) Ratio Assessment and Plan (1) Catheter-associated urinary tract infection Current Visit: Yes Status: Acute Code(s): T83.511A - I/I REACT D/T INDWELLING URETHRAL CATHETER, INIT; N39.0 - URINARY TRACT INFECTION, SITE NOT SPECIFIED SNOMED Code(s): 623039937 (2) Leukocytosis Current Visit: No Status: Acute Code(s): D72.829 - ELEVATED WHITE BLOOD CELL COUNT, UNSPECIFIED SNOMED Code(s): 102377541 Plan: 1patient with a leukocytosis which is likely multifactorial in this patient presenting to the hospital with a low hemoglobin questionably reactive versus related to catheter assisted UTI as the patient did have a chronic draining Epps catheter that has been there for more than a month. 2patient did have 2 scabbed over lesion to the anterior chest wall and some crusting around the PEG tube site but no evidence of any cellulitis clinically d oubt source of his elevated white count 3- the patient Epps catheter has been changed initial urine culture Did grew Josefina repeat UA is also positive and growing the same pathogen that is Josefina tropicalis 4patient is afebrile, the patient white count slightly up today however no significant cough patient procalcitonin is only 0.13 and no diarrhea has been reported by the nursing staff will consider short course of Diflucan on discharge discussed with admitting physician Dictation was produced using [employer] dictation software. please excuse any grammatical, word or spelling errors. Time with Patient: Less than 30
[2024-10-25 13:40] LABS: Albumin 2.18 g/dL (3.80-4.90); Gamma Globulin 1.11 g/dL (0.70-1.50)
--- NOTE | 2024-10-26 14:53 | P.CONS ---
History of Present Illness - Reason for Consult Consult date: 10/18/24 Laryngeal cancer Requesting physician: Buck Crain - Chief Complaint "I have laryngeal cancer" - History of Present Illness Mr. Frank is a 69 Past Medical History Past Medical History: Atrial Fibrillation, Cancer, GERD/Reflux, Hypertension, Prostate Disorder Additional Past Medical History / Comment(s): dehydration, low B/P, kidney problem that was fixed with fluids and sodium was low. Additional hx: BPH, DDD-cervical pain, R/L hand fingers tingling if over used, AGE 18 FX RT FEMUR IN 4 PLACES HAD PLATE/SCEWS-SINCE REMOVED, HAS OPIOD INDUCED CONSTIPATION, TINNITUS bilaterally but pt has noticed it has decreased since he quit smoking, hay fever. cardiac arrest 3 months ago, trach History of Any Multi-Drug Resistant Organisms: None Reported Past Surgical History: Heart Catheterization, Joint Replacement, Orthopedic Surgery Additional Past Surgical History / Comment(s): bilateral CATARACTS, ANT CERVICAL DISCECTOMY/FUSION C4,5,6,7 USING CADAVOR BONE. LT HYDROCELE, LT CARPAL TUNNEL, RT FEMUR SX METAL SINCE REMOVED, COLONOSCOPY, CYSTS REMOVED FROM FOREHEAD,BUTTOCKS,;T LUTHERAN. PROSTATE BX X2-BENIGN, partial R knee replacement. cardiac ablation, peg tube, trach placement. Past Anesthesia/Blood Transfusion Reactions: No Reported Reaction Past Psychological History: No Psychological Hx Reported Additional Psychological History / Comment(s): PER PTS. SON PT. 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 HAS HAD SEVERAL FALLS RECENTLY Smoking Status: Former smoker Past Alcohol Use History: Daily Additional Past Alcohol Use History / Comment(s): PER PTS. SON PT. HAS SMOKED HEAVILY AND DRANK HEAVILY FOR MANY YEARS Past Drug Use History: None Reported Additional Drug Use History / Comment(s): no alcohol in 5 weeks per patient. - Past Family History Father Family Medical History: COPD, Dementia Additional Family Medical History / Comment(s): Father at age 84yrs. Mother Family Medical History: Cancer, COPD Additional Family Medical History / Comment(s): NASAL/THROAT CANCER. Mother at age 82 Medications and Allergies Home Medications Medication Instructions Recorded Confirmed Type ALPRAZolam [Xanax] 0.25 mg PO Q8H PRN 01/08/23 10/12/24 History Amiodarone [Cordarone] 200 mg PO BID 10/12/24 10/12/24 History Calcium Carbonate 1250mg(500ca) 1,250 mg PO QID 10/12/24 10/12/24 History Doxazosin [Cardura] 4 mg PO DAILY 10/12/24 10/12/24 History Finasteride [Proscar] 5 mg PO DAILY 10/12/24 10/12/24 History Levothyroxine Sodium [Synthroid] 100 mcg PO DAILY 10/12/24 10/12/24 History Miconazole Nitrate [Lotrimin AF 1 applic TOPICAL BID 10/12/24 10/12/24 History Powder] Miconazole Nitrate [Lotrimin AF 1 applic TOPICAL DAILY PRN 10/12/24 10/12/24 History Powder] Nutren 2.0 1 dose PEG/G-TUBE BID@0500,1900 10/12/24 10/12/24 History Pantoprazole [Protonix] 40 mg PO DAILY 10/12/24 10/12/24 History QUEtiapine FUMARATE [SEROquel] 25 mg PO HS 10/12/24 10/12/24 History oxyCODONE HCL [oxyCODONE HCL (IR)] 10 mg PO Q4H PRN 10/12/24 10/12/24 History polyethylene glycoL 3350 [Miralax] 17 gm PO BID 10/12/24 10/12/24 History Cyanocobalamin [Vitamin B-12] 1,000 mcg PO DAILY tab 10/24/24 Rx Fluconazole [Diflucan] 100 mg PO DAILY 10 Days #10 tab 10/24/24 Rx Folic Acid 1 mg PO DAILY tab 10/24/24 Rx Menthol-Camphor Lotion [Sarna 1 applic TOPICAL TID ml 10/24/24 Rx Lotion 0.5%-0.5%] Allergies Allergy/AdvReac Type Severity Reaction Status Date / Time No Known Allergies Allergy Verified 10/12/24 06:28 Results CBC & Chem 7: 10/24/24 03:57 10/24/24 03:57
--- NOTE | 2024-10-26 15:14 | P.CONS ---
History of Present Illness - Reason for Consult Consult date: 10/18/24 Laryngeal cancer Requesting physician: Buck Crain - Chief Complaint "I have laryngeal cancer" - History of Present Illness Mr. 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 He is status post total laryngectomy on 09/30/2024. He presents with acute anemia. I previously established care with this patient in 06/2024. At that time, he presented with a laryngeal lesion. He subsequently established care with Dr. Mann. He underwent total laryngectomy with lymph node dissection on 09/30/2024. Final pathology demonstrated a 4.3 cm focus of moderately differentiated squamous cell carcinoma of the glottis/subglottis with focal sarcomatoid features. There was LVSI. There was no PNI. All margins were negative. 65 lymph nodes from bilateral levels IIA-V and central were negative. He is admitted with anemia of unclear etiology. Today, he notes he is doing okay. He has tracheostomy in place as well as PEG tu be. He denies any active sites of bleeding. Review of Systems as per HPI Past Medical History Past Medical History: Atrial Fibrillation, Cancer, GERD/Reflux, Hypertension, Prostate Disorder Additional Past Medical History / Comment(s): dehydration, low B/P, kidney problem that was fixed with fluids and sodium was low. Additional hx: BPH, DDD-cervical pain, R/L hand fingers tingling if over used, AGE 18 FX RT FEMUR IN 4 PLACES HAD PLATE/SCEWS-SINCE REMOVED, HAS OPIOD INDUCED CONSTIPATION, TINNITUS bilaterally but pt has noticed it has decreased since he quit smoking, hay fever. cardiac arrest 3 months ago, trach History of Any Multi-Drug Resistant Organisms: None Reported Past Surgical History: Heart Catheterization, Joint Replacement, Orthopedic Surgery Additional Past Surgical History / Comment(s): bilateral CATARACTS, ANT CERVICAL DISCECTOMY/FUSION C4,5,6,7 USING CADAVOR BONE. LT HYDROCELE, LT CARPAL TUNNEL, RT FEMUR SX METAL SINCE REMOVED, COLONOSCOPY, CYSTS REMOVED FROM FOREHEAD,BUTTOCKS,;T YARSANISM. PROSTATE BX X2-BENIGN, partial R knee replacement. cardiac ablation, peg tube, trach placement. Past Anesthesia/Blood Transfusion Reactions: No Reported Reaction Past Psychological History: No Psychological Hx Reported Additional Psychological History / Comment(s): PER PTS. SON PT. 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 HAS HAD SEVERAL FALLS RECENTLY Smoking Status: Former smoker Past Alcohol Use History: Daily Additional Past Alcohol Use History / Comment(s): PER PTS. SON PT. HAS SMOKED HEAVILY AND DRANK HEAVILY FOR MANY YEARS Past Drug Use History: None Reported Additional Drug Use History / Comment(s): no alcohol in 5 weeks per patient. - Past Family History Father Family Medical History: COPD, Dementia Additional Family Medical History / Comment(s): Father at age 84yrs. Mother Family Medical History: Cancer, COPD Additional Family Medical History / Comment(s): NASAL/THROAT CANCER. Mother at age 82 Medications and Allergies Home Medications Medication Instructions Recorded Confirmed Type ALPRAZolam [Xanax] 0.25 mg PO Q8H PRN 01/08/23 10/12/24 History Amiodarone [Cordarone] 200 mg PO BID 10/12/24 10/12/24 History Calcium Carbonate 1250mg(500ca) 1,250 mg PO QID 10/12/24 10/12/24 History Doxazosin [Cardura] 4 mg PO DAILY 10/12/24 10/12/24 History Finasteride [Proscar] 5 mg PO DAILY 10/12/24 10/12/24 History Levothyroxine Sodium [Synthroid] 100 mcg PO DAILY 10/12/24 10/12/24 History Miconazole Nitrate [Lotrimin AF 1 applic TOPICAL BID 10/12/24 10/12/24 History Powder] Miconazole Nitrate [Lotrimin AF 1 applic TOPICAL DAILY PRN 10/12/24 10/12/24 History Powder] Nutren 2.0 1 dose PEG/G-TUBE BID@0500,1900 10/12/24 10/12/24 History Pantoprazole [Protonix] 40 mg PO DAILY 10/12/24 10/12/24 History QUEtiapine FUMARATE [SEROquel] 25 mg PO HS 10/12/24 10/12/24 History oxyCODONE HCL [oxyCODONE HCL (IR)] 10 mg PO Q4H PRN 10/12/24 10/12/24 History polyethylene glycoL 3350 [Miralax] 17 gm PO BID 10/12/24 10/12/24 History Cyanocobalamin [Vitamin B-12] 1,000 mcg PO DAILY tab 10/24/24 Rx Fluconazole [Diflucan] 100 mg PO DAILY 10 Days #10 tab 10/24/24 Rx Folic Acid 1 mg PO DAILY tab 10/24/24 Rx Menthol-Camphor Lotion [Sarna 1 applic TOPICAL TID ml 10/24/24 Rx Lotion 0.5%-0.5%] Allergies Allergy/AdvReac Type Severity Reaction Status Date / Time No Known Allergies Allergy Verified 10/12/24 06:28 Physical Exam trachesotomy noted - Constitutional General appearance: no acute distress - Respiratory Respiratory: negative: prolonged expiration, prolonged inspiration - Gastrointestinal PEG in place - Psychiatric Psychiatric: A&O x's 3, appropriate affect, intact judgment & insight Results CBC & Chem 7: 10/24/24 03:57 10/24/24 03:57 Assessment and Plan Assessment: Mr. 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 He is status post total laryngectomy on 09/30/2024. He presents with acute anemia. Plan: The patient has a locally advanced squamous cell carcinoma of the glottis/sub glottis status post total laryngectomy. I recommend a course of adjuvant radiation therapy without concurrent chemotherapy. This will be initiated on an outpatient basis once he recovers from his current condition. Jermaine Payton MD Radiation Oncology Time with Patient: Less than 30
== END 2024-10-24 17:30 | DRG 813 ==
LOC: EC 23:37 → 4SSUR 10-12 01:26 → 5NMEDONC 10-13 20:17
PROVIDERS: ADMIT Internal Medicine; ATTEND Internal Medicine
PROC: 30233N1 Transfusion of Nonautologous Red Blood Cells into Peripheral Vein, Percutaneous Approach (ICD-10-PCS; principal; 2024-10-12)
DX: D68.32 Hemorrhagic disorder due to extrinsic circulating anticoagulants (principal); E87.1 Hypo-osmolality and hyponatremia; T83.518A Infection and inflammatory reaction due to other urinary catheter, initial encounter; B37.49 Other urogenital candidiasis; K92.1 Melena; L89.322 Pressure ulcer of left buttock, stage 2; L89.312 Pressure ulcer of right buttock, stage 2; Z93.0 Tracheostomy status; D63.8 Anemia in other chronic diseases classified elsewhere; C32.9 Malignant neoplasm of larynx, unspecified; I48.0 Paroxysmal atrial fibrillation; Z93.1 Gastrostomy status; I10 Essential (primary) hypertension; N40.1 Benign prostatic hyperplasia with lower urinary tract symptoms; R33.8 Other retention of urine; K59.00 Constipation, unspecified; G89.4 Chronic pain syndrome; T45.515A Adverse effect of anticoagulants, initial encounter; Y84.6 Urinary catheterization as the cause of abnormal reaction of the patient, or of later complication, without mention of misadventure at the time of the procedure; Z96.651 Presence of right artificial knee joint; Z79.01 Long term (current) use of anticoagulants; Z87.891 Personal history of nicotine dependence; Z79.890 Hormone replacement therapy; Z91.81 History of falling; Z79.899 Other long term (current) drug therapy; Z86.79 Personal history of other diseases of the circulatory system; Z98.1 Arthrodesis status
CPT/HCPCS: 36415; 36430; 80053; 81001; 82272; 82728; 83010; 83540; 83550; 83615; 83883; 84145; 84165; 84550; 85025; 85027; 85045; 85610; 85730; 86140; 86334; 86850; 86870; 86880; 86900; 86901; 86902; 86920; 87086; 93005; 93306; 94760; 96361; 96365; 96367; 96375; 96376; 99285

== ENCOUNTER 2024-10-28 17:59 | Inpatient (IN) | payer MEDICARE ==
--- NOTE | 2024-10-28 18:25 | ED ---
General Adult HPI - General Stated complaint: Chest Pain Time Seen by Provider: 10/28/24 18:00 Source: patient, RN notes reviewed, old records reviewed - History of Present Illness Initial comments: This is a 69-year-old male who presents to the emergency department from a fdc. Patient comes in because he has a low-grade fever. Patient has a history of tongue cancer and he has a trach as well as a PEG tube in place. Patient does have a cough and does feel short of breath. Patient is difficult to understand because he does not speak. Patient does not complain of any chest pain or abdominal pain. Patient has had no vomiting or diarrhea - Related Data Home Medications Medication Instructions Recorded Confirmed ALPRAZolam [Xanax] 0.25 mg PO Q8H PRN 01/08/23 10/12/24 Amiodarone [Cordarone] 200 mg PO BID 10/12/24 10/12/24 Calcium Carbonate 1250mg(500ca) 1,250 mg PO QID 10/12/24 10/12/24 Doxazosin [Cardura] 4 mg PO DAILY 10/12/24 10/12/24 Finasteride [Proscar] 5 mg PO DAILY 10/12/24 10/12/24 Levothyroxine Sodium [Synthroid] 100 mcg PO DAILY 10/12/24 10/12/24 Miconazole Nitrate [Lotrimin AF 1 applic TOPICAL BID 10/12/24 10/12/24 Powder] Miconazole Nitrate [Lotrimin AF 1 applic TOPICAL DAILY PRN 10/12/24 10/12/24 Powder] Nutren 2.0 1 dose PEG/G-TUBE BID@0500,1900 10/12/24 10/12/24 Pantoprazole [Protonix] 40 mg PO DAILY 10/12/24 10/12/24 QUEtiapine FUMARATE [SEROquel] 25 mg PO HS 10/12/24 10/12/24 oxyCODONE HCL [oxyCODONE HCL (IR)] 10 mg PO Q4H PRN 10/12/24 10/12/24 polyethylene glycoL 3350 [Miralax] 17 gm PO BID 10/12/24 10/12/24 Previous Rx's Medication Instructions Recorded Cyanocobalamin [Vitamin B-12] 1,000 mcg PO DAILY tab 10/24/24 Fluconazole [Diflucan] 100 mg PO DAILY 10 Days #10 tab 10/24/24 Folic Acid 1 mg PO DAILY tab 10/24/24 Menthol-Camphor Lotion [Sarna 1 applic TOPICAL TID ml 10/24/24 Lotion 0.5%-0.5%] Allergies Allergy/AdvReac Type Severity Reaction Status Date / Time No Known Allergies Allergy Verified 10/12/24 06:28 Review of Systems ROS Statement: Those systems with pertinent positive or pertinent negative responses have been documented in the HPI. ROS Other: All systems not noted in ROS Statement are negative. Past Medical History Past Medical History: Atrial Fibrillation, Cancer, GERD/Reflux, Hypertension, Prostate Disorder Additional Past Medical History / Comment(s): dehydration, low B/P, kidney problem that was fixed with fluids and sodium was low. Additional hx: BPH, DDD-cervical pain, R/L hand fingers tingling if over used, AGE 18 FX RT FEMUR IN 4 PLACES HAD PLATE/SCEWS-SINCE REMOVED, HAS OPIOD INDUCED CONSTIPATION, TINNITUS bilaterally but pt has noticed it has decreased since he quit smoking, hay fever. cardiac arrest 3 months ago, trach History of Any Multi-Drug Resistant Organisms: None Reported Past Surgical History: Heart Catheterization, Joint Replacement, Orthopedic Surgery Additional Past Surgical History / Comment(s): bilateral CATARACTS, ANT CERVICAL DISCECTOMY/FUSION C4,5,6,7 USING CADAVOR BONE. LT HYDROCELE, LT CARPAL TUNNEL, RT FEMUR SX METAL SINCE REMOVED, COLONOSCOPY, CYSTS REMOVED FROM FOREHEAD,BUTTOCKS,;T EPISCOPAL. PROSTATE BX X2-BENIGN, partial R knee replacement. cardiac ablation, peg tube, trach placement. Past Anesthesia/Blood Transfusion Reactions: No Reported Reaction Past Psychological History: No Psychological Hx Reported Additional Psychological History / Comment(s): PER PTS. SON PT. 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 HAS HAD SEVERAL FALLS RECENTLY Smoking Status: Former smoker Past Alcohol Use History: Daily Additional Past Alcohol Use History / Comment(s): PER PTS. SON PT. HAS SMOKED HEAVILY AND DRANK HEAVILY FOR MANY YEARS Past Drug Use History: None Reported Additional Drug Use History / Comment(s): no alcohol in 5 weeks per patient. - Past Family History Father Family Medical History: COPD, Dementia Additional Family Medical History / Comment(s): Father at age 84yrs. Mother Family Medical History: Cancer, COPD Additional Family Medical History / Comment(s): NASAL/THROAT CANCER. Mother at age 82 General Exam - General Exam Comments Initial Comments: GENERAL: Patient is well-developed and well-nourished. Patient is nontoxic and well-hy drated and is in mild distress. ENT: Neck is soft and supple. No significant lymphadenopathy is noted. Oropharynx is clear. Moist mucous membranes. Neck has full range of motion without eliciting any pain. EYES: The sclera were anicteric and conjunctiva were pink and moist. Extraocular movements were intact and pupils were equal round and reactive to light. Eyelids were unremarkable. PULMONARY: Crackles in the bases of his lungs CARDIOVASCULAR: There is a regular rate and rhythm without any murmurs gallops or rubs. ABDOMEN: Soft and nontender with normal bowel sounds. SKIN: Skin is clear with no lesions or rashes and otherwise unremarkable. NEUROLOGIC: Patient is alert and oriented x3. Cranial nerves II through XII are grossly intact. Motor and sensory are also intact. Normal speech, volume and content. Symmetrical smile. MUSCULOSKELETAL: Normal extremities with adequate strength and full range of motion. LYMPHATICS: No significant lymphadenopathy is noted PSYCHIATRIC: Normal psychiatric evaluation. Course Vital Signs 10/28/24 10/28/24 18:00 19:43 Temperature 98.5 F 98.6 F Pulse Rate 76 76 Respiratory 20 19 Rate Blood Pressure 117/65 O2 Sat by Pulse 94 L 96 Oximetry Medical Decision Making - Medical Decision Making She is interpreted by myself. EKG shows a sinus rhythm at 81 bpm AK 90 QRS is 80 QT interval is 42 QTc is 419. Patient's EKG shows no ST segment patient or depression Was pt. sent in by a medical professional or institution (, PA, [employer] MIDDLEWARE DEVELOPER, urgent care, hospital, or fdc...) When possible be specific @ -No Did you speak to anyone other than the patient for history (EMS, parent, family, police, friend...)? What history was obtained from this source @ -No Did you review nursing and triage notes (agree or disagree)? Why? @ -I reviewed and agree with nursing and triage notes Were old charts reviewed (outside hosp., previous admission, EMS record, old EKG, old radiological studies, urgent care reports/EKG's, fdc records)? Report findings @ -No old charts were reviewed Differential Diagnosis? @ -Differential Fever: Pneumonia, viral URI, endocarditis, myocarditis, pericarditis, otitis, sinusitis, peritonsillar Abscess, retropharyngeal Abscess, epiglottitis, peritonitis, appendicitis, Shari cystitis, diverticulitis, hepatitis, colitis, UTI, PID, TOA, pyelonephritis, prostatitis, epididymitis, meningitis, encephalitis, pulmonary embolism, CVA, thyroid storm, pancreatitis, adrenal crisis, cavernous sinus thrombosis, this is not meant to be an all-inclusive list. EKG interpreted by me (3pts min.). @ -As above X-rays interpreted by me (1pt min.). @ -Chest x-ray showed no acute abnormality CT interpreted by me (1pt min.). @ -None done U/S interpreted by me (1pt. min.). @ -None done What testing was considered but not performed or refused? (CT, X-rays, U/S, labs)? Why? @ -None What meds were considered but not given or refused? Why? @ -None Did you discuss the management of the patient with other professionals (professionals i.e. , PA, [employer] DEVELOPER, lab, RT, psych nurse, psych social worker, seafood manager, teacher, staff antisubmarine officer, case picker)? Give summary @ -I spoke with Dr. Ren he agreed to admit the patient admitted the patient wrote admitting orders Was smoking cessation discussed for >3mins.? @ -No Was critical care preformed (if so, how long)? @ -No Were there social determinants of health that impacted care today? How? (Homelessness, low income, unemployed, alcoholism, drug addiction, transportation, low edu. Level, literacy, decrease access to med. care, prison, rehab)? @ -No Was there de-escalation of care discussed even if they declined (Discuss DNR or withdrawal of care, Hospice)? DNR status @ -No What co-morbidities impacted this encounter? (DM, HTN, Smoking, COPD, CAD, Cancer, CVA, ARF, Chemo, Hep., AIDS, mental health diagnosis, sleep apnea, morbid obesity)? @ -None Was patient admitted / discharged? Hospital course, mention meds given and route, prescriptions, significant lab abnormalities, going to OR and other pertinent info. @ -Patient was sent in for a low-grade fever he did complain of a cough but no sputum production. Patient did have a mildly elevated white count so admit the patient for tracheobronchitis and admitted the patient Dr. Ren Undiagnosed new problem with uncertain prognosis? @ -No Drug Therapy requiring intensive monitoring for toxicity (Heparin, Nitro, Insulin, Cardizem)? @ -No Were any procedures done? @ -No Diagnosis/symptom? @ -Tracheobronchitis Acute, or Chronic, or Acute on Chronic? @ -Default Uncomplicated (without systemic symptoms) or Complicated (systemic symptoms)? @ -Complicated Side effects of treatment? @ -No Exacerbation, Progression, or Severe Exacerbation? @ -No Poses a threat to life or bodily function? How? (Chest pain, [place], ND, pneumonia, PE, COPD, DKA, ARF, appy, cholecystitis, CVA, Diverticulitis, Homicidal, Suicidal, threat to staff... and all critical care pts) @ -No - Lab Data Result diagrams: 10/28/24 18:09 10/28/24 18:09 Lab Results 10/28/24 10/28/24 10/28/24 Range/Units 18:09 18:09 18:09 WBC 13.8 H (3.8-10.6) k/uL RBC 2.80 L (4.30-5.90) m/uL Hgb 7.9 L (13.0-17.5) gm/dL Hct 24.5 L (39.0-53.0) % MCV 87.5 (80.0-100.0) fL MCH 28.1 (25.0-35.0) pg MCHC 32.1 (31.0-37.0) g/dL RDW 16.2 H (11.5-15.5) % Plt Count 587 H (150-450) k/uL MPV 7.2 Neutrophils % 76 % Lymphocytes % 10 % Monocytes % 9 % Eosinophils % 3 % Basophils % 0 % Neutrophils # 10.6 H (1.3-7.7) k/uL Lymphocytes # 1.4 (1.0-4.8) k/uL Monocytes # 1.2 H (0-1.0) k/uL Eosinophils # 0.3 (0-0.7) k/uL Basophils # 0.1 (0-0.2) k/uL Hypochromasia Moderate Anisocytosis Slight PT 10.7 (10.0-12.5) sec INR 1.0 (<1.2) APTT 27.3 (22.0-30.0) sec Sodium 132 L (137-145) mmol/L Potassium 5.7 H (3.5-5.1) mmol/L Chloride 96 L (98-107) mmol/L Carbon Dioxide 31 H (22-30) mmol/L Anion Gap 5 mmol/L BUN 34 H (9-20) mg/dL Creatinine 1.17 (0.66-1.25) mg/dL Est GFR (CKD-EPI)AfAm 73 (>60 ml/min/1.73 sqM) Est GFR (CKD-EPI)NonAf 63 (>60 ml/min/1.73 sqM) Glucose 102 H (74-99) mg/dL Plasma Lactic Acid Drake (0.7-2.0) mmol/L Calcium 8.8 (8.4-10.2) mg/dL Total Bilirubin 0.4 (0.2-1.3) mg/dL AST 27 (17-59) U/L ALT 14 (4-49) U/L Alkaline Phosphatase 96 (38-126) U/L Total Protein 6.0 L (6.3-8.2) g/dL Albumin 2.7 L (3.5-5.0) g/dL Influenza Type A (PCR) (Not Detectd) Influenza Type B (PCR) (Not Detectd) RSV (PCR) (Not Detectd) SARS-CoV-2 (PCR) (Not Detectd) 10/28/24 10/28/24 Range/Units 18:09 18:09 WBC (3.8-10.6) k/uL RBC (4.30-5.90) m/uL Hgb (13.0-17.5) gm/dL Hct (39.0-53.0) % MCV (80.0-100.0) fL MCH (25.0-35.0) pg MCHC (31.0-37.0) g/dL RDW (11.5-15.5) % Plt Count (150-450) k/uL MPV Neutrophils % % Lymphocytes % % Monocytes % % Eosinophils % % Basophils % % Neutrophils # (1.3-7.7) k/uL Lymphocytes # (1.0-4.8) k/uL Monocytes # (0-1.0) k/uL Eosinophils # (0-0.7) k/uL Basophils # (0-0.2) k/uL Hypochromasia Anisocytosis PT (10.0-12.5) sec INR (<1.2) APTT (22.0-30.0) sec Sodium (137-145) mmol/L Potassium (3.5-5.1) mmol/L Chloride (98-107) mmol/L Carbon Dioxide (22-30) mmol/L Anion Gap mmol/L BUN (9-20) mg/dL Creatinine (0.66-1.25) mg/dL Est GFR (CKD-EPI)AfAm (>60 ml/min/1.73 sqM) Est GFR (CKD-EPI)NonAf (>60 ml/min/1.73 sqM) Glucose (74-99) mg/dL Plasma Lactic Acid Drake 1.2 (0.7-2.0) mmol/L Calcium (8.4-10.2) mg/dL Total Bilirubin (0.2-1.3) mg/dL AST (17-59) U/L ALT (4-49) U/L Alkaline Phosphatase (38-126) U/L Total Protein (6.3-8.2) g/dL Albumin (3.5-5.0) g/dL Influenza Type A (PCR) Not Detected (Not Detectd) Influenza Type B (PCR) Not Detected (Not Detectd) RSV (PCR) Not Detected (Not Detectd) SARS-CoV-2 (PCR) Not Detected (Not Detectd) Disposition Clinical Impression: Tracheobronchitis Disposition: ADMITTED IP TO THIS HOSP Referrals: Red Sanchez DO [Primary Care Provider] - 1-2 days Time of Disposition: 21:01
[2024-10-28 18:47] LABS: Anisocytosis Slight; Basophils # (A) 0.1 k/uL (0-0.2); Basophils % (A) 0 %; Eosinophils # (A) 0.3 k/uL (0-0.7); Eosinophils % (A) 3 %; HCT 24.5 % (39.0-53.0); HGB 7.9 gm/dL (13.0-17.5); Hypochromasia Moderate; Lymphocytes # (A) 1.4 k/uL (1.0-4.8); Lymphocytes % (A) 10 %; MCH 28.1 pg (25.0-35.0); MCHC 32.1 g/dL (31.0-37.0); MCV 87.5 fL (80.0-100.0); Mean Platelet Volume 7.2; Monocytes # (A) 1.2 k/uL (0-1.0); Monocytes % (A) 9 %; Neutrophils # (A) 10.6 k/uL (1.3-7.7); Neutrophils % (A) 76 %; Platelet Count 587 k/uL (150-450); RDW 16.2 % (11.5-15.5); WBC 13.8 k/uL (3.8-10.6)
[2024-10-28 18:57] LABS: Partial Thromboplastin Time 27.3 sec (22.0-30.0); Prothrombin Time 10.7 sec (10.0-12.5)
[2024-10-28 18:58] LABS: African American GFR (CKD) 73 (>60 ml/min/1.73 sqM); Albumin 2.7 g/dL (3.5-5.0); Alkaline Phosphatase 96 U/L (38-126); Anion Gap 5 mmol/L; Blood Urea Nitrogen 34 mg/dL (9-20); Calcium 8.8 mg/dL (8.4-10.2); Carbon Dioxide 31 mmol/L (22-30); Chloride 96 mmol/L (98-107); Glucose 102 mg/dL (74-99); Non-African American GFR(CKD) 63 (>60 ml/min/1.73 sqM); Sodium 132 mmol/L (137-145); Total Bilirubin 0.4 mg/dL (0.2-1.3)
[2024-10-28 19:01] LABS: ALT 14 U/L (4-49); AST 27 U/L (17-59); Potassium 5.7 mmol/L (3.5-5.1)
[2024-10-28] MEDS: SODIUM CHLORIDE 0.9% 500 ML 500 ML IV SCH (19:29)
[2024-10-28] MEDS: PIPERACILLIN-TAZOBACTAM 3.375 GM in SODIUM CHLORIDE 0.9% 100 ML IVPB STA (19:29)
[2024-10-28] MEDS: KETOROLAC 15 MG/ML 1 ML VIAL IVP STA (20:11)
[2024-10-28] MEDS: ONDANSETRON 4 MG/2 ML VIAL IVP STA (20:13)
[2024-10-28] MEDS ORDERED: PNEUMONIA PROTOCOL UTILIZED 1 EACH MISC PO PRN (21:01)
--- NOTE | 2024-10-28 21:12 | XR ---
EXAMINATION TYPE: XR chest 2V DATE OF EXAM: 10/28/2024 8:40 PM CLINICAL INDICATION:Male, 69 years old with history of Fever; [facility] COMPARISON: Chest radiographs from 07/06/2024 TECHNIQUE: XR chest 2V Frontal view of the chest. FINDINGS: Lungs/Pleura: Hazy patchy airspace opacities are seen in the bilateral lung zones more conspicuous al gabe the right. No pleural effusion or pneumothorax is appreciated. Pulmonary vascularity: Unremarkable. Heart/mediastinum: Cardiomediastinal silhouette is unremarkable. There are surgical clips noted manuela g the superior mediastinum and lower neck region. Musculoskeletal: No acute osseous pathology. Cervical surgical hardware partially visualized. Other findings: Round density is seen projecting over the lumen of the stomach. IMPRESSION: 1. Bilateral lower lung zone patchy airspace disease is concerning for an acute infectious/inflammato ry process. 2. Postsurgical changes. 3. Round density is partially visualized projecting over the area of the stomach may relate to enteri c contents versus other swallowed items. Correlate with clinical history. [facility], , 10/28/2024 9:10 PM
[2024-10-28 21:14] LABS: Appearance,Urine Clear (Clear); Bilirubin,Urine Negative (Negative); Blood,Urine Negative (Negative); Color,Urine Colorless; Glucose,Urine (UA) Negative (Negative); Ketones,Urine Negative (Negative); Leukocyte Esterase,Urine Negative (Negative); Nitrite,Urine Negative (Negative); Protein,Urine Negative (Negative); Specific Gravity,Urine 1.009 (1.001-1.035); Urobilinogen,Urine <2.0 mg/dL (<2.0)
[2024-10-29] MEDS: SODIUM ZIRCONIUM CYCLOSILICATE 10 GM PACKET PO ONE (00:30)
[2024-10-29] MEDS: AZITHROMYCIN 500 MG in SODIUM CHLORIDE 0.9% 250 ML IVPB STA (00:31)
[2024-10-29] MEDS: AZITHROMYCIN 500 MG in SODIUM CHLORIDE 0.9% 250 ML IVPB ONE (00:58)
[2024-10-29] MEDS: QUEtiapine 25 MG TAB PO SCH ×2 (00:58→22:37)
[2024-10-29] MEDS: PIPERACILLIN-TAZOBACTAM 3.375 GM in SODIUM CHLORIDE 0.9% 100 ML IVPB SCH (03:54)
[2024-10-29] MEDS: ALPRAZolam 0.25 MG TAB PO PRN (04:44)
--- NOTE | 2024-10-29 08:00 | XR ---
2 view chest HISTORY: Pneumonia COMPARISON: 10/28/2024 TECHNIQUE: PA and lateral views chest obtained. FINDINGS: Mild increase in the primary interstitial process in the right lower lobe which could indicate an int erstitial pneumonia.. The left lung is clear. The heart and pulmonary vasculature are normal. The osseous structures are in tact. IMPRESSION:. Mild interstitial process likely within the right lung base which could represent a mild interstitial pneumonia. These changes were not present on prior more remote chest x-rays and therefo re do not appear to represent chronic interstitial change. [facility], , 10/29/2024 7:57 AM
[2024-10-29 10:22] LABS: Blood Urea Nitrogen 28.6 mg/dL (9.0-27.0); Calcium 8.5 mg/dL (8.7-10.3); Carbon Dioxide 24.5 mmol/L (21.6-31.8); Chloride 100 mmol/L (96-109); Glucose 83 mg/dL (70-110); Potassium 5.7 mmol/L (3.5-5.5); Sodium 133 mmol/L (135-145)
[2024-10-29] MEDS: SODIUM ZIRCONIUM CYCLOSILICATE 10 GM PACKET PO SCH (10:48)
[2024-10-29] MEDS: LEVOTHYROXINE 100 MCG TAB PO SCH (12:30)
[2024-10-29] MEDS: FINASTERIDE 5 MG TAB PO SCH (12:30)
[2024-10-29] MEDS: PANTOPRAZOLE 40 MG TABLET PO SCH (12:30)
[2024-10-29] MEDS: DOXAZOSIN 4 MG TAB PO SCH (12:30)
[2024-10-29] MEDS: polyethylene glycoL 3350 17 GM POWD.PACK PO SCH (12:30)
[2024-10-29] MEDS: FOLIC ACID 1 MG TAB PO SCH (12:30)
[2024-10-29] MEDS: CYANOCOBALAMIN 500 MCG TAB PO SCH (12:30)
[2024-10-29 12:52] VITALS: BMI 24.5
--- NOTE | 2024-10-29 15:04 | P.HPIM ---
History of Present Illness H&P Date: 10/29/24 Hector Frank, is a 69-year-old male who presented to [facility] emergency room with a chief complaint of fever. He was evaluated in the emergency room vital examination on presentation revealed a temperature of 98.5 pulse 76 respiration 20 blood pressure 117/65 pulse ox 94% on oxygen via trach collar Laboratory data revealed a white blood count of 13.8 hemoglobin 7.9 platelet c ount 587 sodium 132 potassium 5.7 chloride 96 BUN 34 creatinine 1.17 Testing in the emergency room revealed chest x-ray revealed bilateral lower lung zones patchy airspace disease concerning for acute infection. Patient was admitted to medical floor for further evaluation and treatment Past medical history is significant for laryngeal mass, patient underwent surgery, and tracheostomy and PEG tube placement in September 2024, at [facility], he was transferred to [facility] for rehab, however his condition deteriorated and was admitted to our hospital on October 11, 2024, during that admission he received IV antibiotics, he was evaluated by oncology, and radiation oncology, and plan was to continue with rehab, and after patient is discharged from the sn[facility], he would return to [facility] for radiation therapy. Additional past medical history is significant for atrial fibrillation, anemia, hypertension, benign prostatic hypertrophy, degenerative disc disease with chronic back pain and chronic constipation. On review of systems difficult to obtain due to difficulty communicating with the patient, he is not able to speak and has a board that he communicate few words with, he is denying any chest pain shortness of breath nausea vomiting abdominal pain or urinary symptoms. Past Medical History Past Medical History: Atrial Fibrillation, Cancer, GERD/Reflux, Hypertension, Prostate Disorder Additional Past Medical History / Comment(s): dehydration, low B/P, kidney problem that was fixed with fluids and sodium was low. Additional hx: BPH, DDD-cervical pain, R/L hand fingers tingling if over used, AGE 18 FX RT FEMUR IN 4 PLACES HAD PLATE/SCEWS-SINCE REMOVED, HAS OPIOD INDUCED CONSTIPATION, TINNITUS bilaterally but pt has noticed it has decreased since he quit smoking, hay fe chelo. cardiac arrest 3 months ago, trach History of Any Multi-Drug Resistant Organisms: None Reported Past Surgical History: Heart Catheterization, Joint Replacement, Orthopedic Surgery Additional Past Surgical History / Comment(s): bilateral CATARACTS, ANT CERVICAL DISCECTOMY/FUSION C4,5,6,7 USING CADAVOR BONE. LT HYDROCELE, LT CARPAL TUNNEL, RT FEMUR SX METAL SINCE REMOVED, COLONOSCOPY, CYSTS REMOVED FROM FOREHEAD,BUTTOC [place],;T RELIGIOUS. PROSTATE BX X2-BENIGN, partial R knee replacement. cardiac ablation, peg tube, trach placement. Past Anesthesia/Blood Transfusion Reactions: No Reported Reaction Past Psychological History: No Psychological Hx Reported Additional Psychological History / Comment(s): PER PTS. SON PT. 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 HAS HAD SEVERAL FALLS RECENTLY Smoking Status: Former smoker Past Alcohol Use History: Daily Additional Past Alcohol Use History / Comment(s): PER PTS. SON PT. HAS SMOKED HEAVILY AND DRANK HEAVILY FOR MANY YEARS Past Drug Use History: None Reported Additional Drug Use History / Comment(s): no alcohol in 5 weeks per patient. - Past Family History Father Family Medical History: COPD, Dementia Additional Family Medical History / Comment(s): Father at age 84yrs. Mother Family Medical History: Cancer, COPD Additional Family Medical History / Comment(s): NASAL/THROAT CANCER. Mother at age 82 Medications and Allergies Home Medications Medication Instructions Recorded Confirmed Type ALPRAZolam [Xanax] 0.5 mg PO Q8H PRN 01/08/23 10/29/24 History Amiodarone [Cordarone] 200 mg PO BID 10/12/24 10/29/24 History Calcium Carbonate 1250mg(500ca) 1,250 mg PO QID 10/12/24 10/29/24 History Doxazosin [Cardura] 4 mg PO DAILY 10/12/24 10/29/24 History Finasteride [Proscar] 5 mg PO DAILY 10/12/24 10/29/24 History Levothyroxine Sodium [Synthroid] 100 mcg PO DAILY 10/12/24 10/29/24 History Pantoprazole [Protonix] 40 mg PO DAILY 10/12/24 10/29/24 History QUEtiapine FUMARATE [SEROquel] 25 mg PO HS 10/12/24 10/29/24 History polyethylene glycoL 3350 [Miralax] 17 gm PO BID 10/12/24 10/29/24 History Cyanocobalamin [Vitamin B-12] 1,000 mcg PO DAILY tab 10/24/24 10/29/24 Rx Fluconazole [Diflucan] 100 mg PO DAILY 10 Days #10 tab 10/24/24 10/29/24 Rx Folic Acid 1 mg PO DAILY tab 10/24/24 10/29/24 Rx Menthol-Camphor Lotion [Sarna 1 applic TOPICAL TID ml 10/24/24 10/29/24 Rx Lotion 0.5%-0.5%] Acetaminophen Tab [Tylenol] 650 mg PO Q8H PRN 10/29/24 10/29/24 History oxyCODONE HCL [oxyCODONE HCL (IR)] 10 mg PO Q4H PRN 10/29/24 10/29/24 History Allergies Allergy/AdvReac Type Severity Reaction Status Date / Time No Known Allergies Allergy Verified 10/29/24 11:15 Physical Exam Vitals: Vital Signs Temp Pulse Pulse Resp BP BP Pulse Ox 10/29/24 07:12 97.6 F 58 L 20 105/59 97 10/29/24 02:00 98.2 F 70 18 126/70 10/28/24 22:56 97.4 F L 67 14 115/59 95 10/28/24 22:05 97.6 F 74 18 101/54 95 10/28/24 19:43 98.6 F 76 19 96 10/28/24 18:00 98.5 F 76 20 117/65 94 L Intake and Output 10/28/24 10/29/24 10/29/24 22:59 06:59 14:59 Output Total 300 Balance -300 Output: Urine 300 Other: Weight 75.296 kg 75.296 kg In general patient is alert and oriented x 3 in no distress HEENT head normocephalic and atraumatic Neck is supple no JVD no goiter no lymphadenopathy no carotid bruit, tracheostomy site clear Chest examination reveals a scattered crackles bilaterally no wheezing Cardiac exam reveals regular heart sounds S1 and S2 no gallops no murmurs Abdomen is soft nontender no organomegaly with normal bowel sounds Extremity exam reveals no edema no cyanosis or clubbing Neurological examination reveals no gross focal deficits Results CBC & Chem 7: 10/28/24 18:09 10/29/24 03:46 Labs: Abnormal Lab Results - Last 24 Hours (Table) 10/28/24 10/28/24 10/29/24 Range/Units 18:09 18:09 03:46 WBC 13.8 H (3.8-10.6) k/uL RBC 2.80 L (4.30-5.90) m/uL Hgb 7.9 L (13.0-17.5) gm/dL Hct 24.5 L (39.0-53.0) % RDW 16.2 H (11.5-15.5) % Plt Count 587 H (150-450) k/uL Neutrophils # 10.6 H (1.3-7.7) k/uL Monocytes # 1.2 H (0-1.0) k/uL Sodium 132 L 133 L (137-145) mmol/L Potassium 5.7 H 5.7 H (3.5-5.1) mmol/L Chloride 96 L (98-107) mmol/L Carbon Dioxide 31 H (22-30) mmol/L BUN 34 H 28.6 H (9-20) mg/dL Est GFR (CKD-EPI) 59 L (>=60) BUN/Creatinine Ratio 22.00 H (12.00-20.00) Ratio Glucose 102 H (74-99) mg/dL Calcium 8.5 L (8.7-10.3) mg/dL Total Protein 6.0 L (6.3-8.2) g/dL Albumin 2.7 L (3.5-5.0) g/dL Thrombosis Risk Factor Assmnt - Choose All That Apply Any of the Below Risk Factors Present?: Yes Each Risk Factor Represents 2 Points: Age 61-74 years Thrombosis Risk Factor Assessment Total Risk Factor Score: 2 Thrombosis Risk Factor Assessment Level: Low Risk Assessment and Plan Plan: Febrile illness with infiltrates on chest x-ray, possible pneumonia, possible as piration Anemia with recent admission with multiple red blood cell transfusions, hemoglobin on presentation 7.9 Underlying history of paroxysmal atrial fibrillation Recent diagnosis of laryngeal mass status postsurgery, patient will need radiation therapy when medical condition improves and he no longer needs rehab Underlying history of benign prostatic hypertrophy Underlying history of chronic back pain due to degenerative disc disease Underlying history of prolonged nicotine dependence Previous history of cardiac arrhythmia with history of ablation Recent history of hyponatremia At this time patient was seen and examined Home medications reviewed and reordered Patient was started on IV antibiotics in the emergency room will continue Consultation for infectious disease and pulmonary were initiated For DVT prophylaxis will resume patient's Eliquis and monitor hemoglobin closely Prognosis is guarded will follow during this admission.
[2024-10-29] MEDS: CALCIUM CARBONATE 500 MG CHEWABLE PO SCH (17:08)
[2024-10-29] MEDS: ALPRAZolam 0.5 MG TAB PO PRN (20:02)
--- NOTE | 2024-10-29 22:33 | P.CONS ---
History of Present Illness - Reason for Consult Consult date: 10/29/24 Possible pneumonia Requesting physician: Jose Correa - Chief Complaint Low-grade fever x 1 day - History of Present Illness Patient is a 69-year-old male with past medical history significant for hypertension reflux atrial fibrillation, laryngeal mass status post tracheostomy and PEG tube placement September 2024 has not received any chemotherapy yet with recent admission to the hospital treated for a catheter assisted UTI patient now has been sent from the local [facility] for evaluation of low-grade fever apparently started the day of presentation to the hospital patient denies having any headache or URI symptoms no chest pain shortness of breath he did have some cough occasional sputum production no hemoptysis no nausea no vomiting no abdominal pain no diarrhea or presentation to the hospital patient was afebrile no fever have been recorded subsequently patient was not tachycardic hypotensive or hypoxic no need for supplemental oxygen patient did have white count of 13.8 with a left shift creatinine is 1.17 liver enzymes normal urine has been negative influenza RSV COVID testing negative patient did have a chest x-ray bilateral lower lung zone patchy airspace disease concerning for acute infectious inflammatory process patient was started on Zosyn and Zithromax infectious disease consulted for further management of antibiotic therapy Review of Systems Positive point and negatives has been mentioned in the HPI, complete review of systems was performed and all other systems are negative Past Medical History Past Medical History: Atrial Fibrillation, Cancer, GERD/Reflux, Hypertension, Prostate Disorder Additional Past Medical History / Comment(s): dehydration, low B/P, kidney problem that was fixed with fluids and sodium was low. Additional hx: BPH, DDD-cervical pain, R/L hand fingers tingling if over used, AGE 18 FX RT FEMUR IN 4 PLACES HAD PLATE/SCEWS-SINCE REMOVED, HAS OPIOD INDUCED CONSTIPATION, TINNITUS bilaterally but pt has noticed it has decreased since he quit smoking, hay fever. cardiac arrest 3 months ago, trach History of Any Multi-Drug Resistant Organisms: None Reported Past Surgical History: Heart Catheterization, Joint Replacement, Orthopedic Surgery Additional Past Surgical History / Comment(s): bilateral CATARACTS, ANT CERVICAL DISCECTOMY/FUSION C4,5,6,7 USING CADAVOR BONE. LT HYDROCELE, LT CARPAL TUNNEL, RT FEMUR SX METAL SINCE REMOVED, COLONOSCOPY, CYSTS REMOVED FROM FOREHEAD,BUTTOCKS,;T LATTER-DAY. PROSTATE BX X2-BENIGN, partial R knee replacement. cardiac ablation, peg tube, trach placement. Past Anesthesia/Blood Transfusion Reactions: No Reported Reaction Past Psychological History: No Psychological Hx Reported Additional Psychological History / Comment(s): PER PTS. SON PT. 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 HAS HAD SEVERAL FALLS RECENTLY Smoking Status: Former smoker Past Alcohol Use History: Daily Additional Past Alcohol Use History / Comment(s): PER PTS. SON PT. HAS SMOKED HEAVILY AND DRANK HEAVILY FOR MANY YEARS Past Drug Use History: None Reported Additional Drug Use History / Comment(s): no alcohol in 5 weeks per patient. - Past Family History Father Family Medical History: COPD, Dementia Additional Family Medical History / Comment(s): Father at age 84yrs. Mother Family Medical History: Cancer, COPD Additional Family Medical History / Comment(s): NASAL/THROAT CANCER. Mother at age 82 Medications and Allergies Home Medications Medication Instructions Recorded Confirmed Type ALPRAZolam [Xanax] 0.5 mg PO Q8H PRN 01/08/23 10/29/24 History Amiodarone [Cordarone] 200 mg PO BID 10/12/24 10/29/24 History Calcium Carbonate 1250mg(500ca) 1,250 mg PO QID 10/12/24 10/29/24 History Doxazosin [Cardura] 4 mg PO DAILY 10/12/24 10/29/24 History Finasteride [Proscar] 5 mg PO DAILY 10/12/24 10/29/24 History Levothyroxine Sodium [Synthroid] 100 mcg PO DAILY 10/12/24 10/29/24 History Pantoprazole [Protonix] 40 mg PO DAILY 10/12/24 10/29/24 History QUEtiapine FUMARATE [SEROquel] 25 mg PO HS 10/12/24 10/29/24 History polyethylene glycoL 3350 [Miralax] 17 gm PO BID 10/12/24 10/29/24 History Cyanocobalamin [Vitamin B-12] 1,000 mcg PO DAILY tab 10/24/24 10/29/24 Rx Fluconazole [Diflucan] 100 mg PO DAILY 10 Days #10 tab 10/24/24 10/29/24 Rx Folic Acid 1 mg PO DAILY tab 10/24/24 10/29/24 Rx Menthol-Camphor Lotion [Sarna 1 applic TOPICAL TID ml 10/24/24 10/29/24 Rx Lotion 0.5%-0.5%] Acetaminophen Tab [Tylenol] 650 mg PO Q8H PRN 10/29/24 10/29/24 History oxyCODONE HCL [oxyCODONE HCL (IR)] 10 mg PO Q4H PRN 10/29/24 10/29/24 History Allergies Allergy/AdvReac Type Severity Reaction Status Date / Time No Known Allergies Allergy Verified 10/29/24 11:15 Physical Exam Vitals: Vital Signs Temp Pulse Pulse Resp BP BP Pulse Ox 10/29/24 07:12 97.6 F 58 L 20 105/59 97 10/29/24 02:00 98.2 F 70 18 126/70 10/28/24 22:56 97.4 F L 67 14 115/59 95 10/28/24 22:05 97.6 F 74 18 101/54 95 10/28/24 19:43 98.6 F 76 19 96 10/28/24 18:00 98.5 F 76 20 117/65 94 L Intake and Output 10/28/24 10/29/24 10/29/24 22:59 06:59 14:59 Output Total 300 Balance -300 Output: Urine 300 Other: Weight 75.296 kg 75.296 kg 75.296 kg GENERAL DESCRIPTION: Elderly male lying in bed, no distress. No tachypnea or accessory muscle of respiration use. HEENT: Shows Pallor , no scleral icterus. Oral mucous membrane is dry. NECK: Trach site with minimal purulent drainage LUNGS: Unlabored breathing. Decreased breath sound at bases HEART: S1, S2, regular rate and rhythm. No loud murmur ABDOMEN: Soft, no tenderness , EXTREMITIES: No edema of feet. SKIN: No rash, no masses palpable. NEUROLOGICAL: The patient is awake, alert, mood and affect normal. Results CBC & Chem 7: 10/28/24 18:09 10/29/24 03:46 Labs: Abnormal Lab Results - Last 24 Hours (Table) 10/28/24 10/28/24 10/29/24 Range/Units 18:09 18:09 03:46 WBC 13.8 H (3.8-10.6) k/uL RBC 2.80 L (4.30-5.90) m/uL Hgb 7.9 L (13.0-17.5) gm/dL Hct 24.5 L (39.0-53.0) % RDW 16.2 H (11.5-15.5) % Plt Count 587 H (150-450) k/uL Neutrophils # 10.6 H (1.3-7.7) k/uL Monocytes # 1.2 H (0-1.0) k/uL Sodium 132 L 133 L (137-145) mmol/L Potassium 5.7 H 5.7 H (3.5-5.1) mmol/L Chloride 96 L (98-107) mmol/L Carbon Dioxide 31 H (22-30) mmol/L BUN 34 H 28.6 H (9-20) mg/dL Est GFR (CKD-EPI) 59 L (>=60) BUN/Creatinine Ratio 22.00 H (12.00-20.00) Ratio Glucose 102 H (74-99) mg/dL Calcium 8.5 L (8.7-10.3) mg/dL Total Protein 6.0 L (6.3-8.2) g/dL Albumin 2.7 L (3.5-5.0) g/dL Assessment and Plan (1) Pneumonia Current Visit: Yes Status: Acute Code(s): J18.9 - PNEUMONIA, UNSPECIFIED ORGANISM SNOMED Code(s): 719255770 Plan: 1patient presented to hospital with low-grade fever the patient also have a c ough with evidence of bibasilar airspace disease suspicious for pneumonia likely gram-negative as the patient has been in and out of the hospital not behaving as an atypical pneumonia 2-try to obtain a sputum for Gram stain and culture 3-patient will be treated with Zosyn 3.375 g every 8 hours discontinue Zithromax We will follow on clinical condition and cultures to further adjust medication if needed Thank you for this consultation we will follow the patient along with you Dictation was produced using [employer] software. please excuse any grammatical, word or spelling errors. Time with Patient: Greater than 30
[2024-10-29] MEDS: AMIODARONE 200 MG TAB PO SCH (22:36)
[2024-10-29] MEDS: APIXABAN 5 MG TAB PO SCH (22:36)
[2024-10-29] MEDS: AZITHROMYCIN 500 MG in SODIUM CHLORIDE 0.9% 250 ML IVPB SCH (23:48)
[2024-10-30] MEDS: FLUCONAZOLE 100 MG TAB PO SCH (07:59)
[2024-10-30 09:26] LABS: Basophils # (A) 0.15 X 10*3/uL (0.00-0.10); Basophils % (A) 1.4 %; Eosinophils # (A) 0.56 X 10*3/uL (0.04-0.35); Eosinophils % (A) 5.1 %; HCT 25.3 % (39.6-50.0); HGB 7.8 g/dL (13.0-17.0); Lymphocytes # (A) 2.38 X 10*3/uL (0.90-5.00); Lymphocytes % (A) 21.8 %; MCH 27.3 pg (27.0-32.0); MCHC 30.8 g/dL (32.0-37.0); MCV 88.5 FL (80.0-97.0); Mean Platelet Volume 9.8 FL (9.5-12.2); Monocytes # (A) 0.94 X 10*3/uL (0.20-1.00); Monocytes % (A) 8.6 %; NRBC Per 100 WBC 0 X 10*3/uL (0.00-0.01); Neutrophils # (A) 6.76 X 10*3/uL (1.80-7.70); Neutrophils % (A) 61.7 %; Platelet Count 576 X 10*3/uL (140-440); RBC 2.86 X 10*6/uL (4.40-5.60); RDW 16.7 % (11.5-14.5); WBC 10.94 X 10*3/uL (4.50-10.00)
--- NOTE | 2024-10-30 09:41 | P.PN ---
Subjective Progress Note Date: 10/30/24 Hector Frank, is a 69-year-old male who presented to [facility] emergency room with a chief complaint of fever. He was evaluated in the emergency room vital examination on presentation r evealed a temperature of 98.5 pulse 76 respiration 20 blood pressure 117/65 pulse ox 94% on oxygen via trach collar Laboratory data revealed a white blood count of 13.8 hemoglobin 7.9 platelet count 587 sodium 132 potassium 5.7 chloride 96 BUN 34 creatinine 1.17 Testing in the emergency room revealed chest x-ray revealed bilateral lower lung zones patchy airspace disease concerning for acute infection. Patient was admitted to medical floor for further evaluation and treatment Past medical history is significant for laryngeal mass, patient underwent surgery, and tracheostomy and PEG tube placement in September 2024, at [facility], he was transferred to long-term for rehab, however his condition deteriorated and was admitted to our hospital on October 11, 2024, during that admission he received IV antibiotics, he was evaluated by oncology, and radiation oncology, and plan was to continue with rehab, and after patient is discharged from the long-term, he would return to [facility] for radiation therapy. Additional past medical history is significant for atrial fibrillation, anemia, hypertension, benign prostatic hypertrophy, degenerative disc disease with chronic back pain and chronic constipation. On review of systems difficult to obtain due to difficulty communicating with the patient, he is not able to speak and has a board that he communicate few words with, he is denying any chest pain shortness of breath nausea vomiting abdominal pain or urinary symptoms. On 10/30/2024 patient is resting comfortably in bed. Patient has been started on IV Zosyn. Awaiting pulmonary input. Current vital signs temp 98.3, heart rate 66, respiratory rate 19, blood pressure 137/76 with a pulse ox of 96% on room air. White blood cell improving to 10.9. Patient denies chest pain or shortness of breath. Patient denies nausea vomiting or diarrhea. Patient denies any urinary burning or frequency Objective - Vital Signs Vital signs: Vital Signs Temp 98 F 10/30/24 07:12 Pulse 66 10/30/24 07:12 Resp 19 10/30/24 07:12 BP 137/76 10/30/24 07:12 Pulse Ox 96 10/30/24 07:12 FiO2 Intake & Output 10/29/24 10/30/24 10/30/24 18:59 06:59 18:59 Output Total 525 2900 Balance -525 -2900 Weight 75.296 kg Output: Urine 525 2900 Other: Voiding Method Indwelling Catheter Indwelling Catheter - Exam In general patient is alert and oriented x 3 in no distress HEENT head normocephalic and atraumatic Neck is supple no JVD no goiter no lymphadenopathy no carotid bruit, tracheostomy site clear Chest examination reveals a scattered crackles bilaterally no wheezing Cardiac exam reveals regular heart sounds S1 and S2 no gallops no murmurs Abdomen is soft nontender no organomegaly with normal bowel sounds Extremity exam reveals no edema no cyanosis or clubbing Neurological examination reveals no gross focal deficits - Labs CBC & Chem 7: 10/30/24 05:49 10/29/24 03:46 Labs: Abnormal Lab Results - Last 24 Hours (Table) 10/29/24 10/30/24 Range/Units 03:46 05:49 WBC 10.94 H (4.50-10.00) X 10*3/uL RBC 2.86 L (4.40-5.60) X 10*6/uL Hgb 7.8 L (13.0-17.0) g/dL Hct 25.3 L (39.6-50.0) % MCHC 30.8 L (32.0-37.0) g/dL RDW 16.7 H (11.5-14.5) % Plt Count 576 H (140-440) X 10*3/uL Immature Gran # 0.15 H (0.00-0.04) X 10*3/uL Eosinophils # 0.56 H (0.04-0.35) X 10*3/uL Basophils # 0.15 H (0.00-0.10) X 10*3/uL Sodium 133 L (135-145) mmol/L Potassium 5.7 H (3.5-5.5) mmol/L BUN 28.6 H (9.0-27.0) mg/dL Est GFR (CKD-EPI) 59 L (>=60) BUN/Creatinine Ratio 22.00 H (12.00-20.00) Ratio Calcium 8.5 L (8.7-10.3) mg/dL Microbiology - Last 24 Hours (Table) 10/28/24 18:09 Blood Culture - Preliminary Blood 10/28/24 18:09 Blood Culture - Preliminary Blood Assessment and Plan Plan: Febrile illness with infiltrates on chest x-ray, possible pneumonia, possible aspiration Anemia with recent admission with multiple red blood cell transfusions, hemo globin on presentation 7.9 Underlying history of paroxysmal atrial fibrillation Recent diagnosis of laryngeal mass status postsurgery, patient will need radiation therapy when medical condition improves and he no longer needs rehab Underlying history of benign prostatic hypertrophy Underlying history of chronic back pain due to degenerative disc disease Underlying history of prolonged nicotine dependence Previous history of cardiac arrhythmia with history of ablation Recent history of hyponatremia At this time patient was seen and examined Home medications reviewed and reordered Patient was started on IV antibiotics in the emergency room will continue Consultation for infectious disease and pulmonary were initiated For DVT prophylaxis will resume patient's Eliquis and monitor hemoglobin closely Prognosis is guarded will follow during this admission.
[2024-10-30 11:43] LABS: ALT 11 U/L (10-49); AST 20 U/L (14-35); Albumin 2.7 g/dL (3.8-4.9); Albumin/Globulin Ratio 0.82 Ratio (1.60-3.17); Alkaline Phosphatase 76 U/L (41-126); Calcium 8.7 mg/dL (8.7-10.3); Chloride 103 mmol/L (96-109); Globulin 3.3 g/dL (1.6-3.3); Glucose 87 mg/dL (70-110); Potassium 5.2 mmol/L (3.5-5.5); Sodium 139 mmol/L (135-145); Total Bilirubin 0.2 mg/dL (0.3-1.2)
--- NOTE | 2024-10-30 14:39 | P.CNPUL ---
History of Present Illness Consult date: 10/30/24 Requesting physician: Jose Correa Reason for consult: dyspnea Chief complaint: Fever, weakness History of present illness: This is a 69-year-old male patient with a known history of atrial fibrillation, hypertension, prostate disorder, laryngeal mass and had undergone tracheostomy tube and PEG tube placement at [facility]. He was here for anemia and subsequently discharged on 10/24/2024 to [facility]. He presented back to the emergency room with a low-grade fever. This could represent mild interstitial pneumonia. White count 10.9. Hemoglobin 7.8. Platelets 576. Sodium 139. Potassium 5.2. Bicarb 25. BUN 24. Creatinine 1.5. Glucose 87. He is seen today in consultation on the regular medical floor. He is mostly mouthing words and somewhat difficult to understand at times. Has a Kylie tube in place. Stoma site is clean and dry. He is maintaining good O2 saturations in the 90s on room air. He has been afebrile. Hemodynamically stable. He is currently on Zosyn per ID service. Anticoagulated with Eliquis. Review of Systems REVIEW OF SYSTEMS: CONSTITUTIONAL: Positive for low-grade fever. Denies any recent significant weight loss or weight gain. EYES: Denies change in vision. EARS, NOSE, MOUTH, THROAT: Denies headaches, denies sore throat. CARDIOVASCULAR: Denies chest pain, palpitations or syncopal episodes. RESPIRATORY: Denies shortness of breath, cough, congestion or hemoptysis. GASTROINTESTINAL: Denies change in appetite, denies abdominal pain GENITOURINARY: Denies hematuria, denies infections. MUSKULOSKELETAL: Denies pain, denies swelling. INTEGUMENTARY: Denies rash, denies eczema. NEUROLOGICAL: Denies recent memory loss, no recent seizure activity. PSYCHIATRIC: Denies anxiety, denies depression. HEMATOLOGIC/LYMPHATIC: Denies anemia, denies enlarged lymph nodes. Past Medical History Past Medical History: Atrial Fibrillation, Cancer, GERD/Reflux, Hypertension, Prostate Disorder Additional Past Medical History / Comment(s): dehydration, low B/P, kidney problem that was fixed with fluids and sodium was low. Additional hx: BPH, DDD-cervical pain, R/L hand fingers tingling if over used, AGE 18 FX RT FEMUR IN 4 PLACES HAD PLATE/SCEWS-SINCE REMOVED, HAS OPIOD INDUCED CONSTIPATION, TINNITUS bilaterally but pt has noticed it has decreased since he quit smoking, hay fever. cardiac arrest 3 months ago, trach History of Any Multi-Drug Resistant Organisms: None Reported Past Surgical History: Heart Catheterization, Joint Replacement, Orthopedic Surgery Additional Past Surgical History / Comment(s): bilateral CATARACTS, ANT CERVICAL DISCECTOMY/FUSION C4,5,6,7 USING CADAVOR BONE. LT HYDROCELE, LT CARPAL TUNNEL, RT FEMUR SX METAL SINCE REMOVED, COLONOSCOPY, CYSTS REMOVED FROM FOREHEAD,BUTTOCKS,;T MORAVIAN. PROSTATE BX X2-BENIGN, partial R knee replacement. cardiac ablation, peg tube, trach placement. Past Anesthesia/Blood Transfusion Reactions: No Reported Reaction Past Psychological History: No Psychological Hx Reported Additional Psychological History / Comment(s): PER PTS. SON PT. 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 HAS HAD SEVERAL FALLS RECENTLY Smoking Status: Former smoker Past Alcohol Use History: Daily Additional Past Alcohol Use History / Comment(s): PER PTS. SON PT. HAS SMOKED HEAVILY AND DRANK HEAVILY FOR MANY YEARS Past Drug Use History: None Reported Additional Drug Use History / Comment(s): no alcohol in 5 weeks per patient. - Past Family History Father Family Medical History: COPD, Dementia Additional Family Medical History / Comment(s): Father at age 84yrs. Mother Family Medical History: Cancer, COPD Additional Family Medical History / Comment(s): NASAL/THROAT CANCER. Mother at age 82 Medications and Allergies Home Medications Medication Instructions Recorded Confirmed Type ALPRAZolam [Xanax] 0.5 mg PO Q8H PRN 01/08/23 10/29/24 History Amiodarone [Cordarone] 200 mg PO BID 10/12/24 10/29/24 History Calcium Carbonate 1250mg(500ca) 1,250 mg PO QID 10/12/24 10/29/24 History Doxazosin [Cardura] 4 mg PO DAILY 10/12/24 10/29/24 History Finasteride [Proscar] 5 mg PO DAILY 10/12/24 10/29/24 History Levothyroxine Sodium [Synthroid] 100 mcg PO DAILY 10/12/24 10/29/24 History Pantoprazole [Protonix] 40 mg PO DAILY 10/12/24 10/29/24 History QUEtiapine FUMARATE [SEROquel] 25 mg PO HS 10/12/24 10/29/24 History polyethylene glycoL 3350 [Miralax] 17 gm PO BID 10/12/24 10/29/24 History Cyanocobalamin [Vitamin B-12] 1,000 mcg PO DAILY tab 10/24/24 10/29/24 Rx Fluconazole [Diflucan] 100 mg PO DAILY 10 Days #10 tab 10/24/24 10/29/24 Rx Folic Acid 1 mg PO DAILY tab 10/24/24 10/29/24 Rx Menthol-Camphor Lotion [Sarna 1 applic TOPICAL TID ml 10/24/24 10/29/24 Rx Lotion 0.5%-0.5%] Acetaminophen Tab [Tylenol] 650 mg PO Q8H PRN 10/29/24 10/29/24 History oxyCODONE HCL [oxyCODONE HCL (IR)] 10 mg PO Q4H PRN 10/29/24 10/29/24 History Allergies Allergy/AdvReac Type Severity Reaction Status Date / Time No Known Allergies Allergy Verified 10/29/24 11:15 Physical Exam Vitals: Vital Signs Temp Pulse Resp BP Pulse Ox 10/30/24 07:12 98 F 66 19 137/76 96 10/30/24 02:00 98.3 F 98 17 136/71 96 10/29/24 20:04 62 17 10/29/24 19:58 97.7 F 62 17 117/65 96 Intake and Output 10/29/24 10/30/24 10/30/24 22:59 06:59 14:59 Output Total 1425 1999 Balance -1425 -1999 Output: Urine 1425 1999 Other: Voiding Method Indwelling Catheter Indwelling Catheter GENERAL EXAM: Alert, 69 year-old male patient, on room air, comfortable in no apparent distress. HEAD: Normocephalic. EYES: Normal reaction of pupils, equal size. NOSE: Clear with pink turbinates. THROAT: No erythema or exudates. NECK: Tracheostomy site with Kylie tube in place. Stoma clean and dry. CHEST: No chest wall deformity. LUNGS: Equal air entry with no crackles, wheeze, rhonchi or dullness. CVS: S1 and S2 normal with no audible murmur, regular rhythm. ABDOMEN: No hepatosplenomegaly, normal bowel sounds, no guarding or rigidity. SPINE: No scoliosis or deformity SKIN: No rashes CENTRAL NERVOUS SYSTEM: No focal deficits, tone is normal in all 4 extremities. EXTREMITIES: There is no peripheral edema. No clubbing, no cyanosis. Peripheral pulses are intact. Results - Laboratory Findings CBC and BMP: 10/30/24 05:49 10/30/24 05:49 PT/INR, D-dimer PT 10.7 sec (10.0-12.5) 10/28/24 18:09 INR 1.0 (<1.2) 10/28/24 18:09 Abnormal lab findings: Abnormal Labs 10/28/24 10/28/24 10/29/24 18:09 18:09 03:46 WBC 13.8 H RBC 2.80 L Hgb 7.9 L Hct 24.5 L MCHC RDW 16.2 H Plt Count 587 H Immature Gran # Neutrophils # 10.6 H Monocytes # 1.2 H Eosinophils # Basophils # Sodium 132 L 133 L Potassium 5.7 H 5.7 H Chloride 96 L Carbon Dioxide 31 H BUN 34 H 28.6 H Est GFR (CKD-EPI) 59 L BUN/Creatinine Ratio 22.00 H Glucose 102 H Calcium 8.5 L Total Bilirubin Total Protein 6.0 L Albumin 2.7 L Albumin/Globulin Ratio 10/30/24 10/30/24 05:49 05:49 WBC 10.94 H RBC 2.86 L Hgb 7.8 L Hct 25.3 L MCHC 30.8 L RDW 16.7 H Plt Count 576 H Immature Gran # 0.15 H Neutrophils # Monocytes # Eosinophils # 0.56 H Basophils # 0.15 H Sodium Potassium Chloride Carbon Dioxide BUN Est GFR (CKD-EPI) 50 L BUN/Creatinine Ratio Glucose Calcium Total Bilirubin 0.2 L Total Protein 6.0 L Albumin 2.7 L Albumin/Globulin Ratio 0.82 L - Diagnostic Findings Chest x-ray: image reviewed Assessment and Plan Assessment: Febrile illness of unknown etiology. He has been afebrile since arrival here. Possible underlying pneumonia, community-acquired versus aspiration. He on Zosyn. Procalcitonin pending Recent discharge from here 10/26/2024 following GI bleeding requiring multiple blood transfusions Laryngeal mass positive for squamous cell, status post tracheostomy and PEG tube placements at [facility] September 21 2024. Plan is for radiation treatment. No chemotherapy Paroxysmal atrial fibrillation, on Eliquis Former heavy smoker Hypothyroidism BPH Plan: The patient was seen and evaluated Imaging, labs and medications reviewed Stable and on room air Antibiotics per ID service Procalcitonin pending Continue trach care per respiratory therapy We will continue to follow make further recommendations based on his clinical status I have personally seen and examined the patient, performed the documentation and the assessment and plan as written. Number of minutes spent on the visit: 20 Dictation was produced using [employer] dictation software. Please excuse any grammatical, word or spelling errors.
--- NOTE | 2024-10-31 08:43 | P.PN ---
Subjective Progress Note Date: 10/30/24 Principal diagnosis: Reason for follow-up is leukocytosis and pneumonia Patient is a 69-year-old male with past medical history significant for hypertension reflux atrial fibrillation, laryngeal mass status post tracheostomy and PEG tube placement September 2024 has not received any chemotherapy yet with recent admission to the hospital treated for a catheter assisted UTI, patient has been sent to the hospital for low-grade fever cough did have bilateral lower lung patchy airspace disease concerning for pneumonia prompted this consultation. On today's evaluation that is 10/30/2024, Patient is afebrile patient is currently on room air and seem to be breathing comfortably did have a cough not bringing up any sputum no vomiting or diarrhea has been reported. Patient white count is down to 10.94 creatinine is 1.5 UA has been negative blood cultures are pending Objective - Vital Signs Vital signs: Vital Signs Temp 98 F 10/30/24 07:12 Pulse 66 10/30/24 07:12 Resp 19 10/30/24 07:12 BP 137/76 10/30/24 07:12 Pulse Ox 96 10/30/24 07:12 FiO2 Intake & Output 10/29/24 10/30/24 10/30/24 18:59 06:59 18:59 Output Total 525 2900 Balance -525 -2900 Weight 75.296 kg Output: Urine 525 2900 Other: Voiding Method Indwelling Catheter Indwelling Catheter - Exam GENERAL DESCRIPTION: An elderly male up in bed in no distress RESPIRATORY SYSTEM: Unlabored breathing , decreased breath sounds at bases HEART: S1 S2 regular rate and rhythm , ABDOMEN: Soft , no tenderness EXTREMITIES: No edema feet - Labs CBC & Chem 7: 10/30/24 05:49 10/30/24 05:49 Labs: Abnormal Lab Results - Last 24 Hours (Table) 10/29/24 10/30/24 Range/Units 03:46 05:49 WBC 10.94 H (4.50-10.00) X 10*3/uL RBC 2.86 L (4.40-5.60) X 10*6/uL Hgb 7.8 L (13.0-17.0) g/dL Hct 25.3 L (39.6-50.0) % MCHC 30.8 L (32.0-37.0) g/dL RDW 16.7 H (11.5-14.5) % Plt Count 576 H (140-440) X 10*3/uL Immature Gran # 0.15 H (0.00-0.04) X 10*3/uL Eosinophils # 0.56 H (0.04-0.35) X 10*3/uL Basophils # 0.15 H (0.00-0.10) X 10*3/uL Sodium 133 L (135-145) mmol/L Potassium 5.7 H (3.5-5.5) mmol/L BUN 28.6 H (9.0-27.0) mg/dL Est GFR (CKD-EPI) 59 L (>=60) BUN/Creatinine Ratio 22.00 H (12.00-20.00) Ratio Calcium 8.5 L (8.7-10.3) mg/dL Microbiology - Last 24 Hours (Table) 10/28/24 18:09 Blood Culture - Preliminary Blood 10/28/24 18:09 Blood Culture - Preliminary Blood Assessment and Plan (1) Pneumonia Current Visit: Yes Status: Acute Code(s): J18.9 - PNEUMONIA, UNSPECIFIED ORGANISM SNOMED Code(s): 074762923 Plan: 1patient presented to hospital with low-grade fever the patient also have a cough with evidence of bibasilar airspace disease suspicious for pneumonia likely gram-negative as the patient has been in and out of the hospital not behaving as an atypical pneumonia 2-try to obtain a sputum for Gram stain and culture to narrow down his antibiotics 3-patient white count is trending down, will be treated with Zosyn 3.375 g every 8 hours and monitor clinical course closely Dictation was produced using [employer] dictation software. please excuse any gramma tical, word or spelling errors. Time with Patient: Less than 30
[2024-10-31 08:53] LABS: ALT 12 U/L (10-49); AST 18 U/L (14-35); Albumin 2.6 g/dL (3.8-4.9); Albumin/Globulin Ratio 0.84 Ratio (1.60-3.17); Alkaline Phosphatase 70 U/L (41-126); BUN/Creat Ratio 14.62 Ratio (12.00-20.00); Blood Urea Nitrogen 23.4 mg/dL (9.0-27.0); Calcium 8.5 mg/dL (8.7-10.3); Carbon Dioxide 25.1 mmol/L (21.6-31.8); Chloride 100 mmol/L (96-109); Globulin 3.1 g/dL (1.6-3.3); Glucose 84 mg/dL (70-110); Potassium 4.9 mmol/L (3.5-5.5); Sodium 137 mmol/L (135-145); Total Bilirubin 0.2 mg/dL (0.3-1.2); Total Protein 5.7 g/dL (6.2-8.2)
[2024-10-31 09:00] LABS: HCT 24.3 % (39.6-50.0); HGB 7.4 g/dL (13.0-17.0); MCH 27.7 pg (27.0-32.0); MCHC 30.5 g/dL (32.0-37.0); Mean Platelet Volume 10.2 FL (9.5-12.2); NRBC Per 100 WBC 0 X 10*3/uL (0.00-0.01); Platelet Count 529 X 10*3/uL (140-440); RBC 2.67 X 10*6/uL (4.40-5.60); RDW 16.9 % (11.5-14.5); WBC 9.49 X 10*3/uL (4.50-10.00)
[2024-10-31 09:01] LABS: Basophils # (A) 0.14 X 10*3/uL (0.00-0.10); Basophils % (A) 1.5 %; Eosinophils # (A) 0.64 X 10*3/uL (0.04-0.35); Eosinophils % (A) 6.7 %; Lymphocytes # (A) 2.59 X 10*3/uL (0.90-5.00); Lymphocytes % (A) 27.3 %; Monocytes # (A) 1.17 X 10*3/uL (0.20-1.00); Monocytes % (A) 12.3 %; Neutrophils # (A) 4.76 X 10*3/uL (1.80-7.70); Neutrophils % (A) 50.2 %
--- NOTE | 2024-10-31 15:55 | P.PN ---
Subjective Progress Note Date: 10/31/24 This is a 69-year-old male patient with a known history of atrial fibrillation, hypertension, prostate disorder, laryngeal mass and had undergone tracheostomy tube and PEG tube placement at [facility]. He was here for anemia and subsequently discharged on 10/24/2024 to [facility]. He presented back to the emergency room with a low-grade fever. This could represent mild interstitial pneumonia. White count 10.9. Hemoglobin 7.8. Platelets 576. Sodium 139. Potassium 5.2. Bicarb 25. BUN 24. Creatinine 1.5. Glucose 87. He is seen today in consultation on the regular medical floor. He is mostly mouthing words and somewhat difficult to understand at times. Has a Kylie tube in place. Stoma site is clean and dry. He is maintaining good O2 saturations in the 90s on room air. He has been afebrile. Hemodynamically stable. He is currently on Zosyn per ID service. Anticoagulated with Eliquis. The patient is seen today October 31, 2024 in follow-up on the regular medical floor. He is currently sitting up in a chair at the bedside. Awake and alert in no acute distress. Maintaining O2 saturations in the 90s on room air. Normal staying at 20 mL/h. No worsening shortness of breath, cough or congestion. He has been afebrile. Hemodynamically stable. Blood cultures rev ealed no growth. White count 9.4. Hemoglobin 7.4. Platelets 529. Sodium 137. Potassium 4.9. Bicarb 25. BUN 23. Creatinine 1.6. Glucose 84. He is anticoagulated with Eliquis. Antibiotics in the form of Zosyn. Procalcitonin pending. Objective - Vital Signs Vital signs: Vital Signs Temp 97.6 F 10/31/24 14:31 Pulse 62 10/31/24 14:31 Resp 17 10/31/24 14:31 BP 98/81 10/31/24 14:31 Pulse Ox 99 10/31/24 14:31 FiO2 Intake & Output 10/30/24 10/31/24 10/31/24 18:59 06:59 18:59 Output Total 1900 900 950 Balance -1900 -900 -950 Weight 75.296 kg Output: Urine 1900 900 950 Other: Voiding Method Indwelling Catheter Indwelling Catheter Indwelling Catheter - Exam GENERAL EXAM: Alert, 69 year-old male, up in a chair, on room air, in no apparent distress. HEAD: Normocephalic. EYES: Normal reaction of pupils, equal size. NOSE: Clear with pink turbinates. THROAT: No erythema or exudates. NECK: Tracheostomy site with Kylie tube in place. Stoma clean and dry. CHEST: No chest wall deformity. LUNGS: Equal air entry with no crackles, wheeze, rhonchi or dullness. CVS: S1 and S2 normal with no audible murmur, regular rhythm. ABDOMEN: No hepatosplenomegaly, normal bowel sounds, no guarding or rigidity. SPINE: No scoliosis or deformity SKIN: No rashes CENTRAL NERVOUS SYSTEM: No focal deficits, tone is normal in all 4 extremities. EXTREMITIES: There is no peripheral edema. No clubbing, no cyanosis. Peripheral pulses are intact. - Labs CBC & Chem 7: 10/31/24 03:49 10/31/24 03:49 Labs: Abnormal Lab Results - Last 24 Hours (Table) 10/31/24 10/31/24 Range/Units 03:49 03:49 RBC 2.67 L (4.40-5.60) X 10*6/uL Hgb 7.4 L (13.0-17.0) g/dL Hct 24.3 L (39.6-50.0) % MCHC 30.5 L (32.0-37.0) g/dL RDW 16.9 H (11.5-14.5) % Plt Count 529 H (140-440) X 10*3/uL Immature Gran # 0.19 H (0.00-0.04) X 10*3/uL Monocytes # 1.17 H (0.20-1.00) X 10*3/uL Eosinophils # 0.64 H (0.04-0.35) X 10*3/uL Basophils # 0.14 H (0.00-0.10) X 10*3/uL Creatinine 1.6 H (0.6-1.5) mg/dL Est GFR (CKD-EPI) 46 L (>=60) Calcium 8.5 L (8.7-10.3) mg/dL Total Bilirubin 0.2 L (0.3-1.2) mg/dL Total Protein 5.7 L (6.2-8.2) g/dL Albumin 2.6 L (3.8-4.9) g/dL Albumin/Globulin Ratio 0.84 L (1.60-3.17) Ratio Microbiology - Last 24 Hours (Table) 10/28/24 18:09 Blood Culture - Preliminary Blood 10/28/24 18:09 Blood Culture - Preliminary Blood Assessment and Plan Assessment: Febrile illness of unknown etiology. He has been afebrile since arrival here. Possible underlying pneumonia, community-acquired versus aspiration. He on Zosyn. Procalcitonin pending Recent discharge from here 10/26/2024 following GI bleeding requiring multiple blood transfusions Laryngeal mass positive for squamous cell, status post tracheostomy and PEG tube placements at [facility] September 21 2024. Plan is for radiation treatment. No chemotherapy Paroxysmal atrial fibrillation, on Eliquis Former heavy smoker Hypothyroidism BPH Plan: The patient was seen and evaluated Labs and medications reviewed Stable and on room air Antibiotics per ID service Procalcitonin pending Continue trach care per respiratory therapy [facility] I have personally seen and examined the patient, performed the documentation and the assessment and plan as written. Number of minutes spent on the visit: 10 Dictation was produced using [employer] dictation software. Please excuse any grammatical, word or spelling errors.
[2024-10-31] MEDS: ACETAMINOPHEN TAB 325 MG TAB PO PRN (23:49)
--- NOTE | 2024-11-01 09:01 | P.PN ---
Subjective Progress Note Date: 10/31/24 Principal diagnosis: Reason for follow-up is leukocytosis and pneumonia Patient is a 69-year-old male with past medical history significant for hypertension reflux atrial fibrillation, laryngeal mass status post tracheostomy and PEG tube placement September 2024 has not received any chemotherapy yet with recent admission to the hospital treated for a catheter assisted UTI, patient has been sent to the hospital for low-grade fever cough did have bilateral lower lung patchy airspace disease concerning for pneumonia prompted this consultation. On today's evaluation that is 10/31/2024, patient has been afebrile, patient is breathing comfortably and is currently on room air, patient has been complaining of feeling congested and want to be suctioned out no nausea vomiting or diarrhea. Patient white count is normalized to 9.49 creatinine is 1.6 blood culture negati ve sputum not collected Objective - Vital Signs Vital signs: Vital Signs Temp 97.6 F 10/31/24 06:52 Pulse 58 L 10/31/24 06:52 Resp 16 10/31/24 06:52 BP 114/66 10/31/24 06:52 Pulse Ox 97 10/31/24 06:52 FiO2 Intake & Output 10/30/24 10/31/24 10/31/24 18:59 06:59 18:59 Output Total 1900 900 950 Balance -1900 -900 -950 Output: Urine 1900 900 950 Other: Voiding Method Indwelling Catheter Indwelling Catheter Indwelling Catheter - Exam GENERAL DESCRIPTION: An elderly male up in bed in no distress RESPIRATORY SYSTEM: Unlabored breathing , decreased breath sounds at bases HEART: S1 S2 regular rate and rhythm , ABDOMEN: Soft , no tenderness EXTREMITIES: No edema feet - Labs CBC & Chem 7: 10/31/24 03:49 10/31/24 03:49 Labs: Abnormal Lab Results - Last 24 Hours (Table) 10/31/24 10/31/24 Range/Units 03:49 03:49 RBC 2.67 L (4.40-5.60) X 10*6/uL Hgb 7.4 L (13.0-17.0) g/dL Hct 24.3 L (39.6-50.0) % MCHC 30.5 L (32.0-37.0) g/dL RDW 16.9 H (11.5-14.5) % Plt Count 529 H (140-440) X 10*3/uL Immature Gran # 0.19 H (0.00-0.04) X 10*3/uL Monocytes # 1.17 H (0.20-1.00) X 10*3/uL Eosinophils # 0.64 H (0.04-0.35) X 10*3/uL Basophils # 0.14 H (0.00-0.10) X 10*3/uL Creatinine 1.6 H (0.6-1.5) mg/dL Est GFR (CKD-EPI) 46 L (>=60) Calcium 8.5 L (8.7-10.3) mg/dL Total Bilirubin 0.2 L (0.3-1.2) mg/dL Total Protein 5.7 L (6.2-8.2) g/dL Albumin 2.6 L (3.8-4.9) g/dL Albumin/Globulin Ratio 0.84 L (1.60-3.17) Ratio Microbiology - Last 24 Hours (Table) 10/28/24 18:09 Blood Culture - Preliminary Blood 10/28/24 18:09 Blood Culture - Preliminary Blood Assessment and Plan (1) Pneumonia Current Visit: Yes Status: Acute Code(s): J18.9 - PNEUMONIA, UNSPECIFIED ORGANISM SNOMED Code(s): 743938310 Plan: 1patient presented to hospital with low-grade fever the patient also have a cough with evidence of bibasilar airspace disease suspicious for pneumonia likely gram-negative as the patient has been in and out of the hospital not behaving as an atypical pneumonia 2-nursing staff has been advised to obtain a sputum for Gram stain and culture to narrow down his antibiotics 3-patient white count has normalized fever has resolved patient, will be treated with Zosyn 3.375 g every 8 hours and monitor clinical course closely Dictation was produced using [employer] dictation software. please excuse any grammatical, word or spelling errors.
--- NOTE | 2024-11-01 09:07 | P.PN ---
Subjective Progress Note Date: 10/31/24 Hector Frank, is a 69-year-old male who presented to [facility] emergency room with a chief complaint of fever. He was evaluated in the emergency room vital examination on presentation r evealed a temperature of 98.5 pulse 76 respiration 20 blood pressure 117/65 pulse ox 94% on oxygen via trach collar Laboratory data revealed a white blood count of 13.8 hemoglobin 7.9 platelet count 587 sodium 132 potassium 5.7 chloride 96 BUN 34 creatinine 1.17 Testing in the emergency room revealed chest x-ray revealed bilateral lower lung zones patchy airspace disease concerning for acute infection. Patient was admitted to medical floor for further evaluation and treatment Past medical history is significant for laryngeal mass, patient underwent surgery, and tracheostomy and PEG tube placement in September 2024, at [facility], [facility], however his condition deteriorated and was admitted to our hospital on October 11, 2024, during that admission he received IV antibiotics, he was evaluated by oncology, and radiation oncology, and plan was to continue with rehab, and after [facility] is discharged from the [facility], he would return to [facility] for radiation therapy. Additional past medical history is significant for atrial fibrillation, anemia, hypertension, benign prostatic hypertrophy, degenerative disc disease with chronic back pain and chronic constipation. On review of systems difficult to obtain due to difficulty communicating with the patient, he is not able to speak and has a board that he communicate few words with, he is denying any chest pain shortness of breath nausea vomiting abdominal pain or urinary symptoms. On 10/30/2024 patient is resting comfortably in bed. Patient has been started on IV Zosyn. Awaiting pulmonary input. Current vital signs temp 98.3, heart rate 66, respiratory rate 19, blood pressure 137/76 with a pulse ox of 96% on room air. White blood cell improving to 10.9. Patient denies chest pain or shortness of breath. Patient denies nausea vomiting or diarrhea. Patient denies any urinary burning or frequency On 10/31/2024 patient is alert and oriented resting comfortably in bed. Patient remains on Zosyn. Patient denies chest pain or shortness of breath. Patient denies nausea vomiting or diarrhea. Patient denies any urinary burning or frequency Objective - Vital Signs Vital signs: Vital Signs Temp 97.6 F 10/31/24 06:52 Pulse 58 L 10/31/24 06:52 Resp 16 10/31/24 06:52 BP 114/66 10/31/24 06:52 Pulse Ox 97 10/31/24 06:52 FiO2 Intake & Output 10/30/24 10/31/24 10/31/24 18:59 06:59 18:59 Output Total 1900 900 950 Balance -1900 -900 -950 Weight 75.296 kg Output: Urine 1900 900 950 Other: Voiding Method Indwelling Catheter Indwelling Catheter Indwelling Catheter - Exam In general patient is alert and oriented x 3 in no distress HEENT head normocephalic and atraumatic Neck is supple no JVD no goiter no lymphadenopathy no carotid bruit, tracheostomy site clear Chest examination reveals a scattered crackles bilaterally no wheezing Cardiac exam reveals regular heart sounds S1 and S2 no gallops no murmurs Abdomen is soft nontender no organomegaly with normal bowel sounds Extremity exam reveals no edema no cyanosis or clubbing Neurological examination reveals no gross focal deficits - Labs CBC & Chem 7: 10/31/24 03:49 10/31/24 03:49 Labs: Abnormal Lab Results - Last 24 Hours (Table) 10/31/24 10/31/24 Range/Units 03:49 03:49 RBC 2.67 L (4.40-5.60) X 10*6/uL Hgb 7.4 L (13.0-17.0) g/dL Hct 24.3 L (39.6-50.0) % MCHC 30.5 L (32.0-37.0) g/dL RDW 16.9 H (11.5-14.5) % Plt Count 529 H (140-440) X 10*3/uL Immature Gran # 0.19 H (0.00-0.04) X 10*3/uL Monocytes # 1.17 H (0.20-1.00) X 10*3/uL Eosinophils # 0.64 H (0.04-0.35) X 10*3/uL Basophils # 0.14 H (0.00-0.10) X 10*3/uL Creatinine 1.6 H (0.6-1.5) mg/dL Est GFR (CKD-EPI) 46 L (>=60) Calcium 8.5 L (8.7-10.3) mg/dL Total Bilirubin 0.2 L (0.3-1.2) mg/dL Total Protein 5.7 L (6.2-8.2) g/dL Albumin 2.6 L (3.8-4.9) g/dL Albumin/Globulin Ratio 0.84 L (1.60-3.17) Ratio Microbiology - Last 24 Hours (Table) 10/28/24 18:09 Blood Culture - Preliminary Blood 10/28/24 18:09 Blood Culture - Preliminary Blood Assessment and Plan Plan: Febrile illness with infiltrates on chest x-ray, possible pneumonia, possible aspiration Anemia with recent admission with multiple red blood cell transfusions, hemoglobin on presentation 7.9 Underlying history of paroxysmal atrial fibrillation Recent diagnosis of laryngeal mass status postsurgery, patient will need radiation therapy when medical condition improves and he no longer needs rehab Underlying history of benign prostatic hypertrophy Underlying history of chronic back pain due to degenerative disc disease Underlying history of prolonged nicotine dependence Previous history of cardiac arrhythmia with history of ablation Recent history of hyponatremia At this time patient was seen and examined Home medications reviewed and reordered Patient was started on IV antibiotics in the emergency room will continue Consultation for infectious disease and pulmonary were initiated For DVT prophylaxis will resume patient's Eliquis and monitor hemoglobin closely Prognosis is guarded will follow during this admission.
--- NOTE | 2024-11-01 09:08 | P.PN ---
Subjective Progress Note Date: 11/01/24 Hector Frank, is a 69-year-old male who presented to [facility] emergency room with a chief complaint of fever. He was evaluated in the emergency room vital examination on presentation r evealed a temperature of 98.5 pulse 76 respiration 20 blood pressure 117/65 pulse ox 94% on oxygen via trach collar Laboratory data revealed a white blood count of 13.8 hemoglobin 7.9 platelet count 587 sodium 132 potassium 5.7 chloride 96 BUN 34 creatinine 1.17 Testing in the emergency room revealed chest x-ray revealed bilateral lower lung zones patchy airspace disease concerning for acute infection. Patient was admitted to medical floor for further evaluation and treatment Past medical history is significant for laryngeal mass, patient underwent surgery, and tracheostomy and PEG tube placement in September 2024, at [facility], he was transferred to [place] [facility], however his condition deteriorated and was admitted to our hospital on October 11, 2024, during that admission he received IV antibiotics, he was evaluated by oncology, and radiation oncology, and plan was to continue with rehab, and after patient is discharged from the [place] [facility], he would return to [facility] for radiation therapy. Additional past medical history is significant for atrial fibrillation, anemia, hypertension, benign prostatic hypertrophy, degenerative disc disease with chronic back pain and chronic constipation. On review of systems difficult to obtain due to difficulty communicating with the patient, he is not able to speak and has a board that he communicate few words with, he is denying any chest pain shortness of breath nausea vomiting abdominal pain or urinary symptoms. On 10/30/2024 patient is resting comfortably in bed. Patient has been started on IV Zosyn. Awaiting pulmonary input. Current vital signs temp 98.3, heart rate 66, respiratory rate 19, blood pressure 137/76 with a pulse ox of 96% on room air. White blood cell improving to 10.9. Patient denies chest pain or shortness of breath. Patient denies nausea vomiting or diarrhea. Patient denies any urinary burning or frequency On 10/31/2024 patient is alert and oriented resting comfortably in bed. Patient remains on Zosyn. Patient denies chest pain or shortness of breath. Patient denies nausea vomiting or diarrhea. Patient denies any urinary burning or frequency On 11/01/2024 patient is alert and oriented x 3 resting comfortably in bed. Current vital signs temp 98.0, heart rate 58, respiratory rate 16, blood pressure 107/63 with a pulse ox of 96% on room air. Patient denies chest pain or shortness of breath. Patient denies any urinary burning or frequency. [facility] remains on IV Zosyn and anticipate possible discharge back to [facility] facility tomorrow Objective - Vital Signs Vital signs: Vital Signs Temp 98.0 F 11/01/24 06:46 Pulse 58 L 11/01/24 06:46 Resp 16 11/01/24 06:46 BP 107/63 11/01/24 06:46 Pulse Ox 96 11/01/24 06:46 FiO2 Intake & Output 10/31/24 11/01/24 11/01/24 18:59 06:59 18:59 Intake Total 240 Output Total 1300 1800 Balance -1300 -1560 Weight 75.296 kg Intake: Oral 240 Output: Urine 1300 1800 Other: Voiding Method Indwelling Catheter Indwelling Catheter Indwelling Catheter - Exam In general patient is alert and oriented x 3 in no distress HEENT head normocephalic and atraumatic Neck is supple no JVD no goiter no lymphadenopathy no carotid bruit, tracheos john site clear Chest examination reveals a scattered crackles bilaterally no wheezing Cardiac exam reveals regular heart sounds S1 and S2 no gallops no murmurs Abdomen is soft nontender no organomegaly with normal bowel sounds Extremity exam reveals no edema no cyanosis or clubbing Neurological examination reveals no gross focal deficits - Labs CBC & Chem 7: 10/31/24 03:49 10/31/24 03:49 Labs: Microbiology - Last 24 Hours (Table) 10/28/24 18:09 Blood Culture - Preliminary Blood 10/28/24 18:09 Blood Culture - Preliminary Blood Assessment and Plan Plan: Febrile illness with infiltrates on chest x-ray, possible pneumonia, possible aspiration Anemia with recent admission with multiple red blood cell transfusions, hemoglobin on presentation 7.9 Underlying history of paroxysmal atrial fibrillation Recent diagnosis of laryngeal mass status postsurgery, patient will need radiation therapy when medical condition improves and he no longer needs rehab Underlying history of benign prostatic hypertrophy Underlying history of chronic back pain due to degenerative disc disease Underlying history of prolonged nicotine dependence Previous history of cardiac arrhythmia with history of ablation Recent history of hyponatremia At this time patient was seen and examined Home medications reviewed and reordered Patient was started on IV antibiotics in the emergency room will continue Consultation for infectious disease and pulmonary were initiated For DVT prophylaxis will resume patient's Eliquis and monitor hemoglobin closely Prognosis is guarded will follow during this admission.
--- NOTE | 2024-11-01 12:44 | P.PN ---
Subjective Progress Note Date: 11/01/24 Principal diagnosis: Reason for follow-up is leukocytosis and pneumonia Patient is a 69-year-old male with past medical history significant for hypertension reflux atrial fibrillation, laryngeal mass status post tracheostomy and PEG tube placement September 2024 has not received any chemotherapy yet with recent admission to the hospital treated for a catheter assisted UTI, patient has been sent to the hospital for low-grade fever cough did have bilateral lower lung patchy airspace disease concerning for pneumonia prompted this consultation. On today's evaluation that is 11/01/2024, Patient is afebrile this morning patient denies having any chest pain has been complaining of feeling congested and going to be suctioned deep no nausea vomiting abdominal pain or diarrhea. No lab draw today white count normalized to 9.49 yesterday blood cultures are pending sputum has not been collected Objective - Vital Signs Vital signs: Vital Signs Temp 98.0 F 11/01/24 06:46 Pulse 58 L 11/01/24 06:46 Resp 16 11/01/24 06:46 BP 107/63 11/01/24 06:46 Pulse Ox 96 11/01/24 06:46 FiO2 Intake & Output 10/31/24 11/01/24 11/01/24 18:59 06:59 18:59 Intake Total 240 Output Total 1300 1800 Balance -1300 -1560 Weight 75.296 kg Intake: Oral 240 Output: Urine 1300 1800 Other: Voiding Method Indwelling Catheter Indwelling Catheter Indwelling Catheter - Exam GENERAL DESCRIPTION: An elderly male up in bed in no distress RESPIRATORY SYSTEM: Unlabored breathing , decreased breath sounds at bases HEART: S1 S2 regular rate and rhythm , ABDOMEN: Soft , no tenderness EXTREMITIES: No edema feet - Labs CBC & Chem 7: 10/31/24 03:49 10/31/24 03:49 Labs: Microbiology - Last 24 Hours (Table) 10/28/24 18:09 Blood Culture - Preliminary Blood 10/28/24 18:09 Blood Culture - Preliminary Blood Assessment and Plan (1) Pneumonia Current Visit: Yes Status: Acute Code(s): J18.9 - PNEUMONIA, UNSPECIFIED ORGANISM SNOMED Code(s): 633878950 Plan: 1patient presented to hospital with low-grade fever the patient also have a cough with evidence of bibasilar airspace disease suspicious for pneumonia likely gram-negative as the patient has been in and out of the hospital not behaving as an atypical pneumonia 2-still waiting for sputum for Gram stain and culture to narrow down his antibiotics 3-patient white count has normalized fever has resolved. 4patient will be treated with Zosyn 3.375 g every 8 hours and monitor clinical course closely Dictation was produced using [employer] dictation software. please excuse any grammatical, word or spelling errors. Time with Patient: Less than 30
--- NOTE | 2024-11-01 14:48 | P.PN ---
Subjective Progress Note Date: 11/01/24 This is a 69-year-old male patient with a known history of atrial fibrillation, hypertension, prostate disorder, laryngeal mass and had undergone tracheostomy tube and PEG tube placement at [facility]. He was here for anemia and subsequently discharged on 10/24/2024 to [facility]. He presented back to the emergency room with a low-grade fever. This could represent mild interstitial pneumonia. White count 10.9. Hemoglobin 7.8. Platelets 576. Sodium 139. Potassium 5.2. Bicarb 25. BUN 24. Creatinine 1.5. Glucose 87. He is seen today in consultation on the regular medical floor. He is mostly mouthing words and somewhat difficult to understand at times. Has a Kylie tube in place. Stoma site is clean and dry. He is maintaining good O2 saturations in the 90s on room air. He has been afebrile. Hemodynamically stable. He is currently on Zosyn per ID service. Anticoagulated with Eliquis. The patient is seen today October 31, 2024 in follow-up on the regular medical floor. He is currently sitting up in a chair at the bedside. Awake and alert in no acute distress. Maintaining O2 saturations in the 90s on room air. Normal staying at 20 mL/h. No worsening shortness of breath, cough or congestion. He has been afebrile. Hemodynamically stable. Blood cultures rev ealed no growth. White count 9.4. Hemoglobin 7.4. Platelets 529. Sodium 137. Potassium 4.9. Bicarb 25. BUN 23. Creatinine 1.6. Glucose 84. He is anticoagulated with Eliquis. Antibiotics in the form of Zosyn. Procalcitonin pending. The patient is seen today November 01, 2024 in follow-up on the regular medical floor. He is currently sitting up in bed. Awake and alert in no acute dist ress. Continues to maintain O2 saturations in the 90s on room air. No IV fluids. Mild rhonchi bilaterally. Is been afebrile. Hemodynamically stable. Coagulated with Eliquis. Currently on Zosyn. Remains on oral Diflucan. Blood cultures revealed no growth. Procalcitonin still pending. Objective - Vital Signs Vital signs: Vital Signs Temp 98.0 F 11/01/24 06:46 Pulse 58 L 11/01/24 06:46 Resp 16 11/01/24 06:46 BP 107/63 11/01/24 06:46 Pulse Ox 96 11/01/24 06:46 FiO2 Intake & Output 10/31/24 11/01/24 11/01/24 18:59 06:59 18:59 Intake Total 240 Output Total 1300 1800 Balance -1300 -1560 Weight 75.296 kg Intake: Oral 240 Output: Urine 1300 1800 Other: Voiding Method Indwelling Catheter Indwelling Catheter Indwelling Catheter - Exam GENERAL EXAM: Alert, 69 year-old male, sitting up in bed, on room air, in no apparent distress. HEAD: Normocephalic. EYES: Normal reaction of pupils, equal size. NOSE: Clear with pink turbinates. THROAT: No erythema or exudates. NECK: Tracheostomy site with Kylie tube in place. Stoma clean and dry. CHEST: No chest wall deformity. LUNGS: Equal air entry with few scattered rhonchi. CVS: S1 and S2 normal with no audible murmur, regular rhythm. ABDOMEN: No hepatosplenomegaly, normal bowel sounds, no guarding or rigidity. SPINE: No scoliosis or deformity SKIN: No rashes CENTRAL NERVOUS SYSTEM: No focal deficits, tone is normal in all 4 extremities. EXTREMITIES: There is no peripheral edema. No clubbing, no cyanosis. Peripheral pulses are intact. - Labs CBC & Chem 7: 10/31/24 03:49 10/31/24 03:49 Labs: Microbiology - Last 24 Hours (Table) 10/28/24 18:09 Blood Culture - Preliminary Blood 10/28/24 18:09 Blood Culture - Preliminary Blood Assessment and Plan Assessment: Febrile illness of unknown etiology. He has been afebrile since arrival here. Possible underlying pneumonia, community-acquired versus aspiration. He on Zosyn. Procalcitonin pending Recent discharge from here 10/26/2024 following GI bleeding requiring multiple b lood transfusions Laryngeal mass positive for squamous cell, status post tracheostomy and PEG tube placements at [facility] September 21 2024. Plan is for radiation treatment. No chemotherapy Paroxysmal atrial fibrillation, on Eliquis Former heavy smoker Hypothyroidism BPH Plan: The patient was seen and evaluated Labs and medications reviewed Stable and on room air Antibiotics per ID service Procalcitonin still pending Continue trach care per respiratory therapy Cleared for discharge from the pulmonary standpoint Plan is to return to [facility] I have personally seen and examined the patient, performed the documentation and the assessment and plan as written. Number of minutes spent on the visit: 10 Dictation was produced using [employer] dictation software. Please excuse any g rammatical, word or spelling errors.
[2024-11-02 08:02] VITALS: RESP 20
[2024-11-02 09:19] LABS: Basophils # (A) 0.14 X 10*3/uL (0.00-0.10); Basophils % (A) 1.4 %; HGB 7.8 g/dL (13.0-17.0); Lymphocytes # (A) 2.43 X 10*3/uL (0.90-5.00); Lymphocytes % (A) 24.5 %; MCH 26.7 pg (27.0-32.0); Mean Platelet Volume 9.6 FL (9.5-12.2); Monocytes % (A) 9.1 %; NRBC Per 100 WBC 0 X 10*3/uL (0.00-0.01); Neutrophils # (A) 5.67 X 10*3/uL (1.80-7.70); Neutrophils % (A) 57.1 %; Platelet Count 532 X 10*3/uL (140-440); RBC 2.92 X 10*6/uL (4.40-5.60); WBC 9.93 X 10*3/uL (4.50-10.00)
[2024-11-02 10:06] LABS: ALT 11 U/L (10-49); AST 14 U/L (14-35); Albumin 2.8 g/dL (3.8-4.9); Albumin/Globulin Ratio 0.82 Ratio (1.60-3.17); Alkaline Phosphatase 77 U/L (41-126); BUN/Creat Ratio 13.82 Ratio (12.00-20.00); Blood Urea Nitrogen 23.5 mg/dL (9.0-27.0); Calcium 8.8 mg/dL (8.7-10.3); Carbon Dioxide 22.9 mmol/L (21.6-31.8); Chloride 101 mmol/L (96-109); Globulin 3.4 g/dL (1.6-3.3); Glucose 92 mg/dL (70-110); Potassium 5.2 mmol/L (3.5-5.5); Sodium 136 mmol/L (135-145); Total Bilirubin 0.2 mg/dL (0.3-1.2); Total Protein 6.2 g/dL (6.2-8.2)
--- NOTE | 2024-11-02 12:59 | P.DS ---
Providers Date of admission: 10/31/24 13:36 Expected date of discharge: 11/02/24 Attending physician: Jose Correa Consults: 10/29/24 13:05 Consult Physician Routine Consulting Provider: Bernardo Montague Consult Reason/Comments: Possible pneumonia Do you want consulting provider notified?: Yes 10/29/24 13:06 Consult Physician Routine Consulting Provider: Maikol Boyer Reason/Comments: Possible pneumonia Do you want consulting provider notified?: Yes Primary care physician: [facility] Hospital Course: Discharge diagnosis Febrile illness with infiltrates on chest x-ray, possible pneumonia, possible aspiration Anemia with recent admission with multiple red blood cell transfusions, hemoglobin on presentation 7.9 Underlying history of paroxysmal atrial fibrillation Recent diagnosis of laryngeal mass status postsurgery, patient will need radiation therapy when medical condition improves and he no longer needs rehab Underlying history of benign prostatic hypertrophy Underlying history of chronic back pain due to degenerative disc disease Underlying history of prolonged nicotine dependence Previous history of cardiac arrhythmia with history of ablation Recent history of hyponatremia Hospital course Hector Frank, is a 69-year-old male who presented to [facility] emergency room with a chief complaint of fever. He was evaluated in the emergency room vital examination on presentation revealed a temperature of 98.5 pulse 76 respiration 20 blood pressure 117/65 pulse ox 94% on oxygen via trach collar Laboratory data revealed a white blood count of 13.8 hemoglobin 7.9 platelet count 587 sodium 132 potassium 5.7 chloride 96 BUN 34 creatinine 1.17 Testing in the emergency room revealed chest x-ray revealed bilateral lower lung zones patchy airspace disease concerning for acute infection. Patient was admitted to medical floor for further evaluation and treatment Past medical history is significant for laryngeal mass, patient underwent surgery, and tracheostomy and PEG tube placement in September 2024, at [facility], he was transferred to [facility] for [facility]hab, however his condition deteriorated and was admitted to our hospital on October 11, 2024, during that admission he received IV antibiotics, he was evaluated by oncology, and radiation oncology, and plan was to continue with rehab, and after patient is discharged from the retirement, he would return to [facility] for radiation therapy. Additional past medical history is significant for atrial fibrillation, anemia, hypertension, benign prostatic hypertrophy, degenerative disc disease with chronic back pain and chronic constipation. On review of systems difficult to obtain due to difficulty communicating with the patient, he is not able to speak and has a board that he communicate few words with, he is denying any chest pain shortness of breath nausea vomiting abdominal pain or urinary symptoms. On 10/30/2024 patient is resting comfortably in bed. Patient has been started on IV Zosyn. Awaiting pulmonary input. Current vital signs temp 98.3, heart rate 66, respiratory rate 19, blood pressure 137/76 with a pulse ox of 96% on room air. White blood cell improving to 10.9. Patient denies chest pain or shortness of breath. Patient denies nausea vomiting or diarrhea. Patient denies any urinary burning or frequency On 10/31/2024 patient is alert and oriented resting comfortably in bed. Patient remains on Zosyn. Patient denies chest pain or shortness of breath. Patient denies nausea vomiting or diarrhea. Patient denies any urinary burning or frequency On 11/01/2024 patient is alert and oriented x 3 resting comfortably in bed. Current vital signs temp 98.0, heart rate 58, respiratory rate 16, blood pressure 107/63 with a pulse ox of 96% on room air. Patient denies chest pain or shortness of breath. Patient denies any urinary burning or frequency. Patient remains on IV Zosyn and anticipate possible discharge back to ECF facility tomorrow On 11/02/2024 patient is alert and oriented x 3. Discussed case with infectious disease patient will be DC'd back to ECF facility on Augmentin. Patient to follow-up with oncology and surgeon out of [place]. Patient denies chest pain or shortness of breath. Patient denies nausea vomiting or diarrhea. Patient denies any urinary burning or frequency Plan - Discharge Summary New Discharge Prescriptions: New Amoxic-Pot Clav 500-125 mg [Augmentin 500-125 mg] 1 tab PO Q12HR 7 Days #14 tab Apixaban [Eliquis] 5 mg PO BID tab Continue Calcium Carbonate 1250mg(500ca) 1,250 mg PO QID Amiodarone [Cordarone] 200 mg PO BID QUEtiapine FUMARATE [SEROquel] 25 mg PO HS Pantoprazole [Protonix] 40 mg PO DAILY Finasteride [Proscar] 5 mg PO DAILY Doxazosin [Cardura] 4 mg PO DAILY Menthol-Camphor Lotion [Sarna Lotion 0.5%-0.5%] 1 applic TOPICAL TID ml Cyanocobalamin [Vitamin B-12] 1,000 mcg PO DAILY tab polyethylene glycoL 3350 [Miralax] 17 gm PO BID Levothyroxine Sodium [Synthroid] 100 mcg PO DAILY Folic Acid 1 mg PO DAILY tab Acetaminophen Tab [Tylenol] 650 mg PO Q8H PRN PRN Reason: Fever Discontinued Fluconazole [Diflucan] 100 mg PO DAILY 10 Days #10 tab No Action ALPRAZolam [Xanax] 0.5 mg PO Q8H PRN PRN Reason: Anxiety oxyCODONE HCL [oxyCODONE HCL (IR)] 10 mg PO Q4H PRN PRN Reason: Pain Discharge Medication List ALPRAZolam [Xanax] 0.5 mg PO Q8H PRN 01/08/23 [History] Amiodarone [Cordarone] 200 mg PO BID 10/12/24 [History] Calcium Carbonate 1250mg(500ca) 1,250 mg PO QID 10/12/24 [History] Doxazosin [Cardura] 4 mg PO DAILY 10/12/24 [History] Finasteride [Proscar] 5 mg PO DAILY 10/12/24 [History] Levothyroxine Sodium [Synthroid] 100 mcg PO DAILY 10/12/24 [History] Pantoprazole [Protonix] 40 mg PO DAILY 10/12/24 [History] QUEtiapine FUMARATE [SEROquel] 25 mg PO HS 10/12/24 [History] polyethylene glycoL 3350 [Miralax] 17 gm PO BID 10/12/24 [History] Cyanocobalamin [Vitamin B-12] 1,000 mcg PO DAILY tab 10/24/24 [Rx] Folic Acid 1 mg PO DAILY tab 10/24/24 [Rx] Menthol-Camphor Lotion [Sarna Lotion 0.5%-0.5%] 1 applic TOPICAL TID ml 10/24/24 [Rx] Acetaminophen Tab [Tylenol] 650 mg PO Q8H PRN 10/29/24 [History] oxyCODONE HCL [oxyCODONE HCL (IR)] 10 mg PO Q4H PRN 10/29/24 [History] Amoxic-Pot Clav 500-125 mg [Augmentin 500-125 mg] 1 tab PO Q12HR 7 Days #14 tab 11/02/24 [Rx] Apixaban [Eliquis] 5 mg PO BID tab 11/02/24 [Rx] Follow up Appointment(s)/Referral(s): Red Sanchez DO [Primary Care Provider] - 1-2 days Discharge Disposition: TRANSFER TO SNF/ECF
[2024-11-02 13:31] VITALS: BP 108/63; PULSE 68; TEMP 98
--- NOTE | 2024-11-02 15:21 | P.PN ---
Subjective Progress Note Date: 11/02/24 This is a 69-year-old male patient with a known history of atrial fibrillation, hypertension, prostate disorder, laryngeal mass and had undergone tracheostomy tube and PEG tube placement at [facility]. He was here for anemia and subsequently discharged on 10/24/2024 to [facility]. He presented back to the emergency room with a low-grade fever. This could represent mild interstitial pneumonia. White count 10.9. Hemoglobin 7.8. Platelets 576. Sodium 139. Potassium 5.2. Bicarb 25. BUN 24. Creatinine 1.5. Glucose 87. He is seen today in consultation on the regular medical floor. He is mostly mouthing words and somewhat difficult to understand at times. Has a Kylie tube in place. Stoma site is clean and dry. He is maintaining good O2 saturations in the 90s on room air. He has been afebrile. Hemodynamically stable. He is currently on Zosyn per ID service. Anticoagulated with Eliquis. The patient is seen today October 31, 2024 in follow-up on the regular medical floor. He is currently sitting up in a chair at the bedside. Awake and alert in no acute distress. Maintaining O2 saturations in the 90s on room air. Normal staying at 20 mL/h. No worsening shortness of breath, cough or congestion. He has been afebrile. Hemodynamically stable. Blood cultures rev ealed no growth. White count 9.4. Hemoglobin 7.4. Platelets 529. Sodium 137. Potassium 4.9. Bicarb 25. BUN 23. Creatinine 1.6. Glucose 84. He is anticoagulated with Eliquis. Antibiotics in the form of Zosyn. Procalcitonin pending. The patient is seen today November 01, 2024 in follow-up on the regular medical floor. He is currently sitting up in bed. Awake and alert in no acute dist ress. Continues to maintain O2 saturations in the 90s on room air. No IV fluids. Mild rhonchi bilaterally. Is been afebrile. Hemodynamically stable. Coagulated with Eliquis. Currently on Zosyn. Remains on oral Diflucan. Blood cultures revealed no growth. Procalcitonin still pending. The patient is seen today November 02, 2024 in follow-up on the regular medical floor. He is awake and alert in no acute distress. Resting comfortably in bed. No worsening shortness of breath, cough or congestion. No hemoptysis. White count 9.9. Hemoglobin 7.8. Platelets 532. Sodium 136. Potassium 5.2. Bicarb 23. BUN 24. Creatinine 1.7. Glucose 92. Procalcitonin was negative 0.09. Blood culture revealed no growth. Anticoagulated with Eliquis. Remains on Diflucan. Objective - Vital Signs Vital signs: Vital Signs Temp 98 F 11/02/24 11:58 Pulse 68 11/02/24 11:58 Resp 20 11/02/24 11:58 BP 108/63 11/02/24 11:58 Pulse Ox 97 11/02/24 11:58 FiO2 Intake & Output 11/01/24 11/02/24 11/02/24 18:59 06:59 18:59 Output Total 1050 1600 Balance -1050 -1600 Output: Urine 1050 1600 Other: Voiding Method Indwelling Catheter Indwelling Catheter # Bowel Movements 1 - Exam GENERAL EXAM: Alert, 69 year-old male, on room air, in no apparent distress. HEAD: Normocephalic. EYES: Normal reaction of pupils, equal size. NOSE: Clear with pink turbinates. THROAT: No erythema or exudates. NECK: Tracheostomy site with Kylie tube in place. Stoma clean and dry. CHEST: No chest wall deformity. LUNGS: Equal air entry with few scattered rhonchi. CVS: S1 and S2 normal with no audible murmur, regular rhythm. ABDOMEN: No hepatosplenomegaly, normal bowel sounds, no guarding or rigidity. SPINE: No scoliosis or deformity SKIN: No rashes CENTRAL NERVOUS SYSTEM: No focal deficits, tone is normal in all 4 extremities. EXTREMITIES: There is no peripheral edema. No clubbing, no cyanosis. Peripheral pulses are intact. - Labs CBC & Chem 7: 11/02/24 03:54 11/02/24 03:54 Labs: Abnormal Lab Results - Last 24 Hours (Table) 11/02/24 11/02/24 Range/Units 03:54 03:54 RBC 2.92 L (4.40-5.60) X 10*6/uL Hgb 7.8 L (13.0-17.0) g/dL Hct 26.0 L (39.6-50.0) % MCH 26.7 L (27.0-32.0) pg MCHC 30.0 L (32.0-37.0) g/dL RDW 17.0 H (11.5-14.5) % Plt Count 532 H (140-440) X 10*3/uL Immature Gran # 0.19 H (0.00-0.04) X 10*3/uL Eosinophils # 0.60 H (0.04-0.35) X 10*3/uL Basophils # 0.14 H (0.00-0.10) X 10*3/uL Anion Gap 12.10 H (4.00-12.00) mmol/L Creatinine 1.7 H (0.6-1.5) mg/dL Est GFR (CKD-EPI) 43 L (>=60) Total Bilirubin 0.2 L (0.3-1.2) mg/dL Albumin 2.8 L (3.8-4.9) g/dL Globulin 3.4 H (1.6-3.3) g/dL Albumin/Globulin Ratio 0.82 L (1.60-3.17) Ratio Assessment and Plan Assessment: Febrile illness of unknown etiology. He has been afebrile since arrival here. Possible underlying pneumonia, community-acquired versus aspiration. He on Zosyn. Procalcitonin negative Recent discharge from here 10/26/2024 following GI bleeding requiring multiple blood transfusions Laryngeal mass positive for squamous cell, status post tracheostomy and PEG tube placements at [facility] September 21 2024. Plan is for radiation treatment. No chemotherapy Paroxysmal atrial fibrillation, on Eliquis Former heavy smoker Hypothyroidism BPH Plan: The patient was seen and evaluated Labs and medications reviewed Stable and on room air Antibiotics per ID service Continue trach care per respiratory therapy Cleared for discharge from the pulmonary standpoint I have personally seen and examined the patient, performed the documentation and the assessment and plan as written. Number of minutes spent on the visit: 10 Dictation was produced using [employer] dictation software. Please excuse any grammatical, word or spelling errors.
--- NOTE | 2024-11-03 14:21 | P.PN ---
Subjective Progress Note Date: 11/02/24 Principal diagnosis: Reason for follow-up is leukocytosis and pneumonia Patient is a 69-year-old male with past medical history significant for hypertension reflux atrial fibrillation, laryngeal mass status post tracheostomy and PEG tube placement September 2024 has not received any chemotherapy yet with recent admission to the hospital treated for a catheter assisted UTI, patient has been sent to the hospital for low-grade fever cough did have bilateral lower lung patchy airspace disease concerning for pneumonia prompted this consultation. On today's evaluation that is 11/02/2024,the patient denies any fever or any chills, patient is breathing comfortably on room air, the patient denies chest pain shortness of breath and no worsening cough, patient denies abdominal pain, no nausea vomiting or diarrhea. Patient white count is 9.93, creat is 1.7 Objective - Vital Signs Vital signs: Vital Signs Temp 98.3 F 11/02/24 07:20 Pulse 63 11/02/24 07:20 Resp 20 11/02/24 07:20 BP 112/68 11/02/24 07:20 Pulse Ox 96 11/02/24 07:20 FiO2 Intake & Output 11/01/24 11/02/24 11/02/24 18:59 06:59 18:59 Output Total 1050 1600 Balance -1050 -1600 Output: Urine 1050 1600 Other: Voiding Method Indwelling Catheter Indwelling Catheter # Bowel Movements 1 - Exam GENERAL DESCRIPTION: An elderly male up in bed in no distress RESPIRATORY SYSTEM: Unlabored breathing , decreased breath sounds at bases HEART: S1 S2 regular rate and rhythm , ABDOMEN: Soft , no tenderness EXTREMITIES: No edema feet - Labs CBC & Chem 7: 11/02/24 03:54 11/02/24 03:54 Labs: Abnormal Lab Results - Last 24 Hours (Table) 11/02/24 11/02/24 Range/Units 03:54 03:54 RBC 2.92 L (4.40-5.60) X 10*6/uL Hgb 7.8 L (13.0-17.0) g/dL Hct 26.0 L (39.6-50.0) % MCH 26.7 L (27.0-32.0) pg MCHC 30.0 L (32.0-37.0) g/dL RDW 17.0 H (11.5-14.5) % Plt Count 532 H (140-440) X 10*3/uL Immature Gran # 0.19 H (0.00-0.04) X 10*3/uL Eosinophils # 0.60 H (0.04-0.35) X 10*3/uL Basophils # 0.14 H (0.00-0.10) X 10*3/uL Anion Gap 12.10 H (4.00-12.00) mmol/L Creatinine 1.7 H (0.6-1.5) mg/dL Est GFR (CKD-EPI) 43 L (>=60) Total Bilirubin 0.2 L (0.3-1.2) mg/dL Albumin 2.8 L (3.8-4.9) g/dL Globulin 3.4 H (1.6-3.3) g/dL Albumin/Globulin Ratio 0.82 L (1.60-3.17) Ratio Assessment and Plan (1) Pneumonia Status: Acute Code(s): J18.9 - PNEUMONIA, UNSPECIFIED ORGANISM SNOMED Code(s): 501793156 Plan: 1patient presented to hospital with low-grade fever the patient also have a cough with evidence of bibasilar airspace disease suspicious for pneumonia likely gram-negative as the patient has been in and out of the hospital not beh aving as an atypical pneumonia 2-still waiting for sputum for Gram stain and culture to narrow down his antibiotics 3-patient white count has normalized fever has resolved. 4patient has shown clinical improvement Zosyn 3.375 g every 8 hours patient will finish therapy with oral Augmentin as he cannot get Avelox because of drug interaction discussed with the IN TU[employer] CONVERSION TECHNICIAN for admitting team working on discharge Dictation was produced using [employer] dictation software. please excuse any grammatical, word or spelling errors. Time with Patient: Less than 30
== END 2024-11-02 16:02 | DRG 179 ==
LOC: SUPCPDRO 17:59 → EC 17:59 → 4SSUR 21:01 → OBSVTOIN 10-31 13:36
PROVIDERS: ADMIT Internal Medicine; ATTEND Internal Medicine
DX: J15.69 Pneumonia due to other Gram-negative bacteria (principal); D64.9 Anemia, unspecified; E03.9 Hypothyroidism, unspecified; I10 Essential (primary) hypertension; C32.9 Malignant neoplasm of larynx, unspecified; G89.29 Other chronic pain; I48.0 Paroxysmal atrial fibrillation; M50.30 Other cervical disc degeneration, unspecified cervical region; J40 Bronchitis, not specified as acute or chronic; R29.6 Repeated falls; N40.0 Benign prostatic hyperplasia without lower urinary tract symptoms; Z11.52 Encounter for screening for COVID-19; Z79.01 Long term (current) use of anticoagulants; Z79.890 Hormone replacement therapy; Z79.899 Other long term (current) drug therapy; Z87.891 Personal history of nicotine dependence; Z85.810 Personal history of malignant neoplasm of tongue; Z93.1 Gastrostomy status; Z93.0 Tracheostomy status; Z96.651 Presence of right artificial knee joint; Z98.1 Arthrodesis status; Z98.42 Cataract extraction status, left eye; Z98.41 Cataract extraction status, right eye; Z91.81 History of falling; Z87.440 Personal history of urinary (tract) infections
CPT/HCPCS: 36415; 71046; 80048; 80053; 81003; 83605; 84145; 85025; 85610; 85730; 87040; 87449; 87636; 93005; 96361; 96365; 96375; 99285

== ENCOUNTER 2024-11-05 12:36 | Emergency (ER) | payer MEDICARE ==
[2024-11-05] MEDS: MORPHINE SULFATE 4 MG/ML SYRINGE IVP STA (13:40)
[2024-11-05] MEDS: MORPHINE SULFATE 4 MG/ML SYRINGE IM STA (13:42)
--- NOTE | 2024-11-05 14:34 | CT ---
EXAMINATION TYPE: CT brain cspine wo con DATE OF EXAM: 11/05/2024 2:15 PM COMPARISON: Numerous prior CT studies, most recently dated 08/30/2024. CLINICAL INDICATION: Male, 69 years old with history of fall out of wheelchair, head injury, neck bryant n; Fall out of wheelchair, head injury, neck pain. TECHNIQUE: Brain: Multiple axial CT images of the brain were obtained without IV contrast. Cspine: Axial CT images from the skull base to the inferior aspect of T2 we obtained without intraven ous contrast. Coronal and sagittal reformatted images were also reviewed. . CT DLP: Combined DLP of 2187.7 mGycm, Automated exposure control for dose reduction was used. FINDINGS: Brain: No acute intracranial hemorrhage, significant acute midline shift or significant mass effect. Ventric les and sulci mildly prominent compatible with generalized cerebral volume loss. No sizable extra-axi al fluid collection. Patchy periventricular and subcortical white matter hypoattenuation likely refle cting chronic microvascular ischemic disease. Basal cisterns appear patent. No depressed calvarial fr acture or large scalp hematoma appreciated. Mucosal thickening involving the sphenoid sinuses and eth moid air cells. Mastoid air cells appear patent. Cervical spine: Mild straightening of the normal cervical spine without curvature. No acute fracture or traumatic sub luxation. Osseous structures demineralized. Multilevel intervertebral disc space loss and anterior os teophyte formation. Fusion hardware again noted spanning C4-C7 with multilevel intervertebral disc sp acer device is noted. Minimal anterolisthesis of C2 on C3 and C3 on C4, not significant change from p rior studies. Extensive postsurgical changes throughout the neck. Evaluation for residual soft tissue mass severely limited due to lack of IV contrast. Tracheostomy tube is visualized. Severe narrowing of the subglot tic airway. IMPRESSION: 1. No acute intracranial abnormality. 2. No acute fracture or traumatic subluxation of the cervical spine. [facility], , 11/05/2024 2:31 PM
--- NOTE | 2024-11-05 14:41 | CT ---
EXAMINATION TYPE: CT thoracic spine wo con DATE OF EXAM: 11/05/2024 2:15 PM COMPARISON: Previous chest radiograph of 11/08/2024.. CLINICAL INDICATION: Male, 69 years old with history of fall out of wheelchair, head injury, neck bryant n; PHH, Fall out of wheelchair, head injury, neck pain. TECHNIQUE: Axial images of the thoracic spine were obtained without contrast. Coronal and sagittal re formats were performed. 3-D reformats of the bones were created on a separate workstation and submitt ed for review. CT DLP: Combined DLP of 2187.7 mGycm, Automated exposure control for dose reduction was used. FINDINGS: Osseous structures demineralized. No acute fracture translocation of the thoracic spine. Multilevel i ntervertebral disc space loss and anterior ossified formation. Thoracic spine vertebral body heights are maintained. Partially visualized minimally displaced fractures of the left anterior first and sec ond ribs. Tracheostomy tube with secretions layering along the dependent portion of the tracheostomy tube. Partially visualized emphysema in the upper lungs. Calcified granuloma in the right lower lobe. Coronary artery calcifications partially visualized. Multilevel facet arthropathy causes degrees of multilevel neural foraminal narrowing. No obvious high-grade spinal canal stenosis although evaluatio n is moderately limited due to streak artifact. IMPRESSION: 1. No acute fracture or traumatic subluxation of the thoracic spine. 2. Partially visualized minimally displaced anterior left first and second rib fractures suspected. [facility], , 11/05/2024 2:38 PM
--- NOTE | 2024-11-05 14:57 | ED ---
Neck Injury/Pain HPI - General Chief Complaint: Neck Pain/Injury Stated Complaint: Neck Pain Time Seen by Provider: 11/05/24 12:37 Mode of arrival: EMS Limitations: physical limitation - History of Present Illness Initial Comments: 69-year-old male presents emergency department after a fall out of his wheelchair. It was reported by Jaycob Miramontes that the patient slid downwards out of his chair. He has chronic neck pain but states that it was worse after his fall. He did not hit his head. He does not take blood thinners. he also has right knee pain. Patient is status post trach and PEG. He has not received anything for his pain yet. He denies chest pain or difficulty breathing. No abdominal pain. No visual changes. Neck pain does go into the thoracic spine. No numbness, tingling or weakness in his extremities. No other alleviating, precipitating modifying factors - Related Data Home Medications Medication Instructions Recorded Confirmed Amiodarone [Cordarone] 200 mg PO BID 10/12/24 10/29/24 Calcium Carbonate 1250mg(500ca) 1,250 mg PO QID 10/12/24 10/29/24 Doxazosin [Cardura] 4 mg PO DAILY 10/12/24 10/29/24 Finasteride [Proscar] 5 mg PO DAILY 10/12/24 10/29/24 Levothyroxine Sodium [Synthroid] 100 mcg PO DAILY 10/12/24 10/29/24 Pantoprazole [Protonix] 40 mg PO DAILY 10/12/24 10/29/24 QUEtiapine FUMARATE [SEROquel] 25 mg PO HS 10/12/24 10/29/24 polyethylene glycoL 3350 [Miralax] 17 gm PO BID 10/12/24 10/29/24 Acetaminophen Tab [Tylenol] 650 mg PO Q8H PRN 10/29/24 10/29/24 Previous Rx's Medication Instructions Recorded Cyanocobalamin [Vitamin B-12] 1,000 mcg PO DAILY tab 10/24/24 Folic Acid 1 mg PO DAILY tab 10/24/24 Menthol-Camphor Lotion [Sarna 1 applic TOPICAL TID ml 10/24/24 Lotion 0.5%-0.5%] ALPRAZolam [Xanax] 0.5 mg PO Q8H PRN 3 Days #9 tab 11/02/24 Amoxic-Pot Clav 500-125 mg 1 tab PO Q12HR 7 Days #14 tab 11/02/24 [Augmentin 500-125 mg] Apixaban [Eliquis] 5 mg PO BID tab 11/02/24 oxyCODONE HCL [oxyCODONE HCL (IR)] 10 mg PO Q4H PRN 3 Days #18 tab 11/02/24 Allergies Allergy/AdvReac Type Severity Reaction Status Date / Time No Known Allergies Allergy Verified 11/05/24 12:49 Review of Systems ROS Statement: Those systems with pertinent positive or pertinent negative responses have been documented in the HPI. ROS Other: All systems not noted in ROS Statement are negative. Past Medical History Past Medical History: Atrial Fibrillation, Cancer, GERD/Reflux, Hypertension, Prostate Disorder Additional Past Medical History / Comment(s): dehydration, low B/P, kidney problem that was fixed with fluids and sodium was low. Additional hx: BPH, DDD-cervical pain, R/L hand fingers tingling if over used, AGE 18 FX RT FEMUR IN 4 PLACES HAD PLATE/SCEWS-SINCE REMOVED, HAS OPIOD INDUCED CONSTIPATION, TINNITUS bilaterally but pt has noticed it has decreased since he quit smoking, hay fever. cardiac arrest 3 months ago, trach History of Any Multi-Drug Resistant Organisms: None Reported Past Surgical History: Heart Catheterization, Joint Replacement, Orthopedic Surgery Additional Past Surgical History / Comment(s): bilateral CATARACTS, ANT CERVICAL DISCECTOMY/FUSION C4,5,6,7 USING CADAVOR BONE. LT HYDROCELE, LT CARPAL TUNNEL, RT FEMUR SX METAL SINCE REMOVED, COLONOSCOPY, CYSTS REMOVED FROM FOREHEAD,BUTTOCKS,;T [place]. PROSTATE BX X2-BENIGN, partial R knee replacement. cardiac ablation, peg tube, trach placement. Past Anesthesia/Blood Transfusion Reactions: No Reported Reaction Past Psychological History: No Psychological Hx Reported Smoking Status: Former smoker Past Alcohol Use History: Daily Past Drug Use History: None Reported - Past Family History Father Family Medical History: COPD, Dementia Additional Family Medical History / Comment(s): Father at age 84yrs. Mother Family Medical History: Cancer, COPD Additional Family Medical History / Comment(s): NASAL/THROAT CANCER. Mother at age 82 General Exam Limitations: physical limitation (Tracheostomy) General appearance: alert, in no apparent distress Head exam: Present: atraumatic, normocephalic, normal inspection Neck exam: Present: tenderness (Paraspinal muscle tenderness to palpation from C2-C6 bilaterally), other (Trach in place) Respiratory exam: Present: normal lung sounds bilaterally. Absent: respiratory distress, wheezes, rales, rhonchi, stridor Cardiovascular Exam: Present: regular rate, normal rhythm, normal heart sounds. Absent: systolic murmur, diastolic murmur, rubs, gallop, clicks GI/Abdominal exam: Present: soft, normal bowel sounds. Absent: distended, tenderness, guarding, rebound, rigid Extremities exam: Present: joint swelling (To the right knee. Overlying well- healed surgical scar) Neurological exam: Present: alert Skin exam: Present: dry Course Vital Signs 11/05/24 12:43 Temperature 99.8 F H Pulse Rate 94 Respiratory 18 Rate Blood Pressure 109/59 O2 Sat by Pulse 96 Oximetry Medical Decision Making - Medical Decision Making Was pt. sent in by a medical professional or institution (, PA, WEB SITE MANAGER, urgent care, hospital, or intermediate...) When possible be specific @ -Patient sent in from [facility] Did you speak to anyone other than the patient for history (EMS, parent, family, police, friend...)? What history was obtained from this source @ -Spoke with EMS for history Did you review nursing and triage notes (agree or disagree)? Why? @ -I reviewed and agree with nursing and triage notes Were old charts reviewed (outside hosp., previous admission, EMS record, old EKG, old radiological studies, urgent care reports/EKG's, intermediate records)? Report findings @ -I reviewed the chart from [facility] Differential Diagnosis (chest pain, altered mental status, abdominal pain women, abdominal pain men, vaginal bleeding, weakness, fever, dyspnea, syncope, headache, dizziness, GI bleed, back pain, seizure, CVA, palpatations, mental health, musculoskeletal)? @ -Cervical strain, cervical fracture, knee strain EKG interpreted by me (3pts min.). @ -Not done X-rays interpreted by me (1pt min.). @ -Yes and demonstrates no acute process CT interpreted by me (1pt min.). @ -Yes and demonstrates no acute process. Patient does have first and second rib fractures on the left U/S interpreted by me (1pt. min.). @ -None done What testing was considered but not performed or refused? (CT, X-rays, U/S, labs)? Why? @ -None What meds were considered but not given or refused? Why? @ -None Did you discuss the management of the patient with other professionals (professionals i.e. Dr., PA, WEB SITE MANAGER, lab, RT, psych nurse, social work nurse, entertainment lawyer, t eacher, community service officer, patient case manager)? Give summary @ -No Was smoking cessation discussed for >3mins.? @ -No Was critical care preformed (if so, how long)? @ -No Were there social determinants of health that impacted care today? How? (Homelessness, low income, unemployed, alcoholism, drug addiction, transportation, low edu. Level, literacy, decrease access to med. care, group home, rehab)? @ -No Was there de-escalation of care discussed even if they declined (Discuss DNR or withdrawal of care, Hospice)? DNR status @ -No What co-morbidities impacted this encounter? (DM, HTN, Smoking, COPD, CAD, Cancer, CVA, ARF, Chemo, Hep., AIDS, mental health diagnosis, sleep apnea, morbid obesity)? @ -Tongue cancer with trach Was patient admitted / discharged? Hospital course, mention meds given and rout e, prescriptions, significant lab abnormalities, going to OR and other pertinent info. @ -Upon arrival patient seen and evaluated in room 10. Thorough history and physical exam was performed. Patient was given a dose of morphine for pain control. CT was performed of the patient's head, thoracic and cervical spine. X-rays performed of the right knee. CT does demonstrate left first and second rib fractures. Patient has no pain at this site. He states is likely due to past fractures when he had CPR. Patient admits his pain is only in his neck. At this time patient will be discharged back to his facility. Follow-up with his doctor in 2 to 4 days and return for any new or worsening symptoms Undiagnosed new problem with uncertain prognosis? @ -No Drug Therapy requiring intensive monitoring for toxicity (Heparin, Nitro, Insulin, Cardizem)? @ -No Were any procedures done? @ -No Diagnosis/symptom? @ -Acute neck pain, acute thoracic back pain, acute right knee pain status post fall from chair Acute, or Chronic, or Acute on Chronic? @ -Acute Uncomplicated (without systemic symptoms) or Complicated (systemic symptoms)? @ -Complicated Side effects of treatment? @ -No Exacerbation, Progression, or Severe Exacerbation? @ -No Poses a threat to life or bodily function? How? (Chest pain, [place], [place], pneumonia, PE, COPD, DKA, ARF, appy, cholecystitis, CVA, Diverticulitis, Homicidal, Suicidal, threat to staff... and all critical care pts) @ -No Disposition Clinical Impression: Neck pain, Back pain, Fall Disposition: HOME SELF-CARE Condition: Stable Instructions (If sedation given, give patient instructions): Cervical Strain (ED) Additional Instructions: Please follow-up with your primary care doctor and return for any new or worsening symptoms Is patient prescribed a controlled substance at d/c from ED?: No Referrals: Red Sanchez DO [Primary Care Provider] - 1-2 days Time of Disposition: 15:12
--- NOTE | 2024-11-05 15:10 | XR ---
EXAMINATION TYPE: XR knee complete RT DATE OF EXAM: 11/05/2024 2:55 PM COMPARISON: None available. CLINICAL INDICATION: Male, 69 years old with history of fall out of wheelchair, head injury, neck bryant n; [facility] TECHNIQUE: XR knee complete RT views submitted.. FINDINGS: Osseous structures are severely demineralized. Moderate to severe degenerative osteoarthrit is of the visualized lateral compartment with evidence of chondral calcinosis. Hemiarthroplasty in th e medial compartment without periprosthetic loosening or acute fracture. Likely old fracture deformit y of the partially visualized distal femoral shaft. Large suprapatellar joint effusion. IMPRESSION: 1. No acute fracture or dislocation. No evidence of acute hardware complication involving right knee hemiarthroplasty. 2. Large suprapatellar joint effusion. [facility], , 11/05/2024 3:08 PM
[2024-11-05 18:56] VITALS: BP 98/58; PULSE 93; RESP 19; TEMP 100
== END 2024-11-05 18:56 | disposition home or self-care (01) ==
LOC: EC 12:36
DX: S22.32XA Fracture of one rib, left side, initial encounter for closed fracture (principal); M54.2 Cervicalgia; M54.9 Dorsalgia, unspecified; Z85.810 Personal history of malignant neoplasm of tongue; Z85.12 Personal history of malignant neoplasm of trachea; Z87.891 Personal history of nicotine dependence; W07.XXXA Fall from chair, initial encounter
CPT/HCPCS: 99284; 96372; 51798; 73562; 72128; 72125; 70450; J2270

== ENCOUNTER 2024-11-27 12:31 | Emergency (ER) | payer MEDICARE ==
[2024-11-27 12:39] VITALS: RESP 20; TEMP 98.6
[2024-11-27 13:12] LABS: Anisocytosis Slight; Basophils % (A) 0 %; Eosinophils # (A) 0.2 k/uL (0-0.7); Eosinophils % (A) 3 %; HCT 23.7 % (39.0-53.0); HGB 7.4 gm/dL (13.0-17.5); Hypochromasia Marked; Lymphocytes # (A) 1.4 k/uL (1.0-4.8); Lymphocytes % (A) 18 %; MCH 26.4 pg (25.0-35.0); MCHC 31.1 g/dL (31.0-37.0); Mean Platelet Volume 7.2; Monocytes # (A) 0.6 k/uL (0-1.0); Monocytes % (A) 7 %; Neutrophils # (A) 5.2 k/uL (1.3-7.7); Neutrophils % (A) 69 %; Platelet Count 379 k/uL (150-450); RBC 2.79 m/uL (4.30-5.90); RDW 17.3 % (11.5-15.5); WBC 7.6 k/uL (3.8-10.6)
[2024-11-27 13:44] LABS: ALT 55 U/L (4-49); AST 65 U/L (17-59); African American GFR (CKD) 54 (>60 ml/min/1.73 sqM); Albumin 3.3 g/dL (3.5-5.0); Alkaline Phosphatase 72 U/L (38-126); Anion Gap 7 mmol/L; Blood Urea Nitrogen 47 mg/dL (9-20); Calcium 8.6 mg/dL (8.4-10.2); Carbon Dioxide 28 mmol/L (22-30); Chloride 97 mmol/L (98-107); Glucose 112 mg/dL (74-99); Non-African American GFR(CKD) 46 (>60 ml/min/1.73 sqM); Potassium 4.8 mmol/L (3.5-5.1); Sodium 132 mmol/L (137-145); Total Bilirubin 0.5 mg/dL (0.2-1.3); Total Protein 6.6 g/dL (6.3-8.2)
--- NOTE | 2024-11-27 14:26 | ED ---
General Adult HPI - General Chief complaint: Recheck/Abnormal Lab/Rx Stated complaint: Abnormal labs Time Seen by Provider: 11/27/24 12:34 Source: EMS Mode of arrival: EMS Limitations: language barrier, physical limitation - History of Present Illness Initial comments: 69 year old male with past medical history of laryngectomy with PEG tube who presents emergency department with dislodged PEG tube. It is reported that the patient pulled it out last night. They placed a 14 Singaporean Epps to keep the tract open. Patient is allowed to eat pured foods and therefore they postpone his transfer for placement until today. They also report that the patient has been anemic with some intermittent occult positive stools. Patient denies any current black or bloody stools. They had checked a hemoglobin level and it was 7. Sent the patient to the hospital requesting reevaluation of this. He does have a planned colonoscopy on the . Patient denies any abdominal pain. No difficulty breathing. No other alleviating, precipitating or modifying factors - Related Data Home Medications Medication Instructions Recorded Confirmed Amiodarone [Cordarone] 200 mg PO BID 10/12/24 10/29/24 Calcium Carbonate 1250mg(500ca) 1,250 mg PO QID 10/12/24 10/29/24 Doxazosin [Cardura] 4 mg PO DAILY 10/12/24 10/29/24 Finasteride [Proscar] 5 mg PO DAILY 10/12/24 10/29/24 Levothyroxine Sodium [Synthroid] 100 mcg PO DAILY 10/12/24 10/29/24 Pantoprazole [Protonix] 40 mg PO DAILY 10/12/24 10/29/24 QUEtiapine FUMARATE [SEROquel] 25 mg PO HS 10/12/24 10/29/24 polyethylene glycoL 3350 [Miralax] 17 gm PO BID 10/12/24 10/29/24 Acetaminophen Tab [Tylenol] 650 mg PO Q8H PRN 10/29/24 10/29/24 Previous Rx's Medication Instructions Recorded Cyanocobalamin [Vitamin B-12] 1,000 mcg PO DAILY tab 10/24/24 Folic Acid 1 mg PO DAILY tab 10/24/24 Menthol-Camphor Lotion [Sarna 1 applic TOPICAL TID ml 10/24/24 Lotion 0.5%-0.5%] ALPRAZolam [Xanax] 0.5 mg PO Q8H PRN 3 Days #9 tab 11/02/24 Amoxic-Pot Clav 500-125 mg 1 tab PO Q12HR 7 Days #14 tab 11/02/24 [Augmentin 500-125 mg] Apixaban [Eliquis] 5 mg PO BID tab 11/02/24 oxyCODONE HCL [oxyCODONE HCL (IR)] 10 mg PO Q4H PRN 3 Days #18 tab 11/02/24 Allergies Allergy/AdvReac Type Severity Reaction Status Date / Time No Known Allergies Allergy Verified 11/05/24 12:49 Review of Systems ROS Statement: Those systems with pertinent positive or pertinent negative responses have been documented in the HPI. ROS Other: All systems not noted in ROS Statement are negative. Past Medical History Past Medical History: Atrial Fibrillation, Cancer, GERD/Reflux, Hypertension, Prostate Disorder Additional Past Medical History / Comment(s): dehydration, low B/P, kidney problem that was fixed with fluids and sodium was low. Additional hx: BPH, DDD-cervical pain, R/L hand fingers tingling if over used, AGE 18 FX RT FEMUR IN 4 PLACES HAD PLATE/SCEWS-SINCE REMOVED, HAS OPIOD INDUCED CONSTIPATION, TINNITUS bilaterally but pt has noticed it has decreased since he quit smoking, hay fever. cardiac arrest 3 months ago, trach History of Any Multi-Drug Resistant Organisms: None Reported Past Surgical History: Heart Catheterization, Joint Replacement, Orthopedic Surgery Additional Past Surgical History / Comment(s): bilateral CATARACTS, ANT CERVICAL DISCECTOMY/FUSION C4,5,6,7 USING CADAVOR BONE. LT HYDROCELE, LT CARPAL TUNNEL, RT FEMUR SX METAL SINCE REMOVED, COLONOSCOPY, CYSTS REMOVED FROM FOREHEAD,BUTTOCKS,;T JEW. PROSTATE BX X2-BENIGN, partial R knee replacement. cardiac ablation, peg tube, trach placement. Past Anesthesia/Blood Transfusion Reactions: No Reported Reaction Past Psychological History: No Psychological Hx Reported Smoking Status: Former smoker Past Alcohol Use History: Daily Past Drug Use History: None Reported - Past Family History Father Family Medical History: COPD, Dementia Additional Family Medical History / Comment(s): Father at age 84yrs. Mother Family Medical History: Cancer, COPD Additional Family Medical History / Comment(s): NASAL/THROAT CANCER. Mother at age 82 General Exam Limitations: physical limitation General appearance: alert Head exam: Present: atraumatic, normocephalic, normal inspection Eye exam: Present: normal appearance, PERRL, EOMI. Absent: scleral icterus, conjunctival injection, periorbital swelling Neck exam: Present: other (Laryngectomy tube in place) Respiratory exam: Present: normal lung sounds bilaterally. Absent: respiratory distress, wheezes, rales, rhonchi, stridor Cardiovascular Exam: Present: regular rate, normal rhythm, normal heart sounds. Absent: systolic murmur, diastolic murmur, rubs, gallop, clicks GI/Abdominal exam: Present: other (Epps catheter in PEG tube site) Extremities exam: Present: normal inspection, full ROM, normal capillary refill. Absent: tenderness, pedal edema, joint swelling, calf tenderness Back exam: Present: normal inspection Neurological exam: Present: alert, oriented X3, CN II-XII intact Psychiatric exam: Present: normal affect, normal mood Course Vital Signs 11/27/24 11/27/24 12:34 12:38 Temperature 98.6 F Pulse Rate 70 Respiratory 20 20 Rate Blood Pressure 109/76 O2 Sat by Pulse 94 L Oximetry Procedures - Feeding Tube Replacement Reason for Replacement: patient removed/pulled out Initial Tube Inserted: greater than 2 weeks Type of Tube: gastrostomy Use of Tube: medications and feeding Insertion Site Prior to Procedure: clean Tube Used for Reinsertion: Bard Singaporean Tube Size (F): 1 Balloon Size (mls): 5 Verification of Placement: KUB, gastrografin injection Tube Secured by: G-tube attachment device Patient Tolerated Procedure: well, no complications Medical Decision Making - Medical Decision Making Was pt. sent in by a medical professional or institution (, PA, ELECTRICAL DESIGN TECHNOLOGIST, urgent care, hospital, or fci...) When possible be specific @ -[facility] [place] Did you speak to anyone other than the patient for history (EMS, parent, family, police, friend...)? What history was obtained from this source @ -EMS Did you review nursing and triage notes (agree or disagree)? Why? @ -I reviewed and agree with nursing and triage notes Were old charts reviewed (outside hosp., previous admission, EMS record, old EKG, old radiological studies, urgent care reports/EKG's, fci records)? Report findings @ -I reviewed the paperwork that was sent with the patient from [facility] Differential Diagnosis (chest pain, altered mental status, abdominal pain women, abdominal pain men, vaginal bleeding, weakness, fever, dyspnea, syncope, headache, dizziness, GI bleed, back pain, seizure, CVA, palpatations, mental health, musculoskeletal)? @ -Differential GI Bleed: Esophageal varices, aortoenteric fistula, Nicki-Saldana, gastritis, peptic ulcer disease, diverticulosis, inflammatory bowel disease, hemorrhoids, fissure, colitis, malignancy, Meckel's diverticulum, this is not meant to be an all- inclusive list. EKG interpreted by me (3pts min.). @ -Not done X-rays interpreted by me (1pt min.). @ -Yes and demonstrates appropriate placement of the PEG tube CT interpreted by me (1pt min.). @ -None done U/S interpreted by me (1pt. min.). @ -None done What testing was considered but not performed or refused? (CT, X-rays, U/S, labs)? Why? @ -None What meds were considered but not given or refused? Why? @ -None Did you discuss the management of the patient with other professionals (professionals i.e. , PA, ELECTRICAL DESIGN TECHNOLOGIST, lab, RT, psych nurse, social science teacher, laborer syrup machine, teacher, production officer, disease case manager)? Give summary @ -No Was smoking cessation discussed for >3mins.? @ -No Was critical care preformed (if so, how long)? @ -No Were there social determinants of health that impacted care today? How? (Homelessness, low income, unemployed, alcoholism, drug addiction, transportation, low edu. Level, literacy, decrease access to med. care, alf, rehab)? @ -Patient currently resides in rehab Was there de-escalation of care discussed even if they declined (Discuss DNR or withdrawal of care, Hospice)? DNR status @ -No What co-morbidities impacted this encounter? (DM, HTN, Smoking, COPD, CAD, Cancer, CVA, ARF, Chemo, Hep., AIDS, mental health diagnosis, sleep apnea, morbid obesity)? @ -Laryngeal mass Was patient admitted / discharged? Hospital course, mention meds given and route, prescriptions, significant lab abnormalities, going to OR and other pert inent info. @ -Upon arrival patient seen and evaluated in room 1. Thorough history and physical exam was performed. We did attempt to contact the facility however they are unaware of the tube size that the patient has. I cannot find this in any of my charting through the hospital. I did attempt to place a 16 Singaporean tube which passed without difficulty. Postplacement x-ray was performed which demonstrates appropriate placement of the tube. I conducted blood work myself. Hemoglobin is 7.4. Patient was discharged from the hospital with this hemoglobin level. He does not require transfusion at this time. He does have a scheduled colonoscopy planned for the . No need for urgent colonoscopy as the patient has had intermittent bleeding since July. Patient will be discharged back to the facility at this time. He is hemodynamically stable with a functioning PEG tube. Patient discharged in stable condition Undiagnosed new problem with uncertain prognosis? @ -No Drug Therapy requiring intensive monitoring for toxicity (Heparin, Nitro, Insulin, Cardizem)? @ -No Were any procedures done? @ -No Diagnosis/symptom? @ -Acute PEG tube dislodgment, chronic anemia Acute, or Chronic, or Acute on Chronic? @ -Acute, acute on chronic Uncomplicated (without systemic symptoms) or Complicated (systemic symptoms)? @ -Complicated Side effects of treatment? @ -No Exacerbation, Progression, or Severe Exacerbation? @ -No Poses a threat to life or bodily function? How? (Chest pain, [place], [place], pneumonia, PE, COPD, DKA, ARF, appy, cholecystitis, CVA, Diverticulitis, Homicidal, S uicidal, threat to staff... and all critical care pts) @ -No - Lab Data Result diagrams: 11/27/24 12:45 11/27/24 12:55 Lab Results 11/27/24 11/27/24 11/27/24 Range/Units 12:45 12:55 12:55 WBC 7.6 (3.8-10.6) k/uL RBC 2.79 L (4.30-5.90) m/uL Hgb 7.4 L (13.0-17.5) gm/dL Hct 23.7 L (39.0-53.0) % MCV 85.0 (80.0-100.0) fL MCH 26.4 (25.0-35.0) pg MCHC 31.1 (31.0-37.0) g/dL RDW 17.3 H (11.5-15.5) % Plt Count 379 (150-450) k/uL MPV 7.2 Neutrophils % 69 % Lymphocytes % 18 % Monocytes % 7 % Eosinophils % 3 % Basophils % 0 % Neutrophils # 5.2 (1.3-7.7) k/uL Lymphocytes # 1.4 (1.0-4.8) k/uL Monocytes # 0.6 (0-1.0) k/uL Eosinophils # 0.2 (0-0.7) k/uL Basophils # 0.0 (0-0.2) k/uL Hypochromasia Marked Anisocytosis Slight Sodium 132 L (137-145) mmol/L Potassium 4.8 (3.5-5.1) mmol/L Chloride 97 L (98-107) mmol/L Carbon Dioxide 28 (22-30) mmol/L Anion Gap 7 mmol/L BUN 47 H (9-20) mg/dL Creatinine 1.51 H (0.66-1.25) mg/dL Est GFR (CKD-EPI)AfAm 54 (>60 ml/min/1.73 sqM) Est GFR (CKD-EPI)NonAf 46 (>60 ml/min/1.73 sqM) Glucose 112 H (74-99) mg/dL Calcium 8.6 (8.4-10.2) mg/dL Total Bilirubin 0.5 (0.2-1.3) mg/dL AST 65 H (17-59) U/L ALT 55 H (4-49) U/L Alkaline Phosphatase 72 (38-126) U/L Total Protein 6.6 (6.3-8.2) g/dL Albumin 3.3 L (3.5-5.0) g/dL Blood Type O Positive Blood Type Recheck O Pos Bld Type Recheck Status No Antibody Screen POSITIVE Antibody Identification See Comments Direct Antiglob Test Positive Spec Expiration Date 11/30/20242354 Disposition Clinical Impression: Anemia, PEG tube malfunction Disposition: HOME SELF-CARE Condition: Stable Instructions (If sedation given, give patient instructions): PEG Tube Insertion (DC) Additional Instructions: Your hemoglobin today was 7.4. Your PEG tube was replaced. Return for any new or worsening symptoms Is patient prescribed a controlled substance at d/c from ED?: No Referrals: Red Sanchez DO [Primary Care Provider] - 1-2 days Time of Disposition: 14:26
--- NOTE | 2024-11-27 14:40 | XR ---
EXAMINATION TYPE: XR abdomen 1V DATE OF EXAM: 11/27/2024 2:22 PM COMPARISON: Previous radiograph 02/04/2016. CLINICAL INDICATION: Male, 69 years old with history of peg tube placement; [facility] TECHNIQUE: One radiographic view of the abdomen was obtained. FINDINGS: Percutaneous gastrostomy tube with contrast visualized filling the proximal stomach. No con trast extravasation identified. Nonobstructive bowel gas pattern. Moderate diffuse colonic stool. The visualized lower lungs appear clear. IMPRESSION: Percutaneous gastrostomy tube appears in appropriate positioning with contrast visualized filling the proximal stomach. No contrast extravasation. Nonobstructed bowel gas pattern. [facility], , 11/27/2024 2:38 PM
[2024-11-27 16:40] VITALS: BP 118/70; PULSE 80
== END 2024-11-27 17:32 | disposition home or self-care (01) ==
LOC: EC 12:31
DX: D64.9 Anemia, unspecified (principal); K94.23 Gastrostomy malfunction; Z87.891 Personal history of nicotine dependence
CPT/HCPCS: 36415; 43762; 74018; 80053; 85025; 86850; 86870; 86880; 86900; 86901; 99284

== ENCOUNTER 2024-12-16 22:10 | Emergency (ER) | payer MEDICARE ==
[2024-12-16 22:28] VITALS: TEMP 98.1
[2024-12-16] MEDS: SODIUM CHLORIDE 0.9% 500 ML 500 ML IV STA (22:45)
[2024-12-16 23:10] LABS: Anisocytosis Slight; Basophils % (A) 0 %; Eosinophils # (A) 0.3 k/uL (0-0.7); Eosinophils % (A) 2 %; HCT 26.6 % (39.0-53.0); HGB 8.1 gm/dL (13.0-17.5); Hypochromasia Marked; Lymphocytes # (A) 1.3 k/uL (1.0-4.8); Lymphocytes % (A) 9 %; MCH 27.3 pg (25.0-35.0); MCHC 30.3 g/dL (31.0-37.0); Monocytes # (A) 0.8 k/uL (0-1.0); Monocytes % (A) 5 %; Neutrophils % (A) 83 %; Platelet Count 278 k/uL (150-450); RBC 2.96 m/uL (4.30-5.90); RDW 19.4 % (11.5-15.5); WBC 14.4 k/uL (3.8-10.6)
[2024-12-16 23:17] LABS: VBG PH 7.27 (7.31-7.41)
[2024-12-16 23:24] LABS: Partial Thromboplastin Time 31.4 sec (22.0-30.0); Prothrombin Time 11.5 sec (10.0-12.5)
--- NOTE | 2024-12-16 23:34 | ED ---
URI HPI - General Chief Complaint: Altered Mental Status Stated Complaint: WARNER Time Seen by Provider: 12/16/24 22:21 Source: patient, EMS, RN notes reviewed Mode of arrival: EMS - History of Present Illness Initial Comments: This is a 69-year-old male who presents to the emergency department for URI symptoms and possible altered mental status. There seems to be some conflicting statements as to what brought the patient in. Patient has a tracheostomy and it was first reported that they were concerned about how it was functioning and it being clogged. However, when he arrived to the emergency department it was found to be working fine. Patient does report some coughing and breathing difficulties for the last couple of days and states that he has been fairly weak and rundown. Per [facility] they were also concerned about the patient being altered. However, he is currently alert and oriented x 4. Nursing staff then called [facility] and they advised that he has a trach collar with humidified oxygen but often refuses to wear it. There also seems to be some conflicts with the patient and his family and [facility]. Family states that they plan on having him start hospice next week. - Related Data Home Medications Medication Instructions Recorded Confirmed Amiodarone [Cordarone] 200 mg PO BID 10/12/24 10/29/24 Calcium Carbonate 1250mg(500ca) 1,250 mg PO QID 10/12/24 10/29/24 Doxazosin [Cardura] 4 mg PO DAILY 10/12/24 10/29/24 Finasteride [Proscar] 5 mg PO DAILY 10/12/24 10/29/24 Levothyroxine Sodium [Synthroid] 100 mcg PO DAILY 10/12/24 10/29/24 Pantoprazole [Protonix] 40 mg PO DAILY 10/12/24 10/29/24 QUEtiapine FUMARATE [SEROquel] 25 mg PO HS 10/12/24 10/29/24 polyethylene glycoL 3350 [Miralax] 17 gm PO BID 10/12/24 10/29/24 Acetaminophen Tab [Tylenol] 650 mg PO Q8H PRN 10/29/24 10/29/24 Previous Rx's Medication Instructions Recorded Cyanocobalamin [Vitamin B-12] 1,000 mcg PO DAILY tab 10/24/24 Folic Acid 1 mg PO DAILY tab 12/02/24 Menthol-Camphor Lotion [Sarna 1 applic TOPICAL TID ml 10/24/24 Lotion 0.5%-0.5%] ALPRAZolam [Xanax] 0.5 mg PO Q8H PRN 3 Days #9 tab 11/02/24 Amoxic-Pot Clav 500-125 mg 1 tab PO Q12HR 7 Days #14 tab 11/02/24 [Augmentin 500-125 mg] Apixaban [Eliquis] 5 mg PO BID tab 11/02/24 oxyCODONE HCL [oxyCODONE HCL (IR)] 10 mg PO Q4H PRN 3 Days #18 tab 11/02/24 Allergies Allergy/AdvReac Type Severity Reaction Status Date / Time No Known Allergies Allergy Verified 11/05/24 12:49 Review of Systems ROS Statement: Those systems with pertinent positive or pertinent negative responses have been documented in the HPI. ROS Other: All systems not noted in ROS Statement are negative. Past Medical History Past Medical History: Atrial Fibrillation, Cancer, GERD/Reflux, Hypertension, Prostate Disorder Additional Past Medical History / Comment(s): dehydration, low B/P, kidney problem that was fixed with fluids and sodium was low. Additional hx: BPH, DDD-cervical pain, R/L hand fingers tingling if over used, AGE 18 FX RT FEMUR IN 4 PLACES HAD PLATE/SCEWS-SINCE REMOVED, HAS OPIOD INDUCED CONSTIPATION, TINNITUS bilaterally but pt has noticed it has decreased since he quit smoking, hay fever. cardiac arrest 3 months ago, trach History of Any Multi-Drug Resistant Organisms: None Reported Past Surgical History: Heart Catheterization, Joint Replacement, Orthopedic Surgery Additional Past Surgical History / Comment(s): bilateral CATARACTS, ANT CERVICAL DISCECTOMY/FUSION C4,5,6,7 USING CADAVOR BONE. LT HYDROCELE, LT CARPAL TUNNEL, RT FEMUR SX METAL SINCE REMOVED, COLONOSCOPY, CYSTS REMOVED FROM FOREHEAD,BUTTOCKS,;T RESTORATION. PROSTATE BX X2-BENIGN, partial R knee replacement. cardiac ablation, peg tube, trach placement. Past Anesthesia/Blood Transfusion Reactions: No Reported Reaction Past Psychological History: No Psychological Hx Reported Smoking Status: Former smoker Past Alcohol Use History: Daily Past Drug Use History: None Reported - Past Family History Father Family Medical History: COPD, Dementia Additional Family Medical History / Comment(s): Father at age 84yrs. Mother Family Medical History: Cancer, COPD Additional Family Medical History / Comment(s): NASAL/THROAT CANCER. Mother at age 82 General Exam Limitations: no limitations General appearance: alert, in no apparent distress Head exam: Present: atraumatic, normocephalic, normal inspection Respiratory exam: Present: decreased breath sounds, prolonged expiratory Cardiovascular Exam: Present: regular rate, normal rhythm Neurological exam: Present: alert, oriented X3, CN II-XII intact Psychiatric exam: Present: normal affect, normal mood Skin exam: Present: warm, dry, intact, normal color. Absent: rash Course Vital Signs 12/16/24 12/16/24 12/17/24 22:14 23:55 00:08 Temperature 98.1 F Pulse Rate 93 77 76 Respiratory 18 Rate Blood Pressure 125/79 O2 Sat by Pulse 100 Oximetry Fraction of Inspired Oxygen (FIO2) 12/17/24 12/17/24 00:09 01:39 Temperature Pulse Rate 85 Respiratory 20 Rate Blood Pressure 154/83 O2 Sat by Pulse 97 Oximetry Fraction of 28 Inspired Oxygen (FIO2) Medical Decision Making - Medical Decision Making This is a 69 year old male who presents to the emergency department for shortness of breath. Was pt. sent in by a medical professional or institution? @ -No Did you speak to anyone other than the patient for history? @ -[facility] provided the majority of the history initially. Did you review nursing and triage notes? @ -Yes, and I agree, it is accurate with regards to the patient's symptoms. Were old charts reviewed? @ -No Differential Diagnosis? @ -Differential Dyspnea: Coronary syndrome, arrhythmia, tamponade, asthma, COPD, pulmonary embolism, pneumonia, pneumothorax, pulmonary effusion, anaphylaxis, diabetic ketoacidosis, flailed chest, pulmonary contusion, diaphragmatic rupture, anemia, neuromuscular, this is not meant to be an all-inclusive list. EKG interpreted by me (3pts min.)? @ -EKG interpreted by me demonstrating the following: Sinus rhythm. Ventricular rate 83 bpm, [place] interval 220 ms, QRS duration 82 ms, QTc 430 ms. X-rays interpreted by me (1pt min.)? @ -Chest x-ray obtained, my interpretation identifies no localized consolidations or infiltrates. CT interpreted by me (1pt min.)? @ -Not obtained U/S interpreted by me (1pt. min.)? @ -Not obtained What testing was considered but not performed? (CT, X-rays, U/S, labs)? Why? @ -None What meds were considered but not given? Why? @ -None Did you discuss the management of the patient with other professionals? @ -No Did you reconcile home meds? @ -No Was smoking cessation discussed for >3mins.? @ -No Was critical care preformed (if so, how long)? @ -No Were there social determinants of health that impacted care today? How? (Homelessness, low income, unemployed, alcoholism, drug addiction, tra nsportation, low edu. Level, literacy, decrease access to med. care, prison, rehab)? @ -No Was there de-escalation of care discussed even if they declined? (Discuss DNR or withdrawal of care, Hospice)? @ -No What co-morbidities impacted this encounter? (DM, HTN, Smoking, COPD, CAD, Cancer, CVA, Hep., AIDS, mental health diagnosis, sleep apnea, morbid obesity)? @ -Cancer Was patient admitted / discharged? @ -Discharged. Lab work demonstrates leukocytosis and is otherwise relatively unremarkable. Hemoglobin is similar when compared to prior values. Patient is positive for COVID-19. However, family states that he has been positive for the last couple of weeks. Patient's trach was found to be working fine and he was also alert and oriented x 4. Other than generalized fatigue and feeling somewhat rundown, he did not have any other complaints. Per [facility] he does have a trach collar with humidified oxygen, but often refuses to wear it. There also seems to be some social issues in that the patient does not want to go back to [facility] and his family does not seem to get along with their facility. Discussed with the patient that medically he can be discharged back and we discussed that he needs to be compliant with his trach collar. Patient discharged back to [facility] via EMS in stable condition. Case discussed with ED attending Dr. Alejandro. Return precautions reviewed in depth, the patient is instructed to return to the emergency department with any new, worsening, or concerning symptoms. Patient expressed understanding. Undiagnosed new problem with uncertain prognosis? @ -None Drug Therapy requiring intensive monitoring for toxicity (Heparin, Nitro, Insulin, Cardizem)? @ -None Were any procedures done? @ -None Diagnosis/symptom? @ -Weakness, COVID-19 Acute, or Chronic, or Acute on Chronic? @ -Acute Uncomplicated (without systemic symptoms) or Complicated (systemic symptoms)? @ -Uncomplicated Side effects of treatment? @ -None Exacerbation, Progression, or Severe Exacerbation] @ -Not applicable Poses a threat to life or bodily function? @ -No - Lab Data Result diagrams: 12/16/24 22:34 12/16/24 22:34 Lab Results 12/16/24 12/16/24 12/16/24 Range/Units 22:22 22:34 22:34 WBC 14.4 H (3.8-10.6) k/uL RBC 2.96 L (4.30-5.90) m/uL Hgb 8.1 L (13.0-17.5) gm/dL Hct 26.6 L (39.0-53.0) % MCV 90.0 (80.0-100.0) fL MCH 27.3 (25.0-35.0) pg MCHC 30.3 L (31.0-37.0) g/dL RDW 19.4 H (11.5-15.5) % Plt Count 278 (150-450) k/uL MPV 7.0 Neutrophils % 83 % Lymphocytes % 9 % Monocytes % 5 % Eosinophils % 2 % Basophils % 0 % Neutrophils # 12.0 H (1.3-7.7) k/uL Lymphocytes # 1.3 (1.0-4.8) k/uL Monocytes # 0.8 (0-1.0) k/uL Eosinophils # 0.3 (0-0.7) k/uL Basophils # 0.0 (0-0.2) k/uL Hypochromasia Marked Anisocytosis Slight PT 11.5 (10.0-12.5) sec INR 1.0 (<1.2) APTT 31.4 H (22.0-30.0) sec VBG pH (7.31-7.41) VBG pCO2 (37-51) mmHg VBG HCO3 (24-28) mmol/L Sodium (137-145) mmol/L Potassium (3.5-5.1) mmol/L Chloride (98-107) mmol/L Carbon Dioxide (22-30) mmol/L Anion Gap mmol/L BUN (9-20) mg/dL Creatinine (0.66-1.25) mg/dL Est GFR (CKD-EPI)AfAm (>60 ml/min/1.73 sqM) Est GFR (CKD-EPI)NonAf (>60 ml/min/1.73 sqM) Glucose (74-99) mg/dL Plasma Lactic Acid Drake (0.7-2.0) mmol/L Calcium (8.4-10.2) mg/dL Magnesium (1.6-2.3) mg/dL Total Bilirubin (0.2-1.3) mg/dL AST (17-59) U/L ALT (4-49) U/L Alkaline Phosphatase (38-126) U/L Total Protein (6.3-8.2) g/dL Albumin (3.5-5.0) g/dL Urine Color Light Yellow Urine Appearance Cloudy (Clear) Urine pH 5.0 (5.0-8.0) Ur Specific [place] 1.017 (1.001-1.035) Urine Protein Trace H (Negative) Urine Glucose (UA) Negative (Negative) Urine Ketones Negative (Negative) Urine Blood Negative (Negative) Urine Nitrite Negative (Negative) Urine Bilirubin Negative (Negative) Urine Urobilinogen <2.0 (<2.0) mg/dL Ur Leukocyte Esterase Large H (Negative) Urine RBC 16 H (0-5) /hpf Urine WBC 175 H (0-5) /hpf Urine WBC Clumps Few H (None) /hpf Calcium Oxalate Crystal Occasional H (None) /hpf Urine Bacteria Rare H (None) /hpf Urine Mucus Rare H (None) /hpf Ur Yeast w Hyphae Many (None) /hpf Urine Yeast (Budding) Rare H (None) /hpf Influenza Type A (PCR) (Not Detectd) Influenza Type B (PCR) (Not Detectd) RSV (PCR) (Not Detectd) SARS-CoV-2 (PCR) (Not Detectd) 12/16/24 12/16/24 12/16/24 Range/Units 22:34 22:34 22:34 WBC (3.8-10.6) k/uL RBC (4.30-5.90) m/uL Hgb (13.0-17.5) gm/dL Hct (39.0-53.0) % MCV (80.0-100.0) fL MCH (25.0-35.0) pg MCHC (31.0-37.0) g/dL RDW (11.5-15.5) % Plt Count (150-450) k/uL MPV Neutrophils % % Lymphocytes % % Monocytes % % Eosinophils % % Basophils % % Neutrophils # (1.3-7.7) k/uL Lymphocytes # (1.0-4.8) k/uL Monocytes # (0-1.0) k/uL Eosinophils # (0-0.7) k/uL Basophils # (0-0.2) k/uL Hypochromasia Anisocytosis PT (10.0-12.5) sec INR (<1.2) APTT (22.0-30.0) sec VBG pH (7.31-7.41) VBG pCO2 (37-51) mmHg VBG HCO3 (24-28) mmol/L Sodium 135 L (137-145) mmol/L Potassium 4.3 (3.5-5.1) mmol/L Chloride 102 (98-107) mmol/L Carbon Dioxide 24 (22-30) mmol/L Anion Gap 9 mmol/L BUN 21 H (9-20) mg/dL Creatinine 1.13 (0.66-1.25) mg/dL Est GFR (CKD-EPI)AfAm 76 (>60 ml/min/1.73 sqM) Est GFR (CKD-EPI)NonAf 66 (>60 ml/min/1.73 sqM) Glucose 135 H (74-99) mg/dL Plasma Lactic Acid Drake 1.2 (0.7-2.0) mmol/L Calcium 8.4 (8.4-10.2) mg/dL Magnesium 1.6 (1.6-2.3) mg/dL Total Bilirubin 0.4 (0.2-1.3) mg/dL AST 15 L (17-59) U/L ALT 12 (4-49) U/L Alkaline Phosphatase 79 (38-126) U/L Total Protein 6.0 L (6.3-8.2) g/dL Albumin 3.2 L (3.5-5.0) g/dL Urine Color Urine Appearance (Clear) Urine pH (5.0-8.0) Ur Specific [place] (1.001-1.035) Urine Protein (Negative) Urine Glucose (UA) (Negative) Urine Ketones (Negative) Urine Blood (Negative) Urine Nitrite (Negative) Urine Bilirubin (Negative) Urine Urobilinogen (<2.0) mg/dL Ur Leukocyte Esterase (Negative) Urine RBC (0-5) /hpf Urine WBC (0-5) /hpf Urine WBC Clumps (None) /hpf Calcium Oxalate Crystal (None) /hpf Urine Bacteria (None) /hpf Urine Mucus (None) /hpf Ur Yeast w Hyphae (None) /hpf Urine Yeast (Budding) (None) /hpf Influenza Type A (PCR) Not Detected (Not Detectd) Influenza Type B (PCR) Not Detected (Not Detectd) RSV (PCR) Not Detected (Not Detectd) SARS-CoV-2 (PCR) Detected A (Not Detectd) 12/16/24 Range/Units 22:34 WBC (3.8-10.6) k/uL RBC (4.30-5.90) m/uL Hgb (13.0-17.5) gm/dL Hct (39.0-53.0) % MCV (80.0-100.0) fL MCH (25.0-35.0) pg MCHC (31.0-37.0) g/dL RDW (11.5-15.5) % Plt Count (150-450) k/uL MPV Neutrophils % % Lymphocytes % % Monocytes % % Eosinophils % % Basophils % % Neutrophils # (1.3-7.7) k/uL Lymphocytes # (1.0-4.8) k/uL Monocytes # (0-1.0) k/uL Eosinophils # (0-0.7) k/uL Basophils # (0-0.2) k/uL Hypochromasia Anisocytosis PT (10.0-12.5) sec INR (<1.2) APTT (22.0-30.0) sec VBG pH 7.27 L (7.31-7.41) VBG pCO2 54 H (37-51) mmHg VBG HCO3 25 (24-28) mmol/L Sodium (137-145) mmol/L Potassium (3.5-5.1) mmol/L Chloride (98-107) mmol/L Carbon Dioxide (22-30) mmol/L Anion Gap mmol/L BUN (9-20) mg/dL Creatinine (0.66-1.25) mg/dL Est GFR (CKD-EPI)AfAm (>60 ml/min/1.73 sqM) Est GFR (CKD-EPI)NonAf (>60 ml/min/1.73 sqM) Glucose (74-99) mg/dL Plasma Lactic Acid Drake (0.7-2.0) mmol/L Calcium (8.4-10.2) mg/dL Magnesium (1.6-2.3) mg/dL Total Bilirubin (0.2-1.3) mg/dL AST (17-59) U/L ALT (4-49) U/L Alkaline Phosphatase (38-126) U/L Total Protein (6.3-8.2) g/dL Albumin (3.5-5.0) g/dL Urine Color Urine Appearance (Clear) Urine pH (5.0-8.0) Ur Specific [place] (1.001-1.035) Urine Protein (Negative) Urine Glucose (UA) (Negative) Urine Ketones (Negative) Urine Blood (Negative) Urine Nitrite (Negative) Urine Bilirubin (Negative) Urine Urobilinogen (<2.0) mg/dL Ur Leukocyte Esterase (Negative) Urine RBC (0-5) /hpf Urine WBC (0-5) /hpf Urine WBC Clumps (None) /hpf Calcium Oxalate Crystal (None) /hpf Urine Bacteria (None) /hpf Urine Mucus (None) /hpf Ur Yeast w Hyphae (None) /hpf Urine Yeast (Budding) (None) /hpf Influenza Type A (PCR) (Not Detectd) Influenza Type B (PCR) (Not Detectd) RSV (PCR) (Not Detectd) SARS-CoV-2 (PCR) (Not Detectd) - Radiology Data Radiology results: report reviewed, image reviewed Disposition Clinical Impression: COVID-19, Tracheostomy dependent, Weakness Disposition: HOME SELF-CARE Instructions (If sedation given, give patient instructions): COVID-19 (Coronavirus Disease 2019) (ED) Additional Instructions: Return to the emergency department with any new, worsening, or concerning symptoms. Make sure you are wearing your trach collar with humidified oxygen. Follow up with your primary care provider in 1-2 days. Is patient prescribed a controlled substance at d/c from ED?: No Referrals: Red Sanchez DO [Primary Care Provider] - 1-2 days Time of Disposition: 00:42
[2024-12-16 23:50] LABS: Influenza A Not Detected (Not Detectd); Influenza B Not Detected (Not Detectd); RSV Not Detected (Not Detectd)
[2024-12-16 23:53] LABS: ALT 12 U/L (4-49); AST 15 U/L (17-59); African American GFR (CKD) 76 (>60 ml/min/1.73 sqM); Albumin 3.2 g/dL (3.5-5.0); Alkaline Phosphatase 79 U/L (38-126); Anion Gap 9 mmol/L; Blood Urea Nitrogen 21 mg/dL (9-20); Calcium 8.4 mg/dL (8.4-10.2); Carbon Dioxide 24 mmol/L (22-30); Chloride 102 mmol/L (98-107); Glucose 135 mg/dL (74-99); Magnesium 1.6 mg/dL (1.6-2.3); Non-African American GFR(CKD) 66 (>60 ml/min/1.73 sqM); Potassium 4.3 mmol/L (3.5-5.1); Sodium 135 mmol/L (137-145); Total Bilirubin 0.4 mg/dL (0.2-1.3)
[2024-12-16] MEDS: IPRATROPIUM 0.5 MG/2.5 ML NEBU INHALATION STA (23:54)
--- NOTE | 2024-12-17 00:19 | XR ---
EXAM: XR Chest, 2 Views CLINICAL HISTORY: ITS.REASON XR Reason: difficulty breathing TECHNIQUE: Frontal and lateral views of the chest. COMPARISON: 10/29/2024. FINDINGS: Lungs: Unremarkable. No consolidative changes or pleural effusions. Pleural space: See above. Heart: There is cardiomegaly. Mediastinum: Unremarkable. Normal mediastinal contour. Bones/joints: Osseous structures are unremarkable. Mild to moderate degenerative disc disease of the thoracic spine, kyphosis, and levoscoliosis. Osteopenia. Postsurgical changes the lower cervical spine. No acute fracture. Soft tissues: Surgical clips are noted about the thyroid bed. Other findings: Hypoaeration. IMPRESSION: 1. Hypoaeration. 2. Cardiomegaly.
[2024-12-17] MEDS: LORazepam 2 MG/ML INJ IV STA (01:30)
[2024-12-17 01:33] LABS: Appearance,Urine Cloudy (Clear); Bacteria,Urine Rare /hpf; Bilirubin,Urine Negative (Negative); Blood,Urine Negative (Negative); Budding Yeast,Urine Rare /hpf; Calcium Oxalate Crystals,Urine Occasional /hpf; Color,Urine Light Yellow; Glucose,Urine (UA) Negative (Negative); Hyphae Yeast, Urine Many /hpf; Ketones,Urine Negative (Negative); Leukocyte Esterase,Urine Large (Negative); Mucus,Urine Rare /hpf; Nitrite,Urine Negative (Negative); Protein,Urine Trace (Negative); RBC,Urine 16 /hpf (0-5); Specific Gravity,Urine 1.017 (1.001-1.035); Urobilinogen,Urine <2.0 mg/dL (<2.0); WBC,Urine 175 /hpf (0-5)
[2024-12-17 01:42] VITALS: BP 154/83; PULSE 85; RESP 20
== END 2024-12-17 01:46 | disposition home or self-care (01) ==
LOC: EC 22:10
DX: U07.1 COVID-19 (principal); R53.1 Weakness; Z93.0 Tracheostomy status; C80.1 Malignant (primary) neoplasm, unspecified; Z87.891 Personal history of nicotine dependence
CPT/HCPCS: 36415; 94640; 93005; 80053; 82803; 83605; 83735; 85025; 85610; 85730; 81001; 87636; 71046; 99285; 96374; 96361; J2060